=== PATIENT | male | born 1940 | race Caucasian/White ===

== ENCOUNTER 2017-11-03 08:19 | Day surgery (SDC) | payer OTHER, BC ==
[2017-10-29 08:59] VITALS: BMI 30.4
--- NOTE | 2017-11-03 10:03 | HP ---
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 He comes in today for surgical management History Source: Patient, Medical Record Limitations to Obtaining History: No Limitations - Past Medical History Allergies/Adverse Reactions: Allergies Allergy/AdvReac Type Severity Reaction Status Date / Time iodine Allergy Rash Verified 10/29/17 09:00 Sulfa (Sulfonamide Allergy "KIDNEY Verified 10/29/17 09:00 Antibiotics) ISSUES" IRIDOLOGIST: No: Alzheimer's, CVA, Dementia, Migraine, Multiple Sclerosis, Peripheral Neuropathy, Parkinson's, Seizure, Syncope, TIA, Vertigo, Other Cardiovascular: Yes: CAD Pulmonary: No: Asthma, Bronchitis, Cancer, COPD, O2 Dependent, Pneumonia, Previously Intubated, Pulmonary Embolus, Pulmonary Fibrosis, Sleep Apnea, Other Renal/: Yes: Cancer, UTI - Current Medications Current Medications: Home Medications Medication Instructions Recorded Cholecalciferol (Vitamin D3) 2,000 unit PO DAILY 08/02/12 [Vitamin D] Spironolactone 50 mg PO DAILY 01/15/14 Ubidecarenone [Co Q-10] 1 cap PO DAILY 07/03/14 Nebivolol HCl [Bystolic] 10 mg PO DAILY tablet 02/08/15 Escitalopram Oxalate [Lexapro -] 20 mg PO DAILY 10/24/16 Losartan Potassium 100 mg PO DAILY 10/24/16 Mirabegron [Myrbetriq] 25 mg PO DAILY 10/24/16 Omeprazole 20 mg PO DAILY 10/24/16 Cyanocobalamin (Vitamin B-12) 2,500 mcg SL DAILY 11/03/17 [Vitamin B-12] Ezetimibe [Zetia] 10 mg PO DAILY 11/03/17 Famotidine 20 mg PO DAILY 11/03/17 Simvastatin 20 mg PO HS 11/03/17 Torsemide 5 mg PO DAILY 11/03/17 Satellite Physical Exam - Physical Examination Vital Signs: Vital Signs Period Temp Pulse Resp BP Sys/Barber Pulse Ox Last 24 Hr 97.5 F 64 18 142/89 97 General Appearance: Well Nourished, Well Developed, Alert & Oriented x3 ENT: Clear Lung: Clear to auscultation Heart: Regular rate & rhythm Abdomen: Soft, No tenderness, Normal bowel sounds, No CVA Pelvic Exam: Within normal limits External Genitalia Satellite Impression/Plan - Impression/Plan Impression: bladder neck stricture Operative Procedure: resection of bladder neck Date to be Performed: 11/03/17
[2017-11-03] MEDS ORDERED: ACETAMINOPHEN 1000 MG/100 ML VIAL (NON FORMULARY) IVPB ONE (10:04)
[2017-11-03] MEDS ORDERED: IBUPROFEN 800 MG/8 ML IJ IVPB PRN (10:04)
--- NOTE | 2017-11-03 10:04 | HP ---
History & Physical Update - History History: No Change - Physical Physical: No Change - Assessment Assessment: No Change - Plan Plan: No Change
[2017-11-03] MEDS ORDERED: ONDANSETRON 4 MG/2 ML VIAL IVPUSH PRN (10:05)
[2017-11-03] MEDS ORDERED: PROMETHAZINE HCL 25 MG/1 ML VIAL IVPUSH PRN (10:05)
[2017-11-03] MEDS ORDERED: LACTATED RINGERS SOLUTION 1,000 ML IV SCH (10:15)
[2017-11-03] MEDS ORDERED: DEXTROSE 5%-0.45% SALINE 1,000 ML IV SCH (10:15)
[2017-11-03] MEDS ORDERED: PROPOFOL 20 ML ONE ×2 (10:23)
[2017-11-03] MEDS ORDERED: MIDAZOLAM HCL 2 MG/2 ML SINGLE DOSE VIAL ONE (10:23)
[2017-11-03] MEDS ORDERED: LIDOCAINE HCL/PF 2% SDV 5ML VIAL ONE (10:24)
[2017-11-03] MEDS ORDERED: GLYCOPYRROLATE 0.2 MG/1 ML VIAL ONE (10:25)
[2017-11-03] MEDS ORDERED: ceFAZolin SODIUM 1 GM VIAL IVPB ONE (10:42)
[2017-11-03] MEDS ORDERED: ceFAZolin SODIUM 1 GM VIAL ONE (10:44)
[2017-11-03] MEDS ORDERED: DEXAMETHASONE SOD PHOSPHATE 4 MG/1 ML VIAL ONE (10:44)
[2017-11-03] MEDS ORDERED: SODIUM CHLORIDE 0.9% P/F 10 ML VIAL IJ ONE (10:44)
[2017-11-03] MEDS ORDERED: METOPROLOL TARTRATE 5 MG/5 ML VIAL ONE (10:59)
[2017-11-03] MEDS ORDERED: ACETAMINOPHEN INJECTION 100 ML IVPB ONE (12:03)
[2017-11-03 13:31] VITALS: TEMP 98
--- NOTE | 2017-11-03 13:41 | OP ---
DATE OF OPERATION: 11/03/2017 PREOPERATIVE DIAGNOSIS: Bladder neck stricture. POSTOPERATIVE DIAGNOSIS: Bladder neck stricture and prostatic stones. SURGEON: James Cornelius MD PROCEDURE: Cystoscopy, resection of bladder neck, and laser lithotripsy of bladder stones. ESTIMATED BLOOD LOSS: Minimal. SPECIMENS: Include prostate chips and portion of stones. ANESTHESIA: General. ANESTHESIOLOGIST: Lionel Arana MD DRAIN: Geronimo catheter. PREOPERATIVE INDICATIONS: The patient is a 77-year-old male with history of prostate cancer treated with seeds followed by cryotherapy. He has recurrent bladder neck stricture and scarring with difficulty urinating. He has incontinence prior as well. He comes to the OR. OPERATION: The patient was brought to the OR, placed on the table in the supine position, given general anesthesia and IV antibiotics, and placed in the modified lithotomy position. The groin was prepped and draped sterilely, and time-out was performed. Cystoscopy was performed with the resectoscope. The distal urethra had some strictures, which were dilated using curved sounds. At the bladder neck, there was almost complete obliteration of the bladder neck. The guidewire was passed into the bladder. The bladder neck was then dilated to accommodate the scope, and then, the bipolar resectoscope was used to resect the tissue that was obstructive. This resulted in a more open bladder neck. Of note, were 2 large stones, 1 on each side of the prostatic urethra. These were dislodged and then placed into the bladder. Prostate chips were sent out to Pathology. Using the 1000 Fiber Holmium Laser, the stone was broken up. Portions were sent off for pathology. UOs were intact. No evidence of injury to them. The bladder was also intact. An 18-Portuguese Geronimo catheter was placed was placed over wire with clear efflux. Patient was woken up. JAMES CORNELIUS M.D. [id number]
[2017-11-03] MEDS ORDERED: IBUPROFEN 800 MG/8 ML IJ IVPB ONE (14:38)
[2017-11-03] MEDS ORDERED: IBUPROFEN 400 MG TABLET (FP) PO ONE ×2 (15:08→15:09)
[2017-11-03 18:26] VITALS: BP 160/70; PULSE 70
--- NOTE | 2017-11-04 10:56 | PATH ---
Surgical Pathology Report Patient Name: EDEN CALVO Med. Rec. #: [id number] /Age/Gender: 1940 (Age: 77) / M Account: [id number] Location: [facility] SURGICAL Taken: 11/03/2017 Received: 11/03/2017 Reported: 11/04/2017 Physicians: Dustin Cornelius M.D. Specimen(s) Received A: PROSTATE CHIPS B: STONE FRAGMENTS Clinical History Prostate cancer Final Diagnosis A. PROSTATE, TUR: BENIGN PROSTATIC HYPERPLASIA WITH AREA OF NECROSIS, ALONG WITH CORPORA AMYLACEA. NO CARCINOMA IDENTIFIED. B. CALCULI, EXTRACTION: PORTIONS OF CALCULI (GROSS ONLY). Electronically Signed Daryl Mistry M.D. Gross Description A. Received in formalin labeled "prostate chips," is a less than 1 g, 1.2 x 1.0 x 0.2 cm aggregate of bolton soft tissue fragments, consistent with prostate tissue. The specimen is entirely submitted in one cassette. B. Received in formalin labeled "stone fragments," is a 2.0 x 1.5 x 0.2 cm aggregate of bolton, fragmented calculi. No soft tissue is present. No sections are submitted, gross only. /11/03/2017 saudi11/03/2017
== END 2017-11-03 16:00 | disposition home or self-care (01) ==
LOC: JASU-SURG 08:19
PROVIDERS: ATTEND Urology
PROC: 0TBC8ZZ Excision of Bladder Neck, Via Natural or Artificial Opening Endoscopic (ICD-10-PCS; 2017-11-03)
PROC: 0TCB8ZZ Extirpation of Matter from Bladder, Via Natural or Artificial Opening Endoscopic (ICD-10-PCS; principal; 2017-11-03 10:00)
DX: N32.0 Bladder-neck obstruction (principal); Z85.46 Personal history of malignant neoplasm of prostate; N21.0 Calculus in bladder; N39.498 Other specified urinary incontinence
CPT/HCPCS: 88300-TC; 88305-TC; 94760

== ENCOUNTER 2018-04-08 15:52 | Inpatient (IN) | payer OTHER, BC ==
--- NOTE | 2018-04-08 15:59 | PDOC ---
History of Present Illness - General History Source: Patient Exam Limitations: No Limitations <Elizabeth Caal - Last Filed: 04/08/18 18:37> - History of Present Illness Initial Comments: 04/08/18 17:37 The patient is a 78 year old male, with a significant past medical history of Prostate cancer, tumors on kidneys (takes Spironolactone), GI bleed, colon polyps, CAD (but no major interventions), HTN, HLD, borderline diabetes, asthma , urinary incontinence and recent urethral stricture (05/2016) s/p fowler catheter for 2 weeks, who presents to the emergency department with right groin pain for the last several days. The patient was seen by a urologist who told him to come to the ER if the pain persisted. He also reports constipation for the past four days. Patient states he has been taking miralax daily with no improvement. Patient has been on levaquin for the past week. The patient denies chest pain, shortness of breath, headache and dizziness. Denies fever, chills, nausea, vomit and diarrhea. Denies frequency and urgency. Allergies: Iodine, sulfa Past surgical history: Appendectomy, cholecystectomy, right wrist surgery, right knee arthroscopy, urethral stricture (05/2016) Social Hx: Quit smoking 40 years ago. Denies alcohol use. PCP: Dr. Michelle OSBORNE - Dr. Cornelius <Elmira Hurtado - Last Filed: 04/08/18 19:18> - General Chief Complaint: Constipation Stated Complaint: CONSTIPATION,BACK ABD PAIN Time Seen by Provider: 04/08/18 15:53 Past History - Past Medical History Anemia: No Asthma: Yes (seasonal) Cancer: Yes (PROSTATE ca rx with [id number]) Cardiac Disorders: Yes CVA: No COPD: No CHF: No Dementia: No Diabetes: Yes (NIDDM) GI Disorders: Yes (HEMORRHOIDS;GI BLEED,GERD;H/H;COLON POLYPS) Disorders: Yes (URINARY INCONTINENCE) HTN: Yes Hypercholesterolemia: Yes Liver Disease: No Seizures: No Thyroid Disease: No - Surgical History Abdominal Surgery: No Appendectomy: Yes Cardiac Surgery: No Cholecystectomy: Yes Lung Surgery: No Neurologic Surgery: No Orthopedic Surgery: Yes (RIGHT KNEE ARTHROSCOPY; WRIST SURGERY) - Suicide/Smoking/Psychosocial Hx Smoking Status: Yes Smoking History: Former smoker Have you smoked in the past 12 months: No Number of Cigarettes Smoked Daily: 0 If you are a former smoker, when did you quit?: 37 YRS AGO Hx Alcohol Use: No Drug/Substance Use Hx: No Substance Use Type: None Hx Substance Use Treatment: No <Elizabeth Caal - Last Filed: 04/08/18 18:37> <Elmira Hurtado - Last Filed: 04/08/18 19:18> - Past Medical History Allergies/Adverse Reactions: Allergies Allergy/AdvReac Type Severity Reaction Status Date / Time iodine Allergy Rash Verified 04/08/18 16:07 Sulfa (Sulfonamide Allergy "KIDNEY Verified 04/08/18 16:07 Antibiotics) ISSUES" Home Medications: Ambulatory Orders Cholecalciferol (Vitamin D3) [Vitamin D] 4,000 unit PO DAILY 08/02/12 Ubidecarenone [Co Q-10] 1 cap PO DAILY 07/03/14 Nebivolol HCl [Bystolic] 10 mg PO DAILY tablet 02/08/15 Escitalopram Oxalate [Lexapro -] 20 mg PO DAILY 10/24/16 Losartan Potassium 50 mg PO DAILY 10/24/16 Mirabegron [Myrbetriq] 25 mg PO DAILY 10/24/16 Cyanocobalamin (Vitamin B-12) [Vitamin B-12] 2,500 mcg SL DAILY 11/03/17 Ezetimibe [Zetia] 10 mg PO DAILY 11/03/17 Famotidine 20 mg PO DAILY 11/03/17 Simvastatin 20 mg PO HS 11/03/17 Ammonium Lactate Cream [Lac-Hydrin 12% *Cream*] 1 applic TP ASDIR 04/08/18 Gabapentin [Neurontin -] 300 mg PO BID 04/08/18 Polyethylene Glycol 3350 [Miralax (For Bowel Prep) -] 17 gm PO PRN PRN 04/08/18 Review of Systems - Review of Systems Able to Perform ROS?: Yes Comments:: 04/08/18 17:36 GENERAL/CONSTITUTIONAL: No fever or chills. No weakness. HEAD, EYES, EARS, NOSE AND THROAT: No change in vision. No ear pain or discharge. No sore throat. CARDIOVASCULAR: No chest pain or shortness of breath. RESPIRATORY: No cough, wheezing, or hemoptysis. GASTROINTESTINAL: No nausea, vomiting, diarrhea or constipation. GENITOURINARY:(+) Right groin pain. No dysuria, frequency, or change in urination. MUSCULOSKELETAL: No joint or muscle swelling or pain. No neck or back pain. SKIN: No rash NEUROLOGIC: No headache, vertigo, loss of consciousness, or change in strength/ sensation. ENDOCRINE: No increased thirst. No abnormal weight change. HEMATOLOGIC/LYMPHATIC: No anemia, easy bleeding, or history of blood clots. ALLERGIC/IMMUNOLOGIC: No hives or skin allergy. <Elmira Hurtado - Last Filed: 04/08/18 19:18> *Physical Exam - Vital Signs Last Vital Signs Temp Pulse Resp BP Pulse Ox 98.5 F 71 20 152/82 98 04/08/18 15:53 04/08/18 15:53 04/08/18 15:53 04/08/18 15:53 04/08/18 15:53 - Physical Exam Comments: 04/08/18 17:36 GENERAL: The patient is in no acute distress. HEAD: Normal with no signs of trauma. EYES: PERRLA, EOMI, sclera anicteric, conjunctiva clear. ENT: Ears normal, nares patent, oropharynx clear without exudates. Moist mucous membranes. NECK: Normal range of motion, supple without lymphadenopathy, JVD, or masses. LUNGS: Breath sounds equal, clear to auscultation bilaterally. No wheezes, and no crackles. HEART:Regular rate and rhythm, normal S1 and S2 without murmur, rub or gallop. ABDOMEN: (+) Suprapunic and RLQ tenderness. Soft, normoactive bowel sounds. No guarding, no rebound. No masses palpable. Non distended. Not tympanic. : No external hemorrhoids. No impacted stool in the rectum. EXTREMITIES: Normal range of motion, no edema. No clubbing or cyanosis. No erythema, or tenderness. NEUROLOGICAL: Cranial nerves II through XII grossly intact. Normal speech. No focal neurological deficits. MUSCULOSKELETAL: Back non-tender to palpation, no CVA tenderness SKIN: Warm, Dry, normal turgor, no rashes or lesions noted. <Elmira Hurtado - Last Filed: 04/08/18 19:18> ED Treatment Course - LABORATORY CBC & Chemistry Diagram: 04/08/18 17:30 04/08/18 17:30 <Elizabeth Caal - Last Filed: 04/08/18 18:37> - LABORATORY CBC & Chemistry Diagram: 04/08/18 17:30 04/08/18 17:30 <Elmira Hurtado - Last Filed: 04/08/18 19:18> Medical Decision Making - Medical Decision Making 04/08/18 17:54 Mr Marie is an 78 yo M h/o Prostate cancer s/p prostatectomy, cryo and radiation with resulting uretheral stricture s/p dilation procedure with resulting urinary incontinence, tumors on kidneys (takes Spironolactone), GI bleed, colon polyps, CAD, HTN, HLD, borderline diabetes, asthma, urinary incontinence He has complainted of some lower abdominal pain PMD started Levaquin last week and ordered Pelvic CT as well as Ultrasound His CT demonstrates emphasematous cystitis, stranding around the bladder US no acute pathology Pt contacted [place] urologist in the city who recommended that he stop the Levaquin and start Amoxicillin He has taken one dose thus far He also noted constipation for the past 4 days Possible fevers No nausea, vomiting, diarrhea Pt is incontinent of urine One examination: RRR CTA Suprapubic and RLQ tenderness to palpation (+) voluntary guarding No rebound Will do: Labs Contact Dr Jefferson Will start abx Rectal examination does not reveal fecal impaction May proceed with enema 04/08/18 18:02 Laboratory Tests 03/24/18 04/05/18 04/08/18 11:00 13:05 17:30 WBC 15.1 H 12.4 H Hgb 11.3 L 10.4 L Hct 35.0 L 31.4 L Plt Count 499 H D 441 H Sodium Potassium Chloride Carbon Dioxide BUN 39 H Creatinine 1.6 H Random Glucose 139 H D 04/08/18 17:30 WBC Hgb Hct Plt Count Sodium 130 L Potassium 4.7 Chloride 101 Carbon Dioxide 23 BUN 45 H Creatinine 1.3 Random Glucose 160 H 04/08/18 18:37 IV abx May need suprapubic tube Fowler cathether will be challenging 04/08/18 18:47 Admit to hospitalist Clinical IMpression: emphasematous cystitis, initial presentation <Elizabeth Caal - Last Filed: 04/08/18 18:37> *DC/Admit/Observation/Transfer - Discharge Dispostion Decision to Admit order: Yes <Elizabeth Caal - Last Filed: 04/08/18 18:37> - Attestations Scribe Attestion: 04/08/18 17:39 Documentation prepared by Elmira Hurtado, acting as medical charge entry specialist for Elizabeth Caal MD. <Elmira Hurtado - Last Filed: 04/08/18 19:18> Diagnosis at time of Disposition: Emphysematous cystitis - Discharge Dispostion Condition at time of disposition: Stable
[2018-04-08 17:46] LABS: HEMATOCRIT 31.4 % (35.4-49); HEMOGLOBIN 10.4 GM/dl (11.7-16.9); MCH 26.8 pg (25.7-33.7); MCHC 33.1 g/dl (32.0-35.9); PLATELET COUNT 441 K/MM3 (134-434); RBC 3.88 M/mm3 (4.00-5.60); WHITE BLOOD COUNT 12.4 K/mm3 (4.0-10.8)
[2018-04-08 17:55] LABS: ALBUMIN 2.7 g/dl (3.5-5.0); ALK PHOS 76 U/L (32-92); ANION GAP 6 (8-16); BLOOD UREA NITROGEN 45 mg/dl (7-18); CALCIUM 8.7 mg/dl (8.4-10.2); CHLORIDE 101 mmol/L (98-107); CO2 23 mmol/L (22-28); CREATININE 1.3 mg/dl (0.6-1.3); GLUCOSE,RANDOM 160 mg/dl (74-106); POTASSIUM 4.7 mmol/L (3.5-5.1); SGOT/AST 18 U/L (10-42); SGPT/ALT 15 U/L (10-40); SODIUM 130 mmol/L (136-145); TOT PROT 5.9 g/dl (6.4-8.3)
[2018-04-08 17:56] LABS: MEAN PLT VOLUME 5.4 fl (7.5-11.1)
[2018-04-08 17:58] LABS: BILIRUBIN,TOTAL < 0.5 mg/dl (0.2-1.0)
[2018-04-08] MEDS ORDERED: CEFTRIAXONE 1 GM in DEXTROSE 5%-WATER - 50 ML IVPB ONE (18:01)
[2018-04-08] MEDS ORDERED: cefTRIAXone SODIUM 1 GM VIAL ONE (18:41)
[2018-04-08 18:54] LABS: PH,URINE 5.5 (4.5-8); URINE APPEARANCE Clear; URINE BILIRUBIN Negative (NEGATIVE); URINE GLUCOSE (UA) Negative (NEGATIVE); URINE KETONE Negative (NEGATIVE); URINE NITRITE Negative (NEGATIVE); URINE UROBILINOGEN 0.2 (0.2-1.0)
[2018-04-08 18:55] LABS: URINE COLOR YELLOW; URINE LEUK ESTERASE 1+ (NEGATIVE); URINE PROTEIN 3+ (NEGATIVE)
[2018-04-08 19:00] LABS: URINE BACTERIA MANY /hpf (NEGATIVE); URINE RBC 20-30 /hpf (0-3); URINE WBC >100 (0-2)
[2018-04-08 19:01] LABS: PLATELET ESTIMATE SLT INCREASE
--- NOTE | 2018-04-08 22:56 | HP ---
CHIEF COMPLAINT: R- Groin Pain, Constipation PCP: Dr. Martinez Urologist- from [place] Urologist: Dr. Cornelius HISTORY OF PRESENT ILLNESS: This is a 78 y/o man with a PMH of Prostate Ca (prostatectomy), cryo radiation- urethral stricture, s/p dilation, tumor on kidneys, colon polyps, CAD, HTN, Borderline DM, Asthma, Urinary Incontinence. Who presents to the ED with R- groin pain x several weeks, constipation x 4-5 days. Patient reports seeing his PCP for same and having a Pelvic CT which showed Emphysematous Cystitis. Patient reports completing Levaquin, post urological procedure, then was placed on Amoxicillin from his [place] Urologist for the continued groin pain. Patient reports starting a new diet fruit based and reports not having a BM for at least 4 days. Patient denies fever, chills, cough, SOB, CP, N/V/D. 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[employer] , [employer], [employer]) Family History: Father: Colon Ca Mother: Lymphoma, HTN Sister: Breast Ca Brother: Prostate Allergies iodine Allergy (Verified 04/08/18 16:07) Rash IVP DYE Sulfa (Sulfonamide Antibiotics) Allergy (Verified 04/08/18 16:07) "KIDNEY ISSUES" HOME MEDICATIONS: Home Medications Medication Instructions Recorded Cholecalciferol (Vitamin D3) 4,000 unit PO DAILY 08/02/12 [Vitamin D] Ubidecarenone [Co Q-10] 1 cap PO DAILY 07/03/14 Nebivolol HCl [Bystolic] 10 mg PO DAILY tablet 02/08/15 Escitalopram Oxalate [Lexapro -] 20 mg PO DAILY 10/24/16 Losartan Potassium 50 mg PO DAILY 10/24/16 Mirabegron [Myrbetriq] 25 mg PO DAILY 10/24/16 Cyanocobalamin (Vitamin B-12) 2,500 mcg SL DAILY 11/03/17 [Vitamin B-12] Ezetimibe [Zetia] 10 mg PO DAILY 11/03/17 Famotidine 20 mg PO DAILY 11/03/17 Simvastatin 20 mg PO HS 11/03/17 Ammonium Lactate Cream [Lac-Hydrin 1 applic TP ASDIR 04/08/18 12% *Cream*] Gabapentin [Neurontin -] 300 mg PO BID 04/08/18 Polyethylene Glycol 3350 [Miralax 17 gm PO PRN PRN 04/08/18 (For Bowel Prep) -] REVIEW OF SYSTEMS CONSTITUTIONAL: Absent: fever, chills, diaphoresis, generalized weakness, malaise, loss of appetite, weight change HEENT: Absent: rhinorrhea, nasal congestion, throat pain, throat swelling, difficulty swallowing, mouth swelling, ear pain, eye pain, visual changes CARDIOVASCULAR: Absent: chest pain, syncope, palpitations, irregular heart rate, lightheadedness , peripheral edema RESPIRATORY: Absent: cough, shortness of breath, dyspnea with exertion, orthopnea, wheezing, stridor, hemoptysis GASTROINTESTINAL: constipation Absent: abdominal pain, abdominal distension, nausea, vomiting, diarrhea, melena , hematochezia GENITOURINARY: groin pain Absent: dysuria, frequency, urgency, hesitancy, hematuria, flank pain, genital pain MUSCULOSKELETAL: back pain Absent: myalgia, arthralgia, joint swelling, neck pain SKIN: Absent: rash, itching, pallor HEMATOLOGIC/IMMUNOLOGIC: Absent: easy bleeding, easy bruising, lymphadenopathy, frequent infections ENDOCRINE: Absent: unexplained weight gain, unexplained weight loss, heat intolerance, cold intolerance NEUROLOGIC: Absent: headache, focal weakness or paresthesias, dizziness, unsteady gait, seizure, mental status changes, bladder or bowel incontinence PSYCHIATRIC: Absent: anxiety, depression, suicidal or homicidal ideation, hallucinations. PHYSICAL EXAMINATION Vital Signs - 24 hr 04/08/18 04/08/18 15:53 22:00 Temperature 98.5 F 98.4 F Pulse Rate 71 65 Respiratory 20 16 Rate Blood Pressure 152/82 131/71 O2 Sat by Pulse 98 97 Oximetry (%) GENERAL: Awake, alert, and fully oriented, in no acute distress. HEAD: Normal with no signs of trauma. EYES: Pupils equal, round and reactive to light, extraocular movements intact, sclera anicteric, conjunctiva clear. No lid lag. EARS, NOSE, THROAT: Ears normal, nares patent, oropharynx clear without exudates. Moist mucous membranes. NECK: Normal range of motion, supple without lymphadenopathy, JVD, or masses. LUNGS: Breath sounds equal, clear to auscultation bilaterally. No wheezes, and no crackles. No accessory muscle use. HEART: Regular rate and rhythm, normal S1 and S2 without murmur, rub or gallop. ABDOMEN: Soft, nontender, not distended, normoactive bowel sounds, no guarding, no rebound, no masses. No hepatomegaly or splenomegaly. GENITOURINARY: No groin tenderness, no palpable mass, no scrotal swelling MUSCULOSKELETAL: Normal range of motion at all joints. No bony deformities or tenderness. No CVA tenderness. UPPER EXTREMITIES: 2+ pulses, warm, well-perfused. No cyanosis. No clubbing. No peripheral edema. LOWER EXTREMITIES: 2+ pulses, warm, well-perfused. No calf tenderness. No peripheral edema. NEUROLOGICAL: Cranial nerves II-XII intact. Normal speech. Gait not observed. PSYCHIATRIC: Cooperative. Good eye contact. Appropriate mood and affect. SKIN: Warm, dry, normal turgor, no rashes or lesions noted, normal capillary refill. Laboratory Results - last 24 hr 04/08/18 04/08/18 04/08/18 17:30 17:30 18:47 WBC 12.4 H RBC 3.88 L Hgb 10.4 L Hct 31.4 L MCV 81.0 MCH 26.8 MCHC 33.1 RDW 14.0 Plt Count 441 H MPV 5.4 L Absolute Neuts (auto) 10.4 Neutrophils % No Result Required. Neutrophils % (Manual) 90.0 H Band Neutrophils % 1.0 Lymphocytes % No Result Required. Lymphocytes % (Manual) 5.0 L Monocytes % (Manual) 4 Platelet Estimate Slt increase Sodium 130 L Potassium 4.7 Chloride 101 Carbon Dioxide 23 Anion Gap 6 L BUN 45 H Creatinine 1.3 Creat Clearance w eGFR 53.12 Random Glucose 160 H Calcium 8.7 Total Bilirubin < 0.5 AST 18 ALT 15 D Alkaline Phosphatase 76 Total Protein 5.9 L Albumin 2.7 L Urine Color Yellow Urine Appearance Clear Urine pH 5.5 Ur Specific Mascot 1.020 Urine Protein 3+ H Urine Glucose (UA) Negative Urine Ketones Negative Urine Blood 2+ H Urine Nitrite Negative Urine Bilirubin Negative Urine Urobilinogen 0.2 Ur Leukocyte Esterase 1+ H Urine RBC 20-30 Urine WBC >100 Urine Bacteria Many ASSESSMENT/PLAN: This is a 78 y/o man with a PMH Prostate Ca (prostatectomy), Cryo Radiation- Urethral Stricture, s/p Dilation, Tumors on Kidneys, Colon Polyps, CAD, HTN, Borderline DM, Asthma, Urinary Incontinence. Admitted for Emphysematous Cystitis , Constipation. Plan: 1. Emphysematous Cystitis - Failed Outpatient Therapy ABX - UA: +3 protein, +2 blood, +1 leukocyte esterase, >100 WBCs, 20-30 RBCs, many Bacteria - Urine Culture pending - WBC 12.4 with L- shift - Rocephin given in ED, will continue - Appreciate Urology consult - Appreciate ID consult - Repeat CBC, BMP in am - Monitor vitals - Tylenol prn - NPO 2. Constipation - Will order Abdominal CT r/o obstruction - Consider Mag Citrate or Enema if CT shows retained stool 3. Hyponatremia - Likely secondary to renal losses vs ARF vs ADH - Will order urine osmo, urine Na, serum osm - Repeat BMP in am - Gentle IVF 4. Hypertension - stable - Monitor BP - Continue home meds - Monitor renal function 5. Boderline DM - stable - BGMs - Consider ISS, when diet resumed 6. Asthma - stable - Duonebs prn 7. FEN - D51/2NS@42ml/hr - K repleted, monitor - NPO 8. DVT ppx - OOB - SCDs - Hold AC secondary to Hematuria Code Status: Full Code Dispo: Requires Inpatient Care Problem List - Problem (1) Emphysematous cystitis Code(s): N30.80 - OTHER CYSTITIS WITHOUT HEMATURIA (2) Groin pain Code(s): R10.30 - LOWER ABDOMINAL PAIN, UNSPECIFIED (3) Constipation Code(s): K59.00 - CONSTIPATION, UNSPECIFIED (4) HTN (hypertension) Code(s): I10 - ESSENTIAL (PRIMARY) HYPERTENSION (5) CAD (coronary artery disease) Code(s): I25.10 - ATHSCL HEART DISEASE OF [place] CORONARY ARTERY W/O ANG PCTRS Visit type - Emergency Visit Emergency Visit: Yes ED Registration Date: 04/08/18 Care time: The patient presented to the Emergency Department on the above date and was hospitalized for further evaluation of their emergent condition. - New Patient This patient is new to me today: Yes Date on this admission: 04/08/18 - Critical Care Critical Care patient: No Hospitalist Screening - Colonoscopy Questionnaire Colonoscopy Questionnaire: Colonoscopy Questionnaire - Patient: 50 - 75 years old and never had a screening colonoscopy: No History of colon or rectal polyps, or CA: No History of IBD, Crohn's disease or UC: No History of abdominal radiation therapy as a child: No - Relative: 1 with colon or rectal CA, or polyps at age 60 or younger: Yes Colon or rectal CA diagnosed at age 45 or younger: No Multiple relatives with colon or rectal CA: Yes - Outcome: Screening Result: Positive Screen
[2018-04-08 23:38] VITALS: BMI 31.8
[2018-04-09] MEDS: DEXTROSE 5%-0.45% SALINE 1,000 ML IV SCH (01:18)
[2018-04-09] MEDS: GABAPENTIN 300 MG CAPSULE (FP) PO SCH ×3 (01:18→21:41)
[2018-04-09 08:44] LABS: ANION GAP 7 (8-16); BLOOD UREA NITROGEN 32 mg/dl (7-18); CALCIUM 9.3 mg/dl (8.4-10.2); CHLORIDE 103 mmol/L (98-107); CO2 24 mmol/L (22-28); GLUCOSE,RANDOM 118 mg/dl (74-106); POTASSIUM 4.6 mmol/L (3.5-5.1); SODIUM 134 mmol/L (136-145)
[2018-04-09 08:47] LABS: BASO % 0.4 % (0-2.0); EOS % 3.3 % (0-4.5); HEMATOCRIT 30.5 % (35.4-49); LYMPH % 16.2 % (8-40); MCH 26.8 pg (25.7-33.7); MCHC 32.9 g/dl (32.0-35.9); MEAN CELL VOLUME 81.4 fl (80-96); MONO % 8.8 % (3.8-10.2); NEUT % 71.3 % (42.8-82.8); PLATELET COUNT 437 K/MM3 (134-434); RBC 3.74 M/mm3 (4.00-5.60); RDW 13.5 % (11.9-15.9); WHITE BLOOD COUNT 9.9 K/mm3 (4.0-10.8)
[2018-04-09 09:01] LABS: MEAN PLT VOLUME 5.2 fl (7.5-11.1)
--- NOTE | 2018-04-09 09:01 | PN ---
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
--- NOTE | 2018-04-09 09:49 | CONS ---
DATE OF CONSULTATION: DATE OF DICTATION: 04/09/2018 HISTORY OF PRESENT ILLNESS: The patient is an 78-year-old male who is evaluated for a urinary tract infection. The patient has a history of prostate cancer. He is status post prostate surgery, cryotherapy and radiation. His course has been complicated by a urethral stricture which requires occasional dilatation. His last dilatation procedure was approximately 3 months ago. He now presents with worsening right groin pain and constipation. He presented to his urologist where he received a course of Levaquin for 1 week for a possible urinary tract infection followed by a short course of amoxicillin. The pain persisted. He presented to the emergency room where he was afebrile with a slightly elevated white blood cell count. CAT scan of the abdomen and pelvis shows emphysematous cystitis. He was empirically treated with ceftriaxone. The patient reports urinary incontinence. He denies any dysuria or hematuria. Denies prior history of resistant urinary tract pathogens. On review of his previous microbiology data he has had numerous urine cultures which were described as contaminated. He denies any associated fever or chills. PAST MEDICAL HISTORY: Positive for prostate cancer, status post surgery and radiation, coronary artery disease, hypertension, hyperlipidemia, diabetes mellitus, asthma, urethral stricture. PAST SURGICAL HISTORY: Status post prostatectomy, appendectomy, dilatation of urethral stricture, cholecystectomy. ALLERGIES: IODINE and SULFA. SOCIAL HISTORY: Lives at home. He is a former smoker. 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 SYSTEMS REVIEW: Neurologic: No loss of consciousness, seizure activity, focal weakness. Cardiac: Negative chest pain or palpitations. Respiratory: Negative cough or sputum production. Gastrointestinal: Negative vomiting or diarrhea. Genitourinary: As per HPI. LABORATORY DATA: White count 12.4, hematocrit 31.4, platelet count 441. Creatinine 1.3. Urinalysis: Greater than 100 white cells. Blood and urine cultures are pending. Chest x-ray shows pulmonary vascular congestion. PHYSICAL EXAMINATION: General: He is awake and alert. He is in no acute respiratory distress. He is nontoxic appearing. Vital Signs: Temperature 98.4, blood pressure 135/86, pulse 65, regular, respirations 19 per minute. HEENT: Sclerae are anicteric. Cardiac: Heart sounds S1, S2. Lungs: Clear. Abdomen: Soft. There is slight tenderness in the suprapubic area and right groin area. No mass, rebound or rigidity. Extremities: Negative for edema. IMPRESSION: 1. Urinary tract infection/possible sepsis secondary to urinary tract infection. 2. Emphysematous cystitis. 3. History of urethral stricture/obstructive uropathy. 4. History of prostate cancer. 5. Diabetes mellitus. RECOMMENDATIONS: Pending sepsis workup empiric antibiotic coverage with Zosyn 3.375 g IV piggyback every 8 hours. Urology evaluation. Thank you for the kind referral. ARIANA REDDY M.D. [id number]
[2018-04-09] MEDS ORDERED: CEFTRIAXONE 1 G/50 ML PREMIX 50 ML IVPB SCH (10:00)
[2018-04-09] MEDS: PIPERACILLIN/TAZOB 3.375 GM 3.375 GM in DEXTROSE 5%-WATER - 50 ML IVPB SCH ×2 (11:08→18:21)
[2018-04-09] MEDS: ESCITALOPRAM OXALATE 20 MG TABLET (FP) PO SCH (11:12)
[2018-04-09] MEDS: EZETIMIBE 10 MG TABLET (FP) PO SCH (11:13)
[2018-04-09] MEDS: NEBIVOLOL 10 MG TABLET (FP) PO SCH (11:14)
[2018-04-09] MEDS: LOSARTAN POTASSIUM 50 MG TABLET (FP) PO SCH (11:14)
--- NOTE | 2018-04-09 12:00 | PN ---
Progress Note (short form) - Note Progress Note: Subjective: The patient was seen and examined at the bedside, he has complaints of lower back pain and b/l groin pain. Current Medications Generic Name Dose Route Start Last Admin Trade Name Freq PRN Reason Stop Dose Admin Atorvastatin Calcium 10 mg 04/09/18 22:00 Lipitor - PO HS YAYA Ezetimibe 10 mg 04/09/18 10:00 04/09/18 11:13 Zetia - PO 10 mg DAILY YAYA Administration Escitalopram Oxalate 20 mg 04/09/18 10:00 04/09/18 11:12 Lexapro - PO 20 mg DAILY YAYA Administration Gabapentin 300 mg 04/09/18 00:45 04/09/18 11:09 Neurontin - PO 300 mg BID YAYA Administration Dextrose/Sodium Chloride 1,000 mls @ 42 mls/hr 04/09/18 01:00 04/09/18 01:18 D5-1/2ns - IV 42 mls/hr ASDIR YAYA Administration Piperacillin Sod/Tazobactam 50 mls @ 100 mls/hr 04/09/18 10:00 04/09/18 11:08 Sod 3.375 gm/ Dextrose IVPB 100 mls/hr Q8H-IV YAYA Administration Protocol Losartan Potassium 50 mg 04/09/18 10:00 04/09/18 11:14 Cozaar - PO 50 mg DAILY YAYA Administration Morphine Sulfate 2 mg 04/09/18 12:01 Morphine Injection - IVPB Q4H PRN PAIN Nebivolol 10 mg 04/09/18 10:00 04/09/18 11:14 Bystolic - PO 10 mg DAILY YAYA Administration Objective: Vital Signs Period Temp Pulse Resp BP Sys/Barber Pulse Ox Last 24 Hr 98.4 F-98.5 F 65-71 16-20 131-152/71-86 95-98 Physical Exam: General: NAD, A&Ox3 Lungs: CTA bilaterally Heart: RRR, S1S2 Abd: No CVA tenderness, no lower back tenderness. Mild lower abdominal tenderness Ext: B/l lower extremity chronic venous changes CBCD WBC 9.9 K/mm3 (4.0-10.8) 04/09/18 07:30 RBC 3.74 M/mm3 (4.00-5.60) L 04/09/18 07:30 Hgb 10.0 GM/dl (11.7-16.9) L 04/09/18 07:30 Hct 30.5 % (35.4-49) L 04/09/18 07:30 MCV 81.4 fl (80-96) 04/09/18 07:30 MCHC 32.9 g/dl (32.0-35.9) 04/09/18 07:30 RDW 13.5 % (11.9-15.9) 04/09/18 07:30 Plt Count 437 K/MM3 (134-434) H 04/09/18 07:30 MPV 5.2 fl (7.5-11.1) L 04/09/18 07:30 CMP Sodium 134 mmol/L (136-145) L 04/09/18 07:30 Potassium 4.6 mmol/L (3.5-5.1) 04/09/18 07:30 Chloride 103 mmol/L (98-107) 04/09/18 07:30 Carbon Dioxide 24 mmol/L (22-28) 04/09/18 07:30 Anion Gap 7 (8-16) L 04/09/18 07:30 BUN 32 mg/dl (7-18) H D 04/09/18 07:30 Creatinine 1.0 mg/dl (0.6-1.3) D 04/09/18 07:30 Creat Clearance w eGFR 53.12 (>60) 04/08/18 17:30 Random Glucose 118 mg/dl (74-106) H D 04/09/18 07:30 Calcium 9.3 mg/dl (8.4-10.2) 04/09/18 07:30 Total Bilirubin < 0.5 mg/dl (0.2-1.0) 04/08/18 17:30 AST 18 U/L (10-42) 04/08/18 17:30 ALT 15 U/L (10-40) D 04/08/18 17:30 Alkaline Phosphatase 76 U/L (32-92) 04/08/18 17:30 Total Protein 5.9 g/dl (6.4-8.3) L 04/08/18 17:30 Albumin 2.7 g/dl (3.5-5.0) L 04/08/18 17:30 Assessment: This is a pleasant 78 year old male with PMHx of prostate cancer (s/ p prostatectomy) cryo radiation-uretheral stricture, s/p urethral dilatation, colon polyps, CAD, HTN, Asthma, urinary incontinence, borderline DM, who presented to the ED with emphysematous cystitis and constipation. Plan: 1) Emphysematous cystitis with possible UTI - Sepsis workup ongoing - Continue Zosyn for now - Afebrile - WBC now wnl - Morphine for pain control - Awaiting urology evaluation - Appreciate ID consult 2) Constipation - Resolved, patient had BM today - Will discontinue CT - Continue bowel regimen 3) HTN - Continue Cozaar - Continue Bystolic 4) Hyperlipidemia - Continue Zetia - Continue Lipitor 5) Asthma - No evidence of active exacerbation 6) Borderline DM - F/u HgbA1c 7) F/E/N: - Monitor electrolytes - Hyponatremia: resolving - NPO until evaluation by Dr. Hartmann 8) Prophylaxis: - Hold all chemical DVT prophylaxis until evaluated by urology 9) Dispo: - Requires continued inpatient care CODE STATUS: FULL CODE Visit type - Emergency Visit Emergency Visit: Yes ED Registration Date: 04/08/18 Care time: The patient presented to the Emergency Department on the above date and was hospitalized for further evaluation of their emergent condition. - New Patient This patient is new to me today: Yes Date on this admission: 04/09/18 - Critical Care Critical Care patient: No
[2018-04-09] MEDS: morphine CARPU-JECT 2 MG/1 ML DISP.SYRIN IVPB PRN ×3 (12:38→19:15)
--- NOTE | 2018-04-09 14:46 | EKG ---
Test Reason : Blood Pressure : / mmHG Vent. 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
[2018-04-09] MEDS: ATORVASTATIN CA 10 MG TABLET (FP) PO SCH (21:42)
[2018-04-10] MEDS: morphine CARPU-JECT 2 MG/1 ML DISP.SYRIN IVPB PRN (02:02)
[2018-04-10] MEDS: PIPERACILLIN/TAZOB 3.375 GM 3.375 GM in DEXTROSE 5%-WATER - 50 ML IVPB SCH ×3 (02:02→17:46)
[2018-04-10] MEDS: DEXTROSE 5%-0.45% SALINE 1,000 ML IV SCH (02:02)
[2018-04-10] MEDS ORDERED: DOCUSATE SODIUM 100 MG CAPSULE (FP) PO PRN (07:36)
[2018-04-10] MEDS ORDERED: morphine SULFATE 4 MG/ML VIAL IVPB PRN (07:49)
[2018-04-10 09:24] LABS: HEMOGLOBIN 10.3 GM/dl (11.7-16.9); MCH 26.5 pg (25.7-33.7); MCHC 32.3 g/dl (32.0-35.9); MEAN CELL VOLUME 82.3 fl (80-96); PLATELET COUNT 495 K/MM3 (134-434); RBC 3.89 M/mm3 (4.00-5.60); RDW 13.9 % (11.9-15.9); WHITE BLOOD COUNT 11.5 K/mm3 (4.0-10.8)
[2018-04-10 09:27] LABS: MEAN PLT VOLUME 5.5 fl (7.5-11.1)
[2018-04-10 09:46] LABS: ALBUMIN 2.6 g/dl (3.5-5.0); ALK PHOS 73 U/L (32-92); ANION GAP 9 (8-16); BILIRUBIN,TOTAL 0.3 mg/dl (0.2-1.0); BLOOD UREA NITROGEN 33 mg/dl (7-18); CALCIUM 9.3 mg/dl (8.4-10.2); CHLORIDE 99 mmol/L (98-107); CO2 25 mmol/L (22-28); CREATININE 1.3 mg/dl (0.6-1.3); GLUCOSE,RANDOM 117 mg/dl (74-106); SGOT/AST 20 U/L (10-42); SGPT/ALT 19 U/L (10-40); SODIUM 133 mmol/L (136-145); TOT PROT 5.6 g/dl (6.4-8.3)
[2018-04-10] MEDS: ESCITALOPRAM OXALATE 20 MG TABLET (FP) PO SCH (09:57)
[2018-04-10] MEDS: GABAPENTIN 300 MG CAPSULE (FP) PO SCH ×2 (09:57→21:54)
[2018-04-10] MEDS: LOSARTAN POTASSIUM 50 MG TABLET (FP) PO SCH ×2 (09:58→10:15)
[2018-04-10] MEDS: EZETIMIBE 10 MG TABLET (FP) PO SCH (09:59)
[2018-04-10] MEDS: POLYETHYLENE GLYCOL 3350 119 GM BTL PO SCH ×2 (09:59→10:44)
[2018-04-10] MEDS: NEBIVOLOL 10 MG TABLET (FP) PO SCH (10:05)
[2018-04-10] MEDS ORDERED: IBUPROFEN 400 MG TABLET (FP) PO PRN (11:27)
--- NOTE | 2018-04-10 11:34 | CON.GU ---
Consult Consult Specialty:: Referred by:: medicine Reason for Consultation:: prostate cancer, emphasematous cystitis - History of Present Illness Chief Complaint: prostate cancer, emphasematous cystitis History of Present Illness: 78 year old male with history of prostate cancer treated with radiation and then cryoablation with a chronic bladder neck contracture. He saw Dr. Amato in the [facility] who performed a TUR and bladder stone removal. He comes to [facility] with groin and back pain. He had a CT with findings as listed. He is able to void. - History Source History Provided By: Patient, Medical Record Limitations to Obtaining History: No Limitations - Past Medical History Cardio/Vascular: Yes: CAD Renal/: Yes: Cancer, UTI, Other (BN stricture, bladder stones) - Alcohol/Substance Use Hx Alcohol Use: No - Smoking History Smoking history: Former smoker Have you smoked in the past 12 months: No Aproximately how many cigarettes per day: 0 If you are a former smoker, when did you quit?: 37 YRS AGO Home Medications - Allergies Allergies/Adverse Reactions: Allergies Allergy/AdvReac Type Severity Reaction Status Date / Time iodine Allergy Rash Verified 04/08/18 16:07 Sulfa (Sulfonamide Allergy "KIDNEY Verified 04/08/18 16:07 Antibiotics) ISSUES" - Home Medications Home Medications: Ambulatory Orders Cholecalciferol (Vitamin D3) [Vitamin D] 4,000 unit PO DAILY 08/02/12 Ubidecarenone [Co Q-10] 1 cap PO DAILY 07/03/14 Nebivolol HCl [Bystolic] 10 mg PO DAILY tablet 02/08/15 Escitalopram Oxalate [Lexapro -] 20 mg PO DAILY 10/24/16 Losartan Potassium 50 mg PO DAILY 10/24/16 Mirabegron [Myrbetriq] 25 mg PO DAILY 10/24/16 Cyanocobalamin (Vitamin B-12) [Vitamin B-12] 2,500 mcg SL DAILY 11/03/17 Ezetimibe [Zetia] 10 mg PO DAILY 11/03/17 Famotidine 20 mg PO DAILY 11/03/17 Simvastatin 20 mg PO HS 11/03/17 Ammonium Lactate Cream [Lac-Hydrin 12% *Cream*] 1 applic TP ASDIR 04/08/18 Gabapentin [Neurontin -] 300 mg PO BID 04/08/18 Polyethylene Glycol 3350 [Miralax (For Bowel Prep) -] 17 gm PO PRN PRN 04/08/18 Review of Systems - Review of Systems Constitutional: reports: Fever Genitourinary: reports: Incontinence, Pain Musculoskeletal: reports: Back Pain Physical Exam- Vital Signs: Vital Signs Temperature 97.9 F 04/10/18 06:50 Pulse Rate 64 04/10/18 08:24 Respiratory Rate 18 04/10/18 08:57 Blood Pressure 127/66 04/10/18 08:24 O2 Sat by Pulse Oximetry (%) 99 04/10/18 08:57 Constitutional: Yes: Well Nourished, No Distress, Calm Eyes: Yes: WNL, Conjunctiva Clear, EOM Intact HENT: Yes: WNL, Atraumatic, Normocephalic Cardiovascular: Yes: WNL, Regular Rate and Rhythm Respiratory: Yes: WNL, Regular, CTA Bilaterally Gastrointestinal: Yes: WNL, Normal Bowel Sounds Renal/: Yes: Incontinence. No: Bladder Distention, CVA Tenderness - Left, CVA Tenderness - Right, Geronimo Present, Hematuria Labs: CBC, BMP 04/10/18 06:00 04/10/18 06:00 Imaging - Results Cat Scan: Report Reviewed Problem List - Problems (1) Malignant neoplasm of prostate Assessment/Plan: PSA Code(s): C61 - MALIGNANT NEOPLASM OF PROSTATE (2) Urethral stricture Code(s): N35.9 - URETHRAL STRICTURE, UNSPECIFIED (3) Emphysematous cystitis Assessment/Plan: white count is slightly higher tpoday. awaiting all culture results. Repeat pelvic CT on 04/11 to see if any abscess is forming. continue IV abx. switch to PO based on culture results. Code(s): N30.80 - OTHER CYSTITIS WITHOUT HEMATURIA
--- NOTE | 2018-04-10 12:59 | PN ---
Progress Note (short form) - Note Progress Note: Subjective: The patient was seen and examined at the bedside, he still have complaints of groin and lower back pain. Instructed patient to ambulate and sit in chair instead of bed all day Increased morphine to 3mg Current Medications Generic Name Dose Route Start Last Admin Trade Name Freq PRN Reason Stop Dose Admin Atorvastatin Calcium 10 mg 04/09/18 22:00 04/09/18 21:42 Lipitor - PO 10 mg HS YAYA Administration Docusate Sodium 100 mg 04/10/18 07:36 Colace - PO Q8H PRN CONSTIPATION Ezetimibe 10 mg 04/09/18 10:00 04/10/18 09:59 Zetia - PO 10 mg DAILY YAYA Administration Escitalopram Oxalate 20 mg 04/09/18 10:00 04/10/18 09:57 Lexapro - PO 20 mg DAILY YAYA Administration Gabapentin 300 mg 04/09/18 00:45 04/10/18 09:57 Neurontin - PO 300 mg BID YAYA Administration Piperacillin Sod/Tazobactam 50 mls @ 100 mls/hr 04/09/18 10:00 04/10/18 10:02 Sod 3.375 gm/ Dextrose IVPB 100 mls/hr Q8H-IV YAYA Administration Protocol Ibuprofen 800 mg 04/10/18 11:27 Motrin - PO Q8H PRN PAIN LEVEL 1 - 3 Losartan Potassium 50 mg 04/09/18 10:00 04/10/18 10:15 Cozaar - PO Not Given DAILY YAYA Morphine Sulfate 3 mg 04/10/18 07:49 04/10/18 08:25 Morphine Sulfate IVPB 3 mg Q4H PRN Administration PAIN LEVEL 6-10 Nebivolol 10 mg 04/09/18 10:00 04/10/18 10:05 Bystolic - PO 10 mg DAILY YAYA Administration Non-Formulary Medication 5 mg 04/10/18 10:00 Linagliptin [Tradjenta] PO DAILY YAYA Polyethylene Glycol 17 gm 04/10/18 10:00 04/10/18 10:44 Miralax (For Daily Use) - PO 17 gm DAILY YAYA Administration Objective: Vital Signs Period Temp Pulse Resp BP Sys/Barber Pulse Ox Last 24 Hr 97.9 F-99.3 F 57-64 18-18 117-153/64-77 97-99 Physical Exam: General: NAD, A&Ox3 Lungs: CTA bilaterally Heart: RRR, S1S2 Abd: No CVA tenderness, no lower back tenderness. Mild lower abdominal tenderness Ext: B/l lower extremity chronic venous changes CBCD WBC 11.5 K/mm3 (4.0-10.8) H 04/10/18 06:00 RBC 3.89 M/mm3 (4.00-5.60) L 04/10/18 06:00 Hgb 10.3 GM/dl (11.7-16.9) L 04/10/18 06:00 Hct 32.0 % (35.4-49) L 04/10/18 06:00 MCV 82.3 fl (80-96) 04/10/18 06:00 MCHC 32.3 g/dl (32.0-35.9) 04/10/18 06:00 RDW 13.9 % (11.9-15.9) 04/10/18 06:00 Plt Count 495 K/MM3 (134-434) H 04/10/18 06:00 MPV 5.5 fl (7.5-11.1) L 04/10/18 06:00 CMP Sodium 133 mmol/L (136-145) L 04/10/18 06:00 Potassium 5.0 mmol/L (3.5-5.1) 04/10/18 06:00 Chloride 99 mmol/L (98-107) 04/10/18 06:00 Carbon Dioxide 25 mmol/L (22-28) 04/10/18 06:00 Anion Gap 9 (8-16) 04/10/18 06:00 BUN 33 mg/dl (7-18) H 04/10/18 06:00 Creatinine 1.3 mg/dl (0.6-1.3) D 04/10/18 06:00 Creat Clearance w eGFR 53.12 (>60) 04/10/18 06:00 Random Glucose 117 mg/dl (74-106) H 04/10/18 06:00 Calcium 9.3 mg/dl (8.4-10.2) 04/10/18 06:00 Total Bilirubin 0.3 mg/dl (0.2-1.0) D 04/10/18 06:00 AST 20 U/L (10-42) 04/10/18 06:00 ALT 19 U/L (10-40) D 04/10/18 06:00 Alkaline Phosphatase 73 U/L (32-92) 04/10/18 06:00 Total Protein 5.6 g/dl (6.4-8.3) L 04/10/18 06:00 Albumin 2.6 g/dl (3.5-5.0) L 04/10/18 06:00 Assessment: This is a pleasant 78 year old male with PMHx of prostate cancer (s/ p prostatectomy) cryo radiation-uretheral stricture, s/p urethral dilatation, colon polyps, CAD, HTN, Asthma, urinary incontinence, borderline DM, who presented to the ED with emphysematous cystitis and constipation. Plan: 1) Emphysematous cystitis with UTI - Sepsis workup ongoing - WBC trending up, will consider repeat CT pelvis tomorrow - Continue Zosyn for now - Afebrile - WBC now wnl - Morphine for pain control - Awaiting urology evaluation - Appreciate ID consult 2) Constipation - Resolved, patient had BM today - Will discontinue CT - Continue bowel regimen 3) HTN - Continue Cozaar - Continue Bystolic 4) Hyperlipidemia - Continue Zetia - Continue Lipitor 5) DM - Patient reports his HgbA1c was 7 last week and was started on Trajenta - Instructed patient to have bring in medication as it is non-formulary at [facility] 6) Asthma - No evidence of active exacerbation 7) F/E/N: - Monitor electrolytes - Hyponatremia: continue to monitor - Sodium controlled, diabetic diet 8) Prophylaxis: - Hold all chemical DVT prophylaxis until evaluated by urology 9) Dispo: - Requires continued inpatient care CODE STATUS: FULL CODE Visit type - Emergency Visit Emergency Visit: Yes ED Registration Date: 04/08/18 Care time: The patient presented to the Emergency Department on the above date and was hospitalized for further evaluation of their emergent condition. - New Patient This patient is new to me today: No - Critical Care Critical Care patient: No
[2018-04-10] MEDS ORDERED: NAPROXEN 375 MG TABLET (FP) PO ONE (20:45)
[2018-04-10] MEDS ORDERED: INSULIN (NOVOLOG) ASPART 100 UNITS/ML 10ML VIAL ONE (21:42)
[2018-04-10] MEDS: ATORVASTATIN CA 10 MG TABLET (FP) PO SCH (21:54)
[2018-04-11] MEDS: PIPERACILLIN/TAZOB 3.375 GM 3.375 GM in DEXTROSE 5%-WATER - 50 ML IVPB SCH (01:21)
[2018-04-11] MEDS: LINAGLIPTIN PO SCH (06:14)
[2018-04-11] MEDS ORDERED: PT OWN MED DRAWER 7, Y5N ONE ×3 (06:21→18:16)
--- NOTE | 2018-04-11 07:55 | PN ---
Physical Exam: SUBJECTIVE: Patient seen and examined, patient is ambulatory throughout the nursing station, denies any chest pain or shortness of breath, patient denies any abdominal pain nausea vomiting denies any tactile fevers, patient reports groin pain and lower back pain. OBJECTIVE: Vital Signs Period Temp Pulse Resp BP Sys/Barber Pulse Ox Last 24 Hr 97.8 F-98.6 F 55-64 16-19 119-172/55-72 97-99 GENERAL: The patient is awake, alert, and fully oriented, in no acute distress. HEAD: Normal with no signs of trauma. EYES: PERRL, extraocular movements intact, sclera anicteric, conjunctiva clear. No ptosis. ENT: Ears normal, nares patent, oropharynx clear without exudates, moist mucous membranes. NECK: Trachea midline, full range of motion, supple. LUNGS: Breath sounds equal, clear to auscultation bilaterally, no wheezes, no crackles, no accessory muscle use. HEART: Regular rate and rhythm, S1, S2 without murmur, rub or gallop. ABDOMEN: Soft, negative cva tenderness, nontender, nondistended, normoactive bowel sounds, no guarding, no rebound, no hepatosplenomegaly, no masses. : incontinent of urine EXTREMITIES: 2+ pulses, warm, well-perfused, no edema. NEUROLOGICAL: Cranial nerves II through XII grossly intact. Normal speech, gait not observed. PSYCH: Normal mood, normal affect. SKIN: Warm, dry, normal turgor, no rashes or lesions noted Laboratory Results - last 24 hr CBC WBC 11.1 K/mm3 (4.0-10.8) H 04/11/18 07:40 RBC 3.74 M/mm3 (4.00-5.60) L 04/11/18 07:40 Hgb 10.2 GM/dl (11.7-16.9) L 04/11/18 07:40 Hct 30.6 % (35.4-49) L 04/11/18 07:40 MCV 81.9 fl (80-96) 04/11/18 07:40 MCH 27.2 pg (25.7-33.7) 04/11/18 07:40 MCHC 33.2 g/dl (32.0-35.9) 04/11/18 07:40 RDW 13.7 % (11.9-15.9) 04/11/18 07:40 Plt Count 445 K/MM3 (134-434) H 04/11/18 07:40 MPV 5.4 fl (7.5-11.1) L 04/11/18 07:40 Absolute Neuts (auto) 7.1 # 04/09/18 07:30 Neutrophils % 71.3 % (42.8-82.8) 04/09/18 07:30 Neutrophils % (Manual) 90.0 % (42.8-82.8) H 04/08/18 17:30 Band Neutrophils % 1.0 % (0-10) 04/08/18 17:30 Lymphocytes % 16.2 % (8-40) D 04/09/18 07:30 Lymphocytes % (Manual) 5.0 % (8-40) L 04/08/18 17:30 Monocytes % 8.8 % (3.8-10.2) 04/09/18 07:30 Monocytes % (Manual) 4 % (3.8-10.2) 04/08/18 17:30 Eosinophils % 3.3 % (0-4.5) 04/09/18 07:30 Basophils % 0.4 % (0-2.0) 04/09/18 07:30 Platelet Estimate Slt increase 04/08/18 17:30 CMP Sodium 134 mmol/L (136-145) L 04/11/18 07:40 Potassium 4.8 mmol/L (3.5-5.1) 04/11/18 07:40 Chloride 103 mmol/L (98-107) 04/11/18 07:40 Carbon Dioxide 24 mmol/L (22-28) 04/11/18 07:40 Anion Gap 7 (8-16) L 04/11/18 07:40 BUN 31 mg/dl (7-18) H 04/11/18 07:40 Creatinine 1.3 mg/dl (0.6-1.3) 04/11/18 07:40 Creat Clearance w eGFR 53.12 (>60) 04/11/18 07:40 POC Glucometer 91 UNITS (80-120) 04/11/18 11:59 Random Glucose 134 mg/dl (74-106) H 04/11/18 07:40 Hemoglobin A1c % 6.9 % (4.8-6.0) H D 04/10/18 06:00 Serum Osmolality 291 mosm/kg (278-305) 04/09/18 07:30 Lactic Acid 0.5 mmol/L (0.0-2.0) 04/09/18 07:30 Calcium 9.1 mg/dl (8.4-10.2) 04/11/18 07:40 Total Bilirubin 0.5 mg/dl (0.2-1.0) D 04/11/18 07:40 AST 23 U/L (10-42) 04/11/18 07:40 ALT 22 U/L (10-40) 04/11/18 07:40 Alkaline Phosphatase 80 U/L (32-92) 04/11/18 07:40 Total Protein 5.5 g/dl (6.4-8.3) L 04/11/18 07:40 Albumin 2.5 g/dl (3.5-5.0) L 04/11/18 07:40 Active Medications Generic Name Dose Route Start Last Admin Trade Name Freq PRN Reason Stop Dose Admin Atorvastatin Calcium 10 mg 04/09/18 22:00 04/10/18 21:54 Lipitor - PO 10 mg HS YAYA Administration Docusate Sodium 100 mg 04/10/18 07:36 Colace - PO Q8H PRN CONSTIPATION Ezetimibe 10 mg 04/09/18 10:00 04/10/18 09:59 Zetia - PO 10 mg DAILY YAYA Administration Escitalopram Oxalate 20 mg 04/09/18 10:00 04/10/18 09:57 Lexapro - PO 20 mg DAILY YAYA Administration Gabapentin 300 mg 04/09/18 00:45 04/10/18 21:54 Neurontin - PO 300 mg BID YAYA Administration Piperacillin Sod/Tazobactam 50 mls @ 100 mls/hr 04/09/18 10:00 04/11/18 01:21 Sod 3.375 gm/ Dextrose IVPB 100 mls/hr Q8H-IV YAYA Administration Protocol Ibuprofen 800 mg 04/10/18 11:27 Motrin - PO Q8H PRN PAIN LEVEL 1 - 3 Losartan Potassium 50 mg 04/09/18 10:00 04/10/18 10:15 Cozaar - PO Not Given DAILY YAYA Morphine Sulfate 3 mg 04/10/18 07:49 06/10/18 08:25 Morphine Sulfate IVPB 3 mg Q4H PRN Administration PAIN LEVEL 6-10 Nebivolol 10 mg 04/09/18 10:00 04/10/18 10:05 Bystolic - PO 10 mg DAILY YAYA Administration Patient's Own 5 mg 04/11/18 07:00 04/11/18 06:14 Medication (N/F) ( PO 5 mg Linagliptin [ ACBK YAYA Administration Tradjenta] 5 Mg) Polyethylene Glycol 17 gm 04/10/18 10:00 04/10/18 10:44 Miralax (For Daily Use) - PO 17 gm DAILY YAYA Administration Microbiology 04/08/18 17:50 Blood - Peripheral Venous Blood Culture - Preliminary NO GROWTH OBTAINED AFTER 48 HOURS, INCUBATION TO CONTINUE FOR 3 DAYS. 04/08/18 17:30 Blood - Peripheral Venous Blood Culture - Preliminary NO GROWTH OBTAINED AFTER 48 HOURS, INCUBATION TO CONTINUE FOR 3 DAYS. 04/08/18 18:47 Urine - Urine Clean Catch Urine Culture - Final NO GROWTH OBTAINED IMAGING CT pelvis without contrast 04/07/2018: under distended urinary bladder with gas locules in no wall and/or lumen extending into the prostatic urethra and extensive surrounding perivesicular fat stranding and findings compatible with emphysematous cystitis. As per radiologist Dr Samuels Assessment: patient is a pleasant 78 year old male with PMHx of prostate cancer (s/p prostatectomy) cryo radiation-uretheral stricture, s/p urethral dilatation , colon polyps, CAD, HTN, Asthma, urinary incontinence, borderline DM, who presented to the ED with emphysematous cystitis and constipation. ASSESSMENT/PLAN: 1) Emphysematous cystitis with UTI - repeat CT scan of abdomen and pelvis with IV contrast rule out abscess formation - leukocytosis noted patient is afebrile continue Zosyn - urology consulted and following - ID consulted and following 2) HTN - Continue Cozaar - Continue Bystolic 3) Hyperlipidemia - Continue Zetia - Continue Lipitor 4) DM - continue tradjenta, patient brought in home medication 5) Asthma - No evidence of active exacerbation 6) F/E/N: - Monitor electrolytes - Hyponatremia, corrected serum sodium 135, continue to monitor - Sodium controlled, diabetic diet 7) Prophylaxis: - Hold all chemical DVT prophylaxis until evaluated by urology 8) Dispo: - Requires continued inpatient care CODE STATUS: FULL CODE Visit type - Emergency Visit Emergency Visit: Yes ED Registration Date: 04/08/18 Care time: The patient presented to the Emergency Department on the above date and was hospitalized for further evaluation of their emergent condition. - New Patient This patient is new to me today: Yes Date on this admission: 04/11/18 - Critical Care Critical Care patient: No - Discharge Referral Referred to [facility] Med P.C.: No
[2018-04-11 08:45] LABS: HEMATOCRIT 30.6 % (35.4-49); HEMOGLOBIN 10.2 GM/dl (11.7-16.9); MCH 27.2 pg (25.7-33.7); MCHC 33.2 g/dl (32.0-35.9); MEAN CELL VOLUME 81.9 fl (80-96); PLATELET COUNT 445 K/MM3 (134-434); RBC 3.74 M/mm3 (4.00-5.60); RDW 13.7 % (11.9-15.9); WHITE BLOOD COUNT 11.1 K/mm3 (4.0-10.8)
[2018-04-11 08:48] LABS: MEAN PLT VOLUME 5.4 fl (7.5-11.1)
--- NOTE | 2018-04-11 08:54 | PN ---
Progress Note (short form) - Note Progress Note: white count still elevated. culture are neg. PO abx as per ID recommendations Pelvis CT ordered. Problem List - Problems (1) Malignant neoplasm of prostate Code(s): C61 - MALIGNANT NEOPLASM OF PROSTATE (2) Urethral stricture Code(s): N35.9 - URETHRAL STRICTURE, UNSPECIFIED (3) Emphysematous cystitis Code(s): N30.80 - OTHER CYSTITIS WITHOUT HEMATURIA
--- NOTE | 2018-04-11 09:00 | PN ---
Progress Note, Physician History of Present Illness: Awake, alert No c/o R groin pain +urinary incontinence No c/o dysuria/ hematuria No fever/ chills Afebrile WBC 11 Blood, urine c/s no growth - Current Medication List Current Medications: Active Medications Atorvastatin Calcium (Lipitor -) 10 mg PO HS [facility] Last Admin: 04/10/18 21:54 Dose: 10 mg Docusate Sodium (Colace -) 100 mg PO Q8H PRN PRN Reason: CONSTIPATION Ezetimibe (Zetia -) 10 mg PO DAILY [facility] Last Admin: 04/10/18 09:59 Dose: 10 mg Escitalopram Oxalate (Lexapro -) 20 mg PO DAILY [facility] Last Admin: 04/10/18 09:57 Dose: 20 mg Gabapentin (Neurontin -) 300 mg PO BID [facility] Last Admin: 04/10/18 21:54 Dose: 300 mg Piperacillin Sod/Tazobactam Sod (Zosyn 3.375gm Ivpb (Pre-Docked)) 3.375 gm in 50 mls @ 100 mls/hr IVPB Q8H-IV YAYA; Protocol Ibuprofen (Motrin -) 800 mg PO Q8H PRN PRN Reason: PAIN LEVEL 1 - 3 Losartan Potassium (Cozaar -) 50 mg PO DAILY [facility] Last Admin: 04/10/18 10:15 Dose: Not Given Morphine Sulfate (Morphine Sulfate) 3 mg IVPB Q4H PRN PRN Reason: PAIN LEVEL 6-10 Last Admin: 04/10/18 08:25 Dose: 3 mg Nebivolol (Bystolic -) 10 mg PO DAILY [facility] Last Admin: 04/10/18 10:05 Dose: 10 mg Patient's Own Medication (N/F) ( Linagliptin [ Tradjenta] 5 Mg) 5 mg PO ACBK [facility] Last Admin: 04/11/18 06:14 Dose: 5 mg Polyethylene Glycol (Miralax (For Daily Use) -) 17 gm PO DAILY [facility] Last Admin: 04/10/18 10:44 Dose: 17 gm - Objective Vital Signs: Vital Signs Temperature 97.9 F 04/11/18 06:00 Pulse Rate 59 L 04/11/18 06:00 Respiratory Rate 16 04/11/18 07:48 Blood Pressure 143/72 04/11/18 06:00 O2 Sat by Pulse Oximetry (%) 98 04/11/18 07:48 Constitutional: Yes: No Distress Eyes: Yes: Conjunctiva Clear Cardiovascular: Yes: Regular Rate and Rhythm, S1, S2 Respiratory: Yes: CTA Bilaterally Gastrointestinal: Yes: Normal Bowel Sounds, Soft. 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
[2018-04-11 09:40] LABS: ALBUMIN 2.5 g/dl (3.5-5.0); ALK PHOS 80 U/L (32-92); ANION GAP 7 (8-16); BILIRUBIN,TOTAL 0.5 mg/dl (0.2-1.0); BLOOD UREA NITROGEN 31 mg/dl (7-18); CALCIUM 9.1 mg/dl (8.4-10.2); CHLORIDE 103 mmol/L (98-107); CO2 24 mmol/L (22-28); CREATININE 1.3 mg/dl (0.6-1.3); GLUCOSE,RANDOM 134 mg/dl (74-106); POTASSIUM 4.8 mmol/L (3.5-5.1); SGOT/AST 23 U/L (10-42); SGPT/ALT 22 U/L (10-40); SODIUM 134 mmol/L (136-145); TOT PROT 5.5 g/dl (6.4-8.3)
[2018-04-11] MEDS: ESCITALOPRAM OXALATE 20 MG TABLET (FP) PO SCH (10:04)
[2018-04-11] MEDS: LOSARTAN POTASSIUM 50 MG TABLET (FP) PO SCH ×2 (10:04→10:14)
[2018-04-11] MEDS: NEBIVOLOL 10 MG TABLET (FP) PO SCH (10:04)
[2018-04-11] MEDS: EZETIMIBE 10 MG TABLET (FP) PO SCH (10:04)
[2018-04-11] MEDS: GABAPENTIN 300 MG CAPSULE (FP) PO SCH ×2 (10:04→21:50)
[2018-04-11] MEDS: POLYETHYLENE GLYCOL 3350 119 GM BTL PO SCH (10:05)
[2018-04-11] MEDS: PIPERACILLIN/TAZOB 3.375 GM 3.375 GM/50 ML BAG IVPB SCH ×2 (10:05→17:55)
[2018-04-11] MEDS ORDERED: SODIUM CHLORIDE 0.45% 1,000 ML IV SCH (12:15)
[2018-04-11] MEDS: LACTOBACILLUS ACIDOPHILUS 1 TABLET PO SCH (14:00)
[2018-04-11] MEDS: ATORVASTATIN CA 10 MG TABLET (FP) PO SCH (21:50)
[2018-04-12] MEDS: PIPERACILLIN/TAZOB 3.375 GM 3.375 GM/50 ML BAG IVPB SCH ×2 (02:10→09:21)
[2018-04-12] MEDS ORDERED: methylPREDNISolone NA SUCC 125 MG/2 ML VIAL IVPB ONE (04:00)
[2018-04-12] MEDS ORDERED: PT OWN MED DRAWER 7, Y5N ONE (06:15)
[2018-04-12] MEDS: LINAGLIPTIN PO SCH (06:45)
--- NOTE | 2018-04-12 07:59 | PN ---
Physical Exam: SUBJECTIVE: Patient seen and examined, patient is ambulatory throughout nursing station, patient denies any tactile fever, reports lower pelvic pain. OBJECTIVE: Vital Signs Period Temp Pulse Resp BP Sys/Barber Pulse Ox Last 24 Hr 97.8 F-98.7 F 57-63 17-19 116-141/47-73 98-99 GENERAL: The patient is awake, alert, and fully oriented, in no acute distress. HEAD: Normal with no signs of trauma. EYES: PERRL, extraocular movements intact, sclera anicteric, conjunctiva clear. No ptosis. ENT: Ears normal, nares patent, oropharynx clear without exudates, moist mucous membranes. NECK: Trachea midline, full range of motion, supple. LUNGS: Breath sounds equal, clear to auscultation bilaterally, no wheezes, no crackles, no accessory muscle use. HEART: Regular rate and rhythm, S1, S2 without murmur, rub or gallop. ABDOMEN: Soft, nontender, nondistended, normoactive bowel sounds, no guarding, no rebound, no hepatosplenomegaly, no masses. EXTREMITIES: 2+ pulses, warm, well-perfused, no edema. NEUROLOGICAL: Cranial nerves II through XII grossly intact. Normal speech, gait not observed. PSYCH: Normal mood, normal affect. SKIN: Warm, dry, normal turgor, no rashes or lesions noted Laboratory Results - last 24 hr 04/11/18 04/11/18 04/11/18 07:40 07:40 11:59 WBC 11.1 H RBC 3.74 L Hgb 10.2 L Hct 30.6 L MCV 81.9 MCH 27.2 MCHC 33.2 RDW 13.7 Plt Count 445 H MPV 5.4 L Sodium 134 L Potassium 4.8 Chloride 103 Carbon Dioxide 24 Anion Gap 7 L BUN 31 H Creatinine 1.3 Creat Clearance w eGFR 53.12 POC Glucometer 91 Random Glucose 134 H Calcium 9.1 Total Bilirubin 0.5 D AST 23 ALT 22 Alkaline Phosphatase 80 Total Protein 5.5 L Albumin 2.5 L 04/11/18 04/12/18 16:58 06:19 WBC RBC Hgb Hct MCV MCH MCHC RDW Plt Count MPV Sodium Potassium Chloride Carbon Dioxide Anion Gap BUN Creatinine Creat Clearance w eGFR POC Glucometer 130 111 Random Glucose Calcium Total Bilirubin AST ALT Alkaline Phosphatase Total Protein Albumin Active Medications Generic Name Dose Route Start Last Admin Trade Name Freq PRN Reason Stop Dose Admin Atorvastatin Calcium 10 mg 04/09/18 22:00 04/11/18 21:50 Lipitor - PO 10 mg HS YAYA Administration Docusate Sodium 100 mg 04/10/18 07:36 Colace - PO Q8H PRN CONSTIPATION Ezetimibe 10 mg 04/09/18 10:00 04/11/18 10:04 Zetia - PO 10 mg DAILY YAYA Administration Escitalopram Oxalate 20 mg 04/09/18 10:00 04/11/18 10:04 Lexapro - PO 20 mg DAILY YAYA Administration Gabapentin 300 mg 04/09/18 00:45 04/11/18 21:50 Neurontin - PO 300 mg BID YAYA Administration Piperacillin Sod/Tazobactam Sod 3.375 gm in 50 mls @ 100 mls/hr 04/11/18 08: 23 04/12/18 02:10 Zosyn 3.375gm Ivpb (Pre-Docked) IVPB 100 mls/hr Q8H-IV YAYA Administration Protocol Ibuprofen 800 mg 04/10/18 11:27 04/11/18 12:41 Motrin - PO 800 mg Q8H PRN Administration PAIN LEVEL 1 - 3 Lactobacillus Acidophilus 1 tab 04/11/18 13:45 04/11/18 14:00 Bacid - PO 1 tab DAILY YAYA Administration Losartan Potassium 50 mg 04/09/18 10:00 04/11/18 10:14 Cozaar - PO Not Given DAILY YAYA Morphine Sulfate 3 mg 04/10/18 07:49 04/10/18 08:25 Morphine Sulfate IVPB 3 mg Q4H PRN Administration PAIN LEVEL 6-10 Nebivolol 10 mg 04/09/18 10:00 04/11/18 10:04 Bystolic - PO 10 mg DAILY YAYA Administration Patient's Own 5 mg 04/11/18 07:00 04/12/18 06:45 Medication (N/F) ( PO 5 mg Linagliptin [ ACBK YAYA Administration Tradjenta] 5 Mg) Polyethylene Glycol 17 gm 04/10/18 10:00 04/11/18 10:05 Miralax (For Daily Use) - PO 17 gm DAILY YAYA Administration Microbiology 04/08/18 17:50 Blood - Peripheral Venous Blood Culture - Preliminary NO GROWTH OBTAINED AFTER 72 HOURS, INCUBATION TO CONTINUE FOR 2 DAYS. 04/08/18 17:30 Blood - Peripheral Venous Blood Culture - Preliminary NO GROWTH OBTAINED AFTER 72 HOURS, INCUBATION TO CONTINUE FOR 2 DAYS. 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 CT pelvis without contrast 04/07/2018: under distended urinary bladder with gas locules in no wall and/or lumen extending into the prostatic urethra and extensive surrounding perivesicular fat stranding and findings compatible with emphysematous cystitis. As per radiologist Dr Samuels Assessment: patient is a pleasant 78 year old male with PMHx of prostate cancer (s/p prostatectomy) cryo radiation-uretheral stricture, s/p urethral dilatation , colon polyps, CAD, HTN, Asthma, urinary incontinence, borderline DM, who presented to the ED with emphysematous cystitis and constipation. ASSESSMENT/PLAN: 1) Emphysematous cystitis with UTI - CT scan of abdomen reviewed with radiologist Dr. Martinez, we will order a pelvic MRI to rule out osteomyelitis, metastatic lesion, and abscess formation - leukocytosis noted patient is afebrile continue Zosyn - urology consulted and following - ID consulted and following 2) HTN - Continue Cozaar - Continue Bystolic 3) Hyperlipidemia - Continue Zetia - Continue Lipitor 4) DM - continue tradjenta, patient brought in home medication 5) Asthma - No evidence of active exacerbation 6) F/E/N: - Monitor electrolytes - Hyponatremia, corrected serum sodium 135, continue to monitor - Sodium controlled, diabetic diet 7) Prophylaxis: - Hold all chemical DVT prophylaxis until evaluated by urology 8) Dispo: - Requires continued inpatient care CODE STATUS: FULL CODE Visit type - Emergency Visit Emergency Visit: Yes ED Registration Date: 04/08/18 Care time: The patient presented to the Emergency Department on the above date and was hospitalized for further evaluation of their emergent condition. - New Patient This patient is new to me today: No - Critical Care Critical Care patient: No - Discharge Referral Referred to [facility] Med P.C.: Yes Physician Referral: Andres Martinez MD (Int Med)
[2018-04-12 08:14] LABS: BASO % 0.4 % (0-2.0); HEMATOCRIT 30.7 % (35.4-49); HEMOGLOBIN 9.9 GM/dl (11.7-16.9); LYMPH % 14.6 % (8-40); MCH 26.2 pg (25.7-33.7); MCHC 32.1 g/dl (32.0-35.9); MEAN CELL VOLUME 81.5 fl (80-96); MONO % 8.9 % (3.8-10.2); NEUT % 71.1 % (42.8-82.8); PLATELET COUNT 425 K/MM3 (134-434); RBC 3.77 M/mm3 (4.00-5.60); RDW 13.9 % (11.9-15.9); WHITE BLOOD COUNT 11.2 K/mm3 (4.0-10.8)
[2018-04-12 08:17] LABS: MEAN PLT VOLUME 5.6 fl (7.5-11.1)
[2018-04-12 08:44] LABS: ANION GAP 8 (8-16); BLOOD UREA NITROGEN 26 mg/dl (7-18); CALCIUM 9.2 mg/dl (8.4-10.2); CHLORIDE 104 mmol/L (98-107); CO2 25 mmol/L (22-28); CREATININE 1.2 mg/dl (0.6-1.3); GLUCOSE,RANDOM 118 mg/dl (74-106); MAGNESIUM 1.6 mg/dL (1.8-2.4); PHOSPHOROUS 3.1 mg/dl (2.5-4.6); POTASSIUM 4.5 mmol/L (3.5-5.1); SODIUM 137 mmol/L (136-145)
[2018-04-12] MEDS ORDERED: MAGNESIUM SULFATE IN WATER 2 GM/50 ML IVPB IVPB ONE (08:57)
[2018-04-12] MEDS: NEBIVOLOL 10 MG TABLET (FP) PO SCH (09:20)
[2018-04-12] MEDS: LACTOBACILLUS ACIDOPHILUS 1 TABLET PO SCH (09:20)
[2018-04-12] MEDS: ESCITALOPRAM OXALATE 20 MG TABLET (FP) PO SCH (09:21)
[2018-04-12] MEDS: EZETIMIBE 10 MG TABLET (FP) PO SCH (09:21)
[2018-04-12] MEDS: GABAPENTIN 300 MG CAPSULE (FP) PO SCH (09:21)
[2018-04-12] MEDS: POLYETHYLENE GLYCOL 3350 119 GM BTL PO SCH (09:21)
[2018-04-12] MEDS: LOSARTAN POTASSIUM 50 MG TABLET (FP) PO SCH (09:22)
[2018-04-12 14:05] VITALS: BP 150/73; PULSE 61; TEMP 98.9
[2018-04-12] MEDS ORDERED: VANCOMYCIN 250 MG/5 ML ORAL SOLUTION PO SCH (18:00)
--- NOTE | 2018-04-12 18:00 | PN ---
Progress Note, Physician History of Present Illness: Patient complains of suprapubic pain + urinary incontinence. No dysuria/ hematuria + loose stool C. difficile ag+ No fever/ chills Afebrile WBC 11k Blood, urine c/s no growth ESR > 140 CRP 5.6 - Current Medication List Current Medications: Active Medications Atorvastatin Calcium (Lipitor -) 10 mg PO HS [facility] Last Admin: 04/11/18 21:50 Dose: 10 mg Docusate Sodium (Colace -) 100 mg PO Q8H PRN PRN Reason: CONSTIPATION Ezetimibe (Zetia -) 10 mg PO DAILY [facility] Last Admin: 04/12/18 09:21 Dose: 10 mg Escitalopram Oxalate (Lexapro -) 20 mg PO DAILY [facility] Last Admin: 04/12/18 09:21 Dose: 20 mg Gabapentin (Neurontin -) 300 mg PO BID [facility] Last Admin: 04/12/18 09:21 Dose: 300 mg Ibuprofen (Motrin -) 800 mg PO Q8H PRN PRN Reason: PAIN LEVEL 1 - 3 Last Admin: 04/11/18 12:41 Dose: 800 mg Lactobacillus Acidophilus (Bacid -) 1 tab PO DAILY [facility] Last Admin: 04/12/18 09:20 Dose: 1 tab Losartan Potassium (Cozaar -) 50 mg PO DAILY [facility] Last Admin: 04/12/18 09:22 Dose: 50 mg Morphine Sulfate (Morphine Sulfate) 3 mg IVPB Q4H PRN PRN Reason: PAIN LEVEL 6-10 Last Admin: 04/10/18 08:25 Dose: 3 mg Nebivolol (Bystolic -) 10 mg PO DAILY [facility] Last Admin: 04/12/18 09:20 Dose: 10 mg Patient's Own Medication (N/F) ( Linagliptin [ Tradjenta] 5 Mg) 5 mg PO ACBK [facility] Last Admin: 04/12/18 06:45 Dose: 5 mg Polyethylene Glycol (Miralax (For Daily Use) -) 17 gm PO DAILY [facility] Last Admin: 04/12/18 09:21 Dose: Not Given Vancomycin HCl (Vancomycin Oral Solution) 125 mg PO Q6HPO [facility] - Objective Vital Signs: Vital Signs Temperature 98.9 F 04/12/18 14:04 Pulse Rate 61 04/12/18 14:04 Respiratory Rate 18 04/12/18 14:04 Blood Pressure 150/73 04/12/18 14:04 O2 Sat by Pulse Oximetry (%) 100 04/12/18 14:04 Constitutional: Yes: No Distress Cardiovascular: Yes: Regular Rate and Rhythm, S1, S2 Respiratory: Yes: CTA Bilaterally Gastrointestinal: Yes: Normal Bowel Sounds, Soft, Abdomen, Obese, Tenderness, Other (+ suprapubic tenderness) Edema: No Labs: CBC, BMP 04/12/18 07:30 04/12/18 07:30 Assessment/Plan CT /MRI reviewed with radiologists and compared to prior year studies + interval development of pubic osteomyelitis Patient will need a bone biopsy for definitive c/s Options presented to patient. He prefers to have biopsy done at [facility] D/C antibiotics Complete 10d course of po vancomycin or flagyl for C difficile Discussed in detail with patient and will discuss with his .
--- NOTE | 2018-04-15 08:19 | DS ---
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 Who presents to the ED with R- groin pain x several weeks, constipation x 4-5 days. Patient reports seeing his PCP for same and having a Pelvic CT which showed Emphysematous Cystitis. Patient reports completing Levaquin, post urological procedure, then was placed on Amoxicillin from his [place] Urologist for the continued groin pain. Patient reports starting a new diet fruit based and reports not having a BM for at least 4 days. Patient denies fever, chills, cough, SOB, CP, N/V/D. ER course was notable for: (1) WBC 12.4 (2) BUN 43, Cr 1.3 (3) Na 130 PHYSICAL EXAM GENERAL: The patient is awake, alert, and fully oriented, in no acute distress. HEAD: Normal with no signs of trauma. EYES: PERRL, extraocular movements intact, sclera anicteric, conjunctiva clear. ENT: Ears normal, nares patent, oropharynx clear without exudates, moist mucous membranes. NECK: Trachea midline, full range of motion, supple. LUNGS: Breath sounds equal, clear to auscultation bilaterally, no wheezes, no crackles, no accessory muscle use. HEART: Regular rate and rhythm, S1, S2 without murmur, rub or gallop. ABDOMEN: Soft, nontender, nondistended, normoactive bowel sounds, no guarding, no rebound, no hepatosplenomegaly, no masses. EXTREMITIES: 2+ pulses, warm, well-perfused, no edema. NEUROLOGICAL: Cranial nerves II through XII grossly intact. Normal speech, gait not observed. PSYCH: Normal mood, normal affect. SKIN: Warm, dry, normal turgor, no rashes or lesions noted. LABS CBC WBC 11.2 K/mm3 (4.0-10.8) H 04/12/18 07:30 RBC 3.77 M/mm3 (4.00-5.60) L 04/12/18 07:30 Hgb 9.9 GM/dl (11.7-16.9) L 04/12/18 07:30 Hct 30.7 % (35.4-49) L 04/12/18 07:30 MCV 81.5 fl (80-96) 04/12/18 07:30 MCH 26.2 pg (25.7-33.7) 04/12/18 07:30 MCHC 32.1 g/dl (32.0-35.9) 04/12/18 07:30 RDW 13.9 % (11.9-15.9) 04/12/18 07:30 Plt Count 425 K/MM3 (134-434) 04/12/18 07:30 MPV 5.6 fl (7.5-11.1) L 04/12/18 07:30 Absolute Neuts (auto) 8.0 # 04/12/18 07:30 Neutrophils % 71.1 % (42.8-82.8) 04/12/18 07:30 Neutrophils % (Manual) 90.0 % (42.8-82.8) H 04/08/18 17:30 Band Neutrophils % 1.0 % (0-10) 04/08/18 17:30 Lymphocytes % 14.6 % (8-40) 04/12/18 07:30 Lymphocytes % (Manual) 5.0 % (8-40) L 04/08/18 17:30 Monocytes % 8.9 % (3.8-10.2) 04/12/18 07:30 Monocytes % (Manual) 4 % (3.8-10.2) 04/08/18 17:30 Eosinophils % 5.0 % (0-4.5) H 04/12/18 07:30 Basophils % 0.4 % (0-2.0) 04/12/18 07:30 Platelet Estimate Slt increase 04/08/18 17:30 ESR > 140 mm/hr (0-20) H 04/12/18 11:40 CMP Sodium 137 mmol/L (136-145) 04/12/18 07:30 Potassium 4.5 mmol/L (3.5-5.1) 04/12/18 07:30 Chloride 104 mmol/L (98-107) 04/12/18 07:30 Carbon Dioxide 25 mmol/L (22-28) 04/12/18 07:30 Anion Gap 8 (8-16) 04/12/18 07:30 BUN 26 mg/dl (7-18) H 04/12/18 07:30 Creatinine 1.2 mg/dl (0.6-1.3) 04/12/18 07:30 Creat Clearance w eGFR 53.12 (>60) 04/11/18 07:40 POC Glucometer 110 UNITS (80-120) 04/12/18 17:07 Random Glucose 118 mg/dl (74-106) H 04/12/18 07:30 Hemoglobin A1c % 6.9 % (4.8-6.0) H D 04/10/18 06:00 Serum Osmolality 291 mosm/kg (278-305) 04/09/18 07:30 Lactic Acid 0.5 mmol/L (0.0-2.0) 04/09/18 07:30 Calcium 9.2 mg/dl (8.4-10.2) 04/12/18 07:30 Phosphorus 3.1 mg/dl (2.5-4.6) D 04/12/18 07:30 Magnesium 1.6 mg/dL (1.8-2.4) L 04/12/18 07:30 Total Bilirubin 0.5 mg/dl (0.2-1.0) D 04/11/18 07:40 AST 23 U/L (10-42) 04/11/18 07:40 ALT 22 U/L (10-40) 04/11/18 07:40 Alkaline Phosphatase 80 U/L (32-92) 04/11/18 07:40 C-Reactive Protein 5.6 MG/DL (0.00-0.3) H 04/12/18 11:38 Total Protein 5.5 g/dl (6.4-8.3) L 04/11/18 07:40 Albumin 2.5 g/dl (3.5-5.0) L 04/11/18 07:40 Prostate Specific Ag 0.20 ng/ml (0.0-4.0) D 04/11/18 07:40 Microbiology 04/08/18 17:50 Blood - Peripheral Venous Blood Culture - Final NO GROWTH AFTER 5 DAYS INCUBATION 04/08/18 17:30 Blood - Peripheral Venous Blood Culture - Final NO GROWTH AFTER 5 DAYS INCUBATION 04/12/18 09:00 Stool Clostridium difficile Antigen (KASEY) - Final, positive 04/12/18 09:00 Stool Clostridium difficile Toxin Assay - Final negative 04/08/18 18:47 Urine - Urine Clean Catch Urine Culture - Final NO GROWTH OBTAINED imaging CT pelvis without contrast (04/12): in comparison to recent CT study of 2017, interval resolution of small Air gas locules, erosive changes along theopposing cortical surfaces of the symphysis pubis, 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 CT pelvis without contrast 04/07/2018: under distended urinary bladder with gas locules in no wall and/or lumen extending into the prostatic urethra and extensive surrounding perivesicular fat stranding and findings compatible with emphysematous cystitis. As per radiologist Dr Samuels MRI of pelvis acute pubic osteomyelitis HOSPITAL COURSE: Patient was admitted for emergency department to a medical surgical unit for Emphysematous cystitis with UTI, CT scan of abdomen reviewed with radiologist Dr. Martinez, and pelvic MRI noted for acute osteomyelitis. Case discussed with infectious disease physician suspicion for metastatic lesion. Patient made aware of MRI findings and/or for biopsy of pubic bone. He requested biopsy and additional diagnostics to be completed with his urologist at [facility]. a copy of MRI report and all image was placed on CD for patient and given in hand. she was noted to have diarrhea during admission C. difficile toxin in antigen resulted as positive for C. difficile antigen patient treated with vancomycin. patient has a past medical history of hypertension, Cozaar and bystolic, blood pressure remained at goal. he has a past medical history of hyperlipidemia zetia and Lipitor was continued throughout admission. Patient has a past medical history of tradjenta, patient brought in home medication. Asthma no acute exacerbation at this time. PLAN: - strict follow-up with primary urologist at [place] as per patient request COPIES of diagnostics was given to patient in hand - continue vancomycin as prescribed - return precautions reviewed Date of Admission:04/08/18 Date of Discharge: 04/15/18 Minutes to complete discharge: 45 Discharge Summary Reason For Visit: EMPHASEMATOUS CYSTITIS Condition: Stable - Instructions Diet, Activity, Other Instructions: your MRI of the pelvis showed osteomyelitis, please follow up at [place] within 5 days for a biopsy of the pelvis the MRI was placed on a CD, please bring the CD with you to your appointment at [place] your stool culture was positive for cdiff, please continue vancomycin 125mg every 6 hours for 10 days continue all medications as prescribed please followup with Dr Martinez within 1 week if any new or persistent symptoms develop please return to the emergency dept Referrals: Antoni Izaguirre MD [Staff Physician] - Andres Martinez MD [Staff Physician] - Dustin Cornelius MD [Staff Physician] - Disposition: HOME - Home Medications Comprehensive Discharge Medication List: Ambulatory Orders Cholecalciferol (Vitamin D3) [Vitamin D] 4,000 unit PO DAILY 08/02/12 Ubidecarenone [Co Q-10] 1 cap PO DAILY 07/03/14 Nebivolol HCl [Bystolic] 10 mg PO DAILY tablet 02/08/15 Escitalopram Oxalate [Lexapro -] 20 mg PO DAILY 10/24/16 Losartan Potassium 50 mg PO DAILY 10/24/16 Mirabegron [Myrbetriq] 25 mg PO DAILY 10/24/16 Cyanocobalamin (Vitamin B-12) [Vitamin B-12] 2,500 mcg SL DAILY 11/03/17 Ezetimibe [Zetia] 10 mg PO DAILY 11/03/17 Famotidine 20 mg PO DAILY 11/03/17 Simvastatin 20 mg PO HS 11/03/17 Ammonium Lactate Cream [Lac-Hydrin 12% Cream -] 1 applic TP ASDIR 04/08/18 Gabapentin [Neurontin -] 300 mg PO BID 04/08/18 Lactobacillus Acidophilus [Bacid -] 1 tab PO DAILY #30 tab 04/12/18 Vancomycin Oral Solution 125 mg PO Q6HPO #100 ml 04/12/18 This patient is new to me today: No Emergency Visit: Yes ED Registration Date: 04/08/18 Care time: The patient presented to the Emergency Department on the above date and was hospitalized for further evaluation of their emergent condition. Critical Care patient: No - Discharge Referral Referred to [facility] Med P.C.: Yes Physician Referral: Andres Martinez MD (Int Med)
== END 2018-04-12 19:20 | disposition home or self-care (01) | DRG 638 ==
LOC: FER 15:52 → FM/S 21:12
PROVIDERS: ADMIT Internal Medicine; ATTEND Nurse Practitioner Family
DX: E11.69 Type 2 diabetes mellitus with other specified complication (principal); E87.1 Hypo-osmolality and hyponatremia; M86.8X8 Other osteomyelitis, other site; A04.72 Enterocolitis due to Clostridium difficile, not specified as recurrent; N39.0 Urinary tract infection, site not specified; N30.80 Other cystitis without hematuria; K59.00 Constipation, unspecified; I10 Essential (primary) hypertension; J45.909 Unspecified asthma, uncomplicated; I25.10 Atherosclerotic heart disease of native coronary artery without angina pectoris; R10.30 Lower abdominal pain, unspecified; K63.5 Polyp of colon; R32 Unspecified urinary incontinence; K64.9 Unspecified hemorrhoids; K21.9 Gastro-esophageal reflux disease without esophagitis; E78.5 Hyperlipidemia, unspecified; N13.9 Obstructive and reflux uropathy, unspecified; N35.9 Urethral stricture, unspecified; E66.9 Obesity, unspecified; Z68.31 Body mass index [BMI] 31.0-31.9, adult; Z85.46 Personal history of malignant neoplasm of prostate; Z87.891 Personal history of nicotine dependence
CPT/HCPCS: 36415; 71045-TC-FY; 72170-TC-FY; 72192-TC; 72195-TC; 80048; 80053; 81003; 81015; 82962; 83036; 83605; 83735; 83930; 83935; 84100; 84153; 84300; 85025; 85027; 85651; 86140; 87040; 87086; 87324; 87449; 93005; 99283-25

== ENCOUNTER → 2018-04-28 | Day surgery (SDC) | payer OTHER, BC | END | disposition home or self-care (01) | LOC: JRADIR 13:57 | PROVIDERS: ATTEND Internal Medicine | PROC: 02HV33Z Insertion of Infusion Device into Superior Vena Cava, Percutaneous Approach (ICD-10-PCS; principal; 2018-04-28) | PROC: B518ZZA Fluoroscopy of Superior Vena Cava, Guidance (ICD-10-PCS; 2018-04-28) | DX: M86.9 Osteomyelitis, unspecified (principal) | CPT/HCPCS: 36569; C1751 ==

== ENCOUNTER 2018-05-12 22:30 | Inpatient (IN) | payer OTHER, BC ==
--- NOTE | 2018-05-12 22:46 | PDOC ---
History of Present Illness - General Chief Complaint: Hematuria Stated Complaint: GROIN PAIN & HEMATURIA Time Seen by Provider: 05/12/18 22:42 History Source: Patient Exam Limitations: No Limitations - History of Present Illness Initial Comments: 05/12/18 23:43 Pt w a history of prostate CA, urethral strictures, urinary incontinence, CAD, HTN, chronic cystitis, presents to the ED complaining of a 7 day history of hematuria and worsening pelvic pain. 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 He has been getting treatment with IV vancomycin and cefepime. He states that he has had hematuria for the last 7 days, along with severe worsening of his pelvic pain. He states that his pain was minimal when he was admitted to [facility], but that the pain has become increasingly severe since admission there. THe pain is exacerbated by physical therapy sessions there. UA was done at [facility], which showed positive leukesterase and blood, but no micro or culture was performed. He was seen at rehab by Dr. Zhang, who felt that the patient should come to the ED to be evaluated. THe patinet denies fevers, nausea or vomiting, flank pain or hematuria. 05/12/18 23:45 Past History - Past Medical History Allergies/Adverse Reactions: Allergies Allergy/AdvReac Type Severity Reaction Status Date / Time iodine Allergy Rash Verified 05/03/18 09:02 Sulfa (Sulfonamide Allergy "KIDNEY Verified 05/03/18 09:02 Antibiotics) ISSUES" Home Medications: Ambulatory Orders Nebivolol HCl [Bystolic] 10 mg PO DAILY tablet 02/08/15 Escitalopram Oxalate [Lexapro -] 20 mg PO DAILY 10/24/16 Losartan Potassium 50 mg PO DAILY 10/24/16 Ezetimibe [Zetia] 10 mg PO DAILY 11/03/17 Famotidine 20 mg PO DAILY 11/03/17 Simvastatin 20 mg PO HS 11/03/17 Gabapentin [Neurontin -] 300 mg PO BID 04/08/18 Lactobacillus Acidophilus [Bacid -] 1 tab PO DAILY #30 tab 04/12/18 Cefepime HCl [Maxipime] 2 gm IJ BID 05/12/18 Cholecalciferol (Vitamin D3) [Vitamin D] 2,000 unit PO DAILY 05/12/18 Sennosides [Senna] 8.8 mg PO DAILY 05/12/18 Tramadol HCl [Ultram] 50 mg PO BID PRN 05/12/18 Vancomycin [Vancocin] 500 mg IV BID 05/12/18 Venlafaxine HCl ER [Effexor Xr -] 75 mg PO DAILY 05/12/18 Anemia: No Asthma: Yes (seasonal) Cancer: Yes (PROSTATE ca rx with [id number]) Cardiac Disorders: Yes CVA: No COPD: No CHF: No Dementia: No Diabetes: Yes (NIDDM) GI Disorders: Yes (HEMORRHOIDS;GI BLEED,GERD;H/H;COLON POLYPS) Disorders: Yes (URINARY INCONTINENCE) HTN: Yes Hypercholesterolemia: Yes Liver Disease: No Seizures: No Thyroid Disease: No - Surgical History Abdominal Surgery: No Appendectomy: Yes Cardiac Surgery: No Cholecystectomy: Yes Lung Surgery: No Neurologic Surgery: No Orthopedic Surgery: Yes (RIGHT KNEE ARTHROSCOPY; WRIST SURGERY) - Suicide/Smoking/Psychosocial Hx Smoking Status: Yes Smoking History: Former smoker Have you smoked in the past 12 months: No Number of Cigarettes Smoked Daily: 0 If you are a former smoker, when did you quit?: 37 YRS AGO Hx Alcohol Use: No Drug/Substance Use Hx: No Substance Use Type: None Hx Substance Use Treatment: No Review of Systems - Review of Systems Able to Perform ROS?: Yes Is the patient limited Amharic proficient: No Constitutional: No: Symptoms Reported, See HPI, Chills, Diaphoresis, Fever, Loss of Appetite, Malaise, Night Sweats, Weakness, Weight Stable, Unintentional Wgt. Loss, Unexplained wgt Loss, Other HEENTM: No: Symptoms Reported, See HPI, Eye Pain, Blurred Vision, Tearing, Recent change in vision, Double Vision, Cataracts, Ear Pain, Ocular Prothesis, Ear Discharge, Nose Pain, Nose Congestion, Tinnitus, Nose Bleeding, Hearing Loss , Throat Pain, Throat Swelling, Mouth Pain, Dental Problems, Difficulty Swallowing, Mouth Swelling, Other Respiratory: No: Symptoms reported, See HPI, Cough, Orthopnea, Shortness of Breath, SOB with Exertion, SOB at Rest, Stridor, Wheezing, Productive cough, Hemoptysis, Other Cardiac (ROS): No: Symptoms Reported, See HPI, Chest Pain, Edema, Irregular Heart Rate, Lightheadedness, Palpitations, Syncope, Chest Tightness, Other ABD/GI: No: Symptoms Reported, See HPI, Abdominal Distended, Abd. Pain w/ defecation, Blood Streaked Bowels, Constipated, Diarrhea, Difficulty Swallowing , Nausea, Poor Appetite, Poor Fluid Intake, Rectal Bleeding, Vomiting, Indigestion, Abdominal cramping, Tarry Stools, Other : Yes: Hematuria, Incontinence. No: Symptoms Reported, See HPI, Burning, Dysuria, Discharge, Frequency, Flank Pain, Pain, Urgency, Testicular Mass, Testicular Swelling, Lesions, Testicular Pain, Other Musculoskeletal: No: Symptoms Reported, See HPI, Back Pain, Gout, Joint Pain, Joint Swelling, Muscle Pain, Muscle Weakness, Neck Pain, Joint Stiffness, Other Integumentary: No: Symptoms Reported, See HPI, Bruising, Change in Color, Change in Hair/Nails, Dryness, Erythema, Flushing, Lesions, Lumps, Pallor, Pruritus, Rash, Sweating, Other Neurological: No: Symptoms reported, See HPI, Headache, Numbness, Paresthesia, Pre-Existing Deficit, Seizure, Tingling, Tremors, Weakness, Unsteady Gait, Ataxia, Dizziness, Other Psychiatric: No: Anxiety, Depression, Frequent Crying, Stressors, Sleep Pattern Change, Emotional Problems, Mood Swings, Change in Appetite, Other Endocrine: No: Symptoms Reported, See HPI, Excessive Sweating, Flushing, Intolerance to Cold, Intolerance to Heat, Increased Hunger, Increased Thirst, Increased Urine, Unexplained Weight Gain, Unexplained Weight Loss, Change in Weight, Other *Physical Exam - Physical Exam General Appearance: Yes: Nourished, Appropriately Dressed HEENT: positive: Normal ENT Inspection Neck: positive: Supple Respiratory/Chest: positive: Lungs Clear, Normal Breath Sounds Cardiovascular: positive: Regular Rhythm, Regular Rate, S1, S2 Gastrointestinal/Abdominal: positive: Normal Bowel Sounds, Flat, Soft Male Genitalia: positive: normal genitalia Musculoskeletal: positive: Normal Inspection, Decreased Range of Motion (pain with hip flexion, L > R). negative: CVA Tenderness, CVA Tenderness (R), CVA Tenderness (L), Muscle Spasm, Vertebral Tenderness, Other Extremity: positive: Normal Capillary Refill, Normal Inspection Integumentary: positive: Normal Color, Dry, Warm Neurologic: positive: Fully Oriented, Alert, Normal Mood/Affect, Normal Response ED Treatment Course - LABORATORY CBC & Chemistry Diagram: 05/13/18 00:13 05/13/18 00:13 Medical Decision Making - Medical Decision Making 05/12/18 23:53 Pt presents to the ED complaining of hematuria and flank pain. History of chronic cystitis and pelvic osteomyelitis. Ua performed at [facility] is indicative of a UTI. Given that patient is already receiving broad spectrum antibiotics IV, will admit for continued IV antibiotics and possible re-imaging of his pelvis. *DC/Admit/Observation/Transfer Diagnosis at time of Disposition: Urinary tract infection Qualifiers: Urinary tract infection type: acute cystitis Hematuria presence: with hematuria Qualified Code(s): N30.01 - Acute cystitis with hematuria - Discharge Dispostion Condition at time of disposition: Good Decision to Admit order: Yes - Referrals Referrals: Andres Martinez MD [Primary Care Provider] - - Patient Instructions - Post Discharge Activity
[2018-05-12] MEDS ORDERED: ACETAMINOPHEN 1000 MG/100 ML VIAL (NON FORMULARY) IVPB ONE (23:28)
[2018-05-13] MEDS ORDERED: ACETAMINOPHEN INJECTION 100 ML IVPB ONE (00:19)
[2018-05-13 01:07] LABS: BASO % 0.7 % (0-2.0); EOS % 4.8 % (0-4.5); HEMATOCRIT 29.9 % (35.4-49); HEMOGLOBIN 9.4 GM/dL (11.7-16.9); LYMPH % 17.5 % (8-40); MCH 24.4 pg (25.7-33.7); MCHC 31.5 g/dl (32.0-35.9); MEAN CELL VOLUME 77.5 fl (80-96); MEAN PLT VOLUME 6.2 fl (7.5-11.1); MONO % 9.3 % (3.8-10.2); NEUT % 67.7 % (42.8-82.8); PLATELET COUNT 355 K/MM3 (134-434); RBC 3.85 M/mm3 (4.00-5.60); RDW 16.4 % (11.9-15.9)
[2018-05-13 01:08] LABS: URINE APPEARANCE CLOUDY; URINE BILIRUBIN NEGATIVE (<2.0 mg/dL); URINE COLOR YELLOW; URINE GLUCOSE (UA) NEGATIVE (NEGATIVE); URINE KETONE NEGATIVE (NEGATIVE); URINE NITRITE NEGATIVE (NEGATIVE); URINE UROBILINOGEN NEGATIVE mg/dL (0.2-1.0)
[2018-05-13 01:13] LABS: URINE LEUK ESTERASE 3+ (NEGATIVE); URINE PROTEIN 2+ (NEGATIVE)
[2018-05-13 01:15] LABS: EPI CELLS RARE /HPF (FEW); URINE BACTERIA RARE /hpf (NONE SEEN); URINE MUCUS RARE
[2018-05-13] MEDS ORDERED: PIPERACILLIN/TAZOB 3.375 GM 3.375 GM in DEXTROSE 5%-WATER - 50 ML IVPB ONE (01:28)
[2018-05-13 01:37] LABS: ALBUMIN 2.8 g/dl (3.4-5.0); ALK PHOS 111 U/L (45-117); ANION GAP 7 (8-16); BILIRUBIN,TOTAL 0.3 mg/dL (0.2-1.0); BLOOD UREA NITROGEN 29 mg/dL (7-18); CALCIUM 9.7 mg/dL (8.5-10.1); CHLORIDE 99 mmol/L (98-107); CO2 29 mmol/L (21-32); CREATININE 1.3 mg/dL (0.7-1.3); GLUCOSE,RANDOM 111 mg/dL (74-106); POTASSIUM 5.3 mmol/L (3.5-5.1); SGOT/AST 18 U/L (15-37); SGPT/ALT 28 U/L (12-78); SODIUM 135 mmol/L (136-145); TOT PROT 6.5 g/dl (6.4-8.2)
[2018-05-13] MEDS ORDERED: morphine CARPU-JECT 2 MG/1 ML DISP.SYRIN IVPUSH ONE ×2 (02:39→14:40)
[2018-05-13] MEDS ORDERED: morphine SULFATE 4 MG/ML VIAL ONE (02:41)
[2018-05-13] MEDS ORDERED: PIPERACILLIN/TAZOBACTAM 3.375 GM VIAL IVPB ONE (03:09)
[2018-05-13 04:12] VITALS: BMI 29.9
--- NOTE | 2018-05-13 07:52 | HP ---
CHIEF COMPLAINT: pelvic pain PCP: Dr Martinez ID: Dr Izaguirre urology: Dr Parra orthopedist: Dr Burgos Pain management: Dr Norris HISTORY OF PRESENT ILLNESS: Patient is 78 y/o male with a past medical history of prostate CA (prostatectomy), cryo radiation, urethral stricture (s/p dilation ), urinary incontinence, CAD, HTN, DM (diet controlled), asthma. Patient was discharged from this hospital on 04/15/18 and was found to have pelvic osteomyelitis. Patient was discharged with follow up for bone biospy. Patient obtained a bone biopsy at [facility], soon after as per (Essie) reports the pathology was negative. Patient was being managed by ID, Dr Izaguirre outpatient , PICC line was placed on 04/28 and we has started on vancomycin and cefepime. Of note, patient was placed at [facility] short term rehab for IV infusions. He reports worsening of lower back and pelvic pain, patient denies any fever or dysuria. He reports hematuria with worsening back pain yesterday evening and was transferred from [facility] to ED for further management. ER course was notable for: (1) ct scan of abdomen w/o contrast: lytic changes of pubis consistent with acute osteomyelitis, inflammatory changes/phelgmon anterior of the symphysis pubis w/o a discrete drainable abscess (2)wbc 9.0 (3)urinalysis +3 leukocytes Recent Travel: none PAST MEDICAL HISTORY: see hpi PAST SURGICAL HISTORY: see hpi Social History: resides at home with , retired Smoking: none Alcohol:none Drugs: none Family History: non-contributory to this admission Allergies iodine Allergy (Verified 05/03/18 09:02) Rash IVP DYE Sulfa (Sulfonamide Antibiotics) Allergy (Verified 05/03/18 09:02) "KIDNEY ISSUES" HOME MEDICATIONS: Home Medications Medication Instructions Recorded RX: Nebivolol HCl [Bystolic] 10 mg PO DAILY tablet 02/08/15 RX: Escitalopram Oxalate [Lexapro 20 mg PO DAILY 10/24/16 -] RX: Losartan Potassium 50 mg PO DAILY 10/24/16 RX: Ezetimibe [Zetia] 10 mg PO DAILY 11/03/17 RX: Famotidine 20 mg PO DAILY 11/03/17 RX: Simvastatin 20 mg PO HS 11/03/17 RX: Gabapentin [Neurontin -] 300 mg PO BID 04/08/18 RX: Lactobacillus Acidophilus 1 tab PO DAILY #30 tab 04/12/18 [Bacid -] Cefepime HCl [Maxipime] 2 gm IJ BID 05/12/18 Cholecalciferol (Vitamin D3) 2,000 unit PO DAILY 05/12/18 [Vitamin D] Sennosides [Senna] 8.8 mg PO DAILY 05/12/18 Tramadol HCl [Ultram] 50 mg PO BID PRN 05/12/18 Vancomycin [Vancocin] 500 mg IV BID 05/12/18 Venlafaxine HCl ER [Effexor Xr -] 75 mg PO DAILY 05/12/18 REVIEW OF SYSTEMS CONSTITUTIONAL: Absent: fever, chills, diaphoresis, generalized weakness, malaise, loss of appetite, weight change HEENT: Absent: rhinorrhea, nasal congestion, throat pain, throat swelling, difficulty swallowing, mouth swelling, ear pain, eye pain, visual changes CARDIOVASCULAR: Absent: chest pain, syncope, palpitations, irregular heart rate, lightheadedness , peripheral edema RESPIRATORY: Absent: cough, shortness of breath, dyspnea with exertion, orthopnea, wheezing, stridor, hemoptysis GASTROINTESTINAL: Absent: abdominal pain, abdominal distension, nausea, vomiting, diarrhea, constipation, melena, hematochezia GENITOURINARY: present: hematuria, urgency Absent: dysuria, frequency, hesitancy,flank pain, genital pain MUSCULOSKELETAL: Present: back pain, pelvic pain Absent: myalgia, arthralgia, joint swelling, neck pain SKIN: Absent: rash, itching, pallor HEMATOLOGIC/IMMUNOLOGIC: Absent: easy bleeding, easy bruising, lymphadenopathy, frequent infections ENDOCRINE: Absent: unexplained weight gain, unexplained weight loss, heat intolerance, cold intolerance NEUROLOGIC: Absent: headache, focal weakness or paresthesias, dizziness, unsteady gait, seizure, mental status changes, bladder or bowel incontinence PSYCHIATRIC: Absent: anxiety, depression, suicidal or homicidal ideation, hallucinations. PHYSICAL EXAMINATION Vital Signs - 24 hr 05/12/18 05/13/18 22:41 04:18 Temperature 98.7 F 98.0 F Pulse Rate 57 L 60 Respiratory 16 18 Rate Blood Pressure 139/67 144/70 O2 Sat by Pulse 95 97 Oximetry (%) GENERAL: Awake, alert, and fully oriented, in no acute distress. HEAD: Normal with no signs of trauma. EYES: Pupils equal, round and reactive to light, extraocular movements intact, sclera anicteric, conjunctiva clear. No lid lag. EARS, NOSE, THROAT: Ears normal, nares patent, oropharynx clear without exudates. Moist mucous membranes. NECK: Normal range of motion, supple without lymphadenopathy, JVD, or masses. LUNGS: Breath sounds equal, clear to auscultation bilaterally. No wheezes, and no crackles. No accessory muscle use. HEART: Regular rate and rhythm, normal S1 and S2 without murmur, rub or gallop. ABDOMEN: + suprapubic tenderness, urinary incontinence Soft, nontender, not distended, normoactive bowel sounds, no guarding, no rebound, no masses. No hepatomegaly or splenomegaly. MUSCULOSKELETAL: Normal range of motion at all joints. No bony deformities or tenderness. No CVA tenderness. UPPER EXTREMITIES: 2+ pulses, warm, well-perfused. No cyanosis. No clubbing. No peripheral edema. LOWER EXTREMITIES: 2+ pulses, warm, well-perfused. No calf tenderness. No peripheral edema. NEUROLOGICAL: Cranial nerves II-XII intact. Normal speech. Normal gait. PSYCHIATRIC: Cooperative. Good eye contact. Appropriate mood and affect. SKIN: Warm, dry, normal turgor, no rashes or lesions noted, normal capillary refill. Laboratory Results - last 24 hr 05/13/18 05/13/18 05/13/18 00:13 00:13 00:13 WBC 9.0 RBC 3.85 L Hgb 9.4 L Hct 29.9 L MCV 77.5 L MCH 24.4 L MCHC 31.5 L RDW 16.4 H Plt Count 355 MPV 6.2 L Absolute Neuts (auto) 6.1 Neutrophils % 67.7 Lymphocytes % 17.5 Monocytes % 9.3 Eosinophils % 4.8 H Basophils % 0.7 Nucleated RBC % 0 Sodium 135 L Potassium 5.3 H Chloride 99 Carbon Dioxide 29 D Anion Gap 7 L BUN 29 H Creatinine 1.3 Creat Clearance w eGFR 53.12 Random Glucose 111 H Calcium 9.7 Total Bilirubin 0.3 AST 18 ALT 28 Alkaline Phosphatase 111 Total Protein 6.5 Albumin 2.8 L Urine Color Yellow Urine Appearance Cloudy Urine pH 6.0 Ur Specific [place] 1.011 Urine Protein 2+ H Urine Glucose (UA) Negative Urine Ketones Negative Urine Blood 3+ H Urine Nitrite Negative Urine Bilirubin Negative Urine Urobilinogen Negative Ur Leukocyte Esterase 3+ H Urine WBC (Auto) 493 Urine RBC (Auto) 241 Ur Epithelial Cells Rare Urine Bacteria Rare Urine Mucus Rare ASSESSMENT/PLAN: 1) UTI - pending urine culture, continue cefepime - trend wbc and fever curve - appreciate urology input, Dr Parra (pt's private urologist) - strict monitoring of I/O 2) ID pubic osteomyelitis - cbc noted, pending esr and crp - appreciate ID input, Dr Adam, continue vancomycin and cefepime 3) MS chronic lower back pain - will order MRI of lumbar/sacral spine, pt has a history of prostate ca, r/o mets - continue ultram,neurontin and effexor - physical therapy eval 4) cardiovascular hypertension - continue losartan and bystolic - b/p at goal 5) heme/onc microcytic anemia - hgb 9.4, maybe secondary to chronic disease, pending iron studies - repeat hgb in AM F/E/N - regular diet - replete electrolytes prn ppx - hold ac secondary to anemia, mechanical ac only - pepcid - physical therapy - scd dispo: pt requires obsv admission Visit type - Emergency Visit Emergency Visit: Yes ED Registration Date: 05/13/18 Care time: The patient presented to the Emergency Department on the above date and was hospitalized for further evaluation of their emergent condition. - New Patient This patient is new to me today: Yes Date on this admission: 05/16/18 - Critical Care Critical Care patient: No Hospitalist Screening - Colonoscopy Questionnaire Colonoscopy Questionnaire: Colonoscopy Questionnaire - Patient: 50 - 75 years old and never had a screening colonoscopy: No History of colon or rectal polyps, or CA: No History of IBD, Crohn's disease or UC: No History of abdominal radiation therapy as a child: No - Relative: 1 with colon or rectal CA, or polyps at age 60 or younger: No Colon or rectal CA diagnosed at age 45 or younger: No Multiple relatives with colon or rectal CA: No - Outcome: Screening Result: Negative Screen
--- NOTE | 2018-05-13 09:26 | PN ---
Progress Note (short form) - Note Progress Note: ID consult dictated imp/reccd 78 year old man with pubic osteomyelitis he is on iv vancomycin/cefepime for approximately 2 weeks he is currently residing at SNF for iv antibiotic administration he reports hematuria at the snf with worsening low back pain and sacroiliac pain describes pain as 11 out of 10 making it too painful to walk with walker no fevers constipation-having BMS with miralax pelvic ct reports symphysis pubis osteo with phlegmon (no drainable abscess) pubic osteomyelitis hematuria worsening low back pain ua/urine culture pending will review ct scan suggest MRI of lumbar spine given worsening of back pain trend esr/crp continue vanco/cefepime get records of biopsy from [facility] - pathology and micro urology consult- d/w hospitalist
[2018-05-13 09:30] LABS: HEMATOCRIT 28.6 % (35.4-49); HEMOGLOBIN 9.4 GM/dl (11.7-16.9); MCH 25.3 pg (25.7-33.7); MCHC 32.7 g/dl (32.0-35.9); MEAN CELL VOLUME 77.3 fl (80-96); PLATELET COUNT 346 K/MM3 (134-434); WHITE BLOOD COUNT 8.7 K/mm3 (4.0-10.8)
[2018-05-13 09:44] LABS: INR 1.42 (0.82-1.09); PROTHROMBIN TIME (PATIENT) 15.8 SEC (10.2-13.0)
[2018-05-13] MEDS ORDERED: CEFEPIME 2 GM in DEXTROSE 5%-WATER 100 ML IVPB SCH (10:00)
[2018-05-13] MEDS ORDERED: CEFEPIME HCL/D5W 2 GM/50 ML BAG IVPB SCH (10:00)
[2018-05-13] MEDS ORDERED: PATIENT'S OWN MEDICATION (NON-FORMULARY) (Losartan Potassium [Losartan Potassium] 50 MG) PO SCH (10:00)
[2018-05-13] MEDS ORDERED: VANCOMYCIN 500 MG IV SCH (10:00)
[2018-05-13] MEDS ORDERED: FAMOTIDINE 20 MG TABLET PO SCH (10:00)
[2018-05-13 10:01] LABS: ALBUMIN 2.6 g/dl (3.5-5.0); ALK PHOS 92 U/L (32-92); ANION GAP 8 (8-16); BILIRUBIN,TOTAL 0.7 mg/dl (0.2-1.0); BLOOD UREA NITROGEN 26 mg/dl (7-18); CALCIUM 9.3 mg/dl (8.4-10.2); CHLORIDE 97 mmol/L (98-107); CO2 26 mmol/L (22-28); CREATININE 1.2 mg/dl (0.6-1.3); GLUCOSE,RANDOM 85 mg/dl (74-106); MAGNESIUM 1.5 mg/dL (1.8-2.4); POTASSIUM 4.6 mmol/L (3.5-5.1); SGOT/AST 16 U/L (10-42); SGPT/ALT 18 U/L (10-40); SODIUM 131 mmol/L (136-145); TOT PROT 5.7 g/dl (6.4-8.3)
[2018-05-13] MEDS ORDERED: MAGNESIUM SULFATE 2 GM in SODIUM CHLORIDE 100 ML IVPB ONE (10:49)
[2018-05-13] MEDS: EZETIMIBE 10 MG TABLET (FP) PO SCH (10:59)
[2018-05-13] MEDS: SENNOSIDES 8.6MG TABLET (FP) PO SCH (10:59)
[2018-05-13] MEDS: traMADol HCL 50 MG TABLET PO PRN (11:00)
[2018-05-13] MEDS ORDERED: MAGNESIUM SULFATE IN WATER 2 GM/50 ML IVPB IVPB ONE (11:00)
[2018-05-13] MEDS: GABAPENTIN 300 MG CAPSULE (FP) PO SCH ×2 (11:00→21:29)
[2018-05-13] MEDS: VENLAFAXINE HCL 75 MG E.R. CAPSULES (FP) PO SCH (11:01)
[2018-05-13] MEDS: ESCITALOPRAM OXALATE 20 MG TABLET (FP) PO SCH (11:02)
[2018-05-13] MEDS: LOSARTAN POTASSIUM 50 MG TABLET (FP) PO SCH (11:02)
[2018-05-13] MEDS: LACTOBACILLUS ACIDOPHILUS 1 TABLET PO SCH (11:02)
[2018-05-13] MEDS: NEBIVOLOL 10 MG TABLET (FP) PO SCH (11:02)
[2018-05-13] MEDS: VANCOMYCIN 1 GRAM (PRE-DOCKED) 1,000 MG/250 ML BAG IVPB SCH (11:02)
[2018-05-13] MEDS: CEFEPIME 2 GM/100 ML BAG IVPB SCH ×2 (13:45→21:29)
--- NOTE | 2018-05-13 15:57 | CONS ---
DATE OF CONSULTATION: 05/13/2018 REQUESTING PHYSICIAN: The hospitalist service. HISTORY OF PRESENT ILLNESS: This is an 78-year-old man who was recently in the hospital in April. 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 He was treated with antibiotics. He had a past medical history significant for prostate cancer treated with radiation and then cryoablation with chronic bladder neck contracture. He had a TUR and bladder stone removal with Dr. Grant in [facility]. He is also followed by Dr. Cornelius the patient tells me. During that admission, he was originally treated for UTI. He has had continued pelvic pain. He had an MRI and CT scan of his pelvis that showed evidence of pubic osteomyelitis. The patient elected to have a biopsy performed at another institution. So, he was discharged home. He ultimately underwent a biopsy of that area, he reports, [facility] with a Dr. Kamara. Following this, he had a PICC line placed and he was started on vancomycin and cefepime as an outpatient. They had trouble with the administration of the antibiotics, and he was then admitted to a SNF a week ago, May 03. So, at the SNF, the patient reports he has been using a walker. He has been using a walker for quite a while now for his back. He also reports that he has low back pain for which he has been seeing a pain doctor and had had an MRI. This was all within the last 2-3 months. He was told he needed steroid injections of his back which he never received. He subsequently at the SNF started having hematuria. He has had this in the past, but not in the recent past. He had no fevers or chills. He has chronic constipation for which he takes MiraLAX. He developed severe low back pain. He was really having difficulty ambulating. Yesterday night ultimately referred to the emergency room with these complaints. He denies any fevers, nausea, vomiting, flank pain, but he does note the hematuria. PAST MEDICAL HISTORY: Notable for prostate cancer as mentioned above, [id number] diabetes, hemorrhoids, GI bleed, GERD, urinary incontinence, hypertension, hypercholesterolemia. SURGICAL HISTORY: Appendectomy, cholecystectomy. He has had right knee arthroplasty and wrist surgery, and as stated before, the recent TUR and removal of bladder stone. SOCIAL HISTORY: He lives with his . He is a former smoker. He quit many, many years ago. No history of any substance use. ALLERGIES: He is allergic to SULFA and IODINE. MEDICATIONS: Per the ER notes, medication list includes Bystolic, Lexapro, losartan, Zetia, famotidine, simvastatin, Neurontin, lactobacillus, cefepime, vitamin D, Senna, tramadol, vancomycin, and Effexor. PHYSICAL EXAMINATION General: He is awake and alert. He has had no fever. He reports his pain is very positional, and that when it is bad, it is 11/10. Vital signs: Current vitals include temperature 98, pulse of 60, blood pressure 144/70, respiratory rate 18, he is saturating 97% on room air, he weighs 89 kg. HEENT: He is normocephalic. His eyes are anicteric. Neck: Supple. Lungs: Clear to auscultation. Heart: Regular rate and rhythm. Abdomen: Soft, nontender. He has no suprapubic pain at present. Extremities: Without edema. Musculoskeletal: He has no bony tenderness, but he has paraspinal lumbar pain on exam. DIAGNOSTIC DATA: Labs are notable for a white count of 9, hemoglobin 9.4, platelets are 365. BUN 29, creatinine 1.3, which is stable from his last admission. LFTs are normal. Albumin is 2.8. Urinalysis has 3+ leukocyte esterase with 493 white cells and 241 white cells and 3+ blood. Urine culture is pending. At this time, he had a pelvic CT done, which reveals osteomyelitis of the symphysis pubis with area of phlegmon, no discrete drainable abscess. SUMMARY: This is an 78-year-old man with pubic osteomyelitis, hematuria, which he reports as new with worsening low back pain. UA and urine culture are pending. Review the CT scan with Radiology. I would suggest MRI of his lumbosacral spine given the worsening back pain. Would trend his sedimentation rate and CRP. Would continue vancomycin and cefepime. Would suggest getting records of the biopsy from [facility], pathology and micro, and would obtain a urology consult. All of the above was discussed with the hospitalist. MARTY CARPIO M.D. [id number]
--- NOTE | 2018-05-13 17:09 | CON.GU ---
Consult Consult Specialty:: Referred by:: medicine Reason for Consultation:: pelvic pain, prostate cancer - History of Present Illness Chief Complaint: pelvic pain, prostate cancer History of Present Illness: 78 year old male with history of prostate cancer treated with radiation and salvage cryotherapy. His last PSA in April 2018 is 0.20. He also has a history of a bladder neck stricture which has been treated. His pain is generalized low back pain radiating down to his legs. He is voiding - History Source History Provided By: Patient Limitations to Obtaining History: No Limitations - Past Medical History Cardio/Vascular: Yes: CAD Renal/: Yes: Cancer, UTI, Other (BN stricture, bladder stones) - Alcohol/Substance Use Hx Alcohol Use: No - Smoking History Smoking history: Former smoker Have you smoked in the past 12 months: No Aproximately how many cigarettes per day: 0 If you are a former smoker, when did you quit?: 37 YRS AGO Home Medications - Allergies Allergies/Adverse Reactions: Allergies Allergy/AdvReac Type Severity Reaction Status Date / Time iodine Allergy Rash Verified 05/03/18 09:02 Sulfa (Sulfonamide Allergy "KIDNEY Verified 05/03/18 09:02 Antibiotics) ISSUES" - Home Medications Home Medications: Ambulatory Orders Nebivolol HCl [Bystolic] 10 mg PO DAILY tablet 02/08/15 Escitalopram Oxalate [Lexapro -] 20 mg PO DAILY 10/24/16 Losartan Potassium 50 mg PO DAILY 10/24/16 Ezetimibe [Zetia] 10 mg PO DAILY 11/03/17 Famotidine 20 mg PO DAILY 11/03/17 Simvastatin 20 mg PO HS 11/03/17 Gabapentin [Neurontin -] 300 mg PO BID 04/08/18 Lactobacillus Acidophilus [Bacid -] 1 tab PO DAILY #30 tab 04/12/18 Cefepime HCl [Maxipime] 2 gm IJ BID 05/12/18 Cholecalciferol (Vitamin D3) [Vitamin D] 2,000 unit PO DAILY 05/12/18 Sennosides [Senna] 8.8 mg PO DAILY 05/12/18 Tramadol HCl [Ultram] 50 mg PO BID PRN 05/12/18 Vancomycin [Vancocin] 500 mg IV BID 05/12/18 Venlafaxine HCl ER [Effexor Xr -] 75 mg PO DAILY 05/12/18 Physical Exam- Vital Signs: Vital Signs Temperature 98.0 F 05/13/18 04:18 Pulse Rate 60 05/13/18 04:18 Respiratory Rate 18 05/13/18 04:18 Blood Pressure 144/70 05/13/18 04:18 O2 Sat by Pulse Oximetry (%) 97 05/13/18 04:18 Gastrointestinal: Yes: Normal Bowel Sounds, Soft Renal/: No: Bladder Distention, CVA Tenderness - Left, CVA Tenderness - Right Labs: CBC, BMP 05/13/18 07:30 05/13/18 07:30 Problem List - Problems (1) Back pain Assessment/Plan: agree with plans for MRI, this is not related to any prostate cancer. Code(s): M54.9 - DORSALGIA, UNSPECIFIED (2) Malignant neoplasm of prostate Assessment/Plan: PSA 0.2, no evidence of active disease. Code(s): C61 - MALIGNANT NEOPLASM OF PROSTATE (3) Urethral stricture Assessment/Plan: voiding well Code(s): N35.9 - URETHRAL STRICTURE, UNSPECIFIED
[2018-05-13] MEDS: ATORVASTATIN CA 10 MG TABLET (FP) PO SCH (21:29)
[2018-05-13] MEDS: FAMOTIDINE 20 MG TABLET PO SCH (21:29)
[2018-05-13] MEDS ORDERED: PATIENT'S OWN MEDICATION (NON-FORMULARY) (Simvastatin [Simvastatin] 20 MG) PO SCH (22:00)
[2018-05-14] MEDS: traMADol HCL 50 MG TABLET PO PRN ×2 (03:43→14:28)
[2018-05-14] MEDS: ACETAMINOPHEN 325 MG TABLET (FP) PO PRN ×3 (03:43→23:20)
[2018-05-14] MEDS: LOSARTAN POTASSIUM 50 MG TABLET (FP) PO SCH (09:03)
[2018-05-14] MEDS: SENNOSIDES 8.6MG TABLET (FP) PO SCH (09:03)
[2018-05-14] MEDS: VENLAFAXINE HCL 75 MG E.R. CAPSULES (FP) PO SCH (09:03)
[2018-05-14] MEDS: FAMOTIDINE 20 MG TABLET PO SCH ×2 (09:03→21:41)
[2018-05-14] MEDS: GABAPENTIN 300 MG CAPSULE (FP) PO SCH ×2 (09:03→21:41)
[2018-05-14] MEDS: EZETIMIBE 10 MG TABLET (FP) PO SCH (09:03)
[2018-05-14] MEDS: ESCITALOPRAM OXALATE 20 MG TABLET (FP) PO SCH (09:03)
[2018-05-14] MEDS: NEBIVOLOL 10 MG TABLET (FP) PO SCH (09:03)
[2018-05-14] MEDS: CEFEPIME 2 GM/100 ML BAG IVPB SCH ×2 (09:04→21:40)
[2018-05-14] MEDS: VANCOMYCIN 1 GRAM (PRE-DOCKED) 1,000 MG/250 ML BAG IVPB SCH (09:04)
[2018-05-14] MEDS: LACTOBACILLUS ACIDOPHILUS 1 TABLET PO SCH (09:04)
--- NOTE | 2018-05-14 09:05 | PN ---
Physical Exam: SUBJECTIVE: Patient seen and examined at the bedside. Sitting in chair, in no acute distress. OBJECTIVE: Vital Signs Period Temp Pulse Resp BP Sys/Barber Pulse Ox Last 24 Hr 97.9 F-98.0 F 61-67 18-18 142-144/67-68 96-99 GENERAL: The patient is awake, alert, and fully oriented, in no acute distress. HEAD: Normal with no signs of trauma. EYES: PERRL, extraocular movements intact, sclera anicteric, conjunctiva clear. No ptosis. ENT: Ears normal, nares patent, oropharynx clear without exudates, moist mucous membranes. NECK: Trachea midline, full range of motion, supple. LUNGS: Breath sounds equal, clear/diminished to auscultation bilaterally HEART: Regular rate and rhythm ABDOMEN: Soft, nontender, nondistended, normoactive bowel sounds, no guarding, no rebound, no hepatosplenomegaly, no masses. EXTREMITIES: no edema. NEUROLOGICAL: mild upper body tremor at rest, pt states this has been chronic for 1 year and he is to follow up with neurologist PSYCH: Normal mood, normal affect. SKIN: Warm, dry, normal turgor, no rashes or lesions noted Laboratory Results - last 24 hr 05/13/18 05/13/18 05/13/18 07:30 07:30 07:30 WBC 8.7 RBC 3.70 L Hgb 9.4 L Hct 28.6 L MCV 77.3 L MCH 25.3 L MCHC 32.7 RDW 15.0 Plt Count 346 D MPV 6.0 L PT with INR 15.8 H INR 1.42 H Sodium 131 L Potassium 4.6 Chloride 97 L Carbon Dioxide 26 Anion Gap 8 BUN 26 H Creatinine 1.2 Creat Clearance w eGFR 58.26 Random Glucose 85 D Calcium 9.3 Magnesium 1.5 L Ferritin Cancelled Total Bilirubin 0.7 AST 16 D ALT 18 D Alkaline Phosphatase 92 D C-Reactive Protein Cancelled Total Protein 5.7 L Albumin 2.6 L Active Medications Generic Name Dose Route Start Last Admin Trade Name Freq PRN Reason Stop Dose Admin Acetaminophen 650 mg 05/13/18 08:23 05/14/18 03:43 Tylenol - PO 650 mg Q4H PRN Administration PAIN LEVEL 1-5 Atorvastatin Calcium 10 mg 05/13/18 22:00 05/13/18 21:29 Lipitor - PO 10 mg HS YAYA Administration Ezetimibe 10 mg 05/13/18 10:00 05/14/18 09:03 Zetia - PO 10 mg DAILY YAYA Administration Escitalopram Oxalate 20 mg 05/13/18 10:00 05/14/18 09:03 Lexapro - PO 20 mg DAILY YAYA Administration Famotidine 20 mg 05/13/18 22:00 05/14/18 09:03 Pepcid - PO 20 mg BID YAYA Administration Gabapentin 300 mg 05/13/18 10:00 05/14/18 09:03 Neurontin - PO 300 mg BID YAYA Administration Vancomycin HCl 1,000 mg in 250 mls @ 166.667 mls/hr 05/13/18 09:30 05/14/18 09:04 Vancomycin (Pre-Docked) IVPB 166.667 mls/hr Q24H YAYA Administration Protocol Cefepime HCl 2 gm in 100 mls @ 200 mls/hr 05/13/18 11:15 05/14/18 09:04 Maxipime 2gm Ivpb (Pre-Docked) IVPB 200 mls/hr BID YAYA Administration Lactobacillus Acidophilus 1 tab 05/13/18 10:00 05/14/18 09:04 Bacid - PO 1 tab DAILY YAYA Administration Losartan Potassium 50 mg 05/13/18 10:00 05/14/18 09:03 Cozaar - PO 50 mg DAILY YAYA Administration Nebivolol 10 mg 05/13/18 10:00 05/14/18 09:03 Bystolic - PO 10 mg DAILY YAYA Administration Senna 1 tab 05/13/18 10:00 05/14/18 09:03 Senna - PO 1 tab DAILY YAYA Administration Tramadol HCl 50 mg 05/13/18 08:08 05/14/18 03:43 Ultram - PO 50 mg BID PRN Administration PAIN LEVEL 7 - 10 Venlafaxine HCl 75 mg 05/13/18 10:00 05/14/18 09:03 Effexor Xr - PO 75 mg DAILY YAYA Administration ASSESSMENT/PLAN: Patient is 78 y/o male with a past medical history of prostate CA (prostatectomy ), cryo radiation, urethral stricture (s/p dilation), urinary incontinence, CAD , HTN, DM (diet controlled), asthma. 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 Pt admitted after he reports worsening of lower back and pelvic pain and hematuria with worsening back pain. : UTI per UA, UC with no growth: Urology following. Monitor intake, vitals. ID following. hmg/hct stable ID: pubic osteomyelitis. On Cefepime and Vanco. ID following. Muscular/Skeletal: lower back pain. MRI lumbar/sacrum pending. On ultram and oxycodone for severe pain. Physical therapy. Card: HTN: controlled Heme: Anemia: hmg/hct stable. Iron studies pending. fen regular diet monitor cmp low salt diet prophy pepcid SCDs PT full code Visit type - Emergency Visit Emergency Visit: Yes ED Registration Date: 05/13/18 Care time: The patient presented to the Emergency Department on the above date and was hospitalized for further evaluation of their emergent condition. - New Patient This patient is new to me today: Yes Date on this admission: 05/14/18 - Critical Care Critical Care patient: No - Discharge Referral Referred to [facility] Med P.C.: No
[2018-05-14 09:42] LABS: ALBUMIN 2.6 g/dl (3.5-5.0); ALK PHOS 91 U/L (32-92); ANION GAP 7 (8-16); BILIRUBIN,TOTAL 0.6 mg/dl (0.2-1.0); BLOOD UREA NITROGEN 24 mg/dl (7-18); CALCIUM 9.4 mg/dl (8.4-10.2); CHLORIDE 97 mmol/L (98-107); CO2 27 mmol/L (22-28); CREATININE 1.1 mg/dl (0.6-1.3); GLUCOSE,RANDOM 105 mg/dl (74-106); MAGNESIUM 1.8 mg/dL (1.8-2.4); POTASSIUM 4.5 mmol/L (3.5-5.1); SGOT/AST 14 U/L (10-42); SGPT/ALT 18 U/L (10-40); SODIUM 131 mmol/L (136-145); TOT PROT 5.8 g/dl (6.4-8.3)
[2018-05-14 09:56] LABS: BASO % 0.4 % (0-2.0); EOS % 3.7 % (0-4.5); HEMATOCRIT 28.8 % (35.4-49); HEMOGLOBIN 9.2 GM/dl (11.7-16.9); LYMPH % 13.9 % (8-40); MCH 24.5 pg (25.7-33.7); MCHC 32.1 g/dl (32.0-35.9); MEAN CELL VOLUME 76.5 fl (80-96); MEAN PLT VOLUME 5.9 fl (7.5-11.1); MONO % 8.1 % (3.8-10.2); NEUT % 73.9 % (42.8-82.8); PLATELET COUNT 378 K/MM3 (134-434); RBC 3.76 M/mm3 (4.00-5.60); RDW 15.1 % (11.9-15.9); WHITE BLOOD COUNT 9.9 K/mm3 (4.0-10.8)
--- NOTE | 2018-05-14 12:20 | PN ---
Progress Note (short form) - Note Progress Note: no hematuria today OOB to chair Vital Signs Period Temp Pulse Resp BP Sys/Barber Pulse Ox Last 24 Hr 97.9 F-98.0 F 61-67 18-18 142-144/67-68 96-99 cor-rrr lungs clear abd soft,nt ext no edema CBC, BMP 05/14/18 07:30 05/14/18 07:30 Microbiology 05/13/18 04:00 Urine - Urine Clean Catch Urine Culture - Final NO GROWTH OBTAINED Laboratory Tests 05/14/18 05/14/18 07:30 07:30 ESR 106 H C-Reactive Protein 6.8 H a/p pubic osteomyelitis hematuria resolved worsening low back pain continue vanco/cefepime repeat MRI? pending continue vanco/cefepime pain management f/u MRI vancomycin trough in am
[2018-05-14] MEDS: oxyCODONE HCL 5 MG TABLET PO PRN ×2 (17:20→23:20)
[2018-05-14] MEDS ORDERED: traMADol HCL 50 MG TABLET PO PRN (17:22)
[2018-05-14] MEDS: ATORVASTATIN CA 10 MG TABLET (FP) PO SCH (21:40)
[2018-05-15] MEDS: oxyCODONE HCL 5 MG TABLET PO PRN ×3 (04:31→15:56)
[2018-05-15] MEDS: ACETAMINOPHEN 325 MG TABLET (FP) PO PRN (04:32)
[2018-05-15 09:49] LABS: BASO % 0.6 % (0-2.0); EOS % 5.1 % (0-4.5); HEMATOCRIT 29.3 % (35.4-49); HEMOGLOBIN 9.3 GM/dl (11.7-16.9); LYMPH % 13.7 % (8-40); MCH 24.3 pg (25.7-33.7); MCHC 31.6 g/dl (32.0-35.9); MEAN CELL VOLUME 76.8 fl (80-96); MONO % 10.5 % (3.8-10.2); NEUT % 70.1 % (42.8-82.8); PLATELET COUNT 354 K/MM3 (134-434); RBC 3.81 M/mm3 (4.00-5.60); WHITE BLOOD COUNT 9.4 K/mm3 (4.0-10.8)
[2018-05-15] MEDS: SENNOSIDES 8.6MG TABLET (FP) PO SCH (10:00)
[2018-05-15] MEDS: FAMOTIDINE 20 MG TABLET PO SCH ×2 (10:00→22:26)
[2018-05-15 10:18] LABS: ALBUMIN 2.6 g/dl (3.5-5.0); ALK PHOS 90 U/L (32-92); ANION GAP 8 (8-16); BILIRUBIN,TOTAL 0.3 mg/dl (0.2-1.0); BLOOD UREA NITROGEN 31 mg/dl (7-18); CALCIUM 9.3 mg/dl (8.4-10.2); CHLORIDE 98 mmol/L (98-107); CO2 25 mmol/L (22-28); CREATININE 1.2 mg/dl (0.6-1.3); GLUCOSE,RANDOM 120 mg/dl (74-106); MAGNESIUM 1.6 mg/dL (1.8-2.4); POTASSIUM 4.7 mmol/L (3.5-5.1); SGOT/AST 16 U/L (10-42); SGPT/ALT 18 U/L (10-40); SODIUM 131 mmol/L (136-145); TOT PROT 5.7 g/dl (6.4-8.3)
[2018-05-15] MEDS ORDERED: SODIUM CHLORIDE 1,000 ML IV SCH (10:30)
[2018-05-15] MEDS ORDERED: MAGNESIUM OXIDE 400 MG TABLET (FP) PO ONE (11:00)
[2018-05-15] MEDS: CEFEPIME 2 GM/100 ML BAG IVPB SCH ×2 (11:23→22:26)
[2018-05-15] MEDS: GABAPENTIN 300 MG CAPSULE (FP) PO SCH ×2 (11:24→22:26)
[2018-05-15] MEDS: LOSARTAN POTASSIUM 50 MG TABLET (FP) PO SCH (11:25)
[2018-05-15] MEDS: ESCITALOPRAM OXALATE 20 MG TABLET (FP) PO SCH (11:25)
[2018-05-15] MEDS: EZETIMIBE 10 MG TABLET (FP) PO SCH (11:25)
[2018-05-15] MEDS: NEBIVOLOL 10 MG TABLET (FP) PO SCH (11:26)
[2018-05-15] MEDS: VENLAFAXINE HCL 75 MG E.R. CAPSULES (FP) PO SCH (11:26)
[2018-05-15] MEDS: LACTOBACILLUS ACIDOPHILUS 1 TABLET PO SCH (11:40)
[2018-05-15] MEDS: VANCOMYCIN 1 GRAM (PRE-DOCKED) 1,000 MG/250 ML BAG IVPB SCH (11:40)
--- NOTE | 2018-05-15 13:09 | PN ---
Physical Exam: SUBJECTIVE: Patient seen and examined at the bedside. OBJECTIVE: MRI reviewed, neurology consulted Discussed with neuro, will adjust/simply pain meds: started on fentanyl and ultram for breakthrough pain Vital Signs Period Temp Pulse Resp BP Sys/Barber Pulse Ox Last 24 Hr 97.8 F-98.1 F 59-60 18-19 108-138/55-70 96-100 GENERAL: The patient is awake, alert, and fully oriented, in no acute distress. HEAD: Normal with no signs of trauma. EYES: PERRL, extraocular movements intact, sclera anicteric, conjunctiva clear. No ptosis. ENT: Ears normal, nares patent, oropharynx clear without exudates, moist mucous membranes. NECK: Trachea midline, full range of motion, supple. LUNGS: Breath sounds equal, clear/diminished to auscultation bilaterally HEART: Regular rate and rhythm ABDOMEN: Soft, nontender, nondistended, normoactive bowel sounds, no guarding, no rebound, no hepatosplenomegaly, no masses. EXTREMITIES: no edema. NEUROLOGICAL: mild upper body tremor at rest, pt states this has been chronic for 1 year and he is to follow up with neurologist PSYCH: Normal mood, normal affect. SKIN: Warm, dry, normal turgor, no rashes or lesions noted Laboratory Results - last 24 hr 05/15/18 05/15/18 06:00 06:00 WBC 9.4 RBC 3.81 L Hgb 9.3 L Hct 29.3 L MCV 76.8 L MCH 24.3 L MCHC 31.6 L RDW 15.0 Plt Count 354 MPV 6.0 L Absolute Neuts (auto) 6.5 Neutrophils % 70.1 Lymphocytes % 13.7 Monocytes % 10.5 H Eosinophils % 5.1 H Basophils % 0.6 Sodium 131 L Potassium 4.7 Chloride 98 Carbon Dioxide 25 Anion Gap 8 BUN 31 H Creatinine 1.2 Creat Clearance w eGFR 58.26 Random Glucose 120 H Calcium 9.3 Magnesium 1.6 L Total Bilirubin 0.3 AST 16 ALT 18 Alkaline Phosphatase 90 Total Protein 5.7 L Albumin 2.6 L Active Medications Generic Name Dose Route Start Last Admin Trade Name Freq PRN Reason Stop Dose Admin Acetaminophen 650 mg 05/13/18 08:23 05/15/18 04:32 Tylenol - PO 650 mg Q4H PRN Administration PAIN LEVEL 1-3 Atorvastatin Calcium 10 mg 05/13/18 22:00 05/14/18 21:40 Lipitor - PO 10 mg HS YAYA Administration Ezetimibe 10 mg 05/13/18 10:00 05/15/18 11:25 Zetia - PO 10 mg DAILY YAYA Administration Escitalopram Oxalate 20 mg 05/13/18 10:00 05/15/18 11:25 Lexapro - PO 20 mg DAILY YAYA Administration Famotidine 20 mg 05/13/18 22:00 05/14/18 21:41 Pepcid - PO 20 mg BID YAYA Administration Gabapentin 300 mg 05/13/18 10:00 05/15/18 11:24 Neurontin - PO 300 mg BID YAYA Administration Vancomycin HCl 1,000 mg in 250 mls @ 166.667 mls/hr 05/13/18 09:30 05/15/18 11:40 Vancomycin (Pre-Docked) IVPB 166.667 mls/hr Q24H YAYA Administration Protocol Cefepime HCl 2 gm in 100 mls @ 200 mls/hr 05/13/18 11:15 05/15/18 11:23 Maxipime 2gm Ivpb (Pre-Docked) IVPB 200 mls/hr BID YAYA Administration Sodium Chloride 1,000 mls @ 50 mls/hr 05/15/18 10:30 05/15/18 11:40 Normal Saline - IV 05/16/18 10:30 50 mls/hr ASDIR YAYA Administration Lactobacillus Acidophilus 1 tab 05/13/18 10:00 05/15/18 11:40 Bacid - PO 1 tab DAILY YAYA Administration Losartan Potassium 50 mg 05/13/18 10:00 05/15/18 11:25 Cozaar - PO 50 mg DAILY YAYA Administration Nebivolol 10 mg 05/13/18 10:00 05/15/18 11:26 Bystolic - PO 10 mg DAILY YAYA Administration Oxycodone HCl 5 mg 05/14/18 17:21 05/15/18 11:24 Roxicodone - PO 5 mg Q6H PRN Administration PAIN LEVEL 7 - 10 Senna 1 tab 05/13/18 10:00 05/14/18 09:03 Senna - PO 1 tab DAILY YAYA Administration Tramadol HCl 50 mg 05/14/18 17:22 05/15/18 01:22 Ultram - PO 50 mg Q12H PRN Administration PAIN LEVEL 4 - 6 Venlafaxine HCl 75 mg 05/13/18 10:00 05/15/18 11:26 Effexor Xr - PO 75 mg DAILY YAYA Administration ASSESSMENT/PLAN: Patient is 78 y/o male with a past medical history of prostate CA (prostatectomy ), cryo radiation, urethral stricture (s/p dilation), urinary incontinence, CAD , HTN, DM (diet controlled), asthma. 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 Pt admitted after he reports worsening of lower back and pelvic pain and hematuria with worsening back pain. : UTI per UA, UC with no growth: Urology following. Monitor intake, vitals. ID following. hmg/hct stable. Hematuria: hmg/hct stable. ID: pubic osteomyelitis. On Cefepime and Vanco. ID following. Muscular/Skeletal: lower back pain, difficulty with ambulation. MRI lumbar/ sacrum reviewed, acute fracture/osteo at level of L5 cannot be excluded. Neuro consulted, pt had dedicated CT for follow up. Will switch pain medications to long acting (fentanyl) and ultram for breakthrough pain. Physical therapy. fall risk. Card: HTN: controlled Heme: Anemia: hmg/hct stable. Iron studies pending. fen regular diet monitor cmp low salt diet prophy pepcid SCDs PT Visit type - Emergency Visit Emergency Visit: Yes ED Registration Date: 05/13/18 Care time: The patient presented to the Emergency Department on the above date and was hospitalized for further evaluation of their emergent condition. - New Patient This patient is new to me today: No - Critical Care Critical Care patient: No - Discharge Referral Referred to [facility] Med P.C.: No
--- NOTE | 2018-05-15 15:47 | CON.NEURO ---
Consult Consult Specialty:: NEUROLOGY-SHRADDHA WELLS - History of Present Illness History of Present Illness: Patient is 78 y/o male with a past medical history of prostate CA (prostatectomy ), cryo radiation, urethral stricture (s/p dilation), urinary incontinence, CAD , HTN, DM (diet controlled), asthma. Patient was discharged from this hospital on 04/15/18 and was found to have pelvic osteomyelitis. Patient was discharged with follow up for bone biospy. Patient obtained a bone biopsy at [facility] , soon after as per (Essie) reports the pathology was negative. Patient was being managed by ID, Dr Izaguirre outpatient, PICC line was placed on 04/28 and we has started on vancomycin and cefepime. Of note, patient was placed at [facility] short term rehab for IV infusions. He reports worsening of lower back and pelvic pain, patient denies any fever or dysuria. He reports hematuria with worsening back pain yesterday evening and was transferred from [facility] to ED for further management. Pt. tells me he has chronic lumbar pain x 5 years at least, that in last month and a half pain is worse to the point he cannot walk. + urinary incontinence x 19 years since sx. for prostate ca. He also feels he has concentration/memory difficulty/constipation because of opiate meds he is on and that his pain management doctor was planning lumbar epidural injections. Pain is in both buttocks, radiates down both legs, post.aspects to knees acc.by tingling i same dist.,lancinating/shooting, worse upon ALL movement. ER course was notable for: (1) ct scan of abdomen w/o contrast: lytic changes of pubis consistent with acute osteomyelitis, inflammatory changes/phelgmon anterior of the symphysis pubis w/o a discrete drainable abscess - Past Medical History Cardio/Vascular: Yes: CAD Renal/: Yes: Cancer, UTI, Other (BN stricture, bladder stones) - Alcohol/Substance Use Hx Alcohol Use: No - Smoking History Smoking history: Former smoker Have you smoked in the past 12 months: No Aproximately how many cigarettes per day: 0 If you are a former smoker, when did you quit?: 37 YRS AGO Home Medications - Allergies Allergies/Adverse Reactions: Allergies Allergy/AdvReac Type Severity Reaction Status Date / Time iodine Allergy Rash Verified 05/03/18 09:02 Sulfa (Sulfonamide Allergy "KIDNEY Verified 05/03/18 09:02 Antibiotics) ISSUES" - Home Medications Home Medications: Ambulatory Orders Nebivolol HCl [Bystolic] 10 mg PO DAILY tablet 02/08/15 Escitalopram Oxalate [Lexapro -] 20 mg PO DAILY 10/24/16 Losartan Potassium 50 mg PO DAILY 10/24/16 Ezetimibe [Zetia] 10 mg PO DAILY 11/03/17 Famotidine 20 mg PO DAILY 11/03/17 Simvastatin 20 mg PO HS 11/03/17 Gabapentin [Neurontin -] 300 mg PO BID 04/08/18 Lactobacillus Acidophilus [Bacid -] 1 tab PO DAILY #30 tab 04/12/18 Cefepime HCl [Maxipime] 2 gm IJ BID 05/12/18 Cholecalciferol (Vitamin D3) [Vitamin D] 2,000 unit PO DAILY 05/12/18 Sennosides [Senna] 8.8 mg PO DAILY 05/12/18 Tramadol HCl [Ultram] 50 mg PO BID PRN 05/12/18 Vancomycin [Vancocin] 500 mg IV BID 05/12/18 Venlafaxine HCl ER [Effexor Xr -] 75 mg PO DAILY 05/12/18 Physical Exam-Neuro Vital Signs: Vital Signs Temperature 98.1 F 05/15/18 06:03 Pulse Rate 60 05/15/18 06:03 Respiratory Rate 18 05/15/18 06:03 Blood Pressure 134/70 05/15/18 06:03 O2 Sat by Pulse Oximetry (%) 96 05/15/18 06:03 Labs: CBC, BMP 05/15/18 06:00 05/15/18 06:00 INR, PTT INR 1.42 (0.82-1.09) H 05/13/18 07:30 - Neuro Exam Level Of Consciousness: Yes: Alert, Oriented to Person, Oriented to Place Eyes: Yes: TONIO Speech: WNL Mini Mental Exam: Impaired att/conc. DTR's: 2+ Left Bicep, 2+ Right Bicep, 2+ Left Brachioradialis, 2+ Right Brachioradialis, 2+ Left Achilles, 2+ Right Achilles (+ bolat. Hoffmans), 3+ Left Tricep, 3+ Right Tricep Babinski: Present (Bilat. upgoing toes) Motor Strength: 5/5: Left Arm, Right Arm, Left Leg, Right Leg (Bilat IPs- unable to test properly because of pain but at least 3/5. 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 Acute fx/om cannot be excluded. Left lat. epidural collection at L5 compressing left lat.thecal space with mass effect left L5 root. This was also seen on MRI 05/13/18?/synovial cyst vs hematoma.bilat sacrum acute fx. vs subacute insufficiency fxs. Lumbar spondylosis with sevee narrowing left L4/L5 - compression of left L5 nerve root.) Assessment/Plan Pt. with lumbar pain, worse in last 1.5 months-in distribution of L4 nerve roots. He is on opiates with minimal pain control and has s/e to opiates( constipation and cognitive. The pain appears to be due to 1) possible subacte fx of L4/5 facet vs OM and neural foraminal stenosis compressing L4 roots. Suggest: -CT spine with/without gadolinium-this will help differentiate djd from infection. --I will discuss MRI with neuroradiology at [facility] tomorrow morning-he may need biopsy of lumbar spine affected areas to see whether he has inf. or not and possibly a vertebroplasty. -Pain meds- I suggest simplifying his med [id number]- Fentanyl patch 25mcg q72 hours to start with and usind Tylenol with codeine or Tramadol q6hrs prn. Further managemnet after i discuss MRI with neuroradiology. Tremors/brisk reflexes in UEs- likley cervical myelopathy-will address later. Thank you, Jason Sy MD
--- NOTE | 2018-05-15 15:52 | PN ---
Progress Note (short form) - Note Progress Note: no hematuria today OOB to chair d/w earlier today Vital Signs Period Temp Pulse Resp BP Sys/Barber Pulse Ox Last 24 Hr 97.8 F-98.1 F 59-60 18-19 108-138/55-70 96-100 cor-rrr lungs clear abd soft,nt ext no edema CBC, BMP 05/15/18 06:00 05/15/18 06:00 Microbiology 05/13/18 04:00 Urine - Urine Clean Catch Urine Culture - Final NO GROWTH OBTAINED a/p pubic osteomyelitis hematuria resolved worsening low back pain continue vanco/cefepime repeat MRI- for neurology evaluation continue vanco/cefepime pain management vancomycin trough therapeutic Laboratory Tests 05/14/18 05/14/18 05/15/18 07:30 07:30 10:45 ESR 106 H C-Reactive Protein 6.8 H Vancomycin Pre-Dose 12.17 H Problem List - Problems (1) Osteomyelitis Code(s): M86.9 - OSTEOMYELITIS, UNSPECIFIED (2) Back pain Code(s): M54.9 - DORSALGIA, UNSPECIFIED
[2018-05-15] MEDS ORDERED: FENTANYL PATCH WASTE TD PRN (16:50)
[2018-05-15] MEDS: fentaNYL 25mcg/hr PATCH.TD72 TD SCH (17:52)
[2018-05-15] MEDS: ATORVASTATIN CA 10 MG TABLET (FP) PO SCH (22:26)
[2018-05-15] MEDS: traMADol HCL 50 MG TABLET PO PRN (22:29)
--- NOTE | 2018-05-16 08:41 | PN ---
Progress Note (short form) - Note Progress Note: 78 y/o male with a past medical history of prostate CA (prostatectomy), cryo radiation, urethral stricture (s/p dilation), urinary incontinence, CAD, HTN, DM (diet controlled), asthma. 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 Patient was discharged with follow up for bone biospy. Patient obtained a bone biopsy at [facility], soon after as per (Essie) reports the pathology was negative. Patient was being managed by ID, Dr Izaguirre outpatient, PICC line was placed on 04/28 and we has started on vancomycin and cefepime. Of note, patient was placed at [facility] short term rehab for IV infusions. He reports worsening of lower back and pelvic pain, patient denies any fever or dysuria. He reports hematuria with worsening back pain yesterday evening and was transferred from [facility] to ED for further management. Pt. tells me he has chronic lumbar pain x 5 years at least, that in last month and a half pain is worse to the point he cannot walk. + urinary incontinence x 19 years since sx. for prostate ca. He also feels he has concentration/memory difficulty/constipation because of opiate meds he is on and that his pain management doctor was planning lumbar epidural injections. Pain is in both buttocks, radiates down both legs, post.aspects to knees acc.by tingling i same dist.,lancinating/shooting, worse upon ALL movement. MRI LS Spine 05/14 ADDENDUM #1 #3 in the impression was erroneously deleted. Please refer to #3 of the addended impression regarding bilateral sacral signal abnormalities. Impression: 1. Abnormal bone marrow signal within the left L4-L5 posterior facet complex extending into the pedicles may be secondary to an aggressive degenerative facet arthropathy. Acute fracture or osteomyelitis cannot be excluded in the appropriate clinical setting. Please correlate clinically. Dedicated lumbar spine CT is recommended to better evaluate bony integrity and assess for fractures. 2. A left lateral epidural collection at the level of L5 (near the left L4-L5 facet) measures 7 mm in thickness and mildly compresses the left lateral thecal sac with mass effect on the left L5 nerve root. This is unchanged from 05/13/2018 MRI and may be a degenerative synovial cyst or epidural hematoma (in the setting of fracture). 3. Relatively symmetric signal abnormalities in bilateral sacrum are favored to be acute versus subacute insufficiency fractures. Axial images were not obtained through this level. If warranted, nuclear bone scintigraphy or dedicated MRI of the sacrum may be obtained for complete evaluation. 4. Lumbar spondylosis with multilevel canal and neural foraminal stenosis as detailed above including severe narrowing of the left L4-L5 neural foramen with compression of the left L5 nerve root. Please refer to the report above for detailed evaluation at each level. ORIGINAL REPORT Indication: Unable to ambulate. Technique: A multi sequential, multiplanar MRI of the lumbar spine without contrast. FU: fentanyl---started last night , pain now 01/08 , but worsens when he moves CT 05/16/18 prelim L4-L5 severe facet DJD L, facet synovitis, L abnl signal-- appears more severe degenerative - Past Medical History Cardio/Vascular: Yes: CAD Renal/: Yes: Cancer, UTI, Other (BN stricture, bladder stones) - Alcohol/Substance Use Hx Alcohol Use: No - Smoking History Smoking history: Former smoker Have you smoked in the past 12 months: No Aproximately how many cigarettes per day: 0 If you are a former smoker, when did you quit?: 37 YRS AGO Home Medications - Allergies Allergies/Adverse Reactions: Allergies Allergy/AdvReac Type Severity Reaction Status Date / Time iodine Allergy Rash Verified 05/03/18 09:02 Sulfa (Sulfonamide Allergy "KIDNEY Verified 05/03/18 09:02 Antibiotics) ISSUES" - Home Medications Home Medications: Ambulatory Orders Nebivolol HCl [Bystolic] 10 mg PO DAILY tablet 02/08/15 Escitalopram Oxalate [Lexapro -] 20 mg PO DAILY 10/24/16 Losartan Potassium 50 mg PO DAILY 10/24/16 Ezetimibe [Zetia] 10 mg PO DAILY 11/03/17 Famotidine 20 mg PO DAILY 11/03/17 Simvastatin 20 mg PO HS 11/03/17 Gabapentin [Neurontin -] 300 mg PO BID 04/08/18 Lactobacillus Acidophilus [Bacid -] 1 tab PO DAILY #30 tab 04/12/18 Cefepime HCl [Maxipime] 2 gm IJ BID 05/12/18 Cholecalciferol (Vitamin D3) [Vitamin D] 2,000 unit PO DAILY 05/12/18 Sennosides [Senna] 8.8 mg PO DAILY 05/12/18 Tramadol HCl [Ultram] 50 mg PO BID PRN 05/12/18 Vancomycin [Vancocin] 500 mg IV BID 05/12/18 Venlafaxine HCl ER [Effexor Xr -] 75 mg PO DAILY 05/12/18 Physical Exam-Neuro Vital Signs: Vital Signs Temperature 97.9 F 05/16/18 06:00 Pulse Rate 66 05/16/18 06:00 Respiratory Rate 19 05/16/18 06:00 Blood Pressure 149/71 05/16/18 06:00 O2 Sat by Pulse Oximetry (%) 96 05/16/18 06:00 Labs: CBCD WBC 9.4 K/mm3 (4.0-10.8) 05/15/18 06:00 RBC 3.81 M/mm3 (4.00-5.60) L 05/15/18 06:00 Hgb 9.3 GM/dl (11.7-16.9) L 05/15/18 06:00 Hct 29.3 % (35.4-49) L 05/15/18 06:00 MCV 76.8 fl (80-96) L 05/15/18 06:00 MCHC 31.6 g/dl (32.0-35.9) L 05/15/18 06:00 RDW 15.0 % (11.9-15.9) 05/15/18 06:00 Plt Count 354 K/MM3 (134-434) 05/15/18 06:00 MPV 6.0 fl (7.5-11.1) L 05/15/18 06:00 CMP Sodium 131 mmol/L (136-145) L 05/15/18 06:00 Potassium 4.7 mmol/L (3.5-5.1) 05/15/18 06:00 Chloride 98 mmol/L (98-107) 05/15/18 06:00 Carbon Dioxide 25 mmol/L (22-28) 05/15/18 06:00 Anion Gap 8 (8-16) 05/15/18 06:00 BUN 31 mg/dl (7-18) H 05/15/18 06:00 Creatinine 1.2 mg/dl (0.6-1.3) 05/15/18 06:00 Creat Clearance w eGFR 58.26 (>60) 05/15/18 06:00 Calcium 9.3 mg/dl (8.4-10.2) 05/15/18 06:00 Total Bilirubin 0.3 mg/dl (0.2-1.0) 05/15/18 06:00 AST 16 U/L (10-42) 05/15/18 06:00 ALT 18 U/L (10-40) 05/15/18 06:00 Alkaline Phosphatase 90 U/L (32-92) 05/15/18 06:00 Total Protein 5.7 g/dl (6.4-8.3) L 05/15/18 06:00 Albumin 2.6 g/dl (3.5-5.0) L 05/15/18 06:00 - Neuro Exam Level Of Consciousness: Yes: Alert, Oriented to Person, Oriented to Place Eyes: Yes: TONIO Speech: WNL Mini Mental Exam: Impaired att/conc. DTR's: 2+ Left Bicep, 2+ Right Bicep, 2+ Left Brachioradialis, 2+ Right Brachioradialis, 2+ Left Achilles, 2+ Right Achilles (+ bolat. Hoffmans), 3+ Left Tricep, 3+ Right Tricep Babinski: Present (Bilat. upgoing toes) Motor Strength: 5/5: Left Arm, Right Arm, Left Leg, Right Leg (Bilat IPs- unable to test properly because of pain but at least 3/5. 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 Acute fx/om cannot be excluded. Left lat. epidural collection at L5 compressing left lat.thecal space with mass effect left L5 root. This was also seen on MRI 05/13/18?/synovial cyst vs hematoma.bilat sacrum acute fx. vs subacute insufficiency fxs. Lumbar spondylosis with sevee narrowing left L4/L5 - compression of left L5 nerve root.) Assessment/Plan Pt. with lumbar pain, worse in last 1.5 months-in distribution of L4 nerve roots. He is on opiates with minimal pain control and has s/e to opiates( constipation and cognitive. The pain appears to be to acute on chronic synovitis, spondylosis/DJD .CT spine suggests acute synovitis discogenic/ degenerative in nature, rather than infection -INC Fentanyl patch 50cg q72 hours to start with and using Tylenol with codeine or Tramadol q6hrs prn. -Neurosurgical consult , DR CALL ; if unable to come here then will have to transfer to [facility] -PM consult would be helpful as well, if surgery not indicated - hep SQ DR PALMER
[2018-05-16 08:53] LABS: BASO % 0.6 % (0-2.0); EOS % 4.2 % (0-4.5); HEMATOCRIT 30.2 % (35.4-49); HEMOGLOBIN 9.9 GM/dl (11.7-16.9); LYMPH % 17.7 % (8-40); MCH 25.2 pg (25.7-33.7); MCHC 32.8 g/dl (32.0-35.9); MEAN CELL VOLUME 76.6 fl (80-96); MEAN PLT VOLUME 5.9 fl (7.5-11.1); MONO % 10.3 % (3.8-10.2); NEUT % 67.2 % (42.8-82.8); PLATELET COUNT 393 K/MM3 (134-434); RBC 3.94 M/mm3 (4.00-5.60); RDW 14.9 % (11.9-15.9)
[2018-05-16 09:14] LABS: ALBUMIN 2.8 g/dl (3.5-5.0); ALK PHOS 101 U/L (32-92); ANION GAP 7 (8-16); BILIRUBIN,TOTAL 0.5 mg/dl (0.2-1.0); BLOOD UREA NITROGEN 23 mg/dl (7-18); CHLORIDE 99 mmol/L (98-107); CO2 28 mmol/L (22-28); CREATININE 1.1 mg/dl (0.6-1.3); GLUCOSE,RANDOM 117 mg/dl (74-106); MAGNESIUM 1.6 mg/dL (1.8-2.4); SGOT/AST 16 U/L (10-42); SGPT/ALT 19 U/L (10-40); SODIUM 134 mmol/L (136-145); TOT PROT 6.3 g/dl (6.4-8.3)
[2018-05-16] MEDS ORDERED: MAGNESIUM SULFATE 2 GM in SODIUM CHLORIDE 100 ML IVPB ONE (09:21)
--- NOTE | 2018-05-16 09:23 | PN ---
Physical Exam: SUBJECTIVE: Patient seen and examined, reports lower back pain upon movement OBJECTIVE: Patient is 78 y/o male with a past medical history of prostate CA ( prostatectomy), cryo radiation, urethral stricture (s/p dilation), urinary incontinence, CAD, HTN, DM (diet controlled), and asthma. Patient was admitted from the emergency department for emergency department. Vital Signs Period Temp Pulse Resp BP Sys/Barber Pulse Ox Last 24 Hr 97.9 F-98.0 F 57-66 18-20 131-149/56-71 96-99 GENERAL: The patient is awake, alert, and fully oriented, in no acute distress. HEAD: Normal with no signs of trauma. EYES: PERRL, extraocular movements intact, sclera anicteric, conjunctiva clear. No ptosis. ENT: Ears normal, nares patent, oropharynx clear without exudates, moist mucous membranes. NECK: Trachea midline, full range of motion, supple. LUNGS: Breath sounds equal, clear to auscultation bilaterally, no wheezes, no crackles, no accessory muscle use. HEART: Regular rate and rhythm, S1, S2 without murmur, rub or gallop. ABDOMEN: Soft, nontender, nondistended, normoactive bowel sounds, no guarding, no rebound, no hepatosplenomegaly, no masses. EXTREMITIES: right lower extremity, negative SLR at 45 and 90 degrees left lower extremity + SLR at 45 degrees. 2+ pulses, warm, well-perfused, no edema. right brachial picc line. NEUROLOGICAL: Cranial nerves II through XII grossly intact. Normal speech, gait not observed. PSYCH: Normal mood, normal affect. SKIN: Warm, dry, normal turgor, no rashes or lesions noted Laboratory Results - last 24 hr 05/15/18 05/15/18 05/15/18 06:00 06:00 10:45 WBC 9.4 RBC 3.81 L Hgb 9.3 L Hct 29.3 L MCV 76.8 L MCH 24.3 L MCHC 31.6 L RDW 15.0 Plt Count 354 MPV 6.0 L Absolute Neuts (auto) 6.5 Neutrophils % 70.1 Lymphocytes % 13.7 Monocytes % 10.5 H Eosinophils % 5.1 H Basophils % 0.6 Sodium 131 L Potassium 4.7 Chloride 98 Carbon Dioxide 25 Anion Gap 8 BUN 31 H Creatinine 1.2 Creat Clearance w eGFR 58.26 Random Glucose 120 H Calcium 9.3 Magnesium 1.6 L Total Bilirubin 0.3 AST 16 ALT 18 Alkaline Phosphatase 90 Total Protein 5.7 L Albumin 2.6 L Vancomycin Pre-Dose 12.17 H 05/16/18 05/16/18 08:35 08:35 WBC 9.0 RBC 3.94 L Hgb 9.9 L Hct 30.2 L MCV 76.6 L MCH 25.2 L MCHC 32.8 RDW 14.9 Plt Count 393 MPV 5.9 L Absolute Neuts (auto) 6.0 Neutrophils % 67.2 Lymphocytes % 17.7 D Monocytes % 10.3 H Eosinophils % 4.2 Basophils % 0.6 Sodium 134 L Potassium 5.0 Chloride 99 Carbon Dioxide 28 Anion Gap 7 L BUN 23 H Creatinine 1.1 Creat Clearance w eGFR > 60 Random Glucose 117 H Calcium 10.0 Magnesium 1.6 L Total Bilirubin 0.5 AST 16 ALT 19 Alkaline Phosphatase 101 H D Total Protein 6.3 L Albumin 2.8 L Vancomycin Pre-Dose Active Medications Generic Name Dose Route Start Last Admin Trade Name Freq PRN Reason Stop Dose Admin Acetaminophen 650 mg 05/13/18 08:23 05/15/18 04:32 Tylenol - PO 650 mg Q4H PRN Administration PAIN LEVEL 1-3 Atorvastatin Calcium 10 mg 05/13/18 22:00 05/15/18 22:26 Lipitor - PO 10 mg HS YAYA Administration Ezetimibe 10 mg 05/13/18 10:00 05/15/18 11:25 Zetia - PO 10 mg DAILY YAYA Administration Escitalopram Oxalate 20 mg 05/13/18 10:00 05/15/18 11:25 Lexapro - PO 20 mg DAILY YAYA Administration Famotidine 20 mg 05/13/18 22:00 05/15/18 22:26 Pepcid - PO 20 mg BID YAYA Administration Fentanyl 1 patch 05/15/18 17:00 05/15/18 17:52 Duragesic 25mcg Patch - TD 05/22/18 16:51 1 patch Q72H YAYA Administration Gabapentin 300 mg 05/13/18 10:00 05/15/18 22:26 Neurontin - PO 300 mg BID YAYA Administration Vancomycin HCl 1,000 mg in 250 mls @ 166.667 mls/hr 05/13/18 09:30 05/15/18 11:40 Vancomycin (Pre-Docked) IVPB 166.667 mls/hr Q24H YAYA Administration Protocol Cefepime HCl 2 gm in 100 mls @ 200 mls/hr 05/13/18 11:15 05/15/18 22:26 Maxipime 2gm Ivpb (Pre-Docked) IVPB 200 mls/hr BID YAYA Administration Sodium Chloride 1,000 mls @ 50 mls/hr 05/15/18 10:30 05/15/18 11:40 Normal Saline - IV 05/16/18 10:30 50 mls/hr ASDIR YAYA Administration Magnesium Sulfate 2 gm/ Sodium 104 mls @ 100 mls/hr 05/16/18 09:21 Chloride IVPB 05/16/18 10:23 ONCE ONE Lactobacillus Acidophilus 1 tab 05/13/18 10:00 05/15/18 11:40 Bacid - PO 1 tab DAILY YAYA Administration Losartan Potassium 50 mg 05/13/18 10:00 05/15/18 11:25 Cozaar - PO 50 mg DAILY YAYA Administration Miscellaneous 1 each 05/15/18 16:50 Duragesic Patch Waste TD PRN PRN PAIN Nebivolol 10 mg 05/13/18 10:00 05/15/18 11:26 Bystolic - PO 10 mg DAILY YAYA Administration Senna 1 tab 05/13/18 10:00 05/15/18 10:00 Senna - PO 1 tab DAILY YAYA Administration Tramadol HCl 50 mg 05/15/18 16:52 05/15/18 22:29 Ultram - PO 50 mg Q8H PRN Administration PAIN LEVEL 7 - 10 Venlafaxine HCl 75 mg 05/13/18 10:00 05/15/18 11:26 Effexor Xr - PO 75 mg DAILY YAYA Administration Microbiology 05/13/18 04:00 Urine - Urine Clean Catch Urine Culture - Final NO GROWTH OBTAINED Imaging MRI of lumbar sacral spine: . Abnormal bone marrow signal within the left L4-L5 posterior facet complex extending into the pedicles may be secondary to an aggressive degenerative facet arthropathy. Acute fracture or osteomyelitis cannot be excluded in the appropriate clinical setting. Please correlate clinically. Dedicated lumbar spine CT is recommended to better evaluate bony integrity and assess for fractures. 2. A left lateral epidural collection at the level of L5 (near the left L4-L5 facet) measures 7 mm in thickness and mildly compresses the left lateral thecal sac with mass effect on the left L5 nerve root. This is unchanged from 05/13/2018 MRI and may be a degenerative synovial cyst or epidural hematoma (in the setting of fracture). 3. Relatively symmetric signal abnormalities in bilateral sacrum are favored to be acute versus subacute insufficiency fractures. Axial images were not obtained through this level. If warranted, nuclear bone scintigraphy or dedicated MRI of the sacrum may be obtained for complete evaluation. 4. Lumbar spondylosis with multilevel canal and neural foraminal stenosis as detailed above including severe narrowing of the left L4-L5 neural foramen with compression of the left L5 nerve root. Please refer to the report above for detailed evaluation at each level. CT/Lumbar spine w/o contrast:L4-L5 extensive loss of disc space height with degenerative endplate sclerosis, Grade 1 anterior spondylolisthesis of L4 and L5 , stenosis of lateral recess of L5. left neural formainal narrowing. L2-L3: extensive loss of disc space height with degenerative sclerosis of the adjacent endplates. retrolisthesis of l2 and L3 facet joint arthoprathy. as per radiologist Dr Abdlala ASSESSMENT/PLAN: 1) : - culture negative for UTI. - hematuria resolved - , urologist consulted and followed 2) ID pubic osteomyelitis - continue cefepime and vancomycin,.vancomycin trough ordered for tomorrow a.m. - Dr. Aguilera patient's primary infectious disease physician consulted and following 3) Muscular/Skeletal - MRI of lumbar/sacral spine and CT scan of lumbar spine reviewed with neurologistDr. Wang, suggestive of acute synovitis and degenerative disc disease less likely infectious - patient continues to have difficulty ambulating. patient is currently followed by Dr. Cash, spine/ortho at [facility], case discussed at length with , requested transfer to [facility] under the services of Dr. Cash, awaiting bed assignment - Will continue with fentanyl patch and will change ultram to oxycodone for break through pain 4) cardiovascular hypertension - continue bystolic and loosartan - b/p at goal 5) heme/onc microrcytic anemia -hemoglobin 9.9 stable, pending iron studies fen regular diet monitor cmp low salt diet prophy little SCDs PT dispo: transferred to [facility] under the service of Dr. Cash when bed is available plan discussed with Essie Marie at length, all question answered verbalizes understanding Visit type - Emergency Visit Emergency Visit: Yes ED Registration Date: 05/13/18 Care time: The patient presented to the Emergency Department on the above date and was hospitalized for further evaluation of their emergent condition. - New Patient This patient is new to me today: No - Critical Care Critical Care patient: No - Discharge Referral Referred to [facility] Med P.C.: No
--- NOTE | 2018-05-16 09:40 | PN ---
Progress Note, Physician History of Present Illness: Awake,alert C/O L buttock/ groiin pain Reports mental confusion he attributes to pain meds + urinary incontinence No c/o fever/ chills - Current Medication List Current Medications: Active Medications Acetaminophen (Tylenol -) 650 mg PO Q4H PRN PRN Reason: PAIN LEVEL 1-3 Last Admin: 05/15/18 04:32 Dose: 650 mg Atorvastatin Calcium (Lipitor -) 10 mg PO HS [facility] Last Admin: 05/15/18 22:26 Dose: 10 mg Ezetimibe (Zetia -) 10 mg PO DAILY [facility] Last Admin: 05/15/18 11:25 Dose: 10 mg Escitalopram Oxalate (Lexapro -) 20 mg PO DAILY [facility] Last Admin: 05/15/18 11:25 Dose: 20 mg Famotidine (Pepcid -) 20 mg PO BID [facility] Last Admin: 05/15/18 22:26 Dose: 20 mg Fentanyl (Duragesic 25mcg Patch -) 1 patch TD Q72H [facility] Stop: 05/22/18 16:51 Last Admin: 05/15/18 17:52 Dose: 1 patch Gabapentin (Neurontin -) 300 mg PO BID [facility] Last Admin: 05/15/18 22:26 Dose: 300 mg Vancomycin HCl (Vancomycin (Pre-Docked)) 1,000 mg in 250 mls @ 166.667 mls/hr IVPB Q24H [facility]; Protocol Last Admin: 05/15/18 11:40 Dose: 166.667 mls/hr Cefepime HCl (Maxipime 2gm Ivpb (Pre-Docked)) 2 gm in 100 mls @ 200 mls/hr IVPB BID YAYA Last Admin: 05/15/18 22:26 Dose: 200 mls/hr Sodium Chloride (Normal Saline -) 1,000 mls @ 50 mls/hr IV ASDIR YAYA Stop: 05/16/18 10:30 Last Admin: 05/15/18 11:40 Dose: 50 mls/hr Magnesium Sulfate (Magnesium Sulf 2 G/50 Ml Bag) 2 gm in 50 mls @ 50 mls/hr IVPB ONCE ONE Stop: 05/16/18 10:59 Lactobacillus Acidophilus (Bacid -) 1 tab PO DAILY [facility] Last Admin: 05/15/18 11:40 Dose: 1 tab Losartan Potassium (Cozaar -) 50 mg PO DAILY [facility] Last Admin: 05/15/18 11:25 Dose: 50 mg Miscellaneous (Duragesic Patch Waste) 1 each TD PRN PRN PRN Reason: PAIN Nebivolol (Bystolic -) 10 mg PO DAILY [facility] Last Admin: 05/15/18 11:26 Dose: 10 mg Senna (Senna -) 1 tab PO DAILY [facility] Last Admin: 05/15/18 10:00 Dose: 1 tab Tramadol HCl (Ultram -) 50 mg PO Q8H PRN PRN Reason: PAIN LEVEL 7 - 10 Last Admin: 05/15/18 22:29 Dose: 50 mg Venlafaxine HCl (Effexor Xr -) 75 mg PO DAILY [facility] Last Admin: 05/15/18 11:26 Dose: 75 mg - Objective Vital Signs: Vital Signs Temperature 97.9 F 05/16/18 06:00 Pulse Rate 66 05/16/18 06:00 Respiratory Rate 19 05/16/18 06:00 Blood Pressure 149/71 05/16/18 06:00 O2 Sat by Pulse Oximetry (%) 96 05/16/18 06:00 Constitutional: Yes: No Distress Eyes: Yes: Conjunctiva Clear Cardiovascular: Yes: Regular Rate and Rhythm, S1, S2 Respiratory: Yes: CTA Bilaterally Gastrointestinal: Yes: Normal Bowel Sounds, Soft, Tenderness, Other (no suprapubic tenderness) Edema: No Labs: CBC, BMP 05/16/18 08:35 05/16/18 08:35 INR, PTT INR 1.42 (0.82-1.09) H 05/13/18 07:30 Assessment/Plan Pubic osteomyelitis Day #18 empiric vancomycin/ cefepime Exacerbation, back pain MRI findings noted Case discussed with Dr Wang Agree with neurosurgical evaluation Continue empiric vancomycin/ cefepime
--- NOTE | 2018-05-16 09:46 | PN ---
Progress Note, Physician History of Present Illness: Awake, alert C/O L buttock/ groin - Current Medication List Current Medications: Active Medications Acetaminophen (Tylenol -) 650 mg PO Q4H PRN PRN Reason: PAIN LEVEL 1-3 Last Admin: 05/15/18 04:32 Dose: 650 mg Atorvastatin Calcium (Lipitor -) 10 mg PO HS [facility] Last Admin: 05/15/18 22:26 Dose: 10 mg Ezetimibe (Zetia -) 10 mg PO DAILY [facility] Last Admin: 05/15/18 11:25 Dose: 10 mg Escitalopram Oxalate (Lexapro -) 20 mg PO DAILY [facility] Last Admin: 05/15/18 11:25 Dose: 20 mg Famotidine (Pepcid -) 20 mg PO BID [facility] Last Admin: 05/15/18 22:26 Dose: 20 mg Fentanyl (Duragesic 25mcg Patch -) 1 patch TD Q72H [facility] Stop: 05/22/18 16:51 Last Admin: 05/15/18 17:52 Dose: 1 patch Gabapentin (Neurontin -) 300 mg PO BID [facility] Last Admin: 05/15/18 22:26 Dose: 300 mg Vancomycin HCl (Vancomycin (Pre-Docked)) 1,000 mg in 250 mls @ 166.667 mls/hr IVPB Q24H [facility]; Protocol Last Admin: 05/15/18 11:40 Dose: 166.667 mls/hr Cefepime HCl (Maxipime 2gm Ivpb (Pre-Docked)) 2 gm in 100 mls @ 200 mls/hr IVPB BID [facility] Last Admin: 05/15/18 22:26 Dose: 200 mls/hr Sodium Chloride (Normal Saline -) 1,000 mls @ 50 mls/hr IV ASDIR YAYA Stop: 05/16/18 10:30 Last Admin: 05/15/18 11:40 Dose: 50 mls/hr Magnesium Sulfate (Magnesium Sulf 2 G/50 Ml Bag) 2 gm in 50 mls @ 50 mls/hr IVPB ONCE ONE Stop: 05/16/18 10:59 Lactobacillus Acidophilus (Bacid -) 1 tab PO DAILY [facility] Last Admin: 05/15/18 11:40 Dose: 1 tab Losartan Potassium (Cozaar -) 50 mg PO DAILY [facility] Last Admin: 05/15/18 11:25 Dose: 50 mg Miscellaneous (Duragesic Patch Waste) 1 each TD PRN PRN PRN Reason: PAIN Nebivolol (Bystolic -) 10 mg PO DAILY [facility] Last Admin: 05/15/18 11:26 Dose: 10 mg Senna (Senna -) 1 tab PO DAILY [facility] Last Admin: 05/15/18 10:00 Dose: 1 tab Tramadol HCl (Ultram -) 50 mg PO Q8H PRN PRN Reason: PAIN LEVEL 7 - 10 Last Admin: 05/15/18 22:29 Dose: 50 mg Venlafaxine HCl (Effexor Xr -) 75 mg PO DAILY [facility] Last Admin: 05/15/18 11:26 Dose: 75 mg - Objective Vital Signs: Vital Signs Temperature 97.9 F 05/16/18 06:00 Pulse Rate 66 05/16/18 06:00 Respiratory Rate 19 05/16/18 06:00 Blood Pressure 149/71 05/16/18 06:00 O2 Sat by Pulse Oximetry (%) 96 05/16/18 06:00 Labs: CBC, BMP 05/16/18 08:35 05/16/18 08:35 INR, PTT INR 1.42 (0.82-1.09) H 05/13/18 07:30
[2018-05-16] MEDS ORDERED: MAGNESIUM SULFATE IN WATER 2 GM/50 ML IVPB IVPB ONE (10:00)
[2018-05-16] MEDS: CEFEPIME 2 GM/100 ML BAG IVPB SCH ×2 (11:07→21:41)
[2018-05-16] MEDS: LOSARTAN POTASSIUM 50 MG TABLET (FP) PO SCH (11:08)
[2018-05-16] MEDS: EZETIMIBE 10 MG TABLET (FP) PO SCH (11:09)
[2018-05-16] MEDS: ESCITALOPRAM OXALATE 20 MG TABLET (FP) PO SCH (11:09)
[2018-05-16] MEDS: VENLAFAXINE HCL 75 MG E.R. CAPSULES (FP) PO SCH (11:09)
[2018-05-16] MEDS: GABAPENTIN 300 MG CAPSULE (FP) PO SCH ×2 (11:10→21:13)
[2018-05-16] MEDS: traMADol HCL 50 MG TABLET PO PRN (11:10)
[2018-05-16] MEDS: NEBIVOLOL 10 MG TABLET (FP) PO SCH (11:11)
[2018-05-16] MEDS: SENNOSIDES 8.6MG TABLET (FP) PO SCH (11:12)
[2018-05-16] MEDS: FAMOTIDINE 20 MG TABLET PO SCH ×2 (11:12→21:13)
[2018-05-16] MEDS: VANCOMYCIN 1 GRAM (PRE-DOCKED) 1,000 MG/250 ML BAG IVPB SCH (11:12)
[2018-05-16] MEDS: LACTOBACILLUS ACIDOPHILUS 1 TABLET PO SCH (11:12)
[2018-05-16] MEDS: oxyCODONE HCL 5 MG TABLET PO PRN (18:00)
--- NOTE | 2018-05-16 20:12 | EKG ---
Test Reason : Blood Pressure : / mmHG Vent. 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
[2018-05-16] MEDS ORDERED: PT OWN MED DRAWER 7, Y5N ONE (20:18)
[2018-05-16] MEDS: ATORVASTATIN CA 10 MG TABLET (FP) PO SCH (21:13)
--- NOTE | 2018-05-16 23:48 | HOSP ---
Subjective - Review of Symptoms Events since last encounter: Pt transferred from [facility] to [facility] for neurosurgery eval with Dr. Brennan Subjective: Pt with no acute complaints. Denies pain. Appears comfortable in bed. Physical Examination Vital Signs: Vital Signs Temperature 98.4 F 05/16/18 21:42 Pulse Rate 60 05/16/18 21:42 Respiratory Rate 18 05/16/18 21:42 Blood Pressure 130/60 05/16/18 21:42 O2 Sat by Pulse Oximetry (%) 96 05/16/18 06:00 Constitutional: Yes: Calm HENT: Yes: WNL Cardiovascular: Yes: Regular Rate and Rhythm, S1, S2. No: Murmur Respiratory: Yes: CTA Bilaterally Gastrointestinal: Yes: Normal Bowel Sounds, Tenderness (suprapubic region) Edema: No Peripheral Pulses WNL: Yes Labs: CBC, BMP 05/16/18 08:35 05/16/18 08:35 Hospitalist Encounter Assessment: back pain - neurosurgical evaluation - cont current pain management osteomyelitis - cont antibiotics as per infectious disease team. HTN - bp controlled, cont current meds
[2018-05-17] MEDS: oxyCODONE HCL 5 MG TABLET PO PRN ×3 (00:13→20:25)
--- NOTE | 2018-05-17 07:23 | PN ---
Progress Note (short form) - Note Progress Note: NEUROSURGERY CONSULT DICTATED H/o prostate CA (prostatectomy), urinary incontinence, CAD, HTN, recently diagnosed DM, asthma. Patient admitted with pelvic osteomyelitis in 04/18. Had bone biopsy at [facility] and (Essie) reported the pathology to be negative. Patient was being managed by Dr Izaguirre and started on vancomycin and cefepime. c/o worsening of lower back and bilateral groin pain as well as pain radiating to L buttock and posterior thigh. + hematuria. Pain worse with getting up and moving. No F/C PE: AF, VSS HEENT- NC/AT; Neck- supple; Cor- RR; Lungs- CTA; ABd- mild obesity; Ext- chronic venous changes, minimal edema CN- intact II-XII; Motor- 4+-5 B UE/LE except prox B LE 4/5 pain limited; Sensation- decreased distal LE vibration; DTR- hyporeflexia B CT LS spine-marked DDD worst L4-5; multilevel spondylosis, L4-5 spondylolisthesis with facet hypertrophy L > R, mild L2-3 retrolisthesis; no obvious vertebral osteomyelitis MRI LS spine- L L4-5 facet edema, epidural L L4-5 inf facet cyst vs fluid collectionm L4-5 spondylolisthesis/DDD with lateral recess and foramenal stenosis L > R; multilevel spondylosis and DDD ESR 106, WBC 9, CRP 4.8, Na 131 to 134 Urine culture (repeat)-negative Likely symptomatic from L4-5 spondylolisthesis and probable L L4-5 synovial cyst Pros and cons of treatment approaches d/w pt In face of recent infection on iv abx pain management injections are not the best choices Pain meds and PT If intractable pain can consider surgical decompression L4-5 with stabilization given spondylolisthesis and associate synovial cyst, though risks are higher than usual given age and associated medical conditions Repeat PSA if not recently done The above d/w pt at bedside, who defers most medical decisions to his
--- NOTE | 2018-05-17 08:39 | CONS ---
DATE OF CONSULTATION: 05/17/2018 CHIEF COMPLAINT: Lower back pain and bilateral lumbar radiculopathy. HISTORY OF PRESENT ILLNESS: The patient is an 78-year-old, right-handed male with a history of hypertension, coronary artery disease, recently diagnosed diabetes, prostate cancer status post prostatectomy and radiation with chronic urinary incontinence, asthma, who was admitted with potential pelvic osteomyelitis about 1-1/2 months ago. He was started on vancomycin and cefepime. He had also in the interim undergone a pelvic bone biopsy at [facility] by report, which was negative for infection by report. The patient complains of about 6-month history of lower back pain which has been severe for the past 6 weeks. He rates the pain an 8 on a 1-10 scale. Pain is worse with getting up and trying to walk. The pain also goes on to bilateral groin. The pain is slightly more severe on the left side. He denies any fevers or chills. PAST MEDICAL HISTORY: Significant for recently diagnosed diabetes, hypertension, coronary artery disease, prostate CA status post radiation with resulting urethral stricture. CURRENT MEDICATIONS: Include Duragesic patch, Cozaar, cefepime, vancomycin, gabapentin, Lexapro, Effexor, Bacid, Bystolic, senna, Zetia, Pepcid, Lipitor, oxycodone. ALLERGIES: IV IODINE. SOCIAL HISTORY: He does not smoke and only drinks alcohol socially. He is retired. REVIEW OF SYSTEMS: Otherwise negative for other major constitutional, head and neck, cardiovascular, pulmonary, gastrointestinal, genitourinary, endocrinological, neurological, and psychological problems except for the above. PHYSICAL EXAMINATION: Vital Signs: Temperature is 98.2, blood pressure is 142/92 with pulse rate of 67, O2 saturation 96% on room air. HEENT: Examination shows him to be normocephalic, atraumatic, anicteric. Neck: Supple. Coronary: Examination demonstrated regular rhythm. Lungs: Clear bilaterally. Abdomen: Benign but obese. He has active bowel sounds. Extremities: Examination shows some chronic venous changes of the distal lower extremities. He has trace edema on the ankles bilaterally. Neurologic: He is awake, alert, and oriented x3. He has slightly impaired memory, likely secondary to his narcotic medications for pain. Cranial nerve examination is intact 2-12. Motor examination shows 4+ to 5/5 strength except proximal bilateral lower extremities which is 4/5, limited by pain. Sensory examination shows decreased lower extremity distal vibratory sensation. Deep tendon reflexes are 1+ throughout. He has absent bilateral ankle reflexes. There is no pathological long track sign. Back: Examination of his lower back shows paraspinal muscle spasm bilaterally near the lumbosacral junction. He has a positive straight leg raise at 30 degrees bilaterally. Gait is not tested for safety reasons. Cerebellar: Examination shows intact [id number] examination. LABORATORY: Examination shows sodium to be 131 previously and is now 134. BUN is 23 and creatinine 1.1 respectively. C-reactive protein was 6.8 three days ago. ESR is 106. White blood cell count is 9, hemoglobin is 9.9, and hematocrit is 30.2. Urine culture from May [address] scan of the lumbar spine demonstrated multi-level lumbar degenerative disk disease and endplate sclerosis, most severe at L4-5 where there is spondylolisthesis and facet hypertrophy. Facet hypertrophy is more notable on the left side. There are no obvious signs of osteomyelitis. There is also endplate spondylosis at L2-3, where there is mild retrolisthesis. Lateral recess stenosis is noted, most notable at L4-5 secondary to spondylolisthesis and facet hypertrophy as well as ligamentum hypertrophy. MRI of the lumbar spine demonstrated L4-5 spondylolisthesis with facet hypertrophy and lateral recess and foraminal stenosis. There is left-sided inferior facet cyst or fluid collection with epidural impingement of the thecal sac on the left at the L5 and L4 nerve roots. There is multi-level degenerative disk disease and degenerative disk space narrowing. Multi-level disk bulges are also noted. Mild degenerative retrolisthesis is noted at L2-3 similarly. IMPRESSION: 1. Multi-level lumbar degenerative disk disease and spondylosis. 2. L4-5 spondylolisthesis with associated left-sided L4-5 facet synovial cyst and lateral recess/foraminal stenosis with bilateral lumbar radiculopathy. 3. Diabetes. 4. Hypertension/coronary artery disease. 5. 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 RECOMMENDATIONS: The patient presents with several-month history of lower back pain, bilateral groin pain. He also has had back pain and posterior thigh pain consistent with lumbar radiculopathy. He does not have marked neurological deficit at this time. His issue appears to be mostly pain at this time. He is on narcotic pain medication and gabapentin with some relief of his symptomatology even though he still has pain whenever he tries to get up and about. Given his recent reported pelvic infection, pain management injection is probably not the best idea at this time. Hopefully, a course of physical therapy and medication can improve his symptomatology. If he remains with intractable pain or if there is doubt on the nature of the epidural cyst/fluid collection on the left side at L4-5, surgical intervention could be considered. He is the increased general anesthetic risk because of his age, diabetes, coronary disease, recent infection, and other medical conditions. However, if surgical intervention is contemplated, both decompression, cyst excision, intraoperative cultures as well as concurrent stabilization of the L4-5 level will be the surgical treatment of choice. The pros and cons of treatment approaches were discussed with the patient at bedside. All questions were answered. JAMES INFANTE M.D. [id number]
[2018-05-17] MEDS ORDERED: MAGNESIUM 1GM/D5W 100ML - 100 ML IVPB IVPB ONE (09:00)
--- NOTE | 2018-05-17 09:33 | PN ---
Progress Note (short form) - Note Progress Note: 78 y/o male with a past medical history of prostate CA (prostatectomy), cryo radiation, urethral stricture (s/p dilation), urinary incontinence, CAD, HTN, DM (diet controlled), asthma. 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 Patient was discharged with follow up for bone biospy. Patient obtained a bone biopsy at [facility], soon after as per (Essie) reports the pathology was negative. Patient was being managed by ID, Dr Izaguirre outpatient, PICC line was placed on 04/28 and we has started on vancomycin and cefepime. Of note, patient was placed at [facility] short term rehab for IV infusions. He reports worsening of lower back and pelvic pain, patient denies any fever or dysuria. He reports hematuria with worsening back pain yesterday evening and was transferred from [facility] to ED for further management. Pt. tells me he has chronic lumbar pain x 5 years at least, that in last month and a half pain is worse to the point he cannot walk. + urinary incontinence x 19 years since sx. for prostate ca. He also feels he has concentration/memory difficulty/constipation because of opiate meds he is on and that his pain management doctor was planning lumbar epidural injections. Pain is in both buttocks, radiates down both legs, post.aspects to knees acc.by tingling i same dist.,lancinating/shooting, worse upon ALL movement. MRI LS Spine 05/14 ADDENDUM #1 #3 in the impression was erroneously deleted. Please refer to #3 of the addended impression regarding bilateral sacral signal abnormalities. Impression: 1. Abnormal bone marrow signal within the left L4-L5 posterior facet complex extending into the pedicles may be secondary to an aggressive degenerative facet arthropathy. Acute fracture or osteomyelitis cannot be excluded in the appropriate clinical setting. Please correlate clinically. Dedicated lumbar spine CT is recommended to better evaluate bony integrity and assess for fractures. 2. A left lateral epidural collection at the level of L5 (near the left L4-L5 facet) measures 7 mm in thickness and mildly compresses the left lateral thecal sac with mass effect on the left L5 nerve root. This is unchanged from 05/13/2018 MRI and may be a degenerative synovial cyst or epidural hematoma (in the setting of fracture). 3. Relatively symmetric signal abnormalities in bilateral sacrum are favored to be acute versus subacute insufficiency fractures. Axial images were not obtained through this level. If warranted, nuclear bone scintigraphy or dedicated MRI of the sacrum may be obtained for complete evaluation. 4. Lumbar spondylosis with multilevel canal and neural foraminal stenosis as detailed above including severe narrowing of the left L4-L5 neural foramen with compression of the left L5 nerve root. Please refer to the report above for detailed evaluation at each level. ORIGINAL REPORT Indication: Unable to ambulate. Technique: A multi sequential, multiplanar MRI of the lumbar spine without contrast. FU: on fentanyl 25--looks more comfortable, though in pain when he moves ( VAS 3/ 10 when laying down and 6/10 when he moves) becomes confused and has poor recall of conversation with Neurosurgery CT 05/16/18 prelim L4-L5 severe facet DJD L, facet synovitis, L abnl signal-- appears more severe degenerative - Past Medical History Cardio/Vascular: Yes: CAD Renal/: Yes: Cancer, UTI, Other (BN stricture, bladder stones) - Alcohol/Substance Use Hx Alcohol Use: No - Smoking History Smoking history: Former smoker Have you smoked in the past 12 months: No Aproximately how many cigarettes per day: 0 If you are a former smoker, when did you quit?: 37 YRS AGO Home Medications - Allergies Allergies/Adverse Reactions: Allergies Allergy/AdvReac Type Severity Reaction Status Date / Time iodine Allergy Rash Verified 05/03/18 09:02 Sulfa (Sulfonamide Allergy "KIDNEY Verified 05/03/18 09:02 Antibiotics) ISSUES" - Home Medications Home Medications: Ambulatory Orders Nebivolol HCl [Bystolic] 10 mg PO DAILY tablet 02/08/15 Escitalopram Oxalate [Lexapro -] 20 mg PO DAILY 10/24/16 Losartan Potassium 50 mg PO DAILY 10/24/16 Ezetimibe [Zetia] 10 mg PO DAILY 11/03/17 Famotidine 20 mg PO DAILY 11/03/17 Simvastatin 20 mg PO HS 11/03/17 Gabapentin [Neurontin -] 300 mg PO BID 04/08/18 Lactobacillus Acidophilus [Bacid -] 1 tab PO DAILY #30 tab 04/12/18 Cefepime HCl [Maxipime] 2 gm IJ BID 05/12/18 Cholecalciferol (Vitamin D3) [Vitamin D] 2,000 unit PO DAILY 05/12/18 Sennosides [Senna] 8.8 mg PO DAILY 05/12/18 Tramadol HCl [Ultram] 50 mg PO BID PRN 05/12/18 Vancomycin [Vancocin] 500 mg IV BID 05/12/18 Venlafaxine HCl ER [Effexor Xr -] 75 mg PO DAILY 05/12/18 Physical Exam-Neuro Vital Signs: Vital Signs Temperature 98.2 F 05/17/18 04:59 Pulse Rate 67 05/17/18 04:59 Respiratory Rate 18 05/17/18 04:59 Blood Pressure 142/92 05/17/18 04:59 O2 Sat by Pulse Oximetry (%) 96 05/17/18 00:00 Labs: CBCD WBC 9.4 K/mm3 (4.0-10.8) 05/15/18 06:00 RBC 3.81 M/mm3 (4.00-5.60) L 05/15/18 06:00 Hgb 9.3 GM/dl (11.7-16.9) L 05/15/18 06:00 Hct 29.3 % (35.4-49) L 05/15/18 06:00 MCV 76.8 fl (80-96) L 05/15/18 06:00 MCHC 31.6 g/dl (32.0-35.9) L 05/15/18 06:00 RDW 15.0 % (11.9-15.9) 05/15/18 06:00 Plt Count 354 K/MM3 (134-434) 05/15/18 06:00 MPV 6.0 fl (7.5-11.1) L 05/15/18 06:00 CMP Sodium 131 mmol/L (136-145) L 05/15/18 06:00 Potassium 4.7 mmol/L (3.5-5.1) 05/15/18 06:00 Chloride 98 mmol/L (98-107) 05/15/18 06:00 Carbon Dioxide 25 mmol/L (22-28) 05/15/18 06:00 Anion Gap 8 (8-16) 05/15/18 06:00 BUN 31 mg/dl (7-18) H 05/15/18 06:00 Creatinine 1.2 mg/dl (0.6-1.3) 05/15/18 06:00 Creat Clearance w eGFR 58.26 (>60) 05/15/18 06:00 Calcium 9.3 mg/dl (8.4-10.2) 05/15/18 06:00 Total Bilirubin 0.3 mg/dl (0.2-1.0) 05/15/18 06:00 AST 16 U/L (10-42) 05/15/18 06:00 ALT 18 U/L (10-40) 05/15/18 06:00 Alkaline Phosphatase 90 U/L (32-92) 05/15/18 06:00 Total Protein 5.7 g/dl (6.4-8.3) L 05/15/18 06:00 Albumin 2.6 g/dl (3.5-5.0) L 05/15/18 06:00 - Neuro Exam Level Of Consciousness: Yes: Alert, Oriented to Person, Oriented to Place Eyes: Yes: TONIO Speech: WNL Mini Mental Exam: Impaired att/conc. DTR's: 2+ Left Bicep, 2+ Right Bicep, 2+ Left Brachioradialis, 2+ Right Brachioradialis, 2+ Left Achilles, 2+ Right Achilles (+ bolat. Hoffmans), 3+ Left Tricep, 3+ Right Tricep Babinski: Present (Bilat. upgoing toes) Motor Strength: 5/5: Left Arm, Right Arm, Left Leg, Right Leg (Bilat IPs- unable to test properly because of pain but at least 3/5. 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 Acute fx/om cannot be excluded. Left lat. epidural collection at L5 compressing left lat.thecal space with mass effect left L5 root. This was also seen on MRI 05/13/18?/synovial cyst vs hematoma.bilat sacrum acute fx. vs subacute insufficiency fxs. Lumbar spondylosis with sevee narrowing left L4/L5 - compression of left L5 nerve root.) Assessment/Plan Pt. with lumbar pain, worse in last 1.5 months-in distribution of L4 nerve roots. He is on opiates with minimal pain control and has s/e to opiates( constipation and cognitive. The pain appears to be to acute on chronic synovitis, spondylosis/DJD .CT spine suggests acute synovitis discogenic/ degenerative in nature, rather than infection seen BY NEUROSURGERY and given options of intervention as per him he is still not clear and would like to speak to his ( suspect component of dementia /vs rx effect on his cognition) I left message with and perhaps best she reaches out to surgeon if she has questions PT consult DR PALMER
[2018-05-17] MEDS ORDERED: PT OWN MED DRAWER 7, Y5N ONE ×2 (09:51→22:30)
[2018-05-17] MEDS: LOSARTAN POTASSIUM 50 MG TABLET (FP) PO SCH (09:57)
[2018-05-17] MEDS: ACETAMINOPHEN 325 MG TABLET (FP) PO PRN (09:57)
[2018-05-17] MEDS: ESCITALOPRAM OXALATE 20 MG TABLET (FP) PO SCH (09:57)
[2018-05-17] MEDS: GABAPENTIN 300 MG CAPSULE (FP) PO SCH ×2 (09:58→22:35)
[2018-05-17] MEDS: SENNOSIDES 8.6MG TABLET (FP) PO SCH (09:58)
[2018-05-17] MEDS: LACTOBACILLUS ACIDOPHILUS 1 TABLET PO SCH (09:58)
[2018-05-17] MEDS: EZETIMIBE 10 MG TABLET (FP) PO SCH (09:58)
[2018-05-17] MEDS ORDERED: RANITIDINE HCL 150 MG TABLET (FP) PO SCH (10:15)
[2018-05-17] MEDS: VANCOMYCIN 1 GRAM (PRE-DOCKED) 1,000 MG/250 ML BAG IVPB SCH (12:26)
[2018-05-17] MEDS: NEBIVOLOL 10 MG TABLET (FP) PO SCH (12:31)
[2018-05-17] MEDS: VENLAFAXINE HCL 75 MG E.R. CAPSULES (FP) PO SCH (12:32)
[2018-05-17] MEDS: CEFEPIME 2 GM/100 ML BAG IVPB SCH ×2 (14:22→22:35)
[2018-05-17] MEDS: RANITIDINE HCL 150 MG TABLET (FP) PO SCH ×2 (14:30→22:35)
[2018-05-17] MEDS: FAMOTIDINE 20 MG TABLET PO SCH (16:50)
--- NOTE | 2018-05-17 20:18 | PN ---
Physical Exam: SUBJECTIVE: Patient seen and examined at the bedside. Feels well, in no acute distress. OBJECTIVE: transfer from [facility] for surgical evaluation with Dr. Brennan. Vital Signs Period Temp Pulse Resp BP Sys/Barber Pulse Ox Last 24 Hr 97.9 F-98.5 F 59-67 18-20 128-167/60-92 96 GENERAL: The patient is awake, alert, and fully oriented, in no acute distress. States he is often forgetful. HEAD: Normal with no signs of trauma. EYES: PERRL, extraocular movements intact, sclera anicteric, conjunctiva clear. No ptosis. ENT: Ears normal, nares patent, oropharynx clear without exudates, moist mucous membranes. NECK: Trachea midline, full range of motion, supple. LUNGS: Breath sounds equal, clear/diminished to auscultation bilaterally HEART: Regular rate and rhythm ABDOMEN: Soft, nontender, nondistended, normoactive bowel sounds, no guarding, no rebound, no hepatosplenomegaly, no masses. EXTREMITIES: no edema. NEUROLOGICAL: mild upper body tremor at rest, pt states this has been chronic for 1 year and he is to follow up with neurologist PSYCH: Normal mood, normal affect. SKIN: Warm, dry, normal turgor, no rashes or lesions noted Active Medications Generic Name Dose Route Start Last Admin Trade Name Freq PRN Reason Stop Dose Admin Acetaminophen 650 mg 05/13/18 08:23 05/17/18 09:57 Tylenol - PO 650 mg Q4H PRN Administration PAIN LEVEL 1-3 Atorvastatin Calcium 10 mg 05/13/18 22:00 05/16/18 21:13 Lipitor - PO 10 mg HS YAYA Administration Ezetimibe 10 mg 05/13/18 10:00 05/17/18 09:58 Zetia - PO 10 mg DAILY YAYA Administration Escitalopram Oxalate 20 mg 05/13/18 10:00 05/17/18 09:57 Lexapro - PO 20 mg DAILY YAYA Administration Fentanyl 1 patch 05/15/18 17:00 05/15/18 17:52 Duragesic 25mcg Patch - TD 05/22/18 16:51 1 patch Q72H YAYA Administration Gabapentin 300 mg 05/13/18 10:00 05/17/18 09:58 Neurontin - PO 300 mg BID YAYA Administration Vancomycin HCl 1,000 mg in 250 mls @ 166.667 mls/hr 05/13/18 09:30 05/17/18 12:26 Vancomycin (Pre-Docked) IVPB 166.667 mls/hr Q24H YAYA Administration Protocol Cefepime HCl 2 gm in 100 mls @ 200 mls/hr 05/13/18 11:15 05/17/18 14:22 Maxipime 2gm Ivpb (Pre-Docked) IVPB 200 mls/hr BID YAYA Administration Lactobacillus Acidophilus 1 tab 05/13/18 10:00 05/17/18 09:58 Bacid - PO 1 tab DAILY YAYA Administration Losartan Potassium 50 mg 05/13/18 10:00 05/17/18 09:57 Cozaar - PO 50 mg DAILY YAYA Administration Miscellaneous 1 each 05/15/18 16:50 Duragesic Patch Waste TD PRN PRN PAIN Nebivolol 10 mg 05/13/18 10:00 05/17/18 12:31 Bystolic - PO 10 mg DAILY YAYA Administration Oxycodone HCl 5 mg 05/16/18 11:57 05/17/18 09:59 Roxicodone - PO 5 mg Q6H PRN Administration PAIN LEVEL 7 - 10 Ranitidine HCl 150 mg 05/17/18 10:15 05/17/18 14:30 Zantac - PO 150 mg BID YAYA Administration Senna 1 tab 05/13/18 10:00 05/17/18 09:58 Senna - PO 1 tab DAILY YAYA Administration Venlafaxine HCl 75 mg 05/13/18 10:00 05/17/18 12:32 Effexor Xr - PO 75 mg DAILY YAYA Administration ASSESSMENT/PLAN: Patient is an 78 year old male with a past medical history of prostate CA ( prostatectomy), cryo radiation, urethral stricture (s/p dilation), urinary incontinence, CAD, HTN, DM (diet controlled), asthma. 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 Pt admitted after he reports worsening of lower back and pelvic pain and hematuria with worsening back pain. : UTI per UA, UC with no growth: Urology following. Monitor intake, vitals. ID following. hmg/hct stable. Hematuria, resolved: hmg/hct stable. Urology following. ID: Pubic osteomyelitis. On Cefepime and Vanco since 6/28/18 and was receiving this therapy at [facility]. ID following. Muscular/Skeletal: Lower back pain, difficulty with ambulation: MRI lumbar/sacrum reviewed, acute fracture/osteo at level of L5 cannot be excluded. Also suggestive of acute synovitis and degenerative disc disease. Patient continues to have difficulty with ambulating with severe back pain. Patient on Fentanyl patch and oxycodone. Neuro/neurosurgery following. possible surgical decompression. Physical therapy. fall risk. Card: Hypertension:: controlled, on Bystolic and Losartan Heme: Anemia: hmg/hct stable. Follow Iron studies. fen regular diet monitor cmp low salt diet prophy pepcid SCDs PT Visit type - Emergency Visit Emergency Visit: Yes ED Registration Date: 05/13/18 Care time: The patient presented to the Emergency Department on the above date and was hospitalized for further evaluation of their emergent condition. - New Patient This patient is new to me today: No - Critical Care Critical Care patient: No - Discharge Referral Referred to [facility] Med P.C.: No
[2018-05-17] MEDS: ATORVASTATIN CA 10 MG TABLET (FP) PO SCH (22:35)
[2018-05-18] MEDS: oxyCODONE HCL 5 MG TABLET PO PRN ×2 (02:06→08:21)
[2018-05-18 06:44] LABS: EOS % 5.4 % (0-4.5); HEMATOCRIT 29.7 % (35.4-49); HEMOGLOBIN 9.7 GM/dL (11.7-16.9); LYMPH % 17.5 % (8-40); MCH 24.8 pg (25.7-33.7); MCHC 32.5 g/dl (32.0-35.9); MEAN CELL VOLUME 76.2 fl (80-96); MEAN PLT VOLUME 6.1 fl (7.5-11.1); MONO % 11.9 % (3.8-10.2); NEUT % 64.2 % (42.8-82.8); PLATELET COUNT 302 K/MM3 (134-434); WHITE BLOOD COUNT 8.3 K/mm3 (4.0-10.0)
[2018-05-18 06:55] LABS: ALBUMIN 2.6 g/dl (3.4-5.0); ANION GAP 5 (8-16); BLOOD UREA NITROGEN 28 mg/dL (7-18); CALCIUM 9.6 mg/dL (8.5-10.1); CHLORIDE 99 mmol/L (98-107); CO2 30 mmol/L (21-32); CREATININE 1.1 mg/dL (0.7-1.3); GLUCOSE,RANDOM 113 mg/dL (74-106); POTASSIUM 4.8 mmol/L (3.5-5.1); SGOT/AST 16 U/L (15-37); SGPT/ALT 23 U/L (12-78); SODIUM 134 mmol/L (136-145)
[2018-05-18 06:57] LABS: ALK PHOS 119 U/L (45-117); BILIRUBIN,TOTAL 0.3 mg/dL (0.2-1.0); TOT PROT 6.1 g/dl (6.4-8.2)
[2018-05-18] MEDS ORDERED: SENNOSIDES 8.6MG TABLET (FP) PO PRN (08:31)
[2018-05-18] MEDS ORDERED: PT OWN MED DRAWER 7, Y5N ONE ×2 (08:36→09:32)
--- NOTE | 2018-05-18 09:11 | PN ---
Progress Note (short form) - Note Progress Note: NEUROSURGERY Somewhat frustrated Pain worse with moving. About the same as 2 weeks ago. No F/C PE: Tmax 98.6, AF, VSS HEENT- NC/AT; Neck- supple; Cor- RR; Lungs- CTA; ABd- mild obesity; Ext- chronic venous changes, minimal edema CN- intact II-XII; Motor- 4+-5 B UE/LE except prox B LE 4+/5 pain limited; Sensation- decreased distal LE vibration; DTR- hyporeflexia B CT LS spine- marked DDD worst L4-5; multilevel spondylosis, L4-5 spondylolisthesis with facet hypertrophy L > R, mild L2-3 retrolisthesis; no obvious vertebral osteomyelitis MRI LS spine- L L4-5 facet edema, epidural L L4-5 inf facet cyst vs fluid collection L4-5 spondylolisthesis/DDD with lateral recess and foramenal stenosis L > R; multilevel spondylosis and DDD ESR 106, WBC 9, CRP 4.8 Urine culture (repeat)-negative Symptomatic from L4-5 spondylolisthesis and probable L L4-5 synovial cyst vs fluid collection Pros and cons of treatment approaches d/w pt again, who expresses better understanding today In face of recent infection on iv abx, pain management injections are not the optimal choice at this time Pain meds and PT Complete iv abx course per Dr Izaguirre/Jair If intractable pain can consider surgical decompression L4-5 with stabilization/ instrumentation given spondylolisthesis and associate synovial cyst, though risks are higher than usual given age and associated medical conditions, and recent infection Surgery should be considered sooner if neurological deterioration, inability to control infection (?fluid L4-5), and/or clinical/pain worsening Repeat PSA if not recently done DVT prophylaxis All questions answered
--- NOTE | 2018-05-18 09:24 | PN ---
Progress Note (short form) - Note Progress Note: 78 y/o male with a past medical history of prostate CA (prostatectomy), cryo radiation, urethral stricture (s/p dilation), urinary incontinence, CAD, HTN, DM (diet controlled), asthma. 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 Patient was discharged with follow up for bone biospy. Patient obtained a bone biopsy at [facility], soon after as per (Essie) reports the pathology was negative. Patient was being managed by ID, Dr Izaguirre outpatient, PICC line was placed on 04/28 and we has started on vancomycin and cefepime. Of note, patient was placed at [facility] short term rehab for IV infusions. He reports worsening of lower back and pelvic pain, patient denies any fever or dysuria. He reports hematuria with worsening back pain yesterday evening and was transferred from [facility] to ED for further management. Pt. tells me he has chronic lumbar pain x 5 years at least, that in last month and a half pain is worse to the point he cannot walk. + urinary incontinence x 19 years since sx. for prostate ca. He also feels he has concentration/memory difficulty/constipation because of opiate meds he is on and that his pain management doctor was planning lumbar epidural injections. Pain is in both buttocks, radiates down both legs, post.aspects to knees acc.by tingling i same dist.,lancinating/shooting, worse upon ALL movement. MRI LS Spine 05/14 ADDENDUM #1 #3 in the impression was erroneously deleted. Please refer to #3 of the addended impression regarding bilateral sacral signal abnormalities. Impression: 1. Abnormal bone marrow signal within the left L4-L5 posterior facet complex extending into the pedicles may be secondary to an aggressive degenerative facet arthropathy. Acute fracture or osteomyelitis cannot be excluded in the appropriate clinical setting. Please correlate clinically. Dedicated lumbar spine CT is recommended to better evaluate bony integrity and assess for fractures. 2. A left lateral epidural collection at the level of L5 (near the left L4-L5 facet) measures 7 mm in thickness and mildly compresses the left lateral thecal sac with mass effect on the left L5 nerve root. This is unchanged from 05/13/2018 MRI and may be a degenerative synovial cyst or epidural hematoma (in the setting of fracture). 3. Relatively symmetric signal abnormalities in bilateral sacrum are favored to be acute versus subacute insufficiency fractures. Axial images were not obtained through this level. If warranted, nuclear bone scintigraphy or dedicated MRI of the sacrum may be obtained for complete evaluation. 4. Lumbar spondylosis with multilevel canal and neural foraminal stenosis as detailed above including severe narrowing of the left L4-L5 neural foramen with compression of the left L5 nerve root. Please refer to the report above for detailed evaluation at each level. ORIGINAL REPORT Indication: Unable to ambulate. Technique: A multi sequential, multiplanar MRI of the lumbar spine without contrast. FU: neurosurgery input reviewed I was unable to reach , though left two messages on fentanyl 25--looks more comfortable, though in pain when he moves ( VAS 3/ 10 when laying down and 6/10 when he moves) CT 05/16/18 prelim L4-L5 severe facet DJD L, facet synovitis, L abnl signal-- appears more severe degenerative - Past Medical History Cardio/Vascular: Yes: CAD Renal/: Yes: Cancer, UTI, Other (BN stricture, bladder stones) - Alcohol/Substance Use Hx Alcohol Use: No - Smoking History Smoking history: Former smoker Have you smoked in the past 12 months: No Aproximately how many cigarettes per day: 0 If you are a former smoker, when did you quit?: 37 YRS AGO Home Medications - Allergies Allergies/Adverse Reactions: Allergies Allergy/AdvReac Type Severity Reaction Status Date / Time iodine Allergy Rash Verified 05/03/18 09:02 Sulfa (Sulfonamide Allergy "KIDNEY Verified 05/03/18 09:02 Antibiotics) ISSUES" - Home Medications Home Medications: Ambulatory Orders Nebivolol HCl [Bystolic] 10 mg PO DAILY tablet 02/08/15 Escitalopram Oxalate [Lexapro -] 20 mg PO DAILY 10/24/16 Losartan Potassium 50 mg PO DAILY 10/24/16 Ezetimibe [Zetia] 10 mg PO DAILY 11/03/17 Famotidine 20 mg PO DAILY 11/03/17 Simvastatin 20 mg PO HS 11/03/17 Gabapentin [Neurontin -] 300 mg PO BID 04/08/18 Lactobacillus Acidophilus [Bacid -] 1 tab PO DAILY #30 tab 04/12/18 Cefepime HCl [Maxipime] 2 gm IJ BID 05/12/18 Cholecalciferol (Vitamin D3) [Vitamin D] 2,000 unit PO DAILY 05/12/18 Sennosides [Senna] 8.8 mg PO DAILY 05/12/18 Tramadol HCl [Ultram] 50 mg PO BID PRN 05/12/18 Vancomycin [Vancocin] 500 mg IV BID 05/12/18 Venlafaxine HCl ER [Effexor Xr -] 75 mg PO DAILY 05/12/18 Physical Exam-Neuro Vital Signs: Vital Signs Temperature 98.3 F 05/18/18 05:49 Pulse Rate 63 05/18/18 05:49 Respiratory Rate 18 05/18/18 05:49 Blood Pressure 151/83 05/18/18 05:49 O2 Sat by Pulse Oximetry (%) 96 05/18/18 02:00 Labs: CBCD WBC 9.4 K/mm3 (4.0-10.8) 05/15/18 06:00 RBC 3.81 M/mm3 (4.00-5.60) L 05/15/18 06:00 Hgb 9.3 GM/dl (11.7-16.9) L 05/15/18 06:00 Hct 29.3 % (35.4-49) L 05/15/18 06:00 MCV 76.8 fl (80-96) L 05/15/18 06:00 MCHC 31.6 g/dl (32.0-35.9) L 05/15/18 06:00 RDW 15.0 % (11.9-15.9) 05/15/18 06:00 Plt Count 354 K/MM3 (134-434) 05/15/18 06:00 MPV 6.0 fl (7.5-11.1) L 05/15/18 06:00 CMP Sodium 131 mmol/L (136-145) L 05/15/18 06:00 Potassium 4.7 mmol/L (3.5-5.1) 05/15/18 06:00 Chloride 98 mmol/L (98-107) 05/15/18 06:00 Carbon Dioxide 25 mmol/L (22-28) 05/15/18 06:00 Anion Gap 8 (8-16) 05/15/18 06:00 BUN 31 mg/dl (7-18) H 05/15/18 06:00 Creatinine 1.2 mg/dl (0.6-1.3) 05/15/18 06:00 Creat Clearance w eGFR 58.26 (>60) 05/15/18 06:00 Calcium 9.3 mg/dl (8.4-10.2) 05/15/18 06:00 Total Bilirubin 0.3 mg/dl (0.2-1.0) 05/15/18 06:00 AST 16 U/L (10-42) 05/15/18 06:00 ALT 18 U/L (10-40) 05/15/18 06:00 Alkaline Phosphatase 90 U/L (32-92) 05/15/18 06:00 Total Protein 5.7 g/dl (6.4-8.3) L 05/15/18 06:00 Albumin 2.6 g/dl (3.5-5.0) L 05/15/18 06:00 - Neuro Exam Level Of Consciousness: Yes: Alert, Oriented to Person, Oriented to Place Eyes: Yes: TONIO Speech: WNL Mini Mental Exam: Impaired att/conc. DTR's: 2+ Left Bicep, 2+ Right Bicep, 2+ Left Brachioradialis, 2+ Right Brachioradialis, 2+ Left Achilles, 2+ Right Achilles (+ bolat. Hoffmans), 3+ Left Tricep, 3+ Right Tricep Babinski: Present (Bilat. upgoing toes) Motor Strength: 5/5: Left Arm, Right Arm, Left Leg, Right Leg (Bilat IPs- unable to test properly because of pain but at least 3/5. 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 Acute fx/om cannot be excluded. Left lat. epidural collection at L5 compressing left lat.thecal space with mass effect left L5 root. This was also seen on MRI 05/13/18?/synovial cyst vs hematoma.bilat sacrum acute fx. vs subacute insufficiency fxs. Lumbar spondylosis with sevee narrowing left L4/L5 - compression of left L5 nerve root.) Assessment/Plan Pt. with lumbar pain, worse in last 1.5 months-in distribution of L4 nerve roots. He is on opiates with minimal pain control and has s/e to opiates( constipation and cognitive. The pain appears to be to acute on chronic synovitis, spondylosis/DJD .CT spine suggests acute synovitis discogenic/ degenerative in nature, rather than infection ? rx induced cognitive changes, ideally to speak to to better decipher his baseline ,as pain medications may have to be adjusted outpt seen BY NEUROSURGERY and given options of intervention likely rehab/FU outpt Pain management at this juncture DR PALMER
[2018-05-18] MEDS: VANCOMYCIN 1 GRAM (PRE-DOCKED) 1,000 MG/250 ML BAG IVPB SCH (09:33)
[2018-05-18] MEDS: GABAPENTIN 300 MG CAPSULE (FP) PO SCH (09:34)
[2018-05-18] MEDS: LACTOBACILLUS ACIDOPHILUS 1 TABLET PO SCH (09:35)
[2018-05-18] MEDS: RANITIDINE HCL 150 MG TABLET (FP) PO SCH (09:35)
[2018-05-18] MEDS: ESCITALOPRAM OXALATE 20 MG TABLET (FP) PO SCH (09:35)
[2018-05-18] MEDS: LOSARTAN POTASSIUM 50 MG TABLET (FP) PO SCH (09:35)
[2018-05-18] MEDS: NEBIVOLOL 10 MG TABLET (FP) PO SCH (09:35)
[2018-05-18] MEDS: EZETIMIBE 10 MG TABLET (FP) PO SCH (09:36)
[2018-05-18] MEDS: VENLAFAXINE HCL 75 MG E.R. CAPSULES (FP) PO SCH (09:36)
[2018-05-18] MEDS ORDERED: DOCUSATE SODIUM 100 MG CAPSULE (FP) PO SCH (10:00)
--- NOTE | 2018-05-18 10:33 | DS ---
Physical Exam: SUBJECTIVE: Patient seen and examined at the bedside. Feels well, no complaints. Had BM yesterday. Dr Brennan discussed surgical options with , patient to continue IV antibiotics and pain management. Patient to follow up with Dr. Brennan outpatient. OBJECTIVE: Vital Signs Period Temp Pulse Resp BP Sys/Barber Pulse Ox Last 24 Hr 98.2 F-98.6 F 59-67 18-20 128-163/66-86 96 PHYSICAL EXAM GENERAL: The patient is awake, alert, and fully oriented, in no acute distress. States he is often forgetful. HEAD: Normal with no signs of trauma. EYES: PERRL, extraocular movements intact, sclera anicteric, conjunctiva clear. No ptosis. ENT: Ears normal, nares patent, oropharynx clear without exudates, moist mucous membranes. NECK: Trachea midline, full range of motion, supple. LUNGS: Breath sounds equal, clear/diminished to auscultation bilaterally HEART: Regular rate and rhythm ABDOMEN: Soft, nontender, nondistended, normoactive bowel sounds, no guarding, no rebound, no hepatosplenomegaly, no masses. EXTREMITIES: no edema. NEUROLOGICAL: mild upper body tremor at rest, pt states this has been chronic for 1 year and he is to follow up with neurologist PSYCH: Normal mood, normal affect. SKIN: Warm, dry, normal turgor, no rashes or lesions noted LABS Laboratory Results - last 24 hr 05/18/18 05/18/18 06:00 06:00 WBC 8.3 RBC 3.90 L Hgb 9.7 L Hct 29.7 L MCV 76.2 L MCH 24.8 L MCHC 32.5 RDW 16.0 H Plt Count 302 MPV 6.1 L Absolute Neuts (auto) 5.3 Neutrophils % 64.2 Lymphocytes % 17.5 Monocytes % 11.9 H Eosinophils % 5.4 H Basophils % 1.0 Nucleated RBC % 0 Sodium 134 L Potassium 4.8 Chloride 99 Carbon Dioxide 30 Anion Gap 5 L BUN 28 H Creatinine 1.1 Creat Clearance w eGFR > 60 Random Glucose 113 H Calcium 9.6 Magnesium 2.0 D Total Bilirubin 0.3 AST 16 ALT 23 Alkaline Phosphatase 119 H Total Protein 6.1 L Albumin 2.6 L HOSPITAL COURSE: Date of Admission:05/13/18 Date of Discharge: 07/18/18 Patient is an 78 year old male with a past medical history of prostate CA ( prostatectomy), cryo radiation, urethral stricture (s/p dilation), urinary incontinence, CAD, HTN, DM (diet controlled), asthma. Patient was discharged from this hospital on 04/28/18 and was being treated with IV antibiotics for pelvic osteomyelitis. Pt admitted after he reports worsening of lower back and pelvic pain and hematuria with worsening back pain. : UTI per UA, UC with no growth: Monitor intake, vitals. ID following. hmg/hct stable. Hematuria, resolved ID: Pubic osteomyelitis. On Cefepime and Vanco since 04/28/18 and was receiving this therapy at [facility]. ID following. Muscular/Skeletal: Lower back pain, difficulty with ambulation: MRI lumbar/sacrum reviewed, acute fracture/osteo at level of L5 cannot be excluded. Also suggestive of acute synovitis and degenerative disc disease. Patient on Fentanyl patch and oxycodone. Neuro/neurosurgery following. possible surgical decompression once acute infection resolves or sooner if pain becomes severe. Physical therapy. fall risk. Card: Hypertension:: controlled, on Bystolic and Losartan Heme: Anemia: hmg/hct stable. Follow Iron studies. fen regular diet monitor cmp low salt diet prophy pepcid SCDs PT Minutes to complete discharge: 60 Discharge Summary Reason For Visit: UTI Current Active Problems Urinary tract infection (Acute) Condition: Improved - Instructions Diet, Activity, Other Instructions: Mr. Marie/[facility] facility: You were admitted on 05/13/2018 for a UTI and blood in the urine. You also had significant back pain. UTI: We did a urine culture and the findings were negative. Please continue to hydrate and if you start to have pain or burning with urination, please let your nurse know. BACK PAIN: We are managing your pain now with Fentanyl 25mcg patch q72 hours and Oxycodone for any breakthrough pain. Please continue this regimen as it seems to be working. You will need to have stool softners and laxatives to assure that you are not constipated. Dr. Brennan, neurosurgery saw you while you were here. His recommendations are if you back pain is persistent he may offer you surgical options. He has spoken to your Essie in great details on all options. PELVIC OSTEOMYLITIS: Please continue the antibiotics (vancomycin and cefepime). Dr. Izaguirre and Dr. Adam are the infectious disease doctors that are prescribing the antibiotics. I am available for any questions that you may have. [facility] [phone] [address] [place] TASH[place] Referrals: Andres Martinez MD [Primary Care Provider] - Vlad Wang DO [Staff Physician] - 3 Weeks Dustin Brennan MD [Staff Physician] - 2 Weeks Disposition: [facility] - Home Medications Comprehensive Discharge Medication List: Ambulatory Orders Nebivolol HCl [Bystolic] 10 mg PO DAILY tablet 02/08/15 Escitalopram Oxalate [Lexapro -] 20 mg PO DAILY 10/24/16 Losartan Potassium 50 mg PO DAILY 10/24/16 Ezetimibe [Zetia] 10 mg PO DAILY 11/03/17 Famotidine 20 mg PO DAILY 11/03/17 Simvastatin 20 mg PO HS 11/03/17 Gabapentin [Neurontin -] 300 mg PO BID 04/08/18 Lactobacillus Acidophilus [Bacid -] 1 tab PO DAILY #30 tab 04/12/18 Cefepime HCl [Maxipime] 2 gm IJ BID 05/12/18 Cholecalciferol (Vitamin D3) [Vitamin D3] 2,000 unit PO DAILY 05/12/18 Sennosides [Senna] 8.8 mg PO DAILY 05/12/18 Venlafaxine HCl ER [Effexor Xr -] 75 mg PO DAILY 05/12/18 Acetaminophen [Tylenol .Regular Strength -] 650 mg PO Q4H PRN tablet 05/16/18 FENTANYL 25mcg PATCH [DURAGESIC 25mcg PATCH -] 1 patch TD Q72H #1 patch.td72 MDD 1 05/16/18 Fentanyl Patch Waste [Duragesic Patch Waste] 1 each TD PRN PRN each 05/16/18 oxyCODONE HCL [Roxicodone -] 5 mg PO Q6H PRN #20 tablet MDD 4 05/16/18 This patient is new to me today: No Emergency Visit: Yes ED Registration Date: 05/13/18 Care time: The patient presented to the Emergency Department on the above date and was hospitalized for further evaluation of their emergent condition. Critical Care patient: No - Discharge Referral Referred to [facility] No
[2018-05-18] MEDS: CEFEPIME 2 GM/100 ML BAG IVPB SCH (13:52)
[2018-05-18] MEDS: fentaNYL 25mcg/hr PATCH.TD72 TD SCH (17:28)
[2018-05-18 19:09] VITALS: BP 140/87; PULSE 62; TEMP 97.9
== END 2018-05-18 20:26 | DRG 552 ==
LOC: FER 22:30 → FM/S 05-13 02:16 → UNDOADMIN 05-13 02:29 → FM/S 05-13 02:29 → J7W 05-16 22:49
PROVIDERS: ADMIT Internal Medicine; ATTEND Nurse Practitioner Family
DX: M47.896 Other spondylosis, lumbar region (principal); M86.9 Osteomyelitis, unspecified; N30.01 Acute cystitis with hematuria; M65.9 Synovitis and tenosynovitis, unspecified; C61 Malignant neoplasm of prostate; I10 Essential (primary) hypertension; I25.10 Atherosclerotic heart disease of native coronary artery without angina pectoris; M48.061 Spinal stenosis, lumbar region without neurogenic claudication; M43.16 Spondylolisthesis, lumbar region; D50.9 Iron deficiency anemia, unspecified; E11.9 Type 2 diabetes mellitus without complications
CPT/HCPCS: 36415; 71046-TC-FY; 72131-TC; 72148-TC; 72192-TC; 80053; 81003; 81015; 82728; 83540; 83550; 83735; 84466; 85025; 85027; 85610; 85651; 86140; 87086; 93005; 97116-GP; 97161-GP; 99281-25; G0480; J0131; J7030

== ENCOUNTER 2018-06-08 11:42 | Emergency (ER) | payer OTHER, BC ==
--- NOTE | 2018-06-08 12:18 | PDOC ---
History of Present Illness - General History Source: Patient Exam Limitations: No Limitations - History of Present Illness Initial Comments: 06/08/18 14:46 The patient is an 78 year old male with a significant past medical history of prostate CA (prostatectomy), cryo radiation, urethral stricture (s/p dilation), urinary incontinence, CAD, HTN, DM (diet controlled), asthma, incontinence, and pubis osteomyelitis, who presents to the emergency department from [facility], for evaluation of fatigue and a hemoglobin of 5.7. The patient states he is very tired this week. The patient states he has been complaining of 5 weeks of hematuria. He states he noticed some light pink drops from his penis about 4- 5 weeks ago which has progressed to bright red blood this week. The patient also reports a couple episodes of loose stool, but denies noticing blood in his stool. He denies melena. The patient denies chest pain, shortness of breath, headache and dizziness. The patient denies fever, chills, nausea, vomit, diarrhea and constipation.The patient denies dysuria, frequency, urgency. Past surgical history:prostatectomy, stricture dilation Social history: Denies toxic habits. <Homa Chapman - Last Filed: 06/08/18 15:55> - General History Source: Patient Exam Limitations: No Limitations <Elizabeth Caal - Last Filed: 06/08/18 17:42> - General Chief Complaint: Revisit, Lab Variance Stated Complaint: ABNORMAL LABS Time Seen by Provider: 06/08/18 12:10 Past History <Homa Chapman - Last Filed: 06/08/18 15:55> - Past Medical History Anemia: No Asthma: Yes (seasonal) Cancer: Yes (PROSTATE ca rx with [id number] in 1997) Cardiac Disorders: Yes CVA: No COPD: No CHF: No Dementia: No Diabetes: Yes (NIDDM) GI Disorders: Yes (HEMORRHOIDS;GI BLEED,GERD;H/H;COLON POLYPS) Disorders: Yes (URINARY INCONTINENCE) HTN: Yes Hypercholesterolemia: Yes Liver Disease: No Seizures: No Thyroid Disease: No - Surgical History Abdominal Surgery: No Appendectomy: Yes Cardiac Surgery: No Cholecystectomy: Yes Lung Surgery: No Neurologic Surgery: No Orthopedic Surgery: Yes (RIGHT KNEE ARTHROSCOPY; WRIST SURGERY) - Suicide/Smoking/Psychosocial Hx Smoking Status: Yes Smoking History: Unknown if ever smoked Have you smoked in the past 12 months: No Number of Cigarettes Smoked Daily: 0 If you are a former smoker, when did you quit?: 37 YRS AGO Hx Alcohol Use: No Drug/Substance Use Hx: No Substance Use Type: None Hx Substance Use Treatment: No <Elizabeth Caal - Last Filed: 06/08/18 17:42> - Past Medical History Allergies/Adverse Reactions: Allergies Allergy/AdvReac Type Severity Reaction Status Date / Time Iodinated Contrast- Oral and Allergy Intermediate Hives Verified 05/20/18 06:37 IV Dye iodine Allergy Rash Verified 05/20/18 06:37 Sulfa (Sulfonamide Allergy "KIDNEY Verified 05/20/18 06:37 Antibiotics) ISSUES" Home Medications: Ambulatory Orders Nebivolol HCl [Bystolic] 10 mg PO DAILY tablet 02/08/15 Escitalopram Oxalate [Lexapro -] 20 mg PO DAILY 10/24/16 Famotidine 20 mg PO DAILY 11/03/17 Simvastatin 20 mg PO HS 11/03/17 Gabapentin [Neurontin -] 300 mg PO BID 04/08/18 Lactobacillus Acidophilus [Bacid -] 1 tab PO DAILY #30 tab 04/12/18 Cholecalciferol (Vitamin D3) [Vitamin D3] 2,000 unit PO DAILY 05/12/18 Venlafaxine HCl ER [Effexor Xr -] 75 mg PO DAILY 05/12/18 Acetaminophen [Tylenol .Regular Strength -] 650 mg PO Q4H PRN tablet 05/16/18 Docusate Sodium [Colace -] 100 mg PO DAILY capsule 05/18/18 Sennosides [Senna -] 2 tab PO HS PRN tablet 05/18/18 Cefepime [Maxipime (Restricted To Id) -] 2 gm IVPB BID 05/28/18 traMADol HCL [Ultram -] 50 mg PO Q3H6XD PRN MDD 4 05/28/18 Vancomycin 1,000 mg IV DAILY #7 vial 06/02/18 Acidoph/L.bulg/Bif.b/S.thermop [Bacid Caplet] 1 each PO DAILY 06/08/18 Cefepime [Maxipime 2Gm Ivpb (Pre-Docked)] 2 gm BID 06/08/18 Losartan Potassium 50 mg PO DAILY 06/08/18 Sodium Polystyrene Sulfonate [Kayexalate] 30 gm PO DAILY 06/08/18 Review of Systems - Review of Systems Able to Perform ROS?: Yes Comments:: 06/08/18 14:47 CONSTITUTIONAL: Absent: fever, no chills, no fatigue EYES: Absent: visual changes ENT: Absent: ear pain, no sore throat CARDIOVASCULAR: Absent: chest pain, no palpitations RESPIRATORY: Absent: cough, no SOB GASTROINTESTINAL: Absent: abdominal pain, no nausea, no vomiting, no constipation, no diarrhea GENITOURINARY: (+) hematuria Absent: dysuria, no frequency, MUSCULOSKELETAL: Absent: back pain, no arthralgia, no myalgia SKIN: Absent: rash NEURO: Absent: headache <Homa Chapman - Last Filed: 06/08/18 15:55> *Physical Exam - Vital Signs Last Vital Signs Temp Pulse Resp BP Pulse Ox 98.0 F 65 20 132/76 98 06/08/18 12:31 06/08/18 12:31 06/08/18 12:31 06/08/18 12:31 06/08/18 13:25 - Physical Exam Comments: 06/08/18 14:48 GENERAL: The patient is in no acute distress. HEAD: Normal with no signs of trauma. EYES: PERRLA, EOMI, sclera anicteric, conjunctiva clear. ENT: Ears normal, nares patent, oropharynx clear without exudates. Moist mucous membranes. NECK: Normal range of motion, supple without lymphadenopathy, JVD, or masses. LUNGS: Breath sounds equal, clear to auscultation bilaterally. No wheezes, and no crackles. HEART:Regular rate and rhythm, normal S1 and S2 without murmur, rub or gallop. ABDOMEN: Soft, nontender, normoactive bowel sounds. No guarding, no rebound. No masses palpable. EXTREMITIES: Normal range of motion, no edema. No clubbing or cyanosis. No erythema, or tenderness. NEUROLOGICAL: Cranial nerves II through XII grossly intact. Normal speech. No focal neurological deficits. MUSCULOSKELETAL: Back non-tender to palpation, no CVA tenderness SKIN: Warm, Dry, normal turgor, no rashes or lesions noted. <Homa Chapman - Last Filed: 06/08/18 15:55> ED Treatment Course - LABORATORY CBC & Chemistry Diagram: 06/08/18 12:55 06/08/18 12:55 - ADDITIONAL ORDERS Additional order review: Laboratory Results 06/08/18 06/08/18 06/08/18 12:55 12:55 12:55 PT with INR 15.70 H INR 1.39 H Sodium 139 Potassium 5.1 Chloride 104 Carbon Dioxide 23 Anion Gap 12 BUN 48 H Creatinine 2.5 H Creat Clearance w eGFR 24.97 Random Glucose 99 Calcium 9.9 Total Bilirubin 0.3 AST 19 ALT 28 Alkaline Phosphatase 120 H D Total Protein 6.9 Albumin 3.0 L Blood Type A POSITIVE Antibody Screen Negative 06/08/18 12:55 RBC 4.20 MCV 74.6 L MCHC 32.3 RDW 17.2 H MPV 6.2 L Neutrophils % 73.5 Lymphocytes % 11.3 D Monocytes % 9.7 Eosinophils % 4.9 H Basophils % 0.6 - RADIOLOGY Radiograph Interpretation: 06/08/18 14:51 EXAM#: TYPE/EXAM: RESULT: [id number] RAD/CHEST X-RAY PORTABLE* Clinical history: Preadmission. Comparison: 05/28/2018. [facility] portable chest film shows a PICC line in place. No pneumothorax is seen. The heart is of borderline size allowing for technique. No evidence of heart failure, acute infiltrate or pleural effusion is seen. There are degenerative changes of the shoulders. Impression: Right PICC line in place. No acute intrathoracic abnormality seen. Reported By: Carlos King MD 06/08/18 1331 <Homa Chapman - Last Filed: 06/08/18 15:55> - LABORATORY CBC & Chemistry Diagram: 06/08/18 12:55 06/08/18 12:55 <Elizabeth Caal - Last Filed: 06/08/18 17:42> Medical Decision Making - Medical Decision Making 06/08/18 15:14 Dr. Cornelius was paged at this time requesting a call back for doctor to doctor consult. 06/08/18 15:56 The patient's case was discussed with Dr. Cornelius at this time. <Homa Chapman - Last Filed: 06/08/18 15:55> - Medical Decision Making 06/08/18 15:59 EKG: Normal sinus rhythm, rate of 66 bpm, axis is normal, intervals are normal, no ST elevations or depressions, T waves upright. Frank is an 78-year-old male with a history of prostate CA, s/p prostatectomy, h/o strictures, h/o incontinence, h/o pubic symphisis osteomyelitis Pt presents to the ER from the snf due to labs demonstrating anemia Pt has noted weakness No pain Pt is pleaseant RRR CTA No abd tenderness Will do l 06/08/18 16:[address] Jefferson Recommends that pt see him in the office for Cystoscopy as long as he has urine output Will discharge to longterm 06/08/18 16:56 Laboratory Tests 06/08/18 06/08/18 06/08/18 12:55 12:55 12:55 WBC 8.2 Hgb 10.1 L Hct 31.3 L Plt Count 206 D Sodium 139 Potassium 5.1 Chloride 104 Carbon Dioxide 23 BUN 48 H Creatinine 2.5 H Random Glucose 99 Creatine Kinase 17 L Troponin I < 0.02 <Elizabeth Caal - Last Filed: 06/08/18 17:42> *DC/Admit/Observation/Transfer - Attestations Scribe Attestion: 06/08/18 14:48 Documentation prepared by Homa Chapman, acting as director of medical education for Elizabeth Caal MD <Homa Chapman - Last Filed: 06/08/18 15:55> - Discharge Dispostion Decision to Admit order: No <Elizabeth Caal - Last Filed: 06/08/18 17:42> Diagnosis at time of Disposition: Urethral stricture Qualifiers: Urethral stricture type: unspecified stricture type Qualified Code(s): N35.9 - Urethral stricture, unspecified Hematuria Qualifiers: Hematuria type: unspecified type Qualified Code(s): R31.9 - Hematuria, unspecified - Discharge Dispostion Disposition: HOME Condition at time of disposition: Stable - Referrals Referrals: Andres Martinez MD [Primary Care Provider] - Dustin Cornelius MD [Staff Physician] - - Patient Instructions Printed Discharge Instructions: DI for Hematuria Additional Instructions: Thank you for coming in to the ER today Please be sure to follow up with Dr Cornelius's office on Wednesday for possible cystoscopy Please return to the ER for any other concerns or complaints
[2018-06-08 12:36] VITALS: TEMP 98; BMI 29.4
[2018-06-08 13:08] LABS: BASO % 0.6 % (0-2.0); EOS % 4.9 % (0-4.5); HEMATOCRIT 31.3 % (35.4-49); HEMOGLOBIN 10.1 GM/dL (11.7-16.9); LYMPH % 11.3 % (8-40); MCH 24.1 pg (25.7-33.7); MCHC 32.3 g/dl (32.0-35.9); MEAN CELL VOLUME 74.6 fl (80-96); MEAN PLT VOLUME 6.2 fl (7.5-11.1); MONO % 9.7 % (3.8-10.2); NEUT % 73.5 % (42.8-82.8); PLATELET COUNT 206 K/MM3 (134-434); RDW 17.2 % (11.9-15.9); WHITE BLOOD COUNT 8.2 K/mm3 (4.0-10.0)
[2018-06-08 13:18] LABS: INR 1.39 (0.83-1.09); PROTHROMBIN TIME (PATIENT) 15.7 SEC (9.7-13.0)
[2018-06-08 13:23] LABS: ANION GAP 12 (8-16); BLOOD UREA NITROGEN 48 mg/dL (7-18); CALCIUM 9.9 mg/dL (8.5-10.1); CHLORIDE 104 mmol/L (98-107); CO2 23 mmol/L (21-32); CREATININE 2.5 mg/dL (0.7-1.3); GLUCOSE,RANDOM 99 mg/dL (74-106); POTASSIUM 5.1 mmol/L (3.5-5.1); SGOT/AST 19 U/L (15-37); SGPT/ALT 28 U/L (12-78); SODIUM 139 mmol/L (136-145)
[2018-06-08 13:24] LABS: BILIRUBIN,TOTAL 0.3 mg/dL (0.2-1.0); TOT PROT 6.9 g/dl (6.4-8.2)
[2018-06-08 13:25] LABS: ALK PHOS 120 U/L (45-117)
[2018-06-08] MEDS ORDERED: ACETAMINOPHEN 325 MG TABLET (FP) PO ONE (17:41)
[2018-06-08] MEDS ORDERED: ACETAMINOPHEN 325 MG TABLET (FP) ONE (18:07)
[2018-06-08 19:20] VITALS: BP 139/93; PULSE 74
--- NOTE | 2018-06-09 16:48 | EKG ---
Test Reason : Blood Pressure : / mmHG Vent. Rate : 066 BPM Atrial Rate : 066 BPM P-R Int : 196 ms QRS Dur : 096 ms QT Int : 420 ms P-R-T Axes : 057 078 045 degrees QTc Int : 440 ms NORMAL SINUS RHYTHM CANNOT RULE OUT ANTERIOR INFARCT , AGE UNDETERMINED ABNORMAL ECG WHEN COMPARED WITH ECG OF 28-MAY-2018 02:19, CRITERIA FOR INFERIOR INFARCT ARE NO LONGER PRESENT Confirmed by COLIN WELLS, ZELDA ([id number]) on 06/09/2018 3:48:27 PM Referred By: Confirmed By:ZELDA SHAW MD
== END 2018-06-08 19:20 | disposition home or self-care (01) ==
LOC: JER 11:42
DX: N35.9 Urethral stricture, unspecified (principal); R31.9 Hematuria, unspecified; I10 Essential (primary) hypertension; Z85.46 Personal history of malignant neoplasm of prostate; E11.9 Type 2 diabetes mellitus without complications; J45.909 Unspecified asthma, uncomplicated; I25.10 Atherosclerotic heart disease of native coronary artery without angina pectoris
CPT/HCPCS: 36415; 71045-TC-FY; 80053; 82550; 84484; 85025; 85610; 86850; 86900; 86901; 93005; 93010; 99284-25

== ENCOUNTER 2018-06-27 13:01 | Inpatient (IN) | payer OTHER, BC ==
--- NOTE | 2018-06-27 13:20 | PDOC ---
History of Present Illness <Demar Asif - Last Filed: 06/27/18 16:03> - History of Present Illness Initial Comments: Carlos Marie is an 78yo man with a PMH of prostate CA s/p prostatectomy, h/o cryoradiation, uretheral strictures s/p dilation c/b incontinence, CAD, HTN, DM , asthma who was sent to the ED today for hyperkalemia on labs today. He was additionally noted to be tremulous. Mr Marie has not noticed any change in symptoms recently, but he does report that he has had alternating diarrhea and constipation for the past month or so. He also complains of insomnia recently. Neither of these has worsened recently. His appetite has been normal, and he denies fevers or chills, malaise, fatigue, or any other new symptoms. He reports that the tremulousness started this past spring while he was admitted to the hospital. Since that time, it has waxed and waned but has been present constantly. He has never had it evaluated; he does not feel it is worse than normal today. <Jahaira Choi - Last Filed: 06/27/18 19:45> - General Chief Complaint: Revisit, Lab Variance Stated Complaint: HIGH POTASSIUM Time Seen by Provider: 06/27/18 13:20 Past History <Demar Asif - Last Filed: 06/27/18 16:03> - Past Medical History Anemia: No Asthma: Yes (seasonal) Cancer: Yes (PROSTATE ca rx with [id number] in 1997) Cardiac Disorders: Yes CVA: No COPD: No CHF: No Dementia: No Diabetes: Yes (NIDDM) GI Disorders: Yes (HEMORRHOIDS;GI BLEED,GERD;H/H;COLON POLYPS) Disorders: Yes (URINARY INCONTINENCE) HTN: Yes Hypercholesterolemia: Yes Liver Disease: No Seizures: No Thyroid Disease: No - Surgical History Abdominal Surgery: No Appendectomy: Yes Cardiac Surgery: No Cholecystectomy: Yes Lung Surgery: No Neurologic Surgery: No Orthopedic Surgery: Yes (RIGHT KNEE ARTHROSCOPY; WRIST SURGERY) - Suicide/Smoking/Psychosocial Hx Smoking Status: Yes Smoking History: Unknown if ever smoked Have you smoked in the past 12 months: No Number of Cigarettes Smoked Daily: 0 If you are a former smoker, when did you quit?: 37 YRS AGO Hx Alcohol Use: No Drug/Substance Use Hx: No Substance Use Type: None Hx Substance Use Treatment: No <Jahaira Choi - Last Filed: 06/27/18 19:45> - Past Medical History Allergies/Adverse Reactions: Allergies Allergy/AdvReac Type Severity Reaction Status Date / Time Iodinated Contrast- Oral and Allergy Intermediate Hives Verified 05/20/18 06:37 IV Dye iodine Allergy Rash Verified 05/20/18 06:37 Sulfa (Sulfonamide Allergy "KIDNEY Verified 05/20/18 06:37 Antibiotics) ISSUES" Home Medications: Ambulatory Orders Nebivolol HCl [Bystolic] 10 mg PO DAILY tablet 02/08/15 Famotidine 20 mg PO DAILY 11/03/17 Simvastatin 20 mg PO HS 11/03/17 Lactobacillus Acidophilus [Bacid -] 1 tab PO DAILY #30 tab 04/12/18 Cholecalciferol (Vitamin D3) [Vitamin D3] 2,000 unit PO DAILY 05/12/18 Venlafaxine HCl ER [Effexor Xr -] 75 mg PO DAILY 05/12/18 Acetaminophen [Tylenol .Regular Strength -] 650 mg PO Q4H PRN tablet 05/16/18 Docusate Sodium [Colace -] 100 mg PO DAILY capsule 05/18/18 Sennosides [Senna -] 2 tab PO HS PRN tablet 05/18/18 traMADol HCL [Ultram -] 50 mg PO Q3H6XD PRN MDD 4 05/28/18 Losartan Potassium 50 mg PO DAILY 06/08/18 Sodium Polystyrene Sulfonate [Kayexalate] 30 gm PO DAILY 06/08/18 Cefuroxime Axetil [Cefuroxime] 250 mg PO BID 06/27/18 Review of Systems - Review of Systems Comments:: General: No fevers, no chills, no weight or appetite change, no malaise HEENT: No changes in vision, no changes in hearing, no congestion, no sore throat CV: No chest pain, no palpitations, no LE edema Pulm: No SOB, no cough, no wheezing GI: No nausea or vomiting, no melena. Recent constipation and diarrhea, alternating. : No frequency, no urgency, no dysuria. h/o prostate CA, uretheral strictures , incontinence Musc: No back pain, no joint swelling, no recent injury Skin: No rash, no lesions, no erythema Endo: No excessive thirst, no heat/cold intolerance Heme: No unusual bruising or bleeding, no swollen glands Neuro: No syncope, no numbness/tingling, no focal weakness Vasc: No claudication Psych: No recent change in mood, no SI or HI <Jahaira Choi - Last Filed: 06/27/18 19:45> *Physical Exam - Vital Signs Last Vital Signs Temp Pulse Resp BP Pulse Ox 98.6 F 59 L 20 152/88 100 06/27/18 13:02 06/27/18 13:02 06/27/18 13:02 06/27/18 13:02 06/27/18 13:02 <Demar Asif - Last Filed: 06/27/18 16:03> - Physical Exam Comments: General: Comfortable, no acute distress HEENT: PERRL, EOMI, MMM, voice normal, normal neck ROM, no LAD Cards: RRR, no murmur appreciated Pulm: Comfortable on room air, clear to auscultation bilaterally Abd: Soft, nontender, nondistended : No CVA tenderness. Genital exam deferred. Ext: Atraumatic. No LE edema. ROM intact. Strength 5/5 and equal bilaterally Vasc: Extremities WWP. Palpable radial and pedal pulses bilaterally Neuro: A&Ox3, CN grossly intact, normal speech, motor/sensory grossly intact and symmetric. Tremor in b/l hands, R>L, present at rest and with movement. Psych: Mood appropriate to situation <Jahaira Choi - Last Filed: 06/27/18 19:45> ED Treatment Course - LABORATORY CBC & Chemistry Diagram: 06/27/18 14:35 06/27/18 14:35 - ADDITIONAL ORDERS Additional order review: Laboratory Results 06/27/18 06/27/18 06/27/18 14:35 14:35 14:35 PT with INR 13.8 H INR 1.24 H Sodium 132 L Potassium 6.2 H* D Chloride 105 Carbon Dioxide 19 L Anion Gap 8 BUN 67 H D Creatinine 2.3 H Creat Clearance w eGFR 27.50 Random Glucose 120 H D Calcium 9.6 Total Bilirubin 0.7 AST 27 D ALT 44 H D Alkaline Phosphatase 97 H Creatine Kinase 26 L Troponin I < 0.03 Total Protein 6.9 Albumin 3.7 06/27/18 14:35 RBC 4.69 MCV 77.6 L MCHC 31.8 L RDW 17.1 H D MPV 6.5 L D Neutrophils % 76.0 Lymphocytes % 13.3 Monocytes % 5.4 Eosinophils % 4.7 H Basophils % 0.6 - RADIOLOGY Radiology Studies Ordered: Category Date Time Status CHEST X-RAY PORTABLE* [RAD] Stat Radiology 06/27/18 13:58 Taken <Demar Asif - Last Filed: 06/27/18 16:03> - LABORATORY CBC & Chemistry Diagram: 06/27/18 14:35 06/27/18 14:35 <Jahaira Choi - Last Filed: 06/27/18 19:45> Medical Decision Making - Medical Decision Making Carlos Marie is an 78yo man with a history of prostate CA s/p prostatectomy, radiation, c/b uretheral strictures s/p dilation c/b incontinence, CAD, HTN, DM , asthma who presents from his PMD's office today for hyperkalemia. - No specific findings on exam other than tremulousness - Spoke to Dr Coronado, would like to admit Mr Marie for workup - CBC, CMP, trop, coags, UA, EKG, CXR ordered - Will admit to Dr Coronado. Discussed with Dr Asif. <Jahaira Choi - Last Filed: 06/27/18 19:45> *DC/Admit/Observation/Transfer <Demar Asif - Last Filed: 06/27/18 16:03> - Discharge Dispostion Decision to Admit order: Yes <Jahaira Choi - Last Filed: 06/27/18 19:45> Diagnosis at time of Disposition: Hyperkalemia - Discharge Dispostion Condition at time of disposition: Fair
[2018-06-27 14:51] LABS: BASO % 0.6 % (0-2.0); EOS % 4.7 % (0-4.5); HEMATOCRIT 36.4 % (35.4-49); HEMOGLOBIN 11.6 GM/dl (11.7-16.9); LYMPH % 13.3 % (8-40); MCH 24.7 pg (25.7-33.7); MCHC 31.8 g/dl (32.0-35.9); MEAN CELL VOLUME 77.6 fl (80-96); MEAN PLT VOLUME 6.5 fl (7.5-11.1); MONO % 5.4 % (3.8-10.2); PLATELET COUNT 317 K/MM3 (134-434); RBC 4.69 M/mm3 (4.00-5.60); RDW 17.1 % (11.9-15.9); WHITE BLOOD COUNT 12.2 K/mm3 (4.0-10.8)
[2018-06-27 14:56] LABS: INR 1.24 (0.82-1.09); PROTHROMBIN TIME (PATIENT) 13.8 SEC (10.2-13.0)
[2018-06-27 15:00] LABS: ALBUMIN 3.7 g/dl (3.5-5.0); ALK PHOS 97 U/L (32-92); ANION GAP 8 MMOL/L (8-16); BILIRUBIN,TOTAL 0.7 mg/dl (0.2-1.0); BLOOD UREA NITROGEN 67 mg/dl (7-18); CALCIUM 9.6 mg/dl (8.4-10.2); CHLORIDE 105 mmol/L (98-107); CO2 19 mmol/L (22-28); CREATININE 2.3 mg/dl (0.6-1.3); GLUCOSE,RANDOM 120 mg/dl (74-106); SGOT/AST 27 U/L (10-42); SGPT/ALT 44 U/L (10-40); SODIUM 132 mmol/L (136-145); TOT PROT 6.9 g/dl (6.4-8.3)
[2018-06-27 15:02] LABS: POTASSIUM 6.2 mmol/L (3.5-5.1)
[2018-06-27] MEDS ORDERED: DEXTROSE 50%-WATER - 25 GM/50 ML VIAL IVPUSH ONE ×2 (15:51)
[2018-06-27] MEDS ORDERED: CALCIUM CHLORIDE 10% 1 GM/10 ML *VIAL IVPB ONE (15:54)
[2018-06-27] MEDS ORDERED: INSULIN SLIDING SCALE (NOVOLOG) 1 VIAL SQ ONE (15:57)
[2018-06-27] MEDS ORDERED: SODIUM POLYSTYRENE SULFONATE 15 GM/60 ML BOTTLE PO ONE (15:57)
[2018-06-27] MEDS ORDERED: DEXTROSE 50%-WATER 25 GM/50 ML DISP.SYRIN ONE (16:03)
[2018-06-27] MEDS ORDERED: INSULIN REGULAR HUMAN 100 UNITS/ML *VIAL ONE (16:05)
[2018-06-27] MEDS ORDERED: SODIUM CHLORIDE 0.9% 500 ML INFUS.BAG IV ONE (16:17)
[2018-06-27] MEDS ORDERED: INSULIN REGULAR HUMAN 100 UNITS/ML *VIAL IVPUSH ONE (16:30)
--- NOTE | 2018-06-27 16:47 | PDOC ---
Attending Attestation - Resident Resident Name: JimboJahaira - ED Attending Attestation I have performed the following: I have examined & evaluated the patient, The case was reviewed & discussed with the resident, I agree w/resident's findings & plan, Exceptions are as noted - HPI HPI: 06/27/18 16:38 Sent for ER evaluation and admission by Dr. Coronado. Blood work yesterday showed an elevated potassium of 6.8. Also with poorly controlled diabetes and renal insufficiency. Presently, the patient is asymptomatic except for tremor in his hands, which has been stable for several months. Due to the possibility of hypoglycemia, primary physician stopped his diabetes medication several days ago. - Physicial Exam PE: 06/27/18 16:47 Alert oriented and well-developed well-nourished no acute distress cheerful and cooperative Afebrile, vital signs normal HEENT clear. No pallor or icterus Neck supple without bruit mass or nodes Lungs clear to P&A CV regular without murmur rub or gallop pulses full and symmetric no JVD or edema no bruits Abdomen nondistended. Bowel sounds normal. Soft without mass tenderness organomegaly Extremities no CCE Neurological shows a fine tremor in both hands. Normal cranial nerves. No sensory or motor deficits. - Medical Decision Making 06/27/18 16:48 Impression: Tremor, diabetes, renal insufficiency, hyperkalemia. Potassium is 6.2 today. EKG no acute changes. Plan: Admission, monitor, glucose control, lower potassium, investigate renal insufficiency. Dr. Coronado present in the emergency room, evaluated the patient , and will admit with telemetry monitoring and frequent monitoring of potassium
[2018-06-27 16:52] LABS: PH,URINE 5.5 (4.5-8); URINE APPEARANCE Clear; URINE BILIRUBIN Negative (NEGATIVE); URINE COLOR Yellow; URINE GLUCOSE (UA) Negative (NEGATIVE); URINE KETONE Negative (NEGATIVE); URINE LEUK ESTERASE 1+ (NEGATIVE); URINE NITRITE Negative (NEGATIVE); URINE PROTEIN 2+ (NEGATIVE); URINE UROBILINOGEN 0.2 (0.2-1.0)
[2018-06-27 17:15] LABS: URINE RBC >100 /hpf (0-3)
[2018-06-27 17:16] LABS: URINE BACTERIA FEW /hpf (NEGATIVE); URINE WBC >50 (0-2)
[2018-06-27 19:02] VITALS: BMI 28.0
--- NOTE | 2018-06-27 21:04 | HP ---
Admitting History and Physical - Admission Chief Complaint: tremors and weakness, unsteady gait History of Present Illness: 78 yo male with PMH of prostate cancer was sent from my office for elevated potassium level, extreme weakness, and unsteady gait. The patient has history of prostate cancer, had prostatectomy and cryotherapy. He has been treated recently with Vancomycin for osteomyelits . His kidney function declined during the past few months. - Past Medical History Cardiovascular: Yes: CAD, HTN Renal/: Yes: Cancer, UTI, Other (BN stricture, bladder stones) - Smoking History Smoking history: Unknown if ever smoked Have you smoked in the past 12 months: No Aproximately how many cigarettes per day: 0 If you are a former smoker, when did you quit?: 37 YRS AGO - Alcohol/Substance Use Hx Alcohol Use: No Home Medications - Allergies Allergies/Adverse Reactions: Allergies Allergy/AdvReac Type Severity Reaction Status Date / Time Iodinated Contrast- Oral and Allergy Intermediate Hives Verified 05/20/18 06:37 IV Dye iodine Allergy Rash Verified 05/20/18 06:37 Sulfa (Sulfonamide Allergy "KIDNEY Verified 05/20/18 06:37 Antibiotics) ISSUES" - Home Medications Home Medications: Ambulatory Orders Nebivolol HCl [Bystolic] 10 mg PO DAILY tablet 02/08/15 Famotidine 20 mg PO DAILY 11/03/17 Simvastatin 20 mg PO HS 11/03/17 Lactobacillus Acidophilus [Bacid -] 1 tab PO DAILY #30 tab 04/12/18 Cholecalciferol (Vitamin D3) [Vitamin D3] 2,000 unit PO DAILY 05/12/18 Venlafaxine HCl ER [Effexor Xr -] 75 mg PO DAILY 05/12/18 Acetaminophen [Tylenol .Regular Strength -] 650 mg PO Q4H PRN tablet 05/16/18 Docusate Sodium [Colace -] 100 mg PO DAILY capsule 05/18/18 Sennosides [Senna -] 2 tab PO HS PRN tablet 05/18/18 traMADol HCL [Ultram -] 50 mg PO Q3H6XD PRN MDD 4 05/28/18 Losartan Potassium 50 mg PO DAILY 06/08/18 Sodium Polystyrene Sulfonate [Kayexalate] 30 gm PO DAILY 06/08/18 Cefuroxime Axetil [Cefuroxime] 250 mg PO BID 08/27/18 Physical Examination Vital Signs: Vital Signs Temperature 97.4 F L 06/27/18 18:54 Pulse Rate 86 06/27/18 18:54 Respiratory Rate 18 06/27/18 18:54 Blood Pressure 104/87 06/27/18 18:54 O2 Sat by Pulse Oximetry (%) 100 06/27/18 18:54 Labs: CBC, BMP 06/27/18 14:35 06/27/18 14:35 Problem List - Problems (1) Acute hyperkalemia Assessment/Plan: kayexalate given in ER, Calcium chloride 1 gm and Insulin and D50 were given repeat K in the evening Code(s): E87.5 - HYPERKALEMIA (2) Acute kidney failure Assessment/Plan: the patient's renal function has been declining continously over the past few months, I will try hydration and recheck kidney function in am Code(s): N17.9 - ACUTE KIDNEY FAILURE, UNSPECIFIED (3) Malignant neoplasm of prostate Assessment/Plan: had a CT scan of the abdomen which did not identify any kidney obstructive changes Code(s): C61 - MALIGNANT NEOPLASM OF PROSTATE (4) Osteomyelitis Code(s): M86.9 - OSTEOMYELITIS, UNSPECIFIED (5) Diabetes mellitus Assessment/Plan: stopped Tradjenta accuchecks AC an HS with GURPREET Hb A1 C was 6 in my office for now it will be managed with diet only Code(s): E11.9 - TYPE 2 DIABETES MELLITUS WITHOUT COMPLICATIONS (6) CAD (coronary artery disease) Assessment/Plan: repeat lipids Code(s): I25.10 - ATHSCL HEART DISEASE OF [place] CORONARY ARTERY W/O ANG PCTRS (7) Leukocytosis Assessment/Plan: UA and urine cultures it may difficult to obtain cultures due to patient;s incontinence Code(s): D72.829 - ELEVATED WHITE BLOOD CELL COUNT, UNSPECIFIED
[2018-06-27 21:25] LABS: ALBUMIN 3.3 g/dl (3.5-5.0); ALK PHOS 85 U/L (32-92); ANION GAP 10 MMOL/L (8-16); BILIRUBIN,TOTAL 0.6 mg/dl (0.2-1.0); BLOOD UREA NITROGEN 64 mg/dl (7-18); CALCIUM 9.8 mg/dl (8.4-10.2); CHLORIDE 106 mmol/L (98-107); CO2 18 mmol/L (22-28); CREATININE 2.5 mg/dl (0.6-1.3); GLUCOSE,RANDOM 188 mg/dl (74-106); POTASSIUM 5.4 mmol/L (3.5-5.1); SGOT/AST 32 U/L (10-42); SGPT/ALT 44 U/L (10-40); SODIUM 134 mmol/L (136-145); TOT PROT 6.1 g/dl (6.4-8.3)
[2018-06-27] MEDS: CEFUROXIME AXETIL 250 MG TABLET PO SCH (22:00)
[2018-06-27] MEDS: HYDROXYCHLOROQUINE SO4 200 MG TABLET (FP) PO SCH (22:00)
[2018-06-27] MEDS ORDERED: CEFUROXIME AXETIL 250 MG/5 ML BOTTLE PO SCH (22:00)
[2018-06-27] MEDS: INSULIN SLIDING SCALE (NOVOLOG) 1 VIAL SQ SCH (22:52)
[2018-06-28] MEDS: INSULIN SLIDING SCALE (NOVOLOG) 1 VIAL SQ SCH ×4 (06:26→21:56)
[2018-06-28 07:56] LABS: EOS % 5.8 % (0-4.5); HEMATOCRIT 32.3 % (35.4-49); HEMOGLOBIN 10.1 GM/dl (11.7-16.9); LYMPH % 24.5 % (8-40); MCH 23.9 pg (25.7-33.7); MCHC 31.2 g/dl (32.0-35.9); MEAN CELL VOLUME 76.6 fl (80-96); MEAN PLT VOLUME 6.8 fl (7.5-11.1); MONO % 7.5 % (3.8-10.2); NEUT % 61.2 % (42.8-82.8); PLATELET COUNT 255 K/MM3 (134-434); RBC 4.21 M/mm3 (4.00-5.60); RDW 17.8 % (11.9-15.9); WHITE BLOOD COUNT 8.9 K/mm3 (4.0-10.8)
[2018-06-28 08:18] LABS: ALBUMIN 3.3 g/dl (3.5-5.0); ALK PHOS 79 U/L (32-92); ANION GAP 5 MMOL/L (8-16); BILIRUBIN,TOTAL 0.6 mg/dl (0.2-1.0); BLOOD UREA NITROGEN 58 mg/dl (7-18); CALCIUM 9.3 mg/dl (8.4-10.2); CHLORIDE 107 mmol/L (98-107); CO2 20 mmol/L (22-28); CREATININE 2.2 mg/dl (0.6-1.3); GLUCOSE,RANDOM 135 mg/dl (74-106); MAGNESIUM 1.4 mg/dL (1.8-2.4); PHOSPHOROUS 4.5 mg/dl (2.5-4.6); POTASSIUM 5.1 mmol/L (3.5-5.1); SGOT/AST 24 U/L (10-42); SGPT/ALT 42 U/L (10-40); SODIUM 132 mmol/L (136-145); TOT PROT 5.8 g/dl (6.4-8.3)
[2018-06-28] MEDS ORDERED: PT OWN MED DRAWER 7, Y5N ONE ×2 (09:18→22:01)
[2018-06-28] MEDS: HYDROXYCHLOROQUINE SO4 200 MG TABLET (FP) PO SCH ×2 (09:27→22:00)
[2018-06-28] MEDS: CEFUROXIME AXETIL 250 MG TABLET PO SCH ×2 (09:28→22:03)
[2018-06-28] MEDS: NEBIVOLOL 10 MG TABLET (FP) PO SCH (09:28)
[2018-06-28] MEDS: ESCITALOPRAM OXALATE 20 MG TABLET (FP) PO SCH (09:28)
--- NOTE | 2018-06-28 09:49 | EKG ---
Test Reason : Blood Pressure : / mmHG Vent. Rate : 054 BPM Atrial Rate : 054 BPM P-R Int : 210 ms QRS Dur : 094 ms QT Int : 434 ms P-R-T Axes : 015 -03 035 degrees QTc Int : 411 ms SINUS BRADYCARDIA WITH 1ST DEGREE A-V BLOCK INFERIOR INFARCT , AGE UNDETERMINED ABNORMAL ECG WHEN COMPARED WITH ECG OF 08-JUN-2018 13:27, INFERIOR INFARCT IS NOW PRESENT Confirmed by Tyler Atkinson MD ([id number]) on 06/28/2018 9:48:39 AM Referred By: SUZETTE STEPHENS Confirmed By:Tyler Atkinson MD
[2018-06-28] MEDS: ACETAMINOPHEN 325 MG TABLET (FP) PO PRN ×2 (11:33→18:35)
[2018-06-28] MEDS ORDERED: MAGNESIUM SULF 50% (8.12 MEQ/2 ML-1 GM VIAL) IVPB ONE (15:59)
[2018-06-28] MEDS ORDERED: SODIUM CHLORIDE 1,000 ML IV SCH (16:45)
--- NOTE | 2018-06-28 18:21 | CON.NEURO ---
Consult - History of Present Illness History of Present Illness: 78 yo male with PMH of prostate cancer was admitted for elevated potassium level , extreme weakness, and unsteady gait. The patient has history of prostate cancer, had prostatectomy and cryotherapy. He has been treated recently with Vancomycin for osteomyelits . His kidney function declined during the past few months. seen in past for intractable low back pain -much more lucid than prior visit ( ? rx induced ); +tremor though he had this in past as well. back pain stable on tramadol. - History Source History Provided By: Patient - Past Medical History Cardio/Vascular: Yes: CAD, HTN Renal/: Yes: Cancer, UTI, Other (BN stricture, bladder stones) - Alcohol/Substance Use Hx Alcohol Use: No - Smoking History Smoking history: Unknown if ever smoked Have you smoked in the past 12 months: No Aproximately how many cigarettes per day: 0 If you are a former smoker, when did you quit?: 37 YRS AGO Home Medications - Allergies Allergies/Adverse Reactions: Allergies Allergy/AdvReac Type Severity Reaction Status Date / Time Iodinated Contrast- Oral and Allergy Intermediate Hives Verified 05/20/18 06:37 IV Dye iodine Allergy Rash Verified 05/20/18 06:37 Sulfa (Sulfonamide Allergy "KIDNEY Verified 05/20/18 06:37 Antibiotics) ISSUES" - Home Medications Home Medications: Ambulatory Orders Nebivolol HCl [Bystolic] 10 mg PO DAILY tablet 02/08/15 Famotidine 20 mg PO DAILY 11/03/17 Simvastatin 20 mg PO HS 11/03/17 Lactobacillus Acidophilus [Bacid -] 1 tab PO DAILY #30 tab 04/12/18 Cholecalciferol (Vitamin D3) [Vitamin D3] 2,000 unit PO DAILY 05/12/18 Venlafaxine HCl ER [Effexor Xr -] 75 mg PO DAILY 05/12/18 Acetaminophen [Tylenol .Regular Strength -] 650 mg PO Q4H PRN tablet 05/16/18 Docusate Sodium [Colace -] 100 mg PO DAILY capsule 05/18/18 Sennosides [Senna -] 2 tab PO HS PRN tablet 05/18/18 traMADol HCL [Ultram -] 50 mg PO Q3H6XD PRN MDD 4 05/28/18 Losartan Potassium 50 mg PO DAILY 06/08/18 Sodium Polystyrene Sulfonate [Kayexalate] 30 gm PO DAILY 06/08/18 Cefuroxime Axetil [Cefuroxime] 250 mg PO BID 06/27/18 Physical Exam-Neuro Vital Signs: Vital Signs Temperature 98.6 F 06/28/18 14:12 Pulse Rate 68 06/28/18 14:12 Respiratory Rate 18 06/28/18 14:12 Blood Pressure 125/75 06/28/18 14:12 O2 Sat by Pulse Oximetry (%) 100 06/28/18 14:12 Labs: CBC, BMP 06/28/18 07:00 06/28/18 07:00 INR, PTT INR 1.24 (0.82-1.09) H 06/27/18 14:35 Problem List - Problems (1) Acute hyperkalemia Code(s): E87.5 - HYPERKALEMIA (2) Acute kidney failure Code(s): N17.9 - ACUTE KIDNEY FAILURE, UNSPECIFIED (3) Altered mental status Code(s): R41.82 - ALTERED MENTAL STATUS, UNSPECIFIED Qualifiers: Altered mental status type: unspecified Qualified Code(s): R41.82 - Altered mental status, unspecified (4) Osteomyelitis Code(s): M86.9 - OSTEOMYELITIS, UNSPECIFIED Assessment/Plan 78 yo male with PMH of prostate cancer was admitted for elevated potassium level , extreme weakness, and unsteady gait. The patient has history of prostate cancer, had prostatectomy and cryotherapy. He has been treated recently with Vancomycin for osteomyelits . His kidney function declined during the past few months. seen in past for intractable low back pain -much more lucid than prior visit ( ? rx induced ); +tremor though he had this in past as well. back pain stable on tramadol. suspect metabolic syndrome contributed to weakness FU K, MAG , creatinine etc consider RENAL consult tremor -metabolic vs RX induced vs ET vs slight parkinsonism (less likely latter )-looks better than prior --no RX fr now and wait for metabolites to correct celexa can sometimes cause hyponatremia please call us back if further issues DR PALMER
--- NOTE | 2018-06-28 22:44 | PN ---
Progress Note, Physician Chief Complaint: tremors are persisting History of Present Illness: 78 yo male feeling better, had 3 bowel movements since the administration of the KAyexalate. yesterday. The tremors in his upper extremities continue. He still feels weak. - Current Medication List Current Medications: Active Medications Acetaminophen (Tylenol -) 650 mg PO Q6H PRN PRN Reason: PAIN Last Admin: 06/28/18 18:35 Dose: 650 mg Cefuroxime Axetil (Ceftin -) 250 mg PO BID [facility] Last Admin: 06/28/18 22:03 Dose: 250 mg Escitalopram Oxalate (Lexapro -) 20 mg PO DAILY [facility] Last Admin: 06/28/18 09:28 Dose: 20 mg Famotidine (Pepcid -) 20 mg PO DAILY [facility] Hydroxychloroquine Sulfate (Plaquenil -) 200 mg PO BID [facility] Last Admin: 06/28/18 22:00 Dose: Not Given Sodium Chloride (Normal Saline -) 1,000 mls @ 50 mls/hr IV ASDIR [facility] Stop: 06/29/18 16:45 Last Admin: 06/28/18 16:50 Dose: 50 mls/hr Insulin Aspart (Novolog Vial Sliding Scale -) 1 vial SQ [facility]; Protocol Last Admin: 06/28/18 21:56 Dose: Not Given Magnesium Oxide (Mag-Ox -) 400 mg PO BID [facility] Nebivolol (Bystolic -) 10 mg PO DAILY [facility] Last Admin: 06/28/18 09:28 Dose: 10 mg - Objective Vital Signs: Vital Signs Temperature 98.6 F 06/28/18 22:30 Pulse Rate 70 06/28/18 22:30 Respiratory Rate 19 06/28/18 22:30 Blood Pressure 134/78 06/28/18 22:30 O2 Sat by Pulse Oximetry (%) 100 06/28/18 22:30 Constitutional: Yes: No Distress, Calm Eyes: Yes: Conjunctiva Clear, EOM Intact HENT: Yes: Atraumatic, Normocephalic Neck: Yes: Supple, Trachea Midline Cardiovascular: Yes: Regular Rate and Rhythm, S1, S2 Respiratory: Yes: Regular, CTA Bilaterally Gastrointestinal: Yes: Normal Bowel Sounds, Soft, Abdomen, Obese. No: Hepatomegaly, Splenomegaly Breast(s): Yes: WNL Extremities: No: Calf Tenderness Edema: No Peripheral Pulses WNL: Yes Integumentary: Yes: Other (hyperpigmenttaion of the anterior shins) Psychiatric: Yes: Alert, Oriented Labs: CBC, BMP 06/28/18 07:00 06/28/18 07:00 INR, PTT INR 1.24 (0.82-1.09) H 06/27/18 14:35 - ....Imaging Chest X-ray: Other (no pleural effusion no infiltrate) Problem List - Problems (1) Acute hyperkalemia Assessment/Plan: k corrected to 5.1 Code(s): E87.5 - HYPERKALEMIA (2) Hypomagnesemia syndrome Assessment/Plan: correct MAgnesium , repeat level in am, start Magnesium oxide 400 mg po bid Code(s): E83.42 - HYPOMAGNESEMIA (3) Acute kidney failure Assessment/Plan: repeat CMP in am iv hydration with NS Code(s): N17.9 - ACUTE KIDNEY FAILURE, UNSPECIFIED (4) Leukocytosis Assessment/Plan: continue Ceftin 250 mmg po bid Code(s): D72.829 - ELEVATED WHITE BLOOD CELL COUNT, UNSPECIFIED (5) Malignant neoplasm of prostate Assessment/Plan: had a CT scan of the abdomen which did not identify any kidney obstructive changes urine cultures pending, the patient is incontinent Code(s): C61 - MALIGNANT NEOPLASM OF PROSTATE (6) Diabetes mellitus Assessment/Plan: stopped Tradjenta accuchecks AC an HS with GURPREET Hb A1 C was 6 in my office for now it will be managed with diet only Code(s): E11.9 - TYPE 2 DIABETES MELLITUS WITHOUT COMPLICATIONS (7) CAD (coronary artery disease) Assessment/Plan: repeat lipids in am Code(s): I25.10 - ATHSCL HEART DISEASE OF [place] CORONARY ARTERY W/O ANG PCTRS (8) Coarse tremors Assessment/Plan: Neurology consult correct metabolic abnormalitis TSH in am Code(s): G25.2 - OTHER SPECIFIED FORMS OF TREMOR
[2018-06-28] MEDS: MAGNESIUM OXIDE 400 MG TABLET (FP) PO SCH (22:54)
[2018-06-29] MEDS: INSULIN SLIDING SCALE (NOVOLOG) 1 VIAL SQ SCH ×2 (06:44→11:44)
[2018-06-29 07:06] LABS: BASO % 0.7 % (0-2.0); EOS % 6.7 % (0-4.5); HEMATOCRIT 34.5 % (35.4-49); HEMOGLOBIN 10.6 GM/dl (11.7-16.9); LYMPH % 20.5 % (8-40); MCH 23.9 pg (25.7-33.7); MCHC 30.9 g/dl (32.0-35.9); MEAN CELL VOLUME 77.4 fl (80-96); MEAN PLT VOLUME 6.4 fl (7.5-11.1); MONO % 6.7 % (3.8-10.2); NEUT % 65.4 % (42.8-82.8); PLATELET COUNT 287 K/MM3 (134-434); RBC 4.46 M/mm3 (4.00-5.60); RDW 17.3 % (11.9-15.9); WHITE BLOOD COUNT 10.1 K/mm3 (4.0-10.8)
[2018-06-29 07:35] LABS: ALBUMIN 3.3 g/dl (3.5-5.0); ALK PHOS 89 U/L (32-92); ANION GAP 8 MMOL/L (8-16); BILIRUBIN,TOTAL 0.7 mg/dl (0.2-1.0); BLOOD UREA NITROGEN 52 mg/dl (7-18); CALCIUM 9.5 mg/dl (8.4-10.2); CHLORIDE 104 mmol/L (98-107); CHOLESTEROL 117 mg/dl; CO2 20 mmol/L (22-28); CREATININE 1.9 mg/dl (0.6-1.3); GLUCOSE,RANDOM 119 mg/dl (74-106); HDL CHOLESTEROL 30 mg/dl (29-89); LDL CHOLESTEROL (ONLY DFH) 58 mg/dl; MAGNESIUM 1.9 mg/dL (1.8-2.4); POTASSIUM 4.7 mmol/L (3.5-5.1); SGOT/AST 27 U/L (10-42); SGPT/ALT 44 U/L (10-40); SODIUM 132 mmol/L (136-145); TOT PROT 6.3 g/dl (6.4-8.3); TRIGLYCERIDES 147 mg/dl (35-160)
[2018-06-29] MEDS ORDERED: HYDROXYCHLOROQUINE SO4 200 MG TABLET (FP) PO SCH (10:00)
[2018-06-29] MEDS ORDERED: FAMOTIDINE 20 MG TABLET PO SCH (10:00)
[2018-06-29] MEDS ORDERED: PT OWN MED DRAWER 7, Y5N ONE (10:35)
[2018-06-29 10:52] VITALS: BP 149/74; PULSE 72; TEMP 98.8
[2018-06-29] MEDS: CEFUROXIME AXETIL 250 MG TABLET PO SCH (10:52)
[2018-06-29] MEDS: MAGNESIUM OXIDE 400 MG TABLET (FP) PO SCH (10:53)
[2018-06-29] MEDS: NEBIVOLOL 10 MG TABLET (FP) PO SCH (10:53)
[2018-06-29 10:54] LABS: PH,URINE 5.5 (4.5-8); URINE APPEARANCE Slightly; URINE BILIRUBIN Negative (NEGATIVE); URINE COLOR Red; URINE GLUCOSE (UA) Negative (NEGATIVE); URINE KETONE Negative (NEGATIVE); URINE LEUK ESTERASE 2+ (NEGATIVE); URINE NITRITE Negative (NEGATIVE); URINE PROTEIN 3+ (NEGATIVE); URINE UROBILINOGEN 0.2 (0.2-1.0)
[2018-06-29] MEDS: ESCITALOPRAM OXALATE 20 MG TABLET (FP) PO SCH (10:55)
[2018-06-29] MEDS: ACETAMINOPHEN 325 MG TABLET (FP) PO PRN (10:56)
[2018-06-29 10:59] LABS: URINE RBC >100 /hpf (0-3)
--- NOTE | 2018-06-29 21:05 | DS ---
Physical Examination Vital Signs: Vital Signs Temperature 98.8 F 06/29/18 10:51 Pulse Rate 72 06/29/18 10:51 Respiratory Rate 19 06/29/18 10:51 Blood Pressure 149/74 06/29/18 10:51 O2 Sat by Pulse Oximetry (%) 100 06/28/18 22:30 Constitutional: Yes: No Distress, Calm Eyes: Yes: Conjunctiva Clear, EOM Intact HENT: Yes: Atraumatic, Normocephalic Neck: Yes: Supple, Trachea Midline Cardiovascular: Yes: Regular Rate and Rhythm, S1, S2 Respiratory: Yes: Regular, CTA Bilaterally Gastrointestinal: Yes: Normal Bowel Sounds, Soft, Abdomen, Obese. No: Hepatomegaly, Splenomegaly Extremities: No: Calf Tenderness Edema: No Peripheral Pulses WNL: Yes Neurological: Yes: Alert, Oriented Psychiatric: Yes: Alert, Oriented Labs: CBC, BMP 06/29/18 07:00 06/29/18 07:00 Discharge Summary Reason For Visit: HYPERKALEMIA Hospital Course: 78 yo male admitted for symptomatic hyperkaliemia, was admitted for monitoring and administration of KAyexalate. He was also found to have low Magnesium level. He is discharged home today with VNS order ad recommendation for short term follow up in my office. Condition: Fair - Instructions Referrals: Geetha Coroando MD [Primary Care Provider] - Disposition: HOME - Home Medications Comprehensive Discharge Medication List: Ambulatory Orders Nebivolol HCl [Bystolic] 10 mg PO DAILY tablet 02/08/15 Famotidine 20 mg PO DAILY 11/03/17 Lactobacillus Acidophilus [Bacid -] 1 tab PO DAILY #30 tab 04/12/18 Cholecalciferol (Vitamin D3) [Vitamin D3] 2,000 unit PO DAILY 05/12/18 Docusate Sodium [Colace -] 100 mg PO DAILY capsule 05/18/18 Cefuroxime Axetil [Cefuroxime] 250 mg PO BID 06/27/18 Cefuroxime Axetil [Ceftin -] 250 mg PO BID tablet 06/28/18 Escitalopram Oxalate [Lexapro -] 20 mg PO DAILY tablet 06/28/18 Famotidine [Pepcid -] 20 mg PO DAILY tablet 06/28/18 Hydroxychloroquine So4 [Plaquenil -] 200 mg PO DAILY tablet 06/28/18 Magnesium Oxide [Mag-Ox -] 400 mg PO BID #60 tablet 06/28/18 Nebivolol [Bystolic -] 10 mg PO DAILY tab 06/28/18
--- NOTE | 2018-06-29 21:08 | PN ---
Progress Note, Physician Chief Complaint: tremors are persisting but less pronnounced History of Present Illness: 78 yo male feeling better, received Magnesium iv He still feels weak an dis complaining of suprapubic discomfort. - Objective Vital Signs: Vital Signs Temperature 98.8 F 06/29/18 10:51 Pulse Rate 72 06/29/18 10:51 Respiratory Rate 19 06/29/18 10:51 Blood Pressure 149/74 06/29/18 10:51 O2 Sat by Pulse Oximetry (%) 100 06/28/18 22:30 Constitutional: Yes: No Distress, Calm Eyes: Yes: Conjunctiva Clear, EOM Intact HENT: Yes: Atraumatic, Normocephalic Neck: Yes: Supple, Trachea Midline Cardiovascular: Yes: Regular Rate and Rhythm, S1, S2 Respiratory: Yes: Regular, CTA Bilaterally Gastrointestinal: Yes: Normal Bowel Sounds, Soft, Abdomen, Obese. No: Hepatomegaly, Splenomegaly Genitourinary: Yes: WNL Extremities: No: Calf Tenderness Edema: No Peripheral Pulses WNL: Yes Wound/Incision: Yes: Well Approximated Psychiatric: Yes: Oriented Labs: CBC, BMP 06/29/18 07:00 06/29/18 07:00 INR, PTT INR 1.24 (0.82-1.09) H 06/27/18 14:35 Problem List - Problems (1) Acute hyperkalemia Assessment/Plan: k corrected Code(s): E87.5 - HYPERKALEMIA (2) Hypomagnesemia syndrome Assessment/Plan: correct MAgnesium , repeat level in am, start Magnesium oxide 400 mg po bid Code(s): E83.42 - HYPOMAGNESEMIA (3) Acute kidney failure Assessment/Plan: repeat CMP in am iv hydration with NS Code(s): N17.9 - ACUTE KIDNEY FAILURE, UNSPECIFIED (4) Leukocytosis Assessment/Plan: continue Ceftin 250 mmg po bid Code(s): D72.829 - ELEVATED WHITE BLOOD CELL COUNT, UNSPECIFIED (5) Malignant neoplasm of prostate Assessment/Plan: had a CT scan of the abdomen which did not identify any kidney obstructive changes urine cultures pending, the patient is incontinent Code(s): C61 - MALIGNANT NEOPLASM OF PROSTATE (6) Diabetes mellitus Assessment/Plan: stopped Tradjenta accuchecks AC an HS with GURPREET Hb A1 C was 6 in my office for now it will be managed with diet only Code(s): E11.9 - TYPE 2 DIABETES MELLITUS WITHOUT COMPLICATIONS (7) CAD (coronary artery disease) Assessment/Plan: repeat lipids in am Code(s): I25.10 - ATHSCL HEART DISEASE OF [place] CORONARY ARTERY W/O ANG PCTRS (8) Coarse tremors Assessment/Plan: Neurology consult correct metabolic abnormalitis TSH pending Code(s): G25.2 - OTHER SPECIFIED FORMS OF TREMOR
== END 2018-06-29 12:55 | disposition home or self-care (01) | DRG 641 ==
LOC: FER 13:01 → SUPCPDRO 13:01 → OBSVTOIN 15:29 → FM/S 15:29
PROVIDERS: ADMIT Internal Medicine; ATTEND Internal Medicine
DX: E87.5 Hyperkalemia (principal); N17.9 Acute kidney failure, unspecified; M86.9 Osteomyelitis, unspecified; E11.9 Type 2 diabetes mellitus without complications; I25.10 Atherosclerotic heart disease of native coronary artery without angina pectoris; D72.829 Elevated white blood cell count, unspecified; E83.42 Hypomagnesemia; C61 Malignant neoplasm of prostate; G25.2 Other specified forms of tremor; I10 Essential (primary) hypertension
CPT/HCPCS: 36415; 71045-TC-FY; 80053; 80061; 81003; 81015; 82550; 82962; 83735; 84100; 84443; 84484; 85025; 85610; 87086; 87186; 93005; 97116-GP; 97161-GP; 99282-25; J7030

== ENCOUNTER 2018-09-29 05:18 | Day surgery (SDC) | payer OTHER, BC ==
[2018-09-14 14:18] VITALS: BMI 30.5
[2018-09-29] MEDS ORDERED: MIDAZOLAM HCL 2 MG/2 ML SINGLE DOSE VIAL ONE (11:32)
[2018-09-29] MEDS ORDERED: PROPOFOL 20 ML ONE (11:38)
[2018-09-29] MEDS ORDERED: ceFAZolin SODIUM 1 GM VIAL IVPB ONE (11:41)
[2018-09-29] MEDS ORDERED: oxyCODONE HCL 5 MG TABLET PO PRN (12:26)
--- NOTE | 2018-09-29 12:29 | OP ---
Operative Note - Note: Operative Date: 09/29/18 Pre-Operative Diagnosis: bladder stone Operation: cysto/laser stone Findings: bladder stone, stone lining prostatic urethra Post-Operative Diagnosis: Same as Pre-op Surgeon: Carlos Daniel Anesthesia: General Specimens Removed: stone frags Estimated Blood Loss (mls): 2
[2018-09-29] MEDS ORDERED: ELECTROLYTE-148 SOLN 1,000 ML IV SCH (12:30)
[2018-09-29] MEDS ORDERED: LACTATED RINGERS SOLUTION 1,000 ML IV SCH (14:15)
[2018-09-29] MEDS ORDERED: ONDANSETRON 4 MG/2 ML VIAL IVPUSH PRN (14:15)
--- NOTE | 2018-09-29 14:35 | OP ---
DATE OF OPERATION: 09/29/2018 PREOPERATIVE DIAGNOSIS: Bladder stone. POSTOPERATIVE DIAGNOSES: Bladder stone. Prostatic urethral stones. PROCEDURES: Cystoscopy, laser lithotripsy of bladder stones and prostatic urethral stones. SURGEON: Eden Bustamante MD INDICATIONS: The patient is an 78-year-old male with history of prostate cancer, status post radiation, status post cryotherapy, status post TUR of bladder neck by Dr. Funez in the past for obstruction. Patient has persistent incontinence and recently for workup of hematuria noted to have a stone sitting at the bladder neck in his bladder. Also, a question of possible prostatic urethral stone. After reviewing treatment options, patient taken to the OR for laser lithotripsy of the stone. DESCRIPTION OF PROCEDURE: Patient taken to the OR and placed supine on the operating table. After cardiac monitoring administered and general anesthesia established, he was prepped and draped in dorsal lithotomy position. He was given 2 g of Ancef. The 26-Latvian resectoscope was inserted into the urethra without difficulty. Anterior urethra was normal. Prostatic urethra was open with some mild narrowing at the bladder neck, but the scope could be inserted into the bladder neck. There was a stone seen sort of obstructing the bladder neck area, as well as also a larger stone adherent to the prostatic urethra and several smaller stones adherent to prostatic urethra. Attention was first turned to the stone in the bladder and this was pulverized into fine dust in 3-4 mm fragments and these removed with the IntellectSpaceik evacuator. Then, the prostatic urethral stones were treated with the laser fiber, again using the laser fiber at a setting of 1.5 joules and 15 Hz. The stone was pulverized into fine dust and fragments until no other visual gross prostatic urethral stones were seen. Then, the procedure was completed. All stone fragments were removed with the Ellik evacuator. Repeat inspection of the bladder revealed no evidence of any injury, bilateral ureteral orifices were seen in their normal anatomic position. Cystoscope was then removed and a 20-Latvian Geronimo was then placed to straight drainage. Muse-tinged urine retrieved. Patient was awoken from anesthesia and transferred to recovery room in stable condition. There were no complications. Estimated blood loss minimal. EDEN BUSTAMANTE M.D. [id number]
[2018-09-29 19:48] VITALS: BP 150/80; PULSE 70; TEMP 98.2
--- NOTE | 2018-09-30 18:07 | PATH ---
Surgical Pathology Report Patient Name: EDEN CALVO [facility]. Rec. #: [id number] /Age/Gender: 1940 (Age: 78) / M Account: [id number] Location: U SURGICAL Taken: 09/29/2018 Received: 09/29/2018 Reported: 09/30/2018 Physicians: Eden Daniel M.D. Specimen(s) Received BLADDER STONES Clinical History Bladder stones Final Diagnosis BLADDER STONES, CYSTOSCOPY AND LASER LITHOTRIPSY: BLADDER CALCULI. MACROSCOPIC DIAGNOSIS. Electronically Signed Meredith Patino M.D. Gross Description Received fresh labeled "bladder stones," is a 2.0 x 0.8 x 0.3 cm aggregate of bolton, irregular to fragmented calculi. The specimen is sent for chemical analysis. 09/29/201809/29/2018
== END 2018-09-29 16:15 | disposition home or self-care (01) ==
LOC: JASU-SURG 05:18
PROVIDERS: ATTEND Urology
PROC: 0TFD8ZZ Fragmentation in Urethra, Via Natural or Artificial Opening Endoscopic (ICD-10-PCS; principal; 2018-09-29 11:00)
PROC: 0TCB8ZZ Extirpation of Matter from Bladder, Via Natural or Artificial Opening Endoscopic (ICD-10-PCS; 2018-09-29 11:00)
DX: N21.0 Calculus in bladder (principal); N21.1 Calculus in urethra; N39.498 Other specified urinary incontinence; I10 Essential (primary) hypertension; E11.9 Type 2 diabetes mellitus without complications; G47.30 Sleep apnea, unspecified
CPT/HCPCS: 36415; 82360; 82962; 88300-TC; 94760

== ENCOUNTER 2019-09-25 04:21 | Inpatient (IN) | payer OTHER, BC ==
--- NOTE | 2019-09-25 04:30 | PDOC ---
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 Patient states he has been feeling poorly for the past several days. Reports right-sided lower back pain in that time period as well. His decided to call 07-12 when the patient slid slowly out of bed in the middle of the night and could not get up. Took his torsemide and bistolic later in the day than usual and is speculating whether this caused him to feel so weak. Denies loss of consciousness or hitting his head. Had one episode of NBNB vomiting. Has had poor po intake for the past couple weeks. Unsure if he has had fevers. No chills , chest pain, or shortness of breath. PCP: Dr. Martinez Cardiology: Alan Emanuel ROS: Constitutional: no diaphoresis, no chills HEENT: no throat pain, no dysphagia Cardiovascular: no chest pain, no palpitations Respiratory: no cough, no shortness of breath Gastrointestinal: no abdominal pain, no nausea Genitourinary: no dysuria, no hematuria Musculoskeletal: +R. sided back pain, no L. sided back pain Skin: no rash, no itching Neurologic: no syncope +weakness PE: General: Awake, alert, and fully oriented, in no acute distress Head: No signs of trauma Eyes: EOMI, sclera anicteric ENT: Dry mucus membranes Neck: Normal ROM, supple Lungs: Lungs clear, Normal breath sounds Cardio: Regular rhythm, S1 and S2 present Abdomen: Soft, nontender. Ostomy in place without signs of infection. No CVA tenderness bilaterally. Extremities: Normal range of motion, Distal pulses present, No calf tenderness SKIN: Warm, Dry, normal turgor Neurologic: Cranial nerves II through XII grossly intact. Normal speech Back: No midline tenderness, no step-offs/deformities/fluctuance; no overlying wound or lesion ED Course/MDM: DDX including but not limited to UTI/pyelonephritis, viral illness/influenza, pneumonia Labs, [facility]30 CBC WBC 17.7 K/mm3 (4.0-10.0) H 09/25/19 05:20 RBC 4.62 M/mm3 (4.00-5.60) 09/25/19 05:20 Hgb 12.0 GM/dL (11.7-16.9) 09/25/19 05:20 Hct 36.7 % (35.4-49) 09/25/19 05:20 MCV 79.5 fl (80-96) L 09/25/19 05:20 MCH 26.0 pg (25.7-33.7) 09/25/19 05:20 MCHC 32.8 g/dl (32.0-35.9) 09/25/19 05:20 RDW 21.7 % (11.9-15.9) H 09/25/19 05:20 Plt Count 222 K/MM3 (134-434) 09/25/19 05:20 MPV 6.3 fl (7.5-11.1) L 09/25/19 05:20 Absolute Neuts (auto) 15.7 K/mm3 (1.5-8.0) H 09/25/19 05:20 Neutrophils % 88.6 % (42.8-82.8) H 09/25/19 05:20 Lymphocytes % 2.6 % (8-40) L 09/25/19 05:20 Monocytes % 8.3 % (3.8-10.2) 09/25/19 05:20 Eosinophils % 0.0 % (0-4.5) 09/25/19 05:20 Basophils % 0.5 % (0-2.0) 09/25/19 05:20 Nucleated RBC % 0 % (0-0) 09/25/19 05:20 Leukocytosis CMP Sodium 131 mmol/L (136-145) L 09/25/19 05:20 Potassium 4.2 mmol/L (3.5-5.1) 09/25/19 05:20 Chloride 104 mmol/L (98-107) 09/25/19 05:20 Carbon Dioxide 19 mmol/L (21-32) L 09/25/19 05:20 Anion Gap 8 MMOL/L (8-16) 09/25/19 05:20 BUN 58.6 mg/dL (7-18) H 09/25/19 05:20 Creatinine 2.0 mg/dL (0.55-1.3) H 09/25/19 05:20 Est GFR (CKD-EPI)AfAm 35.23 09/25/19 05:20 Est GFR (CKD-EPI)NonAf 30.40 09/25/19 05:20 Random Glucose 179 mg/dL (74-106) H 09/25/19 05:20 Calcium 9.0 mg/dL (8.5-10.1) 09/25/19 05:20 Total Bilirubin 0.5 mg/dL (0.2-1) 09/25/19 05:20 AST 26 U/L (15-37) 09/25/19 05:20 ALT 34 U/L (13-61) 09/25/19 05:20 Alkaline Phosphatase 100 U/L (45-117) 09/25/19 05:20 Creatine Kinase 93 U/L (26-308) 09/25/19 05:20 Troponin I 0.05 ng/ml (0.00-0.05) 09/25/19 05:20 Total Protein 6.5 g/dl (6.4-8.2) 09/25/19 05:20 Albumin 3.3 g/dl (3.4-5.0) L 09/25/19 05:20 TSH 1.46 uIU/ml (0.358-3.74) 09/25/19 05:20 Electrolytes unremarkable BUN and Cr elevated (no prior values in chart) TSH normal No transaminitis Tpn undetectable UA with infection; Zosyn ordered 09/25/19 06:21 EKG: rate 74, QTc 450, sinus, incomplete RBBB CXR without acute pathology, my impression Admission is appropriate for patient as he has fever, dehydration, unclear ability to maintain oral hydration, increased Cr without known prior cause Upon asking him, patient a history of elevated BUN but does not know his baseline value 09/25/19 06:46 Microblog sent; awaiting callback Patient does not know his 's phone number; left cell phone at home. Per his request, attempted to call his cell phone number ([phone]) but no one answered 09/25/19 07:[address] Flavio Isaac who accepted patient for med/surg admission under Dr. Powers 09/25/19 07:19 Past History - Past Medical History Allergies/Adverse Reactions: Allergies Allergy/AdvReac Type Severity Reaction Status Date / Time Iodinated Contrast Media Allergy Intermediate Hives Verified 09/14/18 13:48 [Iodinated Contrast- Oral and IV Dye] iodine Allergy Rash Verified 09/14/18 13:48 Sulfa (Sulfonamide Allergy "KIDNEY Verified 09/14/18 13:48 Antibiotics) ISSUES" sulfacetamide AdvReac Severe Verified 09/25/19 05:40 [From Sulfamide] Home Medications: Ambulatory Orders Allopurinol [Zyloprim -] 100 mg PO DAILY 09/25/19 Aripiprazole 2 mg DAILY 09/25/19 Escitalopram Oxalate [Lexapro -] 20 mg PO DAILY 09/25/19 Ezetimibe 10 mg PO DAILY 09/25/19 Hydroxychloroquine Sulfate [Plaquenil] 200 mg PO BID 09/25/19 Nebivolol HCl [Bystolic] 5 mg PO DAILY 09/25/19 Torsemide [Demadex -] 5 mg PO DAILY 09/25/19 Venlafaxine HCl ER [Effexor Xr -] 75 mg DAILY 09/25/19 ED Treatment Course - LABORATORY CBC & Chemistry Diagram: 09/25/19 05:20 09/25/19 05:20 Discharge - Discharge Information Problems reviewed: Yes Clinical Impression/Diagnosis: UTI (urinary tract infection) Qualifiers: Urinary tract infection type: site unspecified Hematuria presence: with hematuria Qualified Code(s): N39.0 - Urinary tract infection, site not specified Condition: Guarded - Admission Yes - Follow up/Referral - Patient Discharge Instructions - Post Discharge Activity
[2019-09-25 04:53] VITALS: BMI 29.7
[2019-09-25] MEDS ORDERED: ACETAMINOPHEN 1000 MG/100 ML VIAL (NON FORMULARY) IVPB ONE ×2 (05:01→19:13)
[2019-09-25] MEDS ORDERED: ACETAMINOPHEN INJECTION 100 ML IVPB ONE ×2 (05:01→19:31)
--- NOTE | 2019-09-25 05:39 | PDOC ---
Attending Attestation - Resident Resident Name: TiffanyJulianna - ED Attending Attestation I have performed the following: I have examined & evaluated the patient, The case was reviewed & discussed with the resident, I agree w/resident's findings & plan - HPI HPI: 09/25/19 05:58 Pt comes with fever and weakness. We will check UA and CXR and look for flu and the usual sources of fever. - Physicial Exam PE: 09/25/19 06:29 Pt appears tired; but good muscle tone and heart and lungs normal. No flank pain and no rash and no pitting edema Suprapubic bag with cloudy urine. Likely UTI - Medical Decision Making 09/25/19 06:31 Pt has WBC of 17; he had a UTI We will admit for hydration and IV abx, as this is a complicated UTI and we need to await cultures and see that pt is improving.
[2019-09-25 05:50] LABS: BASO % 0.5 % (0-2.0); HEMATOCRIT 36.7 % (35.4-49); LYMPH % 2.6 % (8-40); MCHC 32.8 g/dl (32.0-35.9); MEAN CELL VOLUME 79.5 fl (80-96); MEAN PLT VOLUME 6.3 fl (7.5-11.1); MONO % 8.3 % (3.8-10.2); NEUT % 88.6 % (42.8-82.8); PLATELET COUNT 222 K/MM3 (134-434); RBC 4.62 M/mm3 (4.00-5.60); RDW 21.7 % (11.9-15.9); WHITE BLOOD COUNT 17.7 K/mm3 (4.0-10.0)
[2019-09-25 05:57] LABS: INR 1.21 (0.83-1.09); PROTHROMBIN TIME (PATIENT) 14.3 SEC (9.7-13.0)
[2019-09-25 06:10] LABS: ALBUMIN 3.3 g/dl (3.4-5.0); BILIRUBIN,TOTAL 0.5 mg/dL (0.2-1); BLOOD UREA NITROGEN 58.6 mg/dL (7-18); POTASSIUM 4.2 mmol/L (3.5-5.1); TOT PROT 6.5 g/dl (6.4-8.2)
[2019-09-25] MEDS ORDERED: PIPERACILLIN/TAZOB 3.375 GM 3.375 GM in DEXTROSE 5%-WATER - 50 ML IVPB ONE (06:15)
[2019-09-25 06:16] LABS: HYALINE CASTS 57 /lpf (0-8); PH,URINE 7.5 (5.0-8.0); URINE APPEARANCE CLOUDY; URINE BACTERIA 7157.1 /hpf (NEGATIVE); URINE BILIRUBIN NEGATIVE (NEGATIVE); URINE COLOR YELLOW; URINE GLUCOSE (UA) NEGATIVE (NEGATIVE); URINE KETONE NEGATIVE (NEGATIVE); URINE LEUK ESTERASE 3+ (NEGATIVE); URINE NITRITE NEGATIVE (NEGATIVE); URINE PROTEIN 2+ (NEGATIVE); URINE RBC 7 /hpf (0-4); URINE UROBILINOGEN 0.2 mg/dL (0.2-1.0); URINE WBC 139 /hpf (0-5)
[2019-09-25] MEDS ORDERED: PIPERACILLIN/TAZOB 3.375 GM 3.375 GM/50 ML BAG IVPB ONE ×2 (06:25→15:04)
[2019-09-25 07:32] LABS: ANISOCYTOSIS 2+
--- NOTE | 2019-09-25 08:06 | HP ---
CHIEF COMPLAINT: Generalized weakness PCP: Dr Martinez HISTORY OF PRESENT ILLNESS: Pt is an 79 y/o M with a significant PMH of HTN, Prostate cancer s/p radiation treatment (now with illeal conduit), osteomyelitis of pelvis, who presented to [facility] due to 4-5 days of generalized weakness. Pt states he has had decreased PO intake due to lack of appetite during this time. Pt also states he has been sleeping a lot more. This am, pt states he slipped off of his bed due to his recent weakness and this is what prompted him to come to our emergency department. Endorses 1 episode of vomiting. Denies subjective fevers, chills, shortness of breath, LOC, chest pain, or numbness/tingling. 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 Mother Non Hodgkin's Lymphoma SurgHx- illeal Conduit formation, Right meniscus surgery, Appendectomy/ Cholecystectomy ER course was notable for: (1) WBC 17.7 (2) Bun/Cr 58.6/2.0 (3) Zosyn Allergies Iodinated Contrast Media Allergy (Intermediate, Verified 09/25/19 05:40) Rash sulfacetamide [From Sulfamide] Adverse Reaction (Severe, Verified 09/25/19 05:40 ) REVIEW OF SYSTEMS CONSTITUTIONAL: present: generalized weakness HEENT: Absent: rhinorrhea, nasal congestion, throat pain, throat swelling, difficulty swallowing, mouth swelling, ear pain, eye pain, visual changes CARDIOVASCULAR: Absent: chest pain, syncope, palpitations, irregular heart rate, lightheadedness , peripheral edema RESPIRATORY: Absent: cough, shortness of breath, dyspnea with exertion, orthopnea, wheezing, stridor, hemoptysis GASTROINTESTINAL: Absent: abdominal pain, abdominal distension, nausea, vomiting, diarrhea, constipation, melena, hematochezia GENITOURINARY: present: flank pain MUSCULOSKELETAL: Absent: myalgia, arthralgia, joint swelling, back pain, neck pain SKIN: Absent: rash, itching, pallor HEMATOLOGIC/IMMUNOLOGIC: Absent: easy bleeding, easy bruising, lymphadenopathy, frequent infections ENDOCRINE: Absent: unexplained weight gain, unexplained weight loss, heat intolerance, cold intolerance NEUROLOGIC: Absent: headache, focal weakness or paresthesias, dizziness, unsteady gait, seizure, mental status changes, bladder or bowel incontinence PSYCHIATRIC: Absent: anxiety, depression, suicidal or homicidal ideation, hallucinations. PHYSICAL EXAMINATION Vital Signs - 24 hr 09/25/19 09/25/19 04:51 06:34 Temperature 102.3 F H 99.4 F Pulse Rate 86 Pulse Rate [ 88 Apical] Respiratory 20 18 Rate Blood Pressure 119/79 Blood Pressure 120/69 [Left Arm] O2 Sat by Pulse 98 98 Oximetry (%) GENERAL: NAD, AAOx3 HEAD: Normal with no signs of trauma. EYES: EOMI Sclera Clear EARS, NOSE, THROAT: MMM NECK: Normal range of motion, supple. LUNGS: CTA b/l HEART: RRR S1S2 ABDOMEN: Midline surgical scar. illeal conduit. BS Audible, no guarding or rigidity. Nontender to palpation. LOWER EXTREMITIES: 1+ edema NEUROLOGICAL: Cranial nerves II-XII intact. Normal speech. PSYCHIATRIC: Cooperative. Good eye contact. Appropriate mood and affect. SKIN: No rashes or lesions appreciated Laboratory Results - last 24 hr 09/25/19 09/25/19 09/25/19 05:19 05:20 05:20 WBC 17.7 H RBC 4.62 Hgb 12.0 Hct 36.7 MCV 79.5 L MCH 26.0 MCHC 32.8 RDW 21.7 H Plt Count 222 MPV 6.3 L Absolute Neuts (auto) 15.7 H Neutrophils % 88.6 H Lymphocytes % 2.6 L Monocytes % 8.3 Eosinophils % 0.0 Basophils % 0.5 Nucleated RBC % 0 Anisocytosis 2+ Microcytosis . PT with INR INR Sodium 131 L Potassium 4.2 Chloride 104 Carbon Dioxide 19 L Anion Gap 8 BUN 58.6 H Creatinine 2.0 H Est GFR (CKD-EPI)AfAm 35.23 Est GFR (CKD-EPI)NonAf 30.40 Random Glucose 179 H Calcium 9.0 Total Bilirubin 0.5 AST 26 ALT 34 Alkaline Phosphatase 100 Creatine Kinase 93 Troponin I 0.05 Total Protein 6.5 Albumin 3.3 L TSH Urine Color Yellow Urine Appearance Cloudy Urine pH 7.5 Ur Specific [place] 1.012 Urine Protein 2+ H Urine Glucose (UA) Negative Urine Ketones Negative Urine Blood Trace Urine Nitrite Negative Urine Bilirubin Negative Urine Urobilinogen 0.2 Ur Leukocyte Esterase 3+ H Urine WBC (Auto) 139 Urine RBC (Auto) 7 Urine Casts (Auto) 57 U Epithel Cells (Auto) 4.0 Urine Bacteria (Auto) 7157.1 Influenza A (Rapid) Influenza B (Rapid) 09/25/19 09/25/19 09/25/19 05:20 05:20 06:56 WBC RBC Hgb Hct MCV MCH MCHC RDW Plt Count MPV Absolute Neuts (auto) Neutrophils % Lymphocytes % Monocytes % Eosinophils % Basophils % Nucleated RBC % Anisocytosis Microcytosis PT with INR 14.30 H INR 1.21 H Sodium Potassium Chloride Carbon Dioxide Anion Gap BUN Creatinine Est GFR (CKD-EPI)AfAm Est GFR (CKD-EPI)NonAf Random Glucose Calcium Total Bilirubin AST ALT Alkaline Phosphatase Creatine Kinase Troponin I Total Protein Albumin TSH 1.46 Urine Color Urine Appearance Urine pH Ur Specific [place] Urine Protein Urine Glucose (UA) Urine Ketones Urine Blood Urine Nitrite Urine Bilirubin Urine Urobilinogen Ur Leukocyte Esterase Urine WBC (Auto) Urine RBC (Auto) Urine Casts (Auto) U Epithel Cells (Auto) Urine Bacteria (Auto) Influenza A (Rapid) Negative Influenza B (Rapid) Negative ASSESSMENT/PLAN: Pt is an 79 y/o M with a significant PMH of HTN, Prostate cancer s/p radiation treatment (now with illeal conduit), osteomyelitis of pelvis, who presented to [facility] due to 4-5 days of generalized weakness #UTI 2/2 Possible Pyelonephritis -WBC 17.7. Endorses Right flank pain. -Leuk Est 3+. -Illeal Conduit. Will order Renal/Bladder U/S to assess for any hydronephrosis or Reflux disease -Received Zosyn in ED -Will continue on Zosyn. ID Consult -Urology/Nephrology Consult. -NS@100cc/hr -Repeat CBC/CMP in am. Trend WBC. -Blood/Urine cultures #HTN -Will restart patient on hoe medications. Bystolic and Torosemide. #DVT ppx -Heparin SQ TID #FEN -NS at 100 cc/hr -Monitor Electrolytes -Sodium Controlled Diet #Dispo -Med Surg Visit type - Emergency Visit Emergency Visit: Yes ED Registration Date: 09/25/19 Care time: The patient presented to the Emergency Department on the above date and was hospitalized for further evaluation of their emergent condition. - New Patient This patient is new to me today: Yes Date on this admission: 11/25/19 - Critical Care Critical Care patient: No ATTENDING PHYSICIAN STATEMENT I saw and evaluated the patient. I reviewed the resident's note and discussed the case with the resident. I agree with the resident's findings and plan as documented. SUBJECTIVE: OBJECTIVE: ASSESSMENT AND PLAN:
[2019-09-25] MEDS: SODIUM CHLORIDE 1,000 ML IV SCH (08:30)
[2019-09-25] MEDS: HEPARIN NA (PORCINE) 5,000 UNITS/ML 1ML VIAL SQ SCH ×3 (09:42→23:00)
[2019-09-25] MEDS ORDERED: HEPARIN NA (PORCINE) 5,000 UNITS/ML 1ML VIAL ONE ×2 (10:38→14:06)
--- NOTE | 2019-09-25 11:32 | CONSULT ---
Consultation: REQUESTING PROVIDER: Dr. Isaac CONSULT SERVICE: Nephrology HISTORY OF PRESENT ILLNESS: Patient is an 79 year old male with history of hypertension, prostate cancer (s/ p external beam radiation, and subsequent ileal conduit surgery), osteomyelitis of pelvis, chronic kidney disease stage III, diabetes mellitus presented with complaint of weakness. Patient reports symptoms ongoing for past several days without clear palliative of provocative features. In the ED patient was septic with fever to 102.3F, and WBC 17.7. Urinalysis with cloudy urine with trace blood, 3+ leukocyte esterase, with pyuria and bacteriuria. Labs also revealed azotemia with Bun/Cr 58.6/ 2.0. Records obtained from Dr. Montana reveal his last BUN/ Cr values were 46/ 1.38 in August, and 35/ 1.65 in September. Past medical history: hypertension, prostate cancer, osteomyelitis of pelvis, chronic kidney disease stage III, diabetes mellitus Past surgical history: radical cystectomy (07/2019), ileal conduit Family history Mother: Non-hodgkins lymphoma Father: noncontribuatory Allergies: Iodine, contrast media Social history: Former smoker, with 15 pack year history, quit over 20 years ago. Admits rare, social alcohol consumption. Denies illicit drug use. REVIEW OF SYSTEMS: CONSTITUTIONAL: Admits: subjective fevers, generalized weakness, malaise, loss of appetite. Absent: chills, diaphoresis, weight change HEENT: Absent: rhinorrhea, nasal congestion, throat pain, throat swelling, difficulty swallowing, mouth swelling, ear pain, eye pain, visual changes CARDIOVASCULAR: Absent: chest pain, syncope, palpitations, irregular heart rate, lightheadedness , peripheral edema RESPIRATORY: Absent: cough, shortness of breath, dyspnea with exertion, orthopnea, wheezing, stridor, hemoptysis GASTROINTESTINAL: Absent: abdominal pain, abdominal distension, nausea, vomiting, diarrhea, constipation, melena, hematochezia GENITOURINARY: Absent: dysuria, frequency, urgency, hesitancy, hematuria, flank pain, genital pain MUSCULOSKELETAL: Absent: myalgia, arthralgia, joint swelling, back pain, neck pain SKIN: Absent: rash, itching, pallor HEMATOLOGIC/IMMUNOLOGIC: Absent: easy bleeding, easy bruising, lymphadenopathy, frequent infections ENDOCRINE: Absent: unexplained weight gain, unexplained weight loss, heat intolerance, cold intolerance NEUROLOGIC: Absent: headache, focal weakness or paresthesias, dizziness, unsteady gait, seizure, mental status changes, bladder or bowel incontinence PSYCHIATRIC: Absent: anxiety, depression, suicidal or homicidal ideation, hallucinations. PHYSICAL EXAMINATION Vital Signs - 24 hr 09/25/19 09/25/19 09/25/19 04:51 06:34 07:15 Temperature 102.3 F H 99.4 F Pulse Rate 86 Pulse Rate [ 88 66 Apical] Respiratory 20 18 18 Rate Blood Pressure 119/79 Blood Pressure 120/69 102/61 [Left Arm] O2 Sat by Pulse 98 98 98 Oximetry (%) 09/25/19 10:28 Temperature 98.2 F Pulse Rate Pulse Rate [ 60 Apical] Respiratory Rate Blood Pressure Blood Pressure 113/71 [Left Arm] O2 Sat by Pulse 100 Oximetry (%) GENERAL: Patient is awake, alert, and fully oriented. No acute distress. HEENT: NC/AT. PERRL, EOMI. Moist mucous membranes. LUNGS: Breath sounds equal, clear to auscultation bilaterally. No wheezes, and no crackles. No accessory muscle use. HEART: Regular rate and rhythm, normal S1 and S2 without murmur, rub or gallop. ABDOMEN: Soft, nontender, not distended, normoactive bowel sounds, no guarding, no rebound tenderness. EXTREMITIES: 2+ radial, dorsalis pedis pulses bilaterally, warm, well-perfused. No peripheral edema. NEUROLOGICAL: Cranial nerves II-XII intact. Normal speech. No gross focal deficits. PSYCHIATRIC: Cooperative. Appropriate mood and affect upon my encounter. SKIN: Warm, dry. Ileal conduit stoma noted pink, clean, dry. Laboratory Results - last 24 hr 09/25/19 09/25/19 09/25/19 05:19 05:20 05:20 WBC 17.7 H RBC 4.62 Hgb 12.0 Hct 36.7 MCV 79.5 L MCH 26.0 MCHC 32.8 RDW 21.7 H Plt Count 222 MPV 6.3 L Absolute Neuts (auto) 15.7 H Neutrophils % 88.6 H Lymphocytes % 2.6 L Monocytes % 8.3 Eosinophils % 0.0 Basophils % 0.5 Nucleated RBC % 0 Anisocytosis 2+ Microcytosis . PT with INR INR Sodium 131 L Potassium 4.2 Chloride 104 Carbon Dioxide 19 L Anion Gap 8 BUN 58.6 H Creatinine 2.0 H Est GFR (CKD-EPI)AfAm 35.23 Est GFR (CKD-EPI)NonAf 30.40 Random Glucose 179 H Calcium 9.0 Total Bilirubin 0.5 AST 26 ALT 34 Alkaline Phosphatase 100 Creatine Kinase 93 Troponin I 0.05 Total Protein 6.5 Albumin 3.3 L TSH Urine Color Yellow Urine Appearance Cloudy Urine pH 7.5 Ur Specific [place] 1.012 Urine Protein 2+ H Urine Glucose (UA) Negative Urine Ketones Negative Urine Blood Trace Urine Nitrite Negative Urine Bilirubin Negative Urine Urobilinogen 0.2 Ur Leukocyte Esterase 3+ H Urine WBC (Auto) 139 Urine RBC (Auto) 7 Urine Casts (Auto) 57 U Epithel Cells (Auto) 4.0 Urine Bacteria (Auto) 7157.1 Influenza A (Rapid) Influenza B (Rapid) 09/25/19 09/25/19 09/25/19 05:20 05:20 06:56 WBC RBC Hgb Hct MCV MCH MCHC RDW Plt Count MPV Absolute Neuts (auto) Neutrophils % Lymphocytes % Monocytes % Eosinophils % Basophils % Nucleated RBC % Anisocytosis Microcytosis PT with INR 14.30 H INR 1.21 H Sodium Potassium Chloride Carbon Dioxide Anion Gap BUN Creatinine Est GFR (CKD-EPI)AfAm Est GFR (CKD-EPI)NonAf Random Glucose Calcium Total Bilirubin AST ALT Alkaline Phosphatase Creatine Kinase Troponin I Total Protein Albumin TSH 1.46 Urine Color Urine Appearance Urine pH Ur Specific [place] Urine Protein Urine Glucose (UA) Urine Ketones Urine Blood Urine Nitrite Urine Bilirubin Urine Urobilinogen Ur Leukocyte Esterase Urine WBC (Auto) Urine RBC (Auto) Urine Casts (Auto) U Epithel Cells (Auto) Urine Bacteria (Auto) Influenza A (Rapid) Negative Influenza B (Rapid) Negative Active Medications Generic Name Dose Route Start Last Admin Trade Name Freq PRN Reason Stop Dose Admin Heparin Sodium (Porcine) 5,000 unit 09/25/19 08:45 09/25/19 09:42 Heparin - SQ 5,000 unit TID [facility] Administration Sodium Chloride 1,000 mls @ 100 mls/hr 09/25/19 08:15 09/25/19 08:30 Normal Saline - IV 100 mls/hr ASDIR YAYA Administration ASSESSMENT/PLAN: Patient is an 79 year old male with history of hypertension, prostate cancer (s/ p external beam radiation, and subsequent ileal conduit surgery), osteomyelitis of pelvis, chronic kidney disease stage III, diabetes mellitus admitted for sepsis secondary to acute complicated urinary tract infection. Sepsis secondary to acute complicated urinary tract infection -Patient received Zosyn in ED. -ID recommendations (Dr. Adam) appreciated. Will continue Zosyn. -Follow urine cultures -Urology consuly appreciated. -Continue IV normal saline at 100mL/ hour HOLLY on CKD III -Azotemia with increase of BUN to 58.6/ Cr to 2.0; increased from baseline. -Records obtained from Dr. Montana reveal his last values were BUN of 35/ Cr of 1.65 in September. -HOLLY likely secondary to sepsis. Will continue hydration with IV normal saline at 100mL/ hour -Follow renal ultrasound -Follow urine studies, urine electrolytes. Disposition: We will continue to follow the patient. Thank you for this consultative opportunity. Visit type - Emergency Visit Emergency Visit: Yes ED Registration Date: 09/25/19 Care time: The patient presented to the Emergency Department on the above date and was hospitalized for further evaluation of their emergent condition. - New Patient This patient is new to me today: Yes Date on this admission: 09/25/19 - Critical Care Critical Care patient: No ATTENDING PHYSICIAN STATEMENT I saw and evaluated the patient. I reviewed the resident's note and discussed the case with the resident. I agree with the resident's findings and plan as documented. SUBJECTIVE: OBJECTIVE: ASSESSMENT AND PLAN:
--- NOTE | 2019-09-25 11:41 | PN ---
Progress Note (short form) - Note Progress Note: ID consult dictated 79 yo man admitted with weakness over last several days slide out of bed onto the floor yesterday fever uti recent ileiostomy history of osteomyelitis of the pubis 2017 leatha/ckd continue zosyn renal sonogram f/u cultures blood cultures ordered
[2019-09-25] MEDS ORDERED: FAMOTIDINE 20 MG TABLET PO SCH (12:00)
[2019-09-25] MEDS ORDERED: FAMOTIDINE 20 MG/50 ML IVPB 20 MG/50 ML MG IVPB ONE ×2 (13:59→14:53)
--- NOTE | 2019-09-25 14:37 | PN ---
Teaching Attending Note Name of Resident: Flavio Isaac ATTENDING PHYSICIAN STATEMENT I saw and evaluated the patient. I reviewed the resident's note and discussed the case with the resident. I agree with the resident's findings and plan as documented. SUBJECTIVE: Complains of R hip pain generalized weakness, found to have fever. no cough/sputum/nausea/vomiting/diarrhea. OBJECTIVE: Febrile, Tmax 102.3. Hemodynamically Stable Last Vital Signs Temp Pulse Resp BP Pulse Ox 98.2 F 60 18 113/71 100 09/25/19 10:28 09/25/19 10:28 09/25/19 07:15 09/25/19 10:28 09/25/19 10:28 HEENT - Atraumatic, Normocephalic. Heart - S1, S2, RRR Lungs -clear to auscultation Abdomen - RLQ ileal conduit. Soft, Bowel Sounds normal. Extremities - mild edema, chronic venous stasis skin changes. Neuro - AAO x 3. Tone/Power normal all 4 extremities. Laboratory Results - last 24 hr 09/25/19 09/25/19 09/25/19 05:19 05:20 05:20 WBC 17.7 H RBC 4.62 Hgb 12.0 Hct 36.7 MCV 79.5 L MCH 26.0 MCHC 32.8 RDW 21.7 H Plt Count 222 MPV 6.3 L Absolute Neuts (auto) 15.7 H Neutrophils % 88.6 H Lymphocytes % 2.6 L Monocytes % 8.3 Eosinophils % 0.0 Basophils % 0.5 Nucleated RBC % 0 Anisocytosis 2+ Microcytosis . PT with INR INR Sodium 131 L Potassium 4.2 Chloride 104 Carbon Dioxide 19 L Anion Gap 8 BUN 58.6 H Creatinine 2.0 H Est GFR (CKD-EPI)AfAm 35.23 Est GFR (CKD-EPI)NonAf 30.40 Random Glucose 179 H Calcium 9.0 Total Bilirubin 0.5 AST 26 ALT 34 Alkaline Phosphatase 100 Creatine Kinase 93 Troponin I 0.05 Total Protein 6.5 Albumin 3.3 L TSH Urine Color Yellow Urine Appearance Cloudy Urine pH 7.5 Ur Specific [place] 1.012 Urine Protein 2+ H Urine Glucose (UA) Negative Urine Ketones Negative Urine Blood Trace Urine Nitrite Negative Urine Bilirubin Negative Urine Urobilinogen 0.2 Ur Leukocyte Esterase 3+ H Urine WBC (Auto) 139 Urine RBC (Auto) 7 Urine Casts (Auto) 57 U Epithel Cells (Auto) 4.0 Urine Bacteria (Auto) 7157.1 Influenza A (Rapid) Influenza B (Rapid) 09/25/19 09/25/19 09/25/19 05:20 05:20 06:56 WBC RBC Hgb Hct MCV MCH MCHC RDW Plt Count MPV Absolute Neuts (auto) Neutrophils % Lymphocytes % Monocytes % Eosinophils % Basophils % Nucleated RBC % Anisocytosis Microcytosis PT with INR 14.30 H INR 1.21 H Sodium Potassium Chloride Carbon Dioxide Anion Gap BUN Creatinine Est GFR (CKD-EPI)AfAm Est GFR (CKD-EPI)NonAf Random Glucose Calcium Total Bilirubin AST ALT Alkaline Phosphatase Creatine Kinase Troponin I Total Protein Albumin TSH 1.46 Urine Color Urine Appearance Urine pH Ur Specific [place] Urine Protein Urine Glucose (UA) Urine Ketones Urine Blood Urine Nitrite Urine Bilirubin Urine Urobilinogen Ur Leukocyte Esterase Urine WBC (Auto) Urine RBC (Auto) Urine Casts (Auto) U Epithel Cells (Auto) Urine Bacteria (Auto) Influenza A (Rapid) Negative Influenza B (Rapid) Negative Current Medications Generic Name Dose Route Start Last Admin Trade Name Freq PRN Reason Stop Dose Admin Allopurinol 100 mg 09/26/19 10:00 Zyloprim - PO DAILY YAYA Aripiprazole 2 mg 09/26/19 10:00 Abilify PO DAILY YAYA Ezetimibe 10 mg 09/26/19 10:00 Zetia - PO DAILY YAYA Escitalopram Oxalate 20 mg 09/26/19 10:00 Lexapro - PO DAILY YAYA Famotidine 20 mg 09/25/19 12:00 Pepcid - PO DAILY YAYA Heparin Sodium (Porcine) 5,000 unit 09/25/19 08:45 09/25/19 09:42 Heparin - SQ 5,000 unit TID YAYA Administration Hydroxychloroquine Sulfate 200 mg 09/25/19 22:00 Plaquenil - PO BID YAYA Sodium Chloride 1,000 mls @ 100 mls/hr 09/25/19 08:15 09/25/19 08:30 Normal Saline - IV 100 mls/hr ASDIR YAYA Administration Piperacillin Sod/Tazobactam 50 mls @ 100 mls/hr 09/25/19 12:00 Sod 3.375 gm/ Dextrose IVPB Q8H-IV YAYA Protocol Venlafaxine HCl 75 mg 09/26/19 10:00 Effexor Xr - PO DAILY [facility] Home Medications Medication Instructions Recorded Allopurinol [Zyloprim -] 100 mg PO DAILY 09/25/19 Aripiprazole 2 mg DAILY 09/25/19 Escitalopram Oxalate [Lexapro -] 20 mg PO DAILY 09/25/19 Ezetimibe 10 mg PO DAILY 09/25/19 Hydroxychloroquine Sulfate 200 mg PO BID 09/25/19 [Plaquenil] Nebivolol HCl [Bystolic] 5 mg PO DAILY 09/25/19 Torsemide [Demadex -] 5 mg PO DAILY 09/25/19 Venlafaxine HCl ER [Effexor Xr -] 75 mg DAILY 09/25/19 ASSESSMENT AND PLAN: 79 year old male with history of HTN, Prostate cancer s/p RTx, 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 No headache/visual disturbance/focal limb weakness or numbness. No fits, faints, blackouts, seizures, head injury. Renal US - prominent renal pelvis, without significant hydronephrosis. 1. Sepsis secondary to UTI, possible pyelonephritis in patient s/p Cystectomy and Ileal conduit. UA - LE+++, WBC 17.7, T 102.3 Continue Zosyn empiricaly pending Urine Cx results. Renal US as above. Urology and ID consults placed. IV hydration. 2. HOLLY vs CKD, unknown baseline Creatinine. Will contact PCP office to determine baseline Creat Renal US shows no significant obstruction Nephrology consulted. Normally on Torsemide - held in favor of IV fluids currently. IV hydration ongoing. 3. HTN - normally on Bystolic and Torsemide. Will hold Torsemide. 4. HLD - continue Ezetimibe. 5. Depression - Continue Abilify, Lexapro, Effexor 6. Unspecified Rheumatological Disorder - on Plaquenil. Continue. DVT Px - Heparin SQ
--- NOTE | 2019-09-25 14:58 | PN ---
Teaching Attending Note Name of Resident: Sanya Ruano (Nephrology) ATTENDING PHYSICIAN STATEMENT I saw and evaluated the patient. I reviewed the resident's note and discussed the case with the resident. I agree with the resident's findings and plan as documented. Renal Pt is an 79 year old male with pmhx of htn, prostate cancer, pelvic osteo and CKD who presents with 5 days of weakness and decreased PO intake. He was found to have a UTI and started on abx. I was called to evaluate him for HOLLY. He follows with Dr Brooks. pmhx htn prostate cance, ckd pshx ileal conduit allergies contrast iodine family hx non contrib soc lives at home Current Medications Generic Name Dose Route Start Last Admin Trade Name Freq PRN Reason Stop Dose Admin Allopurinol 100 mg 09/26/19 10:00 Zyloprim - PO DAILY YAYA Aripiprazole 2 mg 09/26/19 10:00 Abilify PO DAILY YAYA Ezetimibe 10 mg 09/26/19 10:00 Zetia - PO DAILY YAYA Escitalopram Oxalate 20 mg 09/26/19 10:00 Lexapro - PO DAILY YAYA Heparin Sodium (Porcine) 5,000 unit 09/25/19 08:45 09/25/19 09:42 Heparin - SQ 5,000 unit TID YAYA Administration Hydroxychloroquine Sulfate 200 mg 09/25/19 22:00 Plaquenil - PO BID YAYA Sodium Chloride 1,000 mls @ 100 mls/hr 09/25/19 08:15 09/25/19 08:30 Normal Saline - IV 100 mls/hr ASDIR YAYA Administration Piperacillin Sod/Tazobactam 50 mls @ 100 mls/hr 09/25/19 12:00 Sod 3.375 gm/ Dextrose IVPB Q8H-IV YAYA Protocol Famotidine/Sodium Chloride 20 mg in 50 mls @ 100 mls/hr 09/25/19 14:53 Pepcid 20 Mg Premixed Ivpb - IVPB 09/25/19 15:22 ONCE ONE Torsemide 5 mg 09/26/19 10:00 Demadex - PO DAILY YAYA Venlafaxine HCl 75 mg 09/26/19 10:00 Effexor Xr - PO DAILY YAYA Microbiology Laboratory Tests 06/29/18 08/27/18 09/14/18 07:00 11:02 13:41 WBC Sodium Potassium Creatinine 1.9 H 1.8 H 1.6 H Urine Protein Ur Leukocyte Esterase 10/21/18 01/11/19 09/25/19 10:00 11:17 05:19 WBC Sodium Potassium Creatinine 1.6 H 1.5 H Urine Protein 2+ H Ur Leukocyte Esterase 3+ H 09/25/19 09/25/19 05:20 05:20 WBC 17.7 H Sodium 131 L Potassium 4.2 Creatinine 2.0 H Urine Protein Ur Leukocyte Esterase Last Vital Signs Temp Pulse Resp BP Pulse Ox 98.2 F 60 18 113/71 100 09/25/19 10:28 09/25/19 10:28 09/25/19 07:15 09/25/19 10:28 09/25/19 10:28 cardio s1s2 pulm clear GI soft ileal conduit ext neg edema neuro awake and alert Impression 1. CKD 2. HOLLY 3. prostate ca 4. hx of ileal conduit 5. UTI 6. 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
[2019-09-25] MEDS: PIPERACILLIN/TAZOB 3.375 GM 3.375 GM in DEXTROSE 5%-WATER - 50 ML IVPB SCH ×2 (15:11→18:48)
[2019-09-25] MEDS ORDERED: ACETAMINOPHEN 325 MG TABLET (FP) PO PRN (15:38)
--- NOTE | 2019-09-25 15:47 | CONS ---
INFECTIOUS DISEASE CONSULTATION DATE OF CONSULTATION: 09/25/2019 This is an 79-year-old man, past medical history of hypertension; prostate cancer, status post radiation treatment. He has a history of osteomyelitis of his pelvis, for which he was diagnosed and treated here at [facility] and at [place]. He received 6 weeks of vancomycin and cefepime. This was in 2018, via PICC line. He is now status post recent ileal conduit with total cystectomy. This was done July 06 at [facility]. He was discharged home on the . His operative finding: He was noted to have a fistula from his bladder into his pelvis and apparently was leaking urine. He reports his operative course was complicated by hiccups. He has been doing well at home. He has now an ileostomy. Until several days ago when he has had progressive fatigue, he had been sleeping more than usual, eating less than usual for the last 4-5 days. On the -, he slid out of bed onto the floor. He was unable to get up due to generalized weakness, and he had vomited twice. He had no fevers or chills. He has been emptying his ileostomy regularly. He lives at home with his . He was noted in the ER to have a temperature of 102.3 and a white count of 17.7. He denies any shortness of breath, abdominal pain, or chest pain. PAST MEDICAL HISTORY: Notable for hypertension, prostate cancer treated with radiation therapy, osteomyelitis of the pubic bone. SURGICAL HISTORY: Notable for ileal conduit. He had a total cystectomy. He has had an appendectomy and cholecystectomy many years ago, as well as right meniscus surgery. ALLERGIES: He is allergic to IODINE and to SULFAMIDE. MEDICATIONS AT HOME: Include Plaquenil, allopurinol, Bystolic, Demadex, Lexapro, and Effexor. 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 Denies alcohol, tobacco, or illicit drug use. He is , and he lives at home with his . REVIEW OF SYSTEMS: As per HPI. FAMILY HISTORY: His father at age 101 and had colon cancer, and his mother had a history of non-Hodgkin lymphoma. He is also feeling much better now than on admission. PHYSICAL EXAMINATION: Vital Signs: His temperature is 98.2, pulse of 60, blood pressure 113/71. His respiratory rate is 18, and he is saturating 100% on room air. General: He is alert and oriented x3. HEENT: He is normocephalic. His eyes are anicteric. Neck: Supple. Lungs: Clear to auscultation. Heart: Regular rate and rhythm. Abdomen: Soft, nontender. He has an ileostomy draining clear urine. Extremities: Without edema. LABORATORY DATA: White count is 17.7, hemoglobin is 12, platelets are 222. His BUN is 58 and creatinine 2. His LFTs are normal. Urinalysis has 3+ leukocyte esterase with 139 white cells. Influenza screen is negative. Urine culture is pending. Blood cultures have been ordered. He was given a dose of Zosyn in the ER. In summary, this is an elderly man admitted status post recent ileostomy and total cystectomy, admitted with fever of 102.8 and chills. Only source appears to be his urine. He has some acute kidney injury. His baseline creatinine last in December 2018 was 1.5, currently is 2. He last prior urine culture grew enterobacter with a lot of cephalosporin resistance. Given this, I would continue him on piperacillin/tazobactam as started. Would obtain blood cultures as well as urine cultures and a renal ultrasound. I have called Medical Records and asked them to merge his medical record numbers, so we will have access to his prior admissions. Further recommendations to follow. MARTY CARPIO M.D. [id number]
--- NOTE | 2019-09-25 15:57 | EKG ---
Test Reason : Blood Pressure : / mmHG Vent. Rate : 074 BPM Atrial Rate : 074 BPM P-R Int : 218 ms QRS Dur : 098 ms QT Int : 406 ms P-R-T Axes : 016 -22 027 degrees QTc Int : 450 ms SINUS RHYTHM WITH 1ST DEGREE A-V BLOCK INCOMPLETE RIGHT BUNDLE BRANCH BLOCK INFERIOR INFARCT , AGE UNDETERMINED ABNORMAL ECG NO PREVIOUS ECGS AVAILABLE Confirmed by DEEDEE COLLADO MD ([id number]) on 09/25/2019 3:56:51 PM Referred By: Confirmed By:DEEDEE COLLADO MD
[2019-09-26] MEDS ORDERED: DEXTROSE 5%-WATER - 50 ML IVPB ONE ×3 (01:09→17:22)
[2019-09-26] MEDS ORDERED: PIPERACILLIN/TAZOBACTAM 3.375 GM VIAL IVPB ONE ×3 (01:09→17:22)
[2019-09-26] MEDS: PIPERACILLIN/TAZOB 3.375 GM 3.375 GM in DEXTROSE 5%-WATER - 50 ML IVPB SCH ×3 (01:16→17:30)
[2019-09-26] MEDS: ACETAMINOPHEN 325 MG TABLET (FP) PO PRN ×2 (01:17→17:32)
[2019-09-26] MEDS ORDERED: ONDANSETRON 4 MG/2 ML VIAL IVPUSH ONE (02:01)
[2019-09-26] MEDS: HYDROXYCHLOROQUINE SO4 200 MG TABLET (FP) PO SCH ×4 (03:00→21:47)
[2019-09-26] MEDS: HEPARIN NA (PORCINE) 5,000 UNITS/ML 1ML VIAL SQ SCH ×3 (07:08→21:38)
[2019-09-26 08:20] LABS: BASO % 0.3 % (0-2.0); HEMATOCRIT 35.8 % (35.4-49); HEMOGLOBIN 11.6 GM/dL (11.7-16.9); LYMPH % 6.2 % (8-40); MCH 26.5 pg (25.7-33.7); MCHC 32.5 g/dl (32.0-35.9); MEAN CELL VOLUME 81.5 fl (80-96); MEAN PLT VOLUME 6.3 fl (7.5-11.1); MONO % 7.8 % (3.8-10.2); NEUT % 85.7 % (42.8-82.8); PLATELET COUNT 187 K/MM3 (134-434); RDW 21.9 % (11.9-15.9); WHITE BLOOD COUNT 8.5 K/mm3 (4.0-10.0)
[2019-09-26 08:38] LABS: INR 1.21 (0.83-1.09); PROTHROMBIN TIME (PATIENT) 14.3 SEC (9.7-13.0)
[2019-09-26 08:41] LABS: ACTIVATED PTT 27.6 SECONDS (25.2-36.5)
[2019-09-26 08:47] LABS: ALBUMIN 2.6 g/dl (3.4-5.0); BILIRUBIN,TOTAL 0.5 mg/dL (0.2-1); BLOOD UREA NITROGEN 53.7 mg/dL (7-18); CALCIUM 8.4 mg/dL (8.5-10.1); CREATININE 1.8 mg/dL (0.55-1.3); PHOSPHOROUS 3.2 mg/dL (2.5-4.9); POTASSIUM 4.1 mmol/L (3.5-5.1); TOT PROT 5.6 g/dl (6.4-8.2)
[2019-09-26] MEDS ORDERED: PT OWN MED DRAWER 7, Y5N ONE ×2 (09:15→20:32)
[2019-09-26] MEDS: ARIPiprazole 2 MG TABLET PO SCH (09:22)
[2019-09-26] MEDS: VENLAFAXINE HCL 75 MG E.R. CAPSULES (FP) PO SCH (09:22)
[2019-09-26] MEDS: NEBIVOLOL 5 MG TABLET (FP) PO SCH (09:22)
[2019-09-26] MEDS: ALLOPURINOL 100 MG TABLET (FP) PO SCH (09:23)
[2019-09-26] MEDS: ESCITALOPRAM OXALATE 20 MG TABLET (FP) PO SCH (09:24)
[2019-09-26] MEDS: SODIUM CHLORIDE 1,000 ML IV SCH (09:25)
[2019-09-26] MEDS ORDERED: FAMOTIDINE 20 MG TABLET PO SCH (10:00)
[2019-09-26] MEDS ORDERED: TORSEMIDE 5 MG TABLET PO SCH (10:00)
[2019-09-26] MEDS ORDERED: PROCHLORPERAZINE INJECTION 10 MG/2 ML VIAL IM PRN (10:37)
[2019-09-26] MEDS: PANTOPRAZOLE 20 MG TABLET (FP) PO SCH ×2 (12:03→21:38)
--- NOTE | 2019-09-26 13:04 | PN ---
Physical Exam: SUBJECTIVE: Patient seen and examined at the bedside. States that he continue to feel weak and does not have much of an appetite. Endorses some flank pain and suprapubic pain. Also endorsed some nausea, fever, chills. Denied cp, sob, vomiting, constipation, diarrhea, numbness, tingling. OBJECTIVE: Vital Signs Period Temp Pulse Resp BP Sys/Barber Pulse Ox Last 24 Hr 97.8 F-101.7 F 66-95 17-20 131-163/47-92 95-98 GENERAL: The patient is awake, alert, and fully oriented, in moderate acute distress. Diaphoretic and tremulous. HEAD: Normal with no signs of trauma. EYES: PERRL, extraocular movements intact, sclera anicteric, conjunctiva clear. No ptosis. ENT: Oropharynx clear without exudates, moist mucous membranes. NECK: Trachea midline, full range of motion, supple. LUNGS: Breath sounds equal, clear to auscultation bilaterally, no wheezes, no crackles, no accessory muscle use. HEART: Regular rate and rhythm, S1, S2 without murmur, rub. ABDOMEN: Soft, mildly tender in the suprapubic region, nondistended, normoactive bowel sounds, no guarding, no rebound. Midline surgical scar. Illeal conduit. EXTREMITIES: 2+ pulses, warm, well-perfused, no edema. NEUROLOGICAL: Cranial nerves II through XII grossly intact. Normal speech, gait not observed. PSYCH: Mildly nervous. SKIN: Warm, wet skin, normal turgor, no rashes or lesions noted. Laboratory Results - last 24 hr 09/25/19 09/25/19 09/26/19 17:30 17:30 07:30 WBC 8.5 RBC 4.40 Hgb 11.6 L Hct 35.8 MCV 81.5 MCH 26.5 MCHC 32.5 RDW 21.9 H Plt Count 187 MPV 6.3 L Absolute Neuts (auto) 7.2 Neutrophils % 85.7 H Lymphocytes % 6.2 L D Monocytes % 7.8 Eosinophils % 0.0 Basophils % 0.3 Nucleated RBC % 0 PT with INR INR PTT (Actin FS) Sodium Potassium Chloride Carbon Dioxide Anion Gap BUN Creatinine Est GFR (CKD-EPI)AfAm Est GFR (CKD-EPI)NonAf Random Glucose Calcium Phosphorus Magnesium Total Bilirubin AST ALT Alkaline Phosphatase Total Protein Albumin Ur Random Creatinine Cancelled 69.0 Ur Random Sodium 37 L Ur Random Potassium 24.0 L Ur Random Chloride 43 L 09/26/19 09/26/19 07:30 07:30 WBC RBC Hgb Hct MCV MCH MCHC RDW Plt Count MPV Absolute Neuts (auto) Neutrophils % Lymphocytes % Monocytes % Eosinophils % Basophils % Nucleated RBC % PT with INR 14.30 H INR 1.21 H PTT (Actin FS) 27.6 Sodium 136 Potassium 4.1 Chloride 110 H Carbon Dioxide 21 Anion Gap 5 L BUN 53.7 H Creatinine 1.8 H Est GFR (CKD-EPI)AfAm 40.02 Est GFR (CKD-EPI)NonAf 34.53 Random Glucose 136 H Calcium 8.4 L Phosphorus 3.2 Magnesium 2.0 Total Bilirubin 0.5 AST 23 ALT 34 Alkaline Phosphatase 76 Total Protein 5.6 L Albumin 2.6 L Ur Random Creatinine Ur Random Sodium Ur Random Potassium Ur Random Chloride Active Medications Generic Name Dose Route Start Last Admin Trade Name Freq PRN Reason Stop Dose Admin Acetaminophen 650 mg 09/25/19 15:45 09/26/19 01:17 Tylenol - PO 650 mg Q6H PRN Administration PAIN LEVEL 4 - 6 Allopurinol 100 mg 09/26/19 10:00 09/26/19 09:23 Zyloprim - PO 100 mg DAILY YAYA Administration Aripiprazole 2 mg 09/26/19 10:00 09/26/19 09:22 Abilify PO 2 mg DAILY YAYA Administration Docusate Sodium 100 mg 09/26/19 12:30 Colace - PO DAILY [facility] Ezetimibe 10 mg 09/26/19 10:00 Zetia - PO DAILY [facility] Escitalopram Oxalate 20 mg 09/26/19 10:00 09/26/19 09:24 Lexapro - PO 20 mg DAILY YAYA Administration Heparin Sodium (Porcine) 5,000 unit 09/25/19 08:45 09/26/19 07:08 Heparin - SQ 5,000 unit TID YAYA Administration Hydroxychloroquine Sulfate 200 mg 09/25/19 22:00 09/26/19 09:47 Plaquenil - PO Not Given BID YAYA Sodium Chloride 1,000 mls @ 100 mls/hr 09/25/19 08:15 09/26/19 09:25 Normal Saline - IV Not Given ASDIR YAYA Piperacillin Sod/Tazobactam 50 mls @ 100 mls/hr 09/25/19 12:00 09/26/19 09:21 Sod 3.375 gm/ Dextrose IVPB 100 mls/hr Q8H-IV YAYA Administration Protocol Nebivolol 5 mg 09/26/19 10:00 09/26/19 09:22 Bystolic - PO 5 mg DAILY YAYA Administration Pantoprazole Sodium 20 mg 09/26/19 10:45 09/26/19 12:03 Protonix - PO 20 mg BID YAYA Administration Polyethylene Glycol 17 gm 09/26/19 12:30 Miralax (For Daily Use) - PO DAILY YAYA Prochlorperazine Edisylate 5 mg 09/26/19 10:37 Compazine Injection - IM Q4H PRN NAUSEA AND/OR VOMITING Venlafaxine HCl 75 mg 09/26/19 10:00 09/26/19 09:22 Effexor Xr - PO 75 mg DAILY YAYA Administration ASSESSMENT/PLAN: Carlos Marie is an 79 year old male with a psat medical history of HTN, Prostate cancer s/p radiation treatment (now with illeal conduit), osteomyelitis of pelvis, who presented to [facility] due to 4-5 days of generalized weakness Sepsis secondary to complicated UTI s/p ileal conduit - WBC 17.7, improved to 8.5 - Leuk Est 3+, 139 WBC, >7000 bacteria - ID Consult, recs appreciated - continue Zosyn due to hx of Enterobacter with cephalosporin resistance - Urology consulted due to hx of ileal conduit - NS@100cc/hr - Blood cxs showing lactose fermenting gram negative bacilli - Urine cultures showing lactose fermenting gram negatives, non lactose fermenting gram negatives, group D strep/enteroccocus - continues to be febrile, watch for resolution of fevers, may need antibiotic adjustment - patient requesting that upon discharge, medical records be faxed to his urologist/oncologist Dr. Rayo Ann, HOLLY on CKD - admission CRE 2.0, improved to 1.8 - baseline 1.4-1.7, follows with Dr. Brooks outpatient - renal consulted, recs appreciated - Renal/Bladder U/S showing prominent renal pelvis with no hydronephrosis or acute pathology - continue IV fluids HTN - home medications Bystolic - Torosemide held HLD - continue home ezetimibe Depression - home abilify, Lexapro, Effexor Rheumatoid Arthritis - on home Plaquenil DVT ppx -Heparin 5000 units SQ TID F/E/N - NS at 100 cc/hr - continue to monitor electrolytes and replete as necessary - Sodium Controlled Diet Dispo - continue to monitor on Med Surg Visit type - Emergency Visit Emergency Visit: Yes ED Registration Date: 09/25/19 Care time: The patient presented to the Emergency Department on the above date and was hospitalized for further evaluation of their emergent condition. - New Patient This patient is new to me today: Yes Date on this admission: 09/26/19 - Critical Care Critical Care patient: No
--- NOTE | 2019-09-26 13:09 | PN ---
Teaching Attending Note Name of Resident: Carlos Babin ATTENDING PHYSICIAN STATEMENT I saw and evaluated the patient. I reviewed the resident's note and discussed the case with the resident. I agree with the resident's findings and plan as documented. SUBJECTIVE: Complains of dyspepsia and nausea. No vomiting/cough/sputum/ diarrhea. OBJECTIVE: Febrile, Tmax 102.3, now 101. Hemodynamically Stable Last Vital Signs Temp Pulse Resp BP Pulse Ox 97.8 F 88 18 163/92 96 09/26/19 09:41 09/26/19 09:41 09/26/19 09:41 09/26/19 09:41 09/26/19 09:00 Heart - S1, S2, RRR Lungs - clear to auscultation Abdomen - RLQ ileal conduit. Soft, Bowel Sounds normal. Extremities - mild edema, chronic venous stasis skin changes. Neuro - AAO x 3. Tone/Power normal all 4 extremities. Laboratory Results - last 24 hr 09/25/19 09/25/19 09/26/19 17:30 17:30 07:30 WBC 8.5 RBC 4.40 Hgb 11.6 L Hct 35.8 MCV 81.5 MCH 26.5 MCHC 32.5 RDW 21.9 H Plt Count 187 MPV 6.3 L Absolute Neuts (auto) 7.2 Neutrophils % 85.7 H Lymphocytes % 6.2 L D Monocytes % 7.8 Eosinophils % 0.0 Basophils % 0.3 Nucleated RBC % 0 PT with INR INR PTT (Actin FS) Sodium Potassium Chloride Carbon Dioxide Anion Gap BUN Creatinine Est GFR (CKD-EPI)AfAm Est GFR (CKD-EPI)NonAf Random Glucose Calcium Phosphorus Magnesium Total Bilirubin AST ALT Alkaline Phosphatase Total Protein Albumin Ur Random Creatinine Cancelled 69.0 Ur Random Sodium 37 L Ur Random Potassium 24.0 L Ur Random Chloride 43 L 09/26/19 09/26/19 07:30 07:30 WBC RBC Hgb Hct MCV MCH MCHC RDW Plt Count MPV Absolute Neuts (auto) Neutrophils % Lymphocytes % Monocytes % Eosinophils % Basophils % Nucleated RBC % PT with INR 14.30 H INR 1.21 H PTT (Actin FS) 27.6 Sodium 136 Potassium 4.1 Chloride 110 H Carbon Dioxide 21 Anion Gap 5 L BUN 53.7 H Creatinine 1.8 H Est GFR (CKD-EPI)AfAm 40.02 Est GFR (CKD-EPI)NonAf 34.53 Random Glucose 136 H Calcium 8.4 L Phosphorus 3.2 Magnesium 2.0 Total Bilirubin 0.5 AST 23 ALT 34 Alkaline Phosphatase 76 Total Protein 5.6 L Albumin 2.6 L Ur Random Creatinine Ur Random Sodium Ur Random Potassium Ur Random Chloride Current Medications Generic Name Dose Route Start Last Admin Trade Name Freq PRN Reason Stop Dose Admin Acetaminophen 650 mg 09/25/19 15:45 09/26/19 01:17 Tylenol - PO 650 mg Q6H PRN Administration PAIN LEVEL 4 - 6 Allopurinol 100 mg 09/26/19 10:00 09/26/19 09:23 Zyloprim - PO 100 mg DAILY YAYA Administration Aripiprazole 2 mg 09/26/19 10:00 09/26/19 09:22 Abilify PO 2 mg DAILY YAYA Administration Docusate Sodium 100 mg 09/26/19 12:30 Colace - PO DAILY [facility] Ezetimibe 10 mg 09/26/19 10:00 Zetia - PO DAILY [facility] Escitalopram Oxalate 20 mg 09/26/19 10:00 09/26/19 09:24 Lexapro - PO 20 mg DAILY YAYA Administration Heparin Sodium (Porcine) 5,000 unit 09/25/19 08:45 09/26/19 07:08 Heparin - SQ 5,000 unit TID YAYA Administration Hydroxychloroquine Sulfate 200 mg 09/25/19 22:00 09/26/19 09:47 Plaquenil - PO Not Given BID YAYA Sodium Chloride 1,000 mls @ 100 mls/hr 09/25/19 08:15 09/26/19 09:25 Normal Saline - IV Not Given ASDIR YAYA Piperacillin Sod/Tazobactam 50 mls @ 100 mls/hr 09/25/19 12:00 09/26/19 09:21 Sod 3.375 gm/ Dextrose IVPB 100 mls/hr Q8H-IV YAYA Administration Protocol Nebivolol 5 mg 09/26/19 10:00 09/26/19 09:22 Bystolic - PO 5 mg DAILY YAYA Administration Pantoprazole Sodium 20 mg 09/26/19 10:45 09/26/19 12:03 Protonix - PO 20 mg BID YAYA Administration Polyethylene Glycol 17 gm 09/26/19 12:30 Miralax (For Daily Use) - PO DAILY YAYA Prochlorperazine Edisylate 5 mg 09/26/19 10:37 Compazine Injection - IM Q4H PRN NAUSEA AND/OR VOMITING Venlafaxine HCl 75 mg 09/26/19 10:00 09/26/19 09:22 Effexor Xr - PO 75 mg DAILY YAYA Administration Home Medications Medication Instructions Recorded Allopurinol [Zyloprim -] 100 mg PO DAILY 09/25/19 Aripiprazole 2 mg DAILY 09/25/19 Escitalopram Oxalate [Lexapro -] 20 mg PO DAILY 09/25/19 Ezetimibe 10 mg PO DAILY 09/25/19 Hydroxychloroquine Sulfate 200 mg PO BID 09/25/19 [Plaquenil] Nebivolol HCl [Bystolic] 5 mg PO DAILY 09/25/19 Torsemide [Demadex -] 5 mg PO DAILY 09/25/19 Venlafaxine HCl ER [Effexor Xr -] 75 mg DAILY 09/25/19 ASSESSMENT AND PLAN: 79 year old male with history of HTN, Prostate cancer s/p RTx, 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 No headache/visual disturbance/focal limb weakness or numbness. No fits, faints, blackouts, seizures, head injury. Renal US - prominent renal pelvis, without significant hydronephrosis. 1. Sepsis secondary to UTI, possible pyelonephritis in patient s/p Cystectomy and Ileal conduit. UA - LE+++, WBC down from 17.7 to 8.5, Tnow 101. Urine Cx and Blood Cx positive, final ID and sens pending. Continue Zosyn empirically pending Cx results. Renal US as above. Urology and ID consulted IV hydration ongoing. 2. HOLLY vs CKD, baseline Creat approx 1.3 Renal US shows no significant obstruction Nephrology consulted. Normally on Torsemide - held in favor of IV fluids currently. IV hydration ongoing. 3. HTN - normally on Bystolic and Torsemide. Torsemide held. 4. HLD - continue Ezetimibe. 5. Depression - Continue Abilify, Lexapro, Effexor 6. RA - on Plaquenil. Continue. DVT Px - Heparin SQ
[2019-09-26] MEDS ORDERED: SODIUM CHLORIDE 1,000 ML IV SCH (13:14)
[2019-09-26] MEDS: DOCUSATE SODIUM 100 MG CAPSULE (FP) PO SCH (15:36)
[2019-09-26] MEDS: POLYETHYLENE GLYCOL 3350 119 GM BTL PO SCH (15:37)
[2019-09-26] MEDS: EZETIMIBE 10 MG TABLET (FP) PO SCH (15:37)
[2019-09-26] MEDS ORDERED: ACETAMINOPHEN 325 MG TABLET (FP) PO PRN (16:08)
--- NOTE | 2019-09-26 18:22 | PN ---
Progress Note, Physician History of Present Illness: Pt seen and examined at bedside. He is awake and alert. - Current Medication List Current Medications: Active Medications Acetaminophen (Tylenol -) 650 mg PO Q6H PRN PRN Reason: PAIN LEVEL 4 - 6 Last Admin: 09/26/19 17:32 Dose: 650 mg Acetaminophen (Tylenol -) 650 mg PO Q4H PRN PRN Reason: FEVER Allopurinol (Zyloprim -) 100 mg PO DAILY [facility] Last Admin: 09/26/19 09:23 Dose: 100 mg Aripiprazole (Abilify) 2 mg PO DAILY [facility] Last Admin: 09/26/19 09:22 Dose: 2 mg Docusate Sodium (Colace -) 100 mg PO DAILY [facility] Last Admin: 09/26/19 15:36 Dose: 100 mg Ezetimibe (Zetia -) 10 mg PO DAILY [facility] Last Admin: 09/26/19 15:37 Dose: 10 mg Escitalopram Oxalate (Lexapro -) 20 mg PO DAILY [facility] Last Admin: 09/26/19 09:24 Dose: 20 mg Heparin Sodium (Porcine) (Heparin -) 5,000 unit SQ TID [facility] Last Admin: 09/26/19 15:39 Dose: 5,000 unit Hydroxychloroquine Sulfate (Plaquenil -) 200 mg PO BID [facility] Last Admin: 09/26/19 09:47 Dose: Not Given Piperacillin Sod/Tazobactam (Sod 3.375 gm/ Dextrose) 50 mls @ 100 mls/hr IVPB Q8H-IV YAYA; Protocol Last Admin: 09/26/19 17:30 Dose: 100 mls/hr Sodium Chloride (Normal Saline -) 1,000 mls @ 75 mls/hr IV ASDIR [facility] Last Admin: 09/26/19 15:38 Dose: 75 mls/hr Nebivolol (Bystolic -) 5 mg PO DAILY [facility] Last Admin: 09/26/19 09:22 Dose: 5 mg Pantoprazole Sodium (Protonix -) 20 mg PO BID [facility] Last Admin: 09/26/19 12:03 Dose: 20 mg Polyethylene Glycol (Miralax (For Daily Use) -) 17 gm PO DAILY [facility] Last Admin: 09/26/19 15:37 Dose: 17 grams Prochlorperazine Edisylate (Compazine Injection -) 5 mg IM Q4H PRN PRN Reason: NAUSEA AND/OR VOMITING Venlafaxine HCl (Effexor Xr -) 75 mg PO DAILY YAYA Last Admin: 09/26/19 09:22 Dose: 75 mg - Objective Vital Signs: Vital Signs Temperature 97.6 F 09/26/19 14:54 Pulse Rate 70 09/26/19 14:54 Respiratory Rate 20 09/26/19 14:54 Blood Pressure 148/68 09/26/19 14:54 O2 Sat by Pulse Oximetry (%) 96 09/26/19 09:00 Constitutional: Yes: Calm Eyes: Yes: Conjunctiva Clear HENT: Yes: Atraumatic Neck: Yes: Supple Cardiovascular: Yes: S1, S2 Respiratory: Yes: CTA Bilaterally Gastrointestinal: Yes: Normal Bowel Sounds, Soft Genitourinary: Yes: Other (ileal conduit) Edema: No Neurological: Yes: Oriented Psychiatric: Yes: Oriented Labs: CBC, BMP 09/26/19 07:30 09/26/19 07:30 INR, PTT INR 1.21 (0.83-1.09) H 09/26/19 07:30 Assessment/Plan Current Medications Generic Name Dose Route Start Last Admin Trade Name Freq PRN Reason Stop Dose Admin Acetaminophen 650 mg 09/25/19 15:45 09/26/19 17:32 Tylenol - PO 650 mg Q6H PRN Administration PAIN LEVEL 4 - 6 Acetaminophen 650 mg 09/26/19 16:08 Tylenol - PO Q4H PRN FEVER Allopurinol 100 mg 09/26/19 10:00 09/26/19 09:23 Zyloprim - PO 100 mg DAILY YAYA Administration Aripiprazole 2 mg 09/26/19 10:00 09/26/19 09:22 Abilify PO 2 mg DAILY YAYA Administration Docusate Sodium 100 mg 09/26/19 12:30 09/26/19 15:36 Colace - PO 100 mg DAILY YAYA Administration Ezetimibe 10 mg 09/26/19 10:00 09/26/19 15:37 Zetia - PO 10 mg DAILY YAYA Administration Escitalopram Oxalate 20 mg 09/26/19 10:00 09/26/19 09:24 Lexapro - PO 20 mg DAILY YAYA Administration Heparin Sodium (Porcine) 5,000 unit 09/25/19 08:45 09/26/19 15:39 Heparin - SQ 5,000 unit TID YAYA Administration Hydroxychloroquine Sulfate 200 mg 09/25/19 22:00 09/26/19 09:47 Plaquenil - PO Not Given BID YAYA Piperacillin Sod/Tazobactam 50 mls @ 100 mls/hr 09/25/19 12:00 09/26/19 17:30 Sod 3.375 gm/ Dextrose IVPB 100 mls/hr Q8H-IV YAYA Administration Protocol Sodium Chloride 1,000 mls @ 75 mls/hr 09/26/19 13:14 09/26/19 15:38 Normal Saline - IV 75 mls/hr ASDIR YAYA Administration Nebivolol 5 mg 09/26/19 10:00 09/26/19 09:22 Bystolic - PO 5 mg DAILY YAYA Administration Pantoprazole Sodium 20 mg 09/26/19 10:45 09/26/19 12:03 Protonix - PO 20 mg BID YAYA Administration Polyethylene Glycol 17 gm 09/26/19 12:30 09/26/19 15:37 Miralax (For Daily Use) - PO 17 grams DAILY YAYA Administration Prochlorperazine Edisylate 5 mg 09/26/19 10:37 Compazine Injection - IM Q4H PRN NAUSEA AND/OR VOMITING Venlafaxine HCl 75 mg 09/26/19 10:00 09/26/19 09:22 Effexor Xr - PO 75 mg DAILY YAYA Administration Impression 1. CKD 2. HOLLY 3. prostate ca 4. hx of ileal conduit 5. UTI 6. HTN 7. sepsis 8. bacteremia Plan - cont fluids - abx per medical team - renal function improving - avoid nsaids - repeat bmp in am
--- NOTE | 2019-09-26 20:12 | CON.GU ---
Consult Consult Specialty:: Referred by:: medicine Reason for Consultation:: UTI/ileal conduit - History of Present Illness Chief Complaint: UTI/ileal conduit History of Present Illness: 79 year old male with a history of prostate cancer with multiple recurrences who had bladder neck strictures. He had a salvage prostatectomy and cystectomy and urinary diversion with formation of an ileal conduit in July 2019. Path was postive for recurrent prostate cancer. He presents this week to [facility]. He has fatigue and malaise and fevers. US reveals bilateral renal pelvis fullness. His leukocytosis and fever curve are improving on ABX - History Source History Provided By: Patient Limitations to Obtaining History: No Limitations - Past Medical History Renal/: Yes: Cancer, Other - Alcohol/Substance Use Hx Alcohol Use: No - Smoking History Smoking history: Never smoked Have you smoked in the past 12 months: No Home Medications - Allergies Allergies/Adverse Reactions: Allergies Allergy/AdvReac Type Severity Reaction Status Date / Time Iodinated Contrast Media Allergy Intermediate Hives Verified 09/14/18 13:48 [Iodinated Contrast- Oral and IV Dye] iodine Allergy Rash Verified 09/14/18 13:48 Sulfa (Sulfonamide Allergy "KIDNEY Verified 09/14/18 13:48 Antibiotics) ISSUES" sulfacetamide AdvReac Severe Verified 09/25/19 05:40 [From Sulfamide] - Home Medications Home Medications: Ambulatory Orders Allopurinol [Zyloprim -] 100 mg PO DAILY 09/25/19 Aripiprazole 2 mg DAILY 09/25/19 Escitalopram Oxalate [Lexapro -] 20 mg PO DAILY 09/25/19 Ezetimibe 10 mg PO DAILY 09/25/19 Hydroxychloroquine Sulfate [Plaquenil] 200 mg PO BID 09/25/19 Nebivolol HCl [Bystolic] 5 mg PO DAILY 09/25/19 Torsemide [Demadex -] 5 mg PO DAILY 09/25/19 Venlafaxine HCl ER [Effexor Xr -] 75 mg DAILY 09/25/19 Review of Systems - Review of Systems Constitutional: reports: Fever, Lethargy, Loss of Appetite Physical Exam- Vital Signs: Vital Signs Temperature 98.7 F 09/26/19 18:47 Pulse Rate 68 09/26/19 18:47 Respiratory Rate 20 09/26/19 18:47 Blood Pressure 131/72 09/26/19 18:47 O2 Sat by Pulse Oximetry (%) 96 09/26/19 09:00 Gastrointestinal: Yes: Soft, Other (conduit is functioning. stoma appears pink and healthy) Labs: CBC, BMP 09/26/19 07:30 09/26/19 07:30 Imaging - Results Ultrasound: Report Reviewed Problem List - Problems (1) Status post ileal conduit Assessment/Plan: conduit appears healthy. abdomen is otherwise soft. He is improving clinically on abx. If he does worse would get a CT scan and a loopogram. Mild bilateral renal pelvis dilation is normal (2) UTI (urinary tract infection) Code(s): N39.0 - URINARY TRACT INFECTION, SITE NOT SPECIFIED Qualifiers: Urinary tract infection type: site unspecified Hematuria presence: with hematuria Qualified Code(s): N39.0 - Urinary tract infection, site not specified; R31.9 - Hematuria, unspecified
[2019-09-27] MEDS ORDERED: PIPERACILLIN/TAZOBACTAM 3.375 GM VIAL IVPB ONE ×2 (02:18→09:05)
[2019-09-27] MEDS ORDERED: DEXTROSE 5%-WATER - 50 ML IVPB ONE ×2 (02:18→09:05)
[2019-09-27] MEDS: PIPERACILLIN/TAZOB 3.375 GM 3.375 GM in DEXTROSE 5%-WATER - 50 ML IVPB SCH ×2 (02:19→09:21)
[2019-09-27] MEDS: HEPARIN NA (PORCINE) 5,000 UNITS/ML 1ML VIAL SQ SCH ×3 (05:18→21:00)
[2019-09-27] MEDS: ACETAMINOPHEN 325 MG TABLET (FP) PO PRN ×2 (05:27→20:59)
[2019-09-27 08:27] LABS: HEMATOCRIT 30.7 % (35.4-49); HEMOGLOBIN 10.1 GM/dL (11.7-16.9); MCH 26.1 pg (25.7-33.7); MCHC 32.8 g/dl (32.0-35.9); MEAN CELL VOLUME 79.7 fl (80-96); MEAN PLT VOLUME 6.3 fl (7.5-11.1); PLATELET COUNT 176 K/MM3 (134-434); RBC 3.86 M/mm3 (4.00-5.60); RDW 21.5 % (11.9-15.9); WHITE BLOOD COUNT 5.3 K/mm3 (4.0-10.0)
[2019-09-27 08:48] LABS: BLOOD UREA NITROGEN 36.5 mg/dL (7-18); CREATININE 1.5 mg/dL (0.55-1.3); POTASSIUM 3.9 mmol/L (3.5-5.1)
[2019-09-27] MEDS: ESCITALOPRAM OXALATE 20 MG TABLET (FP) PO SCH (09:22)
[2019-09-27] MEDS: DOCUSATE SODIUM 100 MG CAPSULE (FP) PO SCH (09:22)
[2019-09-27] MEDS: VENLAFAXINE HCL 75 MG E.R. CAPSULES (FP) PO SCH (09:22)
[2019-09-27] MEDS: HYDROXYCHLOROQUINE SO4 200 MG TABLET (FP) PO SCH ×2 (09:22→21:03)
[2019-09-27] MEDS: ALLOPURINOL 100 MG TABLET (FP) PO SCH (09:22)
[2019-09-27] MEDS: NEBIVOLOL 5 MG TABLET (FP) PO SCH (09:22)
[2019-09-27] MEDS: ARIPiprazole 2 MG TABLET PO SCH (09:22)
[2019-09-27] MEDS: EZETIMIBE 10 MG TABLET (FP) PO SCH (09:22)
[2019-09-27] MEDS: PANTOPRAZOLE 20 MG TABLET (FP) PO SCH ×2 (09:23→21:00)
[2019-09-27] MEDS: POLYETHYLENE GLYCOL 3350 119 GM BTL PO SCH (09:31)
--- NOTE | 2019-09-27 12:57 | PN ---
Progress Note, Physician History of Present Illness: Pt seen and examined at bedside. He is awake and alert. He is tolerating diet. - Current Medication List Current Medications: Active Medications Acetaminophen (Tylenol -) 650 mg PO Q6H PRN PRN Reason: PAIN LEVEL 4 - 6 Last Admin: 09/27/19 05:27 Dose: 650 mg Acetaminophen (Tylenol -) 650 mg PO Q4H PRN PRN Reason: FEVER Allopurinol (Zyloprim -) 100 mg PO DAILY [facility] Last Admin: 09/27/19 09:22 Dose: 100 mg Aripiprazole (Abilify) 2 mg PO DAILY [facility] Last Admin: 09/27/19 09:22 Dose: 2 mg Docusate Sodium (Colace -) 100 mg PO DAILY [facility] Last Admin: 09/27/19 09:22 Dose: 100 mg Ezetimibe (Zetia -) 10 mg PO DAILY [facility] Last Admin: 09/27/19 09:22 Dose: 10 mg Escitalopram Oxalate (Lexapro -) 20 mg PO DAILY [facility] Last Admin: 09/27/19 09:22 Dose: 20 mg Heparin Sodium (Porcine) (Heparin -) 5,000 unit SQ TID [facility] Last Admin: 09/27/19 05:18 Dose: 5,000 unit Hydroxychloroquine Sulfate (Plaquenil -) 200 mg PO BID [facility] Last Admin: 09/27/19 09:22 Dose: 200 mg Piperacillin Sod/Tazobactam (Sod 3.375 gm/ Dextrose) 50 mls @ 100 mls/hr IVPB Q8H-IV YAYA; Protocol Last Admin: 09/27/19 09:21 Dose: 100 mls/hr Sodium Chloride (Normal Saline -) 1,000 mls @ 75 mls/hr IV ASDIR [facility] Last Admin: 09/26/19 15:38 Dose: 75 mls/hr Nebivolol (Bystolic -) 5 mg PO DAILY [facility] Last Admin: 09/27/19 09:22 Dose: 5 mg Pantoprazole Sodium (Protonix -) 20 mg PO BID [facility] Last Admin: 09/27/19 09:23 Dose: 20 mg Polyethylene Glycol (Miralax (For Daily Use) -) 17 gm PO DAILY [facility] Last Admin: 09/27/19 09:31 Dose: 17 grams Prochlorperazine Edisylate (Compazine Injection -) 5 mg IM Q4H PRN PRN Reason: NAUSEA AND/OR VOMITING Venlafaxine HCl (Effexor Xr -) 75 mg PO DAILY [facility] Last Admin: 09/27/19 09:22 Dose: 75 mg - Objective Vital Signs: Vital Signs Temperature 98.4 F 09/27/19 09:20 Pulse Rate 63 09/27/19 09:20 Respiratory Rate 20 09/27/19 09:20 Blood Pressure 152/76 09/27/19 09:20 O2 Sat by Pulse Oximetry (%) 96 09/26/19 21:00 Constitutional: Yes: Calm Eyes: Yes: Conjunctiva Clear HENT: Yes: Atraumatic Cardiovascular: Yes: S1, S2 Respiratory: Yes: CTA Bilaterally Gastrointestinal: Yes: Soft Genitourinary: Yes: Other (ileal conduit) Musculoskeletal: Yes: WNL Edema: Yes Edema: LLE: 1+, RLE: 1+ Neurological: Yes: Oriented Psychiatric: Yes: Oriented Labs: CBC, BMP 09/27/19 07:10 09/27/19 07:10 INR, PTT INR 1.21 (0.83-1.09) H 09/26/19 07:30 Assessment/Plan Current Medications Generic Name Dose Route Start Last Admin Trade Name Freq PRN Reason Stop Dose Admin Acetaminophen 650 mg 09/25/19 15:45 09/27/19 05:27 Tylenol - PO 650 mg Q6H PRN Administration PAIN LEVEL 4 - 6 Acetaminophen 650 mg 09/26/19 16:08 Tylenol - PO Q4H PRN FEVER Allopurinol 100 mg 09/26/19 10:00 09/27/19 09:22 Zyloprim - PO 100 mg DAILY [facility] Administration Aripiprazole 2 mg 09/26/19 10:00 09/27/19 09:22 Abilify PO 2 mg DAILY [facility] Administration Docusate Sodium 100 mg 09/26/19 12:30 09/27/19 09:22 Colace - PO 100 mg DAILY [facility] Administration Ezetimibe 10 mg 09/26/19 10:00 09/27/19 09:22 Zetia - PO 10 mg DAILY [facility] Administration Escitalopram Oxalate 20 mg 09/26/19 10:00 09/27/19 09:22 Lexapro - PO 20 mg DAILY [facility] Administration Heparin Sodium (Porcine) 5,000 unit 09/25/19 08:45 09/27/19 05:18 Heparin - SQ 5,000 unit TID YAYA Administration Hydroxychloroquine Sulfate 200 mg 09/25/19 22:00 09/27/19 09:22 Plaquenil - PO 200 mg BID [facility]A Administration Piperacillin Sod/Tazobactam 50 mls @ 100 mls/hr 09/25/19 12:00 09/27/19 09:21 Sod 3.375 gm/ Dextrose IVPB 100 mls/hr Q8H-IV YAYA Administration Protocol Sodium Chloride 1,000 mls @ 75 mls/hr 09/26/19 13:14 09/26/19 15:38 Normal Saline - IV 75 mls/hr ASDIR [facility]A Administration Nebivolol 5 mg 09/26/19 10:00 09/27/19 09:22 Bystolic - PO 5 mg DAILY [facility] Administration Pantoprazole Sodium 20 mg 09/26/19 10:45 09/27/19 09:23 Protonix - PO 20 mg BID YAYA Administration Polyethylene Glycol 17 gm 09/26/19 12:30 09/27/19 09:31 Miralax (For Daily Use) - PO 17 grams DAILY [facility] Administration Prochlorperazine Edisylate 5 mg 09/26/19 10:37 Compazine Injection - IM Q4H PRN NAUSEA AND/OR VOMITING Venlafaxine HCl 75 mg 09/26/19 10:00 09/27/19 09:22 Effexor Xr - PO 75 mg DAILY [facility] Administration Impression 1. CKD 2. HOLLY 3. prostate ca 4. hx of ileal conduit 5. UTI 6. HTN 7. sepsis 8. bacteremia Plan - renal function is improving - hold fluids for now as he is developing edema - will evaluate for fluids again tomorrow - avoid nsaids - repeat bmp in am
--- NOTE | 2019-09-27 15:09 | PN ---
Teaching Attending Note Name of Resident: Carlos Babin ATTENDING PHYSICIAN STATEMENT I saw and evaluated the patient. I reviewed the resident's note and discussed the case with the resident. I agree with the resident's findings and plan as documented. SUBJECTIVE: Feeling much improved. No abdominal discomfort. No further fevers or nausea. OBJECTIVE: Fever - resolved. Hemodynamically Stable Last Vital Signs Temp Pulse Resp BP Pulse Ox 98.4 F 63 20 152/76 96 09/27/19 09:20 09/27/19 09:20 09/27/19 09:20 09/27/19 09:20 09/26/19 21:00 Heart - S1, S2, RRR Lungs - clear to auscultation Abdomen - RLQ ileal conduit. Soft, Bowel Sounds normal. Extremities - mild edema, chronic venous stasis skin changes. Neuro - AAO x 3. Tone/Power normal all 4 extremities. Laboratory Results - last 24 hr 09/27/19 09/27/19 07:10 07:10 WBC 5.3 RBC 3.86 L Hgb 10.1 L Hct 30.7 L MCV 79.7 L MCH 26.1 MCHC 32.8 RDW 21.5 H Plt Count 176 MPV 6.3 L Sodium 136 Potassium 3.9 Chloride 108 H Carbon Dioxide 18 L Anion Gap 9 BUN 36.5 H Creatinine 1.5 H Est GFR (CKD-EPI)AfAm 49.89 Est GFR (CKD-EPI)NonAf 43.04 Random Glucose 108 H Calcium 9.0 Current Medications Generic Name Dose Route Start Last Admin Trade Name Freq PRN Reason Stop Dose Admin Acetaminophen 650 mg 09/25/19 15:45 09/27/19 05:27 Tylenol - PO 650 mg Q6H PRN Administration PAIN LEVEL 4 - 6 Acetaminophen 650 mg 09/26/19 16:08 Tylenol - PO Q4H PRN FEVER Allopurinol 100 mg 09/26/19 10:00 09/27/19 09:22 Zyloprim - PO 100 mg DAILY YAYA Administration Aripiprazole 2 mg 09/26/19 10:00 09/27/19 09:22 Abilify PO 2 mg DAILY YAYA Administration Docusate Sodium 100 mg 09/26/19 12:30 09/27/19 09:22 Colace - PO 100 mg DAILY YAYA Administration Ezetimibe 10 mg 09/26/19 10:00 09/27/19 09:22 Zetia - PO 10 mg DAILY YAYA Administration Escitalopram Oxalate 20 mg 09/26/19 10:00 09/27/19 09:22 Lexapro - PO 20 mg DAILY YAYA Administration Heparin Sodium (Porcine) 5,000 unit 09/25/19 08:45 09/27/19 05:18 Heparin - SQ 5,000 unit TID YAYA Administration Hydroxychloroquine Sulfate 200 mg 09/25/19 22:00 09/27/19 09:22 Plaquenil - PO 200 mg BID AYYA Administration Piperacillin Sod/Tazobactam 50 mls @ 100 mls/hr 09/25/19 12:00 09/27/19 09:21 Sod 3.375 gm/ Dextrose IVPB 100 mls/hr Q8H-IV YAYA Administration Protocol Nebivolol 5 mg 09/26/19 10:00 09/27/19 09:22 Bystolic - PO 5 mg DAILY YAYA Administration Pantoprazole Sodium 20 mg 09/26/19 10:45 09/27/19 09:23 Protonix - PO 20 mg BID YAYA Administration Polyethylene Glycol 17 gm 09/26/19 12:30 09/27/19 09:31 Miralax (For Daily Use) - PO 17 grams DAILY YAYA Administration Prochlorperazine Edisylate 5 mg 09/26/19 10:37 Compazine Injection - IM Q4H PRN NAUSEA AND/OR VOMITING Venlafaxine HCl 75 mg 09/26/19 10:00 09/27/19 09:22 Effexor Xr - PO 75 mg DAILY YAYA Administration Home Medications Medication Instructions Recorded Allopurinol [Zyloprim -] 100 mg PO DAILY 09/25/19 Aripiprazole 2 mg DAILY 09/25/19 Escitalopram Oxalate [Lexapro -] 20 mg PO DAILY 09/25/19 Ezetimibe 10 mg PO DAILY 09/25/19 Hydroxychloroquine Sulfate 200 mg PO BID 09/25/19 [Plaquenil] Nebivolol HCl [Bystolic] 5 mg PO DAILY 09/25/19 Torsemide [Demadex -] 5 mg PO DAILY 09/25/19 Venlafaxine HCl ER [Effexor Xr -] 75 mg DAILY 09/25/19 ASSESSMENT AND PLAN: 79 year old male with history of HTN, Prostate cancer s/p RTx, 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 No headache/visual disturbance/focal limb weakness or numbness. No fits, faints, blackouts, seizures, head injury. Renal US - prominent renal pelvis, without significant hydronephrosis. 1. Sepsis secondary to UTI, possible pyelonephritis in patient s/p Cystectomy and Ileal conduit. UA - LE+++, WBC down from 17.7 to 8.5, fever resolved. Urine Cx and Blood Cx positive: Urine Cx - Citerobacter, Pseudomonas, Klebsiella, enterococcus Blood Cx - Citerobacter Continue Zosyn empirically pending ID review of Cx results. Renal US as above. Urology - conduit appears intact, no intervention required. For PICC today for anticipated out-patient IV Abx course. 2. HOLLY vs CKD, baseline Creat approx 1.3 Renal US shows no significant obstruction Creatinine improving. Nephrology following Normally on Torsemide - held in favor of IV fluids, now held. Will monitor fluid status for resumption of Torsemide. 3. HTN - normally on Bystolic and Torsemide. Torsemide held. 4. HLD - continue Ezetimibe. 5. Depression - Continue Abilify, Lexapro, Effexor 6. RA - on Plaquenil. Continue. DVT Px - Heparin SQ
--- NOTE | 2019-09-27 15:54 | PN ---
Progress Note (short form) - Note Progress Note: doing better feels well Vital Signs Period Temp Pulse Resp BP Sys/Barber Pulse Ox Last 24 Hr 98.0 F-98.7 F 60-68 18-20 115-153/64-76 96 cor-rrr lungs clear abd soft, +ileostomy ext no edema CBC, BMP 09/27/19 07:10 09/27/19 07:10 Microbiology 09/25/19 15:00 Blood - Peripheral Venous Blood Culture - Preliminary NO GROWTH OBTAINED AFTER 48 HOURS, INCUBATION TO CONTINUE FOR 3 DAYS. 09/25/19 15:00 Blood - Peripheral Venous Blood Culture - Final Citrobacter Farmeri 09/25/19 05:19 Urine - Urine Suprapubic Urine Culture - Preliminary Citrobacter Farmeri Pseudomonas Aeruginosa Klebsiella Pneumoniae Group D Strep Or Entero Coccus a/p citrobacter farmen bacteremia- most likely secondary to UTI but given recent surgery would suggest ct abd/pelvis no iv contrast s/o ileostomy 07/06/19 will switch to ertapenem- for QDay dosing- d/w patient and by phone d/w resident on hospitalist service who has spoken with his attending reccomendations reviewed
--- NOTE | 2019-09-27 17:14 | PN ---
Physical Exam: SUBJECTIVE: Patient seen and examined at the bedside. Patient stated that he is doing better. Endorsed better appetite. Denied cp, sob, abd pain, fever, chills , n/v/c/d, numbness, tingling. Cultures grew multi-resistant Citrobacter farmeri requiring IV antibiotics. Patient was scheduled for PICC line, however patient's family requests that the patient's urologist/oncologist Dr. Rayo Ann be made aware of the current plans regarding the patient prior to placement of the PICC line. Call placed to the doctor's office ([phone]) and information left and awaiting callback. Spoken with patient's family and patient about the current plan and all acknowledged that delay in placement of the PICC line while coordinating with multiple providers will cause the patient to have an extended hospital stay as PICC line will now not be able to be placed until Wednesday due to upcoming holiday. Family understands plan and is in agreement. OBJECTIVE: Vital Signs Period Temp Pulse Resp BP Sys/Barber Pulse Ox Last 24 Hr 97.9 F-98.7 F 59-68 18-20 115-161/64-76 96 GENERAL: The patient is awake, alert, and fully oriented, in no acute distress. Anxious about current medical situation. HEAD: Normal with no signs of trauma. EYES: PERRL, extraocular movements intact, sclera anicteric, conjunctiva clear. No ptosis. ENT: Oropharynx clear without exudates, moist mucous membranes. NECK: Trachea midline, full range of motion, supple. LUNGS: Breath sounds equal, clear to auscultation bilaterally, no wheezes, no crackles, no accessory muscle use. HEART: Regular rate and rhythm, S1, S2 without murmur, rub. ABDOMEN: Soft, mildly tender in the suprapubic region, nondistended, normoactive bowel sounds, no guarding, no rebound. Midline surgical scar. Illeal conduit present, no warmness, tenderness, or redness at the site. EXTREMITIES: 2+ pulses, warm, well-perfused, trace edema. NEUROLOGICAL: Cranial nerves II through XII grossly intact. Normal speech, gait not observed. PSYCH: Anxious. SKIN: Warm, wet skin, normal turgor, chronic venous stasis. Laboratory Results - last 24 hr 09/27/19 09/27/19 07:10 07:10 WBC 5.3 RBC 3.86 L Hgb 10.1 L Hct 30.7 L MCV 79.7 L MCH 26.1 MCHC 32.8 RDW 21.5 H Plt Count 176 MPV 6.3 L Sodium 136 Potassium 3.9 Chloride 108 H Carbon Dioxide 18 L Anion Gap 9 BUN 36.5 H Creatinine 1.5 H Est GFR (CKD-EPI)AfAm 49.89 Est GFR (CKD-EPI)NonAf 43.04 Random Glucose 108 H Calcium 9.0 Active Medications Generic Name Dose Route Start Last Admin Trade Name Freq PRN Reason Stop Dose Admin Acetaminophen 650 mg 09/25/19 15:45 09/27/19 05:27 Tylenol - PO 650 mg Q6H PRN Administration PAIN LEVEL 4 - 6 Acetaminophen 650 mg 09/26/19 16:08 Tylenol - PO Q4H PRN FEVER Allopurinol 100 mg 09/26/19 10:00 09/27/19 09:22 Zyloprim - PO 100 mg DAILY YAYA Administration Aripiprazole 2 mg 09/26/19 10:00 09/27/19 09:22 Abilify PO 2 mg DAILY YAYA Administration Docusate Sodium 100 mg 09/26/19 12:30 09/27/19 09:22 Colace - PO 100 mg DAILY YAYA Administration Ezetimibe 10 mg 09/26/19 10:00 09/27/19 09:22 Zetia - PO 10 mg DAILY YAYA Administration Escitalopram Oxalate 20 mg 09/26/19 10:00 09/27/19 09:22 Lexapro - PO 20 mg DAILY YAYA Administration Heparin Sodium (Porcine) 5,000 unit 09/25/19 08:45 09/27/19 15:15 Heparin - SQ Not Given TID YAYA Hydroxychloroquine Sulfate 200 mg 09/25/19 22:00 09/27/19 09:22 Plaquenil - PO 200 mg BID YAYA Administration Ertapenem 1 gm/ Sodium 50 mls @ 100 mls/hr 09/27/19 16:00 Chloride IVPB DAILY YAYA Nebivolol 5 mg 09/26/19 10:00 09/27/19 09:22 Bystolic - PO 5 mg DAILY YAYA Administration Pantoprazole Sodium 20 mg 09/26/19 10:45 09/27/19 09:23 Protonix - PO 20 mg BID YAYA Administration Polyethylene Glycol 17 gm 09/26/19 12:30 09/27/19 09:31 Miralax (For Daily Use) - PO 17 grams DAILY YAYA Administration Prochlorperazine Edisylate 5 mg 09/26/19 10:37 Compazine Injection - IM Q4H PRN NAUSEA AND/OR VOMITING Venlafaxine HCl 75 mg 09/26/19 10:00 09/27/19 09:22 Effexor Xr - PO 75 mg DAILY YAYA Administration ASSESSMENT/PLAN: Carlos Marie is an 79 year old male with a psat medical history of HTN, Prostate cancer s/p radiation treatment (now with illeal conduit), osteomyelitis of pelvis, who presented to [facility] due to 4-5 days of generalized weakness Sepsis secondary to complicated UTI s/p ileal conduit - WBC 17.7, improved to 5.3 - Leuk Est 3+, 139 WBC, >7000 bacteria - ID Consult, recs appreciated, - switching to once daily ertapenem due to sensitivities, will continue antibiotic outpatient when discharged - Urology consulted due to hx of ileal conduit, advised no surgical options and to continue medical treatment, noted healthy ileal conduit - Blood cxs showing Citrobacter farmeri with multiple resistance - Urine cultures showing showing Citrobacter farmeri with multiple resistance, additionally pseudomonas, klebsiella, enterococcus - afebrile for greater than 24 hours - patient will require PICC line prior to discharge as has sulfa allergy and will need IV abx - patient's family spoken to at length about necessity for PICC line and plan, they are requesting for information to be relayed to patient's urologist Dr. Rayo Ann prior to insertion of PICC line and outpatient treatment. Call placed to service of Dr. Ann and awaiting callback. Family ( Essie and son Chiki) and patient understand that delay of PICC line will necessitate extended hospital stay due to PICC line not being able to be placed until Wednesday due to upcoming holiday. HOLLY on CKD - admission CRE 2.0, improved to 1.5 - baseline 1.4-1.7, follows with Dr. Brooks outpatient - nephrology consulted, recs appreciated - Renal/Bladder U/S showing prominent renal pelvis with no hydronephrosis or acute pathology - holding fluids as patient is developing edema - continue to follow BMP - monitor fluid status HTN - home medications Bystolic - Torosemide held HLD - continue home ezetimibe Depression - home abilify, Lexapro, Effexor Rheumatoid Arthritis - on home Plaquenil DVT ppx -Heparin 5000 units SQ TID F/E/N - fluids held, monitor fluid status - continue to monitor electrolytes and replete as necessary - Sodium Controlled Diet Dispo - continue to monitor on Med Surg - patient requesting that upon discharge, medical records be faxed to his urologist/oncologist Dr. Rayo Ann, - attempted to speak with Dr. Rayo Ann today calling , awaiting callback to discuss case as per family request Visit type - Emergency Visit Emergency Visit: Yes ED Registration Date: 09/25/19 Care time: The patient presented to the Emergency Department on the above date and was hospitalized for further evaluation of their emergent condition. - New Patient This patient is new to me today: No - Critical Care Critical Care patient: No
[2019-09-27] MEDS: ERTAPENEM SODIUM 1 GM in SODIUM CHLORIDE 50 ML IVPB SCH (18:00)
[2019-09-28] MEDS: HEPARIN NA (PORCINE) 5,000 UNITS/ML 1ML VIAL SQ SCH ×3 (06:47→21:20)
[2019-09-28 08:05] LABS: HEMATOCRIT 31.8 % (35.4-49); HEMOGLOBIN 10.3 GM/dL (11.7-16.9); MCH 25.7 pg (25.7-33.7); MCHC 32.3 g/dl (32.0-35.9); MEAN CELL VOLUME 79.6 fl (80-96); MEAN PLT VOLUME 6.2 fl (7.5-11.1); PLATELET COUNT 179 K/MM3 (134-434); RBC 3.99 M/mm3 (4.00-5.60); RDW 21.2 % (11.9-15.9); WHITE BLOOD COUNT 6.4 K/mm3 (4.0-10.0)
[2019-09-28 08:56] LABS: BLOOD UREA NITROGEN 27.2 mg/dL (7-18); CALCIUM 9.3 mg/dL (8.5-10.1); CREATININE 1.3 mg/dL (0.55-1.3)
[2019-09-28] MEDS: VENLAFAXINE HCL 75 MG E.R. CAPSULES (FP) PO SCH (09:00)
[2019-09-28] MEDS: DOCUSATE SODIUM 100 MG CAPSULE (FP) PO SCH (09:00)
[2019-09-28] MEDS: ARIPiprazole 2 MG TABLET PO SCH (09:00)
[2019-09-28] MEDS: ESCITALOPRAM OXALATE 20 MG TABLET (FP) PO SCH (09:01)
[2019-09-28] MEDS: POLYETHYLENE GLYCOL 3350 119 GM BTL PO SCH (09:01)
[2019-09-28] MEDS: NEBIVOLOL 5 MG TABLET (FP) PO SCH (09:01)
[2019-09-28] MEDS: ALLOPURINOL 100 MG TABLET (FP) PO SCH (09:01)
[2019-09-28] MEDS: PANTOPRAZOLE 20 MG TABLET (FP) PO SCH ×2 (09:01→21:20)
[2019-09-28] MEDS: EZETIMIBE 10 MG TABLET (FP) PO SCH (09:07)
[2019-09-28] MEDS: HYDROXYCHLOROQUINE SO4 200 MG TABLET (FP) PO SCH ×2 (09:07→21:20)
[2019-09-28] MEDS: ERTAPENEM SODIUM 1 GM in SODIUM CHLORIDE 50 ML IVPB SCH (09:08)
[2019-09-28] MEDS: ACETAMINOPHEN 325 MG TABLET (FP) PO PRN (15:52)
--- NOTE | 2019-09-28 16:31 | PN ---
Progress Note (short form) - Note Progress Note: SUBJECTIVE: Feeling better but "still not 100". No abdominal discomfort. No further fevers or nausea. OBJECTIVE: Fever - resolved. Hemodynamically Stable Last Vital Signs Temp Pulse Resp BP Pulse Ox 99.4 F 66 18 164/93 96 09/28/19 15:03 09/28/19 15:03 09/28/19 15:03 09/28/19 15:03 09/28/19 09:00 Heart - S1, S2, RRR Lungs - clear to auscultation Abdomen - RLQ ileal conduit. Soft, Bowel Sounds normal. Extremities - mild edema, chronic venous stasis skin changes. Neuro - AAO x 3. Tone/Power normal all 4 extremities. Laboratory Results - last 24 hr 09/28/19 09/28/19 07:15 07:15 WBC 6.4 RBC 3.99 L Hgb 10.3 L Hct 31.8 L MCV 79.6 L MCH 25.7 MCHC 32.3 RDW 21.2 H Plt Count 179 MPV 6.2 L Sodium 137 Potassium 4.0 Chloride 107 Carbon Dioxide 19 L Anion Gap 11 BUN 27.2 H Creatinine 1.3 Est GFR (CKD-EPI)AfAm 59.31 Est GFR (CKD-EPI)NonAf 51.17 Random Glucose 110 H Calcium 9.3 Current Medications Generic Name Dose Route Start Last Admin Trade Name Freq PRN Reason Stop Dose Admin Acetaminophen 650 mg 09/25/19 15:45 09/28/19 15:52 Tylenol - PO 650 mg Q6H PRN Administration PAIN LEVEL 4 - 6 Acetaminophen 650 mg 09/26/19 16:08 Tylenol - PO Q4H PRN FEVER Allopurinol 100 mg 09/26/19 10:00 09/28/19 09:01 Zyloprim - PO 100 mg DAILY YAYA Administration Aripiprazole 2 mg 09/26/19 10:00 09/28/19 09:00 Abilify PO 2 mg DAILY YAYA Administration Docusate Sodium 100 mg 09/26/19 12:30 09/28/19 09:00 Colace - PO 100 mg DAILY YAYA Administration Ezetimibe 10 mg 09/26/19 10:00 09/28/19 09:07 Zetia - PO 10 mg DAILY YAYA Administration Escitalopram Oxalate 20 mg 09/26/19 10:00 09/28/19 09:01 Lexapro - PO 20 mg DAILY YAYA Administration Heparin Sodium (Porcine) 5,000 unit 09/25/19 08:45 09/28/19 13:08 Heparin - SQ 5,000 unit TID YAYA Administration Hydroxychloroquine Sulfate 200 mg 09/25/19 22:00 09/28/19 09:07 Plaquenil - PO 200 mg BID YAYA Administration Ertapenem 1 gm/ Sodium 50 mls @ 100 mls/hr 09/27/19 16:00 09/28/19 09:08 Chloride IVPB 100 mls/hr DAILY YAYA Administration Nebivolol 5 mg 09/26/19 10:00 09/28/19 09:01 Bystolic - PO 5 mg DAILY YAYA Administration Pantoprazole Sodium 20 mg 09/26/19 10:45 09/28/19 09:01 Protonix - PO 20 mg BID YAYA Administration Polyethylene Glycol 17 gm 09/26/19 12:30 09/28/19 09:01 Miralax (For Daily Use) - PO Not Given DAILY [facility] Prochlorperazine Edisylate 5 mg 09/26/19 10:37 Compazine Injection - IM Q4H PRN NAUSEA AND/OR VOMITING Venlafaxine HCl 75 mg 09/26/19 10:00 09/28/19 09:00 Effexor Xr - PO 75 mg DAILY YAYA Administration Home Medications Medication Instructions Recorded Allopurinol [Zyloprim -] 100 mg PO DAILY 09/25/19 Aripiprazole 2 mg DAILY 09/25/19 Escitalopram Oxalate [Lexapro -] 20 mg PO DAILY 09/25/19 Ezetimibe 10 mg PO DAILY 09/25/19 Hydroxychloroquine Sulfate 200 mg PO BID 09/25/19 [Plaquenil] Nebivolol HCl [Bystolic] 5 mg PO DAILY 09/25/19 Torsemide [Demadex -] 5 mg PO DAILY 09/25/19 Venlafaxine HCl ER [Effexor Xr -] 75 mg DAILY 09/25/19 ASSESSMENT AND PLAN: 79 year old male with history of HTN, Prostate cancer s/p RTx, 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 No headache/visual disturbance/focal limb weakness or numbness. No fits, faints, blackouts, seizures, head injury. Renal US - prominent renal pelvis, without significant hydronephrosis. 1. Sepsis secondary to UTI, possible pyelonephritis in patient s/p Cystectomy and Ileal conduit - Sepsis resolved. Leukocytosis resolved, fever resolved. Urine Cx and Blood Cx positive: Urine Cx - Citerobacter, Pseudomonas, Klebsiella, enterococcus Blood Cx - Citerobacter Was receiving Zosyn - changed to Ertapenem by ID 09/27 Renal US as above. Urology - conduit appears intact, no intervention required. request for PICC placed - will likely be done 09/29 with arrangments for out- patient IV Abx course, duration to be determined by ID. 2. HOLLY vs CKD - resolved. Renal US shows no significant obstruction Creatinine improving. Normally on Torsemide - held in favor of IV fluids, now stopped. Will monitor fluid status for resumption of Torsemide. Nephrology following 3. HTN - normally on Bystolic and Torsemide. Torsemide held. 4. HLD - continue Ezetimibe. 5. Depression - Continue Abilify, Lexapro, Effexor 6. RA - on Plaquenil. Continue. DVT Px - Heparin SQ Visit type - Emergency Visit Emergency Visit: Yes ED Registration Date: 09/25/19 Care time: The patient presented to the Emergency Department on the above date and was hospitalized for further evaluation of their emergent condition. - New Patient This patient is new to me today: No - Critical Care Critical Care patient: No - Discharge Referral Referred to [facility] No
--- NOTE | 2019-09-28 18:56 | PN ---
Progress Note, Physician History of Present Illness: Pt seen and examined at bedside. He is awake and alert. He denies shortness of breath. - Current Medication List Current Medications: Active Medications Acetaminophen (Tylenol -) 650 mg PO Q6H PRN PRN Reason: PAIN LEVEL 4 - 6 Last Admin: 09/28/19 15:52 Dose: 650 mg Acetaminophen (Tylenol -) 650 mg PO Q4H PRN PRN Reason: FEVER Allopurinol (Zyloprim -) 100 mg PO DAILY [facility] Last Admin: 09/28/19 09:01 Dose: 100 mg Aripiprazole (Abilify) 2 mg PO DAILY [facility] Last Admin: 09/28/19 09:00 Dose: 2 mg Docusate Sodium (Colace -) 100 mg PO DAILY [facility] Last Admin: 09/28/19 09:00 Dose: 100 mg Ezetimibe (Zetia -) 10 mg PO DAILY [facility] Last Admin: 09/28/19 09:07 Dose: 10 mg Escitalopram Oxalate (Lexapro -) 20 mg PO DAILY [facility] Last Admin: 09/28/19 09:01 Dose: 20 mg Heparin Sodium (Porcine) (Heparin -) 5,000 unit SQ TID [facility] Last Admin: 09/28/19 13:08 Dose: 5,000 unit Hydroxychloroquine Sulfate (Plaquenil -) 200 mg PO BID [facility] Last Admin: 09/28/19 09:07 Dose: 200 mg Ertapenem 1 gm/ Sodium (Chloride) 50 mls @ 100 mls/hr IVPB DAILY [facility] Last Admin: 09/28/19 09:08 Dose: 100 mls/hr Nebivolol (Bystolic -) 5 mg PO DAILY [facility] Last Admin: 09/28/19 09:01 Dose: 5 mg Pantoprazole Sodium (Protonix -) 20 mg PO BID [facility] Last Admin: 09/28/19 09:01 Dose: 20 mg Polyethylene Glycol (Miralax (For Daily Use) -) 17 gm PO DAILY [facility] Last Admin: 09/28/19 09:01 Dose: Not Given Prochlorperazine Edisylate (Compazine Injection -) 5 mg IM Q4H PRN PRN Reason: NAUSEA AND/OR VOMITING Venlafaxine HCl (Effexor Xr -) 75 mg PO DAILY [facility] Last Admin: 09/28/19 09:00 Dose: 75 mg - Objective Vital Signs: Vital Signs Temperature 99.4 F 09/28/19 15:03 Pulse Rate 66 09/28/19 15:03 Respiratory Rate 18 09/28/19 15:03 Blood Pressure 164/93 09/28/19 15:03 O2 Sat by Pulse Oximetry (%) 96 09/28/19 09:00 Constitutional: Yes: Calm Eyes: Yes: Conjunctiva Clear HENT: Yes: Atraumatic Neck: Yes: Supple Cardiovascular: Yes: S1, S2 Gastrointestinal: Yes: Soft Genitourinary: Yes: Other (ileal cnduit) Musculoskeletal: Yes: WNL Extremities: Yes: WNL Edema: Yes Edema: LLE: Trace, RLE: Trace Integumentary: Yes: WNL Neurological: Yes: Oriented Psychiatric: Yes: Oriented Labs: CBC, BMP 09/28/19 07:15 09/28/19 07:15 INR, PTT INR 1.21 (0.83-1.09) H 09/26/19 07:30 Problem List - Problems (1) CKD (chronic kidney disease) Code(s): N18.9 - CHRONIC KIDNEY DISEASE, UNSPECIFIED (2) HOLLY (acute kidney injury) Code(s): N17.9 - ACUTE KIDNEY FAILURE, UNSPECIFIED (3) UTI (urinary tract infection) Code(s): N39.0 - URINARY TRACT INFECTION, SITE NOT SPECIFIED Qualifiers: Urinary tract infection type: site unspecified Hematuria presence: with hematuria Qualified Code(s): N39.0 - Urinary tract infection, site not specified; R31.9 - Hematuria, unspecified Assessment/Plan Current Medications Generic Name Dose Route Start Last Admin Trade Name Freq PRN Reason Stop Dose Admin Acetaminophen 650 mg 09/25/19 15:45 09/28/19 15:52 Tylenol - PO 650 mg Q6H PRN Administration PAIN LEVEL 4 - 6 Acetaminophen 650 mg 09/26/19 16:08 Tylenol - PO Q4H PRN FEVER Allopurinol 100 mg 09/26/19 10:00 09/28/19 09:01 Zyloprim - PO 100 mg DAILY YAYA Administration Aripiprazole 2 mg 09/26/19 10:00 09/28/19 09:00 Abilify PO 2 mg DAILY YAYA Administration Docusate Sodium 100 mg 09/26/19 12:30 09/28/19 09:00 Colace - PO 100 mg DAILY YAYA Administration Ezetimibe 10 mg 09/26/19 10:00 09/28/19 09:07 Zetia - PO 10 mg DAILY [facility] Administration Escitalopram Oxalate 20 mg 09/26/19 10:00 09/28/19 09:01 Lexapro - PO 20 mg DAILY YAYA Administration Heparin Sodium (Porcine) 5,000 unit 09/25/19 08:45 09/28/19 13:08 Heparin - SQ 5,000 unit TID [facility] Administration Hydroxychloroquine Sulfate 200 mg 09/25/19 22:00 09/28/19 09:07 Plaquenil - PO 200 mg BID [facility] Administration Ertapenem 1 gm/ Sodium 50 mls @ 100 mls/hr 09/27/19 16:00 09/28/19 09:08 Chloride IVPB 100 mls/hr DAILY [facility] Administration Nebivolol 5 mg 09/26/19 10:00 09/28/19 09:01 Bystolic - PO 5 mg DAILY [facility] Administration Pantoprazole Sodium 20 mg 09/26/19 10:45 09/28/19 09:01 Protonix - PO 20 mg BID [facility] Administration Polyethylene Glycol 17 gm 09/26/19 12:30 09/28/19 09:01 Miralax (For Daily Use) - PO Not Given DAILY [facility] Prochlorperazine Edisylate 5 mg 09/26/19 10:37 Compazine Injection - IM Q4H PRN NAUSEA AND/OR VOMITING Venlafaxine HCl 75 mg 09/26/19 10:00 09/28/19 09:00 Effexor Xr - PO 75 mg DAILY [facility] Administration Impression 1. CKD 2. HOLLY 3. prostate ca 4. hx of ileal conduit 5. UTI 6. HTN 7. sepsis 8. bacteremia Plan - renal function has stabilized - can restart torsemide tomorrow - pt has been stable off of fluids - abx per medical team - avoid nsaids - repeat bmp in am
[2019-09-29] MEDS: HEPARIN NA (PORCINE) 5,000 UNITS/ML 1ML VIAL SQ SCH ×2 (05:04→14:02)
[2019-09-29 07:31] LABS: HEMATOCRIT 33.9 % (35.4-49); HEMOGLOBIN 11.1 GM/dL (11.7-16.9); MCH 26.4 pg (25.7-33.7); MCHC 32.7 g/dl (32.0-35.9); MEAN CELL VOLUME 80.5 fl (80-96); MEAN PLT VOLUME 6.3 fl (7.5-11.1); PLATELET COUNT 213 K/MM3 (134-434); RBC 4.21 M/mm3 (4.00-5.60); RDW 21.1 % (11.9-15.9); WHITE BLOOD COUNT 8.9 K/mm3 (4.0-10.0)
[2019-09-29 07:45] LABS: INR 1.03 (0.83-1.09); PROTHROMBIN TIME (PATIENT) 12.2 SEC (9.7-13.0)
[2019-09-29 07:47] LABS: ACTIVATED PTT 33.6 SECONDS (25.2-36.5)
[2019-09-29 07:54] LABS: BLOOD UREA NITROGEN 25.9 mg/dL (7-18); CALCIUM 9.4 mg/dL (8.5-10.1); CREATININE 1.3 mg/dL (0.55-1.3); POTASSIUM 4.3 mmol/L (3.5-5.1)
[2019-09-29] MEDS ORDERED: PT OWN MED DRAWER 7, Y5N ONE (09:45)
[2019-09-29] MEDS: PANTOPRAZOLE 20 MG TABLET (FP) PO SCH (09:53)
[2019-09-29] MEDS: NEBIVOLOL 5 MG TABLET (FP) PO SCH (09:53)
[2019-09-29] MEDS: VENLAFAXINE HCL 75 MG E.R. CAPSULES (FP) PO SCH (09:53)
[2019-09-29] MEDS: ARIPiprazole 2 MG TABLET PO SCH (09:53)
[2019-09-29] MEDS: DOCUSATE SODIUM 100 MG CAPSULE (FP) PO SCH (09:53)
[2019-09-29] MEDS: ESCITALOPRAM OXALATE 20 MG TABLET (FP) PO SCH (09:53)
[2019-09-29] MEDS: ALLOPURINOL 100 MG TABLET (FP) PO SCH (09:53)
[2019-09-29] MEDS: ERTAPENEM SODIUM 1 GM in SODIUM CHLORIDE 50 ML IVPB SCH (09:54)
[2019-09-29] MEDS: POLYETHYLENE GLYCOL 3350 119 GM BTL PO SCH (09:55)
[2019-09-29] MEDS: HYDROXYCHLOROQUINE SO4 200 MG TABLET (FP) PO SCH (09:55)
[2019-09-29] MEDS: EZETIMIBE 10 MG TABLET (FP) PO SCH (09:57)
[2019-09-29] MEDS ORDERED: TORSEMIDE 5 MG PO SCH (10:00)
[2019-09-29] MEDS ORDERED: TORSEMIDE 5 MG TABLET PO SCH (10:00)
--- NOTE | 2019-09-29 11:26 | PN ---
Teaching Attending Note Name of Resident: Carlos Babin ATTENDING PHYSICIAN STATEMENT I saw and evaluated the patient. I reviewed the resident's note and discussed the case with the resident. I agree with the resident's findings and plan as documented. SUBJECTIVE: Feeling better today. hiccups. No abdominal discomfort. No further fevers or nausea. OBJECTIVE: Fever - resolved. Hemodynamically Stable Last Vital Signs Temp Pulse Resp BP Pulse Ox 98 F 83 18 165/91 96 09/29/19 09:57 09/29/19 09:57 09/29/19 09:57 09/29/19 09:57 09/29/19 08:39 Heart - S1, S2, RRR Lungs - clear to auscultation Abdomen - RLQ ileal conduit. Soft, Bowel Sounds normal. Extremities - mild edema, chronic venous stasis skin changes. Neuro - AAO x 3. Tone/Power normal all 4 extremities. Laboratory Results - last 24 hr 09/29/19 09/29/19 09/29/19 06:35 06:35 06:35 WBC 8.9 RBC 4.21 Hgb 11.1 L Hct 33.9 L MCV 80.5 MCH 26.4 MCHC 32.7 RDW 21.1 H Plt Count 213 MPV 6.3 L PT with INR 12.20 INR 1.03 PTT (Actin FS) 33.6 Sodium 136 Potassium 4.3 Chloride 106 Carbon Dioxide 25 Anion Gap 5 L BUN 25.9 H Creatinine 1.3 Est GFR (CKD-EPI)AfAm 59.31 Est GFR (CKD-EPI)NonAf 51.17 Random Glucose 143 H Calcium 9.4 Current Medications Generic Name Dose Route Start Last Admin Trade Name Freq PRN Reason Stop Dose Admin Acetaminophen 650 mg 09/25/19 15:45 09/28/19 15:52 Tylenol - PO 650 mg Q6H PRN Administration PAIN LEVEL 4 - 6 Acetaminophen 650 mg 09/26/19 16:08 Tylenol - PO Q4H PRN FEVER Allopurinol 100 mg 09/26/19 10:00 09/29/19 09:53 Zyloprim - PO 100 mg DAILY YAYA Administration Aripiprazole 2 mg 09/26/19 10:00 09/29/19 09:53 Abilify PO 2 mg DAILY YAYA Administration Docusate Sodium 100 mg 09/26/19 12:30 09/29/19 09:53 Colace - PO 100 mg DAILY YAYA Administration Ezetimibe 10 mg 09/26/19 10:00 09/29/19 09:57 Zetia - PO 10 mg DAILY YAYA Administration Escitalopram Oxalate 20 mg 09/26/19 10:00 09/29/19 09:53 Lexapro - PO 20 mg DAILY YAYA Administration Heparin Sodium (Porcine) 5,000 unit 09/25/19 08:45 09/29/19 05:04 Heparin - SQ Not Given TID YAYA Hydroxychloroquine Sulfate 200 mg 09/25/19 22:00 09/29/19 09:55 Plaquenil - PO 200 mg BID YAYA Administration Ertapenem 1 gm/ Sodium 50 mls @ 100 mls/hr 09/27/19 16:00 09/29/19 09:54 Chloride IVPB 100 mls/hr DAILY YAYA Administration Nebivolol 5 mg 09/26/19 10:00 09/29/19 09:53 Bystolic - PO 5 mg DAILY YAYA Administration Pantoprazole Sodium 20 mg 09/26/19 10:45 09/29/19 09:53 Protonix - PO 20 mg BID YAYA Administration Polyethylene Glycol 17 gm 09/26/19 12:30 09/29/19 09:55 Miralax (For Daily Use) - PO Not Given DAILY [facility] Prochlorperazine Edisylate 5 mg 09/26/19 10:37 Compazine Injection - IM Q4H PRN NAUSEA AND/OR VOMITING Torsemide 5 mg 09/29/19 10:00 09/29/19 09:54 Demadex - PO 5 mg DAILY YAYA Administration Venlafaxine HCl 75 mg 09/26/19 10:00 09/29/19 09:53 Effexor Xr - PO 75 mg DAILY YAYA Administration Home Medications Medication Instructions Recorded Allopurinol [Zyloprim -] 100 mg PO DAILY 09/25/19 Aripiprazole 2 mg DAILY 09/25/19 Escitalopram Oxalate [Lexapro -] 20 mg PO DAILY 09/25/19 Ezetimibe 10 mg PO DAILY 09/25/19 Hydroxychloroquine Sulfate 200 mg PO BID 09/25/19 [Plaquenil] Nebivolol HCl [Bystolic] 5 mg PO DAILY 09/25/19 Torsemide [Demadex -] 5 mg PO DAILY 09/25/19 Venlafaxine HCl ER [Effexor Xr -] 75 mg DAILY 09/25/19 ASSESSMENT AND PLAN: 79 year old male with history of HTN, Prostate cancer s/p RTx, 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 No headache/visual disturbance/focal limb weakness or numbness. No fits, faints, blackouts, seizures, head injury. Renal US - prominent renal pelvis, without significant hydronephrosis. 1. Sepsis secondary to UTI, possible pyelonephritis in patient s/p Cystectomy and Ileal conduit - Sepsis resolved. Leukocytosis resolved, fever resolved. Urine Cx and Blood Cx positive: Urine Cx - Citerobacter, Pseudomonas, Klebsiella, enterococcus Blood Cx - Citerobacter Was receiving Zosyn - changed to Ertapenem by ID 09/27 Renal US as above. Urology - conduit appears intact, no intervention required. CT A/P requested by ID For PICC today with out-patient IV Abx course, duration to be determined by ID. Discharge pending results of CT A/P. 2. HOLLY vs CKD - resolved. Renal US shows no significant obstruction Creatinine improving. IV fluids stopped, Torsemide resumed. Nephrology following 3. HTN - normally on Bystolic and Torsemide (resumed) 4. HLD - continue Ezetimibe. 5. Depression - Continue Abilify, Lexapro, Effexor 6. RA - on Plaquenil. Continue. DVT Px - Heparin SQ
--- NOTE | 2019-09-29 13:45 | PN ---
Progress Note, Physician History of Present Illness: Pt seen and examined at bedside. He is awake and appears comfortable. He denies shortness of breath. - Current Medication List Current Medications: Active Medications Acetaminophen (Tylenol -) 650 mg PO Q6H PRN PRN Reason: PAIN LEVEL 4 - 6 Last Admin: 09/28/19 15:52 Dose: 650 mg Acetaminophen (Tylenol -) 650 mg PO Q4H PRN PRN Reason: FEVER Allopurinol (Zyloprim -) 100 mg PO DAILY [facility] Last Admin: 09/29/19 09:53 Dose: 100 mg Aripiprazole (Abilify) 2 mg PO DAILY [facility] Last Admin: 09/29/19 09:53 Dose: 2 mg Docusate Sodium (Colace -) 100 mg PO DAILY [facility] Last Admin: 09/29/19 09:53 Dose: 100 mg Ezetimibe (Zetia -) 10 mg PO DAILY [facility] Last Admin: 09/29/19 09:57 Dose: 10 mg Escitalopram Oxalate (Lexapro -) 20 mg PO DAILY [facility] Last Admin: 09/29/19 09:53 Dose: 20 mg Heparin Sodium (Porcine) (Heparin -) 5,000 unit SQ TID [facility] Last Admin: 09/29/19 05:04 Dose: Not Given Hydroxychloroquine Sulfate (Plaquenil -) 200 mg PO BID [facility] Last Admin: 09/29/19 09:55 Dose: 200 mg Ertapenem 1 gm/ Sodium (Chloride) 50 mls @ 100 mls/hr IVPB DAILY [facility] Last Admin: 09/29/19 09:54 Dose: 100 mls/hr Nebivolol (Bystolic -) 5 mg PO DAILY [facility] Last Admin: 09/29/19 09:53 Dose: 5 mg Pantoprazole Sodium (Protonix -) 20 mg PO BID [facility] Last Admin: 09/29/19 09:53 Dose: 20 mg Polyethylene Glycol (Miralax (For Daily Use) -) 17 gm PO DAILY [facility] Last Admin: 09/29/19 09:55 Dose: Not Given Prochlorperazine Edisylate (Compazine Injection -) 5 mg IM Q4H PRN PRN Reason: NAUSEA AND/OR VOMITING Torsemide (Demadex -) 5 mg PO DAILY [facility] Last Admin: 09/29/19 09:54 Dose: 5 mg Venlafaxine HCl (Effexor Xr -) 75 mg PO DAILY YAYA Last Admin: 09/29/19 09:53 Dose: 75 mg - Objective Vital Signs: Vital Signs Temperature 98 F 09/29/19 09:57 Pulse Rate 83 09/29/19 09:57 Respiratory Rate 18 09/29/19 09:57 Blood Pressure 165/91 09/29/19 09:57 O2 Sat by Pulse Oximetry (%) 96 09/29/19 08:39 Constitutional: Yes: Calm Eyes: Yes: Conjunctiva Clear HENT: Yes: Atraumatic Neck: Yes: Supple Cardiovascular: Yes: S1, S2 Respiratory: Yes: CTA Bilaterally Gastrointestinal: Yes: Normal Bowel Sounds, Soft Genitourinary: Yes: Other (ileal conduit) Musculoskeletal: Yes: Muscle Weakness Edema: No Neurological: Yes: Oriented Psychiatric: Yes: Oriented Labs: CBC, BMP 09/29/19 06:35 09/29/19 06:35 INR, PTT INR 1.03 (0.83-1.09) 09/29/19 06:35 Problem List - Problems (1) CKD (chronic kidney disease) Code(s): N18.9 - CHRONIC KIDNEY DISEASE, UNSPECIFIED (2) HOLLY (acute kidney injury) Code(s): N17.9 - ACUTE KIDNEY FAILURE, UNSPECIFIED (3) UTI (urinary tract infection) Code(s): N39.0 - URINARY TRACT INFECTION, SITE NOT SPECIFIED Qualifiers: Urinary tract infection type: site unspecified Hematuria presence: with hematuria Qualified Code(s): N39.0 - Urinary tract infection, site not specified; R31.9 - Hematuria, unspecified Assessment/Plan Current Medications Generic Name Dose Route Start Last Admin Trade Name Freq PRN Reason Stop Dose Admin Acetaminophen 650 mg 09/25/19 15:45 09/28/19 15:52 Tylenol - PO 650 mg Q6H PRN Administration PAIN LEVEL 4 - 6 Acetaminophen 650 mg 09/26/19 16:08 Tylenol - PO Q4H PRN FEVER Allopurinol 100 mg 09/26/19 10:00 09/29/19 09:53 Zyloprim - PO 100 mg DAILY YAYA Administration Aripiprazole 2 mg 09/26/19 10:00 09/29/19 09:53 Abilify PO 2 mg DAILY YAYA Administration Docusate Sodium 100 mg 09/26/19 12:30 09/29/19 09:53 Colace - PO 100 mg DAILY YAYA Administration Ezetimibe 10 mg 09/26/19 10:00 09/29/19 09:57 Zetia - PO 10 mg DAILY YAYA Administration Escitalopram Oxalate 20 mg 09/26/19 10:00 09/29/19 09:53 Lexapro - PO 20 mg DAILY YAYA Administration Heparin Sodium (Porcine) 5,000 unit 09/25/19 08:45 09/29/19 05:04 Heparin - SQ Not Given TID [facility] Hydroxychloroquine Sulfate 200 mg 09/25/19 22:00 09/29/19 09:55 Plaquenil - PO 200 mg BID YAYA Administration Ertapenem 1 gm/ Sodium 50 mls @ 100 mls/hr 09/27/19 16:00 09/29/19 09:54 Chloride IVPB 100 mls/hr DAILY YAYA Administration Nebivolol 5 mg 09/26/19 10:00 09/29/19 09:53 Bystolic - PO 5 mg DAILY YAYA Administration Pantoprazole Sodium 20 mg 09/26/19 10:45 09/29/19 09:53 Protonix - PO 20 mg BID YAYA Administration Polyethylene Glycol 17 gm 09/26/19 12:30 09/29/19 09:55 Miralax (For Daily Use) - PO Not Given DAILY [facility] Prochlorperazine Edisylate 5 mg 09/26/19 10:37 Compazine Injection - IM Q4H PRN NAUSEA AND/OR VOMITING Torsemide 5 mg 09/29/19 10:00 09/29/19 09:54 Demadex - PO 5 mg DAILY [facility] Administration Venlafaxine HCl 75 mg 09/26/19 10:00 09/29/19 09:53 Effexor Xr - PO 75 mg DAILY [facility] Administration Impression 1. CKD 2. HOLLY 3. prostate ca 4. hx of ileal conduit 5. UTI 6. HTN 7. sepsis 8. bacteremia Plan - renal function stable - diuretics resumed - pt will follow with Dr Brooks as outpt - abx per primary team - will follow PRN
[2019-09-29] MEDS: ACETAMINOPHEN 325 MG TABLET (FP) PO PRN (14:05)
--- NOTE | 2019-09-29 15:05 | DS ---
Physical Exam: SUBJECTIVE: Patient seen and examined at the bedside. Patient stated that he is feeling better and eager to go home. Stated that he had hiccups. Denied cp, sob , abd pain, n/v/c/d, fever, chills, numbness, tingling. OBJECTIVE: Vital Signs Period Temp Pulse Resp BP Sys/Barber Pulse Ox Last 24 Hr 97.5 F-98.7 F 60-83 18-18 153-188/77-91 96-96 PHYSICAL EXAM GENERAL: The patient is awake, alert, and fully oriented, in no acute distress. Anxious about current medical situation. Hiccups HEAD: Normal with no signs of trauma. EYES: PERRL, extraocular movements intact, sclera anicteric, conjunctiva clear. No ptosis. ENT: Oropharynx clear without exudates, moist mucous membranes. NECK: Trachea midline, full range of motion, supple. LUNGS: Breath sounds equal, clear to auscultation bilaterally, no wheezes, no crackles, no accessory muscle use. HEART: Regular rate and rhythm, S1, S2 without murmur, rub. ABDOMEN: Soft, mildly tender in the suprapubic region, nondistended, normoactive bowel sounds, no guarding, no rebound. Midline surgical scar. Illeal conduit present, no warmness, tenderness, or redness at the site. EXTREMITIES: 2+ pulses, warm, well-perfused, trace edema. NEUROLOGICAL: Cranial nerves II through XII grossly intact. Normal speech, gait not observed. PSYCH: Anxious. SKIN: Warm, dry, normal turgor, chronic venous stasis. LABS Laboratory Results - last 24 hr 09/29/19 09/29/19 09/29/19 06:35 06:35 06:35 WBC 8.9 RBC 4.21 Hgb 11.1 L Hct 33.9 L MCV 80.5 MCH 26.4 MCHC 32.7 RDW 21.1 H Plt Count 213 MPV 6.3 L PT with INR 12.20 INR 1.03 PTT (Actin FS) 33.6 Sodium 136 Potassium 4.3 Chloride 106 Carbon Dioxide 25 Anion Gap 5 L BUN 25.9 H Creatinine 1.3 Est GFR (CKD-EPI)AfAm 59.31 Est GFR (CKD-EPI)NonAf 51.17 Random Glucose 143 H Calcium 9.4 HOSPITAL COURSE: Carlos Marie is an 79 year old male with a past medical history of HTN, HLD, Prostate cancer s/p radiation treatment (now with illeal conduit), osteomyelitis of pelvis, depression, CKD who was admitted after presenting with weakness secondary to sepsis from bacteremia stemming from a urinary tract infection. Patient was admitted and started on IV antibiotics. Urine cultures grew Citerobacter farmeri, Pseudomonas, Klebsiella, enterococcus. Blood cultures grew multi-resistant Citerobacter farmeri. He was seen by ID and antibiotics switched to IV ertapenem which bacteria was sensitive to and will continue IV antibiotics outpatient for a total of 14 days. Patient was seen by urology who advised no surgical intervention at this time. Patient had PICC line placed for continued infusion of IV ertapenem. Patient had HOLLY with CRE 2.0 upon admission which improved to 1.3 with fluid administration. Patient was seen by nephrology who advised to adequately hydrate the patient and hold home torsemide until improvement of kidney function. Torsemide will be restarted upon discharge. Patient had Renal U/S performed which showed a prominent renal pelvis with no significant hydronephrosis or other acute pathology. Abd/pelvis CT was performed which showed no intraabdominal abscess or other acute pathology. On CT it was noted that the patient had an area of bony irregularity and sclerosis of the symphysis pubis as well as the right iliac bone, infectious or neoplastic process cannot be excluded. Patient was advised to follow up with his primary care provider and urologist for continued monitoring of these findings and will likely need referral for bone scan or PET scan to follow up these findings. Patient was spoke to about his results and the plan going forward and was in agreement with the plan and reiterated it. Patient's , Essie, was spoken to at length regarding the plan going forward with antibiotics, follow up for CT scan, and provider follow up and she acknowledged understanding and agreed to plan. Patient's urologist, Dr. Rayo Ann, was attempted to be contacted multiple times (contacted service and provider was paged, no returned phone call) about discussing the patient's admission and subsequent necessity to follow up for UTI and CT scan. Service number . All patient's records were faxed to Dr. Ann's office after patient had signed release of information form to . Patient was discharged in stable condition. Date of Admission:09/25/19 Date of Discharge: 09/29/19 Minutes to complete discharge: 35 Discharge Summary Problems reviewed: Yes Reason For Visit: UTI Current Active Problems CKD (chronic kidney disease) (Chronic) Status post ileal conduit (Chronic) Condition: Improved - Instructions Diet, Activity, Other Instructions: You were admitted for an infection in your blood that was coming from your urinary tract. You received antibiotics through the IV and had examination of your blood and urine for the bacteria causing the infection. The particular bacteria that you had growing in the urine and blood is requiring IV antibiotics which you will receive through a PICC line that was put in your arm. You were seen by a urologist (urinary system, bladder, kidney doctor) that stated that you do not need any surgery in light of this infection. You were seen by a tenterer (kidney doctor) who recommended that we give you fluids during this admission and treat your infection with antibiotics. You were seen by an infectious disease specialist who recommended that you continue IV antibiotics for your infection. You had a kidney ultrasound performed which did not show any pressure backed up in your urinary system or other disease process. You had a CT scan of your abdomen and pelvis which did not show any abscess (local pocket of infection) in your abdomen. There was evidence on your scan of hardening within your pelvic bone. We recommend that you follow up your primary care provider and Dr. Ann to exclude an infectious or cancerous process. MEDICATIONS START taking Ertapenem 1gm daily through the PICC line. You will complete a total of 14 days of antibiotics including doses you received while in the hospital. You will have an additional 10 doses of antibiotics outpatient. Continue taking all of you other home medications as prescribed. REFERRALS Please see your primary care physician, Dr. Andres Martinez within 1 week. Please see your urologist, Dr. Rayo Ann, within 1 week. Please see the infectious disease doctor, Dr. Mayra Adam, within 1 week. Please see the tenterer, Dr. Carlos Montana, within 1 week. SPECIAL INSTRUCTIONS You will be getting infusions of the antibiotic when you visit the hospital for daily infusions. Please go to the registration desk when you come in for your appointments and you will be directed where to go for your antibiotic infusions. You will get blood work (CBC, CMP) between your doses of antibiotics once a week. Your records from this admission are being sent to Dr. Ann which you have allowed us to do. If you have any more symptoms of fever, chills, chest pain, shortness of breath , discoloration of the urine, nausea, vomiting, or other general feelings of unwellness please call 911 or go to your nearest emergency room. Referrals: Carlos Montana MD [Staff Physician] - 1 Week Andres Martinez MD [Primary Care Provider] - 1 Week Mayra Adam MD [Staff Physician] - 1 Week Rayo Ann [Non Staff, Medical] - 1 Week Disposition: HOME - Home Medications Comprehensive Discharge Medication List: Ambulatory Orders Allopurinol [Zyloprim -] 100 mg PO DAILY 09/25/19 Aripiprazole 2 mg DAILY 09/25/19 Escitalopram Oxalate [Lexapro -] 20 mg PO DAILY 09/25/19 Ezetimibe 10 mg PO DAILY 09/25/19 Hydroxychloroquine Sulfate [Plaquenil] 200 mg PO BID 09/25/19 Nebivolol HCl [Bystolic] 5 mg PO DAILY 09/25/19 Torsemide [Demadex -] 5 mg PO DAILY 09/25/19 Venlafaxine HCl ER [Effexor Xr -] 75 mg DAILY 09/25/19 Problem List - Problems (1) CKD (chronic kidney disease) Code(s): N18.9 - CHRONIC KIDNEY DISEASE, UNSPECIFIED (3) HOLLY (acute kidney injury) Code(s): N17.9 - ACUTE KIDNEY FAILURE, UNSPECIFIED (4) UTI (urinary tract infection) Code(s): N39.0 - URINARY TRACT INFECTION, SITE NOT SPECIFIED Qualifiers: Urinary tract infection type: site unspecified Hematuria presence: with hematuria Qualified Code(s): N39.0 - Urinary tract infection, site not specified; R31.9 - Hematuria, unspecified (5) CAD (coronary artery disease) Code(s): I25.10 - ATHSCL HEART DISEASE OF [place] CORONARY ARTERY W/O ANG PCTRS (6) Diabetes mellitus Code(s): E11.9 - TYPE 2 DIABETES MELLITUS WITHOUT COMPLICATIONS (7) HTN (hypertension) Code(s): I10 - ESSENTIAL (PRIMARY) HYPERTENSION (8) Malignant neoplasm of prostate Code(s): C61 - MALIGNANT NEOPLASM OF PROSTATE (9) Leukocytosis Code(s): D72.829 - ELEVATED WHITE BLOOD CELL COUNT, UNSPECIFIED This patient is new to me today: No Emergency Visit: Yes ED Registration Date: 09/25/19 Care time: The patient presented to the Emergency Department on the above date and was hospitalized for further evaluation of their emergent condition. Critical Care patient: No - Discharge Referral Referred to [facility] Med P.C.: No
[2019-09-29 15:06] VITALS: BP 141/80; PULSE 69; TEMP 97.7
== END 2019-09-29 15:54 | disposition home or self-care (01) | DRG 872 ==
LOC: JER 04:21 → JERBED 07:21 → MERGE 07:21 → J7W 21:12
PROC: 02HV33Z Insertion of Infusion Device into Superior Vena Cava, Percutaneous Approach (ICD-10-PCS; principal; 2019-09-29)
PROC: B548ZZA Ultrasonography of Superior Vena Cava, Guidance (ICD-10-PCS; 2019-09-29)
DX: A41.9 Sepsis, unspecified organism (principal); N39.0 Urinary tract infection, site not specified; N17.9 Acute kidney failure, unspecified; C61 Malignant neoplasm of prostate; I12.9 Hypertensive chronic kidney disease with stage 1 through stage 4 chronic kidney disease, or unspecified chronic kidney disease; E11.22 Type 2 diabetes mellitus with diabetic chronic kidney disease; N18.3 Chronic kidney disease, stage 3 (moderate); F32.9 Major depressive disorder, single episode, unspecified; E78.5 Hyperlipidemia, unspecified; M06.9 Rheumatoid arthritis, unspecified
CPT/HCPCS: 36415; 36569; 71045-TC-FY; 74176-TC; 76775-TC; 77001-TC-FY; 80048; 80053; 81003; 82436; 82550; 82565; 83735; 84100; 84133; 84300; 84443; 84484; 85025; 85027; 85610; 85730; 87040; 87086; 87186; 87804; 93005; 93010; 99285-25; C1751; J0131; J1644; J7030

== ENCOUNTER 2019-09-30 08:29 | Day surgery (SDC) | payer OTHER, BC ==
[2019-09-30] MEDS ORDERED: ERTAPENEM SODIUM 1 GM in SODIUM CHLORIDE 50 ML IVPB ONE (10:00)
[2019-09-30 10:45] VITALS: BP 155/87; PULSE 58; TEMP 98
== END 2019-09-30 10:40 | disposition home or self-care (01) ==
LOC: JINFUSION 08:29 → J7W 08:30 → JINFUSION 10:40
PROVIDERS: ATTEND Internal Medicine
DX: N39.0 Urinary tract infection, site not specified (principal); B96.89 Other specified bacterial agents as the cause of diseases classified elsewhere
CPT/HCPCS: 96365

== ENCOUNTER 2019-10-01 08:45 | Day surgery (SDC) | payer OTHER, BC ==
[2019-10-01] MEDS ORDERED: ERTAPENEM SODIUM 1 GM in SODIUM CHLORIDE 100 ML IVPB ONE (10:00)
[2019-10-01 10:40] VITALS: TEMP 97.7
[2019-10-01 12:54] VITALS: BP 168/80; PULSE 55
== END 2019-10-01 13:03 | disposition home or self-care (01) ==
LOC: J7W 08:45 → JINFUSION 08:45
PROVIDERS: ATTEND Internal Medicine
DX: N39.0 Urinary tract infection, site not specified (principal); B96.89 Other specified bacterial agents as the cause of diseases classified elsewhere
CPT/HCPCS: 96365

== ENCOUNTER 2019-10-02 10:07 | Day surgery (SDC) | payer OTHER, BC ==
[~2019-10-02 10:07] MED LIST: ERTAPENEM SODIUM 1 GM in SODIUM CHLORIDE 50 ML IVPB ONE
[2019-10-02 10:37] LABS: HEMATOCRIT 36.8 % (35.4-49); HEMOGLOBIN 11.9 GM/dL (11.7-16.9); MCH 25.7 pg (25.7-33.7); MCHC 32.2 g/dl (32.0-35.9); MEAN CELL VOLUME 79.7 fl (80-96); PLATELET COUNT 405 K/MM3 (134-434); RBC 4.62 M/mm3 (4.00-5.60); RDW 20.9 % (11.9-15.9); WHITE BLOOD COUNT 11.1 K/mm3 (4.0-10.0)
[2019-10-02 11:01] VITALS: TEMP 98.3
[2019-10-02 11:27] LABS: ALBUMIN 3.3 g/dl (3.4-5.0); BILIRUBIN,TOTAL 0.2 mg/dL (0.2-1); BLOOD UREA NITROGEN 29.7 mg/dL (7-18); CALCIUM 9.5 mg/dL (8.5-10.1); CREATININE 1.5 mg/dL (0.55-1.3); POTASSIUM 4.4 mmol/L (3.5-5.1); TOT PROT 6.9 g/dl (6.4-8.2)
[2019-10-02 14:52] VITALS: BP 153/81; PULSE 73
== END 2019-10-02 11:35 | disposition home or self-care (01) ==
LOC: JINFUSION 10:07
PROVIDERS: ATTEND Internal Medicine
DX: N39.0 Urinary tract infection, site not specified (principal); B96.89 Other specified bacterial agents as the cause of diseases classified elsewhere
CPT/HCPCS: 36415; 80053; 85027; 96365

== ENCOUNTER 2019-10-03 10:28 | Day surgery (SDC) | payer OTHER, BC ==
[2019-10-03 12:47] VITALS: BP 126/76; PULSE 68; TEMP 97.9
== END 2019-10-03 11:50 | disposition home or self-care (01) ==
LOC: JINFUSION 10:28
PROVIDERS: ATTEND Internal Medicine
DX: N39.0 Urinary tract infection, site not specified (principal); B96.89 Other specified bacterial agents as the cause of diseases classified elsewhere
CPT/HCPCS: 96365

== ENCOUNTER 2019-10-04 10:36 | Day surgery (SDC) | payer OTHER, BC ==
[2019-10-04] MEDS ORDERED: ERTAPENEM SODIUM 1 GM in SODIUM CHLORIDE 50 ML IVPB ONE (10:45)
[2019-10-04] MEDS ORDERED: SODIUM CHLORIDE 100 ML IVPB ONE (10:48)
[2019-10-04] MEDS ORDERED: ERTAPENEM SODIUM 1 GM VIAL ONE (10:48)
[2019-10-04 12:43] VITALS: BP 136/68; PULSE 68; TEMP 98.6
== END 2019-10-04 12:02 | disposition home or self-care (01) ==
LOC: JINFUSION 10:36
PROVIDERS: ATTEND Internal Medicine
DX: N39.0 Urinary tract infection, site not specified (principal); B96.89 Other specified bacterial agents as the cause of diseases classified elsewhere
CPT/HCPCS: 96365

== ENCOUNTER 2019-10-05 10:35 | Day surgery (SDC) | payer OTHER, BC ==
[2019-10-05] MEDS ORDERED: ERTAPENEM SODIUM 1 GM VIAL ONE (10:55)
[2019-10-05 12:14] VITALS: BP 129/69; PULSE 63; TEMP 97.9
== END 2019-10-05 11:45 | disposition home or self-care (01) ==
LOC: JINFUSION 10:35
PROVIDERS: ATTEND Internal Medicine
DX: N39.0 Urinary tract infection, site not specified (principal); B96.89 Other specified bacterial agents as the cause of diseases classified elsewhere
CPT/HCPCS: 96365

== ENCOUNTER 2019-10-06 10:24 | Day surgery (SDC) | payer OTHER, BC ==
[2019-10-06 11:22] LABS: HEMATOCRIT 34.9 % (35.4-49); HEMOGLOBIN 11.3 GM/dL (11.7-16.9); MCH 25.7 pg (25.7-33.7); MCHC 32.3 g/dl (32.0-35.9); MEAN CELL VOLUME 79.5 fl (80-96); MEAN PLT VOLUME 5.9 fl (7.5-11.1); PLATELET COUNT 377 K/MM3 (134-434); RBC 4.39 M/mm3 (4.00-5.60); RDW 20.7 % (11.9-15.9); WHITE BLOOD COUNT 12.4 K/mm3 (4.0-10.0)
[2019-10-06 11:25] VITALS: PULSE 60; TEMP 97.9
[2019-10-06 11:54] VITALS: BP 123/65
[2019-10-06 11:57] LABS: ALBUMIN 3.2 g/dl (3.4-5.0); BILIRUBIN,TOTAL 0.2 mg/dL (0.2-1); CALCIUM 9.5 mg/dL (8.5-10.1); CREATININE 1.7 mg/dL (0.55-1.3); POTASSIUM 4.6 mmol/L (3.5-5.1); TOT PROT 6.7 g/dl (6.4-8.2)
== END 2019-10-06 12:00 | disposition home or self-care (01) ==
LOC: JINFUSION 10:24
PROVIDERS: ATTEND Internal Medicine
DX: N39.0 Urinary tract infection, site not specified (principal); B96.89 Other specified bacterial agents as the cause of diseases classified elsewhere
CPT/HCPCS: 36415; 80053; 85027; 96365

== ENCOUNTER 2019-10-07 10:00 | Day surgery (SDC) | payer OTHER, BC ==
[2019-10-07] MEDS ORDERED: ERTAPENEM SODIUM 1 GM in SODIUM CHLORIDE 50 ML IVPB ONE (10:15)
[2019-10-07 10:41] VITALS: TEMP 98.6
[2019-10-07 11:18] VITALS: BP 109/60; PULSE 66
== END 2019-10-07 11:18 | disposition home or self-care (01) ==
LOC: JINFUSION 10:00 → J7W 10:14 → JINFUSION 11:18
PROVIDERS: ATTEND Internal Medicine
DX: N39.0 Urinary tract infection, site not specified (principal); B96.89 Other specified bacterial agents as the cause of diseases classified elsewhere
CPT/HCPCS: 96365

== ENCOUNTER 2019-10-08 09:46 | Day surgery (SDC) | payer OTHER, BC ==
[2019-10-08] MEDS ORDERED: ERTAPENEM SODIUM 1 GM in SODIUM CHLORIDE 50 ML IVPB ONE (10:15)
[2019-10-08 11:59] VITALS: TEMP 98
[2019-10-08 12:01] VITALS: BP 116/77; PULSE 70
== END 2019-10-08 11:59 | disposition home or self-care (01) ==
LOC: JINFUSION 09:46 → J7W 09:47 → JINFUSION 11:59
PROVIDERS: ATTEND Internal Medicine
DX: N39.0 Urinary tract infection, site not specified (principal); B96.89 Other specified bacterial agents as the cause of diseases classified elsewhere
CPT/HCPCS: 96365

== ENCOUNTER 2019-10-09 10:40 | Day surgery (SDC) | payer OTHER, BC ==
[2019-10-09] MEDS ORDERED: ERTAPENEM SODIUM 1 GM VIAL ONE (10:53)
[2019-10-09] MEDS ORDERED: ERTAPENEM SODIUM 1 GM in SODIUM CHLORIDE 50 ML IVPB ONE (11:00)
[2019-10-09 11:57] VITALS: BP 132/69; PULSE 66; TEMP 98
== END 2019-10-09 12:15 | disposition home or self-care (01) ==
LOC: JINFUSION 10:40
PROVIDERS: ATTEND Internal Medicine
DX: N39.0 Urinary tract infection, site not specified (principal); B96.89 Other specified bacterial agents as the cause of diseases classified elsewhere
CPT/HCPCS: 96365

== ENCOUNTER 2019-11-16 16:25 | Inpatient (IN) | payer OTHER, BC ==
--- NOTE | 2019-11-16 16:53 | PDOC ---
Rapid Medical Evaluation Time Seen by Provider: 11/16/19 16:47 Medical Evaluation: Allergies Allergy/AdvReac Type Severity Reaction Status Date / Time Iodinated Contrast Media Allergy Intermediate Hives Verified 09/14/18 13:48 [Iodinated Contrast- Oral and IV Dye] iodine Allergy Rash Verified 09/14/18 13:48 Sulfa (Sulfonamide Allergy "KIDNEY Verified 09/14/18 13:48 Antibiotics) ISSUES" sulfacetamide AdvReac Severe Verified 09/25/19 05:40 [From Sulfamide] 11/16/19 16:48 I performed a brief in-person evaluation of this patient. 79-year-old male with HTN, prostate ca s/p RTX, ileal conduit, osteomyelitis of pelvis sent by PCP with 2 days malaise, chills, rigors, states temp was 92.1 at home. Denies pain. Pertinent physical exam findings: Alert, oriented, no distress. Abdomen soft, non-tender, non-distended. Urine appears cloudy. T 98.7 (took 1g Tylenol x 4 hrs ago). I have ordered the following: Sepsis panel Patient to proceed to the ED for further evaluation. Discharge Disposition - Diagnosis Chills (without fever) - Referrals - Patient Instructions - Post Discharge Activity
[2019-11-16] MEDS ORDERED: SODIUM CHLORIDE 1,000 ML IV STA (16:55)
[2019-11-16 17:52] LABS: BASO % 0.3 % (0-2.0); EOS % 0.2 % (0-4.5); HEMATOCRIT 36.1 % (35.4-49); HEMOGLOBIN 11.7 GM/dL (11.7-16.9); LYMPH % 5.1 % (8-40); MCHC 32.5 g/dl (32.0-35.9); MONO % 7.6 % (3.8-10.2); NEUT % 86.8 % (42.8-82.8); PLATELET COUNT 237 K/MM3 (134-434); RBC 4.52 M/mm3 (4.00-5.60); RDW 18.3 % (11.9-15.9); WHITE BLOOD COUNT 13.2 K/mm3 (4.0-10.0)
[2019-11-16 18:13] LABS: ALBUMIN 3.7 g/dl (3.4-5.0); BILIRUBIN,TOTAL 0.4 mg/dL (0.2-1); BLOOD UREA NITROGEN 50.8 mg/dL (7-18); CALCIUM 9.6 mg/dL (8.5-10.1); CREATININE 1.9 mg/dL (0.55-1.3); POTASSIUM 5.1 mmol/L (3.5-5.1)
--- NOTE | 2019-11-16 18:26 | PDOC ---
History of Present Illness - General Chief Complaint: SIRS, Suspected/Possible Stated Complaint: r/o:sepsis Time Seen by Provider: 11/16/19 16:47 - History of Present Illness Initial Comments: 11/16/19 18:29 Pt is an 79y/o male with HTN, HLD, Prostate cancer s/p radiation treatment (now with illeal conduit), osteomyelitis of pelvis, depression, CKD who presents with 1 day of chills, weakness, and cloudy urine. He was hospitalized in September for UTI and bacteremia and completed 2 weeks IV ertapenem for urine culture that grew Citerobacter farmeri, Pseudomonas, Klebsiella, enterococcus and blood culture grew multi-resistant Citerobacter farmeri. He currently denies abdominal pain, nausea, vomiting. urology: Tim nephrology: Rubén uro oncology: Ammon Past History - Past Medical History Allergies/Adverse Reactions: Allergies Allergy/AdvReac Type Severity Reaction Status Date / Time Iodinated Contrast Media Allergy Intermediate Hives Verified 09/14/18 13:48 [Iodinated Contrast- Oral and IV Dye] iodine Allergy Rash Verified 09/14/18 13:48 Sulfa (Sulfonamide Allergy "KIDNEY Verified 09/14/18 13:48 Antibiotics) ISSUES" sulfacetamide AdvReac Severe Verified 09/25/19 05:40 [From Sulfamide] Home Medications: Ambulatory Orders Allopurinol [Zyloprim -] 100 mg PO DAILY 09/25/19 Aripiprazole 2 mg DAILY 09/25/19 Escitalopram Oxalate [Lexapro -] 20 mg PO DAILY 09/25/19 Ezetimibe 10 mg PO DAILY 09/25/19 Hydroxychloroquine Sulfate [Plaquenil] 200 mg PO BID 09/25/19 Nebivolol HCl [Bystolic] 5 mg PO DAILY 09/25/19 Torsemide [Demadex -] 5 mg PO DAILY 09/25/19 Venlafaxine HCl ER [Effexor Xr -] 75 mg DAILY 09/25/19 Losartan Potassium 25 mg PO DAILY 10/04/19 Anemia: No Asthma: No Cancer: Yes (prostate) Cardiac Disorders: No CVA: No COPD: No CHF: No Dementia: No Diabetes: No GI Disorders: No Disorders: Yes (prostate ca) HTN: Yes Hypercholesterolemia: No Liver Disease: No Seizures: No Thyroid Disease: No - Surgical History Abdominal Surgery: No Appendectomy: Yes Cardiac Surgery: No Cholecystectomy: Yes Lung Surgery: No Neurologic Surgery: No Orthopedic Surgery: No - Immunization History Td Vaccination: Yes TDAP Vaccination: Yes Immunization Up to Date: Yes - Psycho Social/Smoking Cessation Hx Smoking Status: Yes Smoking History: Never smoked Have you smoked in the past 12 months: No Number of Cigarettes Smoked Daily: 0 If you are a former smoker, when did you quit?: 37 YRS AGO Information on smoking cessation initiated: No Hx Alcohol Use: No Drug/Substance Use Hx: No Substance Use Type: None Hx Substance Use Treatment: No Review of Systems - Review of Systems Constitutional: Yes: Chills. No: Fever Respiratory: No: Shortness of Breath Cardiac (ROS): No: Chest Pain ABD/GI: No: Diarrhea, Nausea, Vomiting : No: Hematuria Musculoskeletal: Yes: Back Pain (right lumbar) *Physical Exam - Vital Signs Last Vital Signs Temp Pulse Resp BP Pulse Ox 98.7 F 80 16 134/64 97 11/16/19 16:50 11/16/19 16:50 11/16/19 16:50 11/16/19 16:50 11/16/19 16:50 - Physical Exam General Appearance: Yes: Nourished, Appropriately Dressed. No: Apparent Distress HEENT: positive: EOMI, TONIO Neck: positive: Trachea midline Respiratory/Chest: positive: Lungs Clear Cardiovascular: positive: Regular Rhythm, Regular Rate. negative: Murmur Gastrointestinal/Abdominal: positive: Normal Bowel Sounds, Other (RLQ urostomy bag with yellowish urine). 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 intact, Fully Oriented, Alert, Normal Mood/ Affect ED Treatment Course - LABORATORY CBC & Chemistry Diagram: 11/16/19 17:11 11/16/19 17:11 - ADDITIONAL ORDERS Additional order review: Laboratory Results 11/16/19 11/16/19 11/16/19 17:11 17:11 17:11 WBC 13.2 H RBC 4.52 Hgb 11.7 Hct 36.1 MCV 80.0 MCH 26.0 MCHC 32.5 RDW 18.3 H Plt Count 237 D MPV 6.0 L Absolute Neuts (auto) 11.5 H Neutrophils % 86.8 H Lymphocytes % 5.1 L Monocytes % 7.6 Eosinophils % 0.2 D Basophils % 0.3 Nucleated RBC % 0 Sodium 134 L Potassium 5.1 Chloride 106 Carbon Dioxide 23 Anion Gap 6 L BUN 50.8 H Creatinine 1.9 H Est GFR (CKD-EPI)AfAm 37.48 Est GFR (CKD-EPI)NonAf 32.34 Random Glucose 184 H Lactic Acid 1.6 Calcium 9.6 Total Bilirubin 0.4 AST 13 L ALT 28 Alkaline Phosphatase 98 Total Protein 7.0 Albumin 3.7 11/16/19 17:11 RBC 4.52 MCV 80.0 MCHC 32.5 RDW 18.3 H MPV 6.0 L Neutrophils % 86.8 H Lymphocytes % 5.1 L Monocytes % 7.6 Eosinophils % 0.2 D Basophils % 0.3 Medical Decision Making - Medical Decision Making 11/16/19 18:42 Pt is an 79y/o male with HTN, HLD, Prostate cancer s/p radiation treatment (now with illeal conduit), osteomyelitis of pelvis, depression, CKD who presents with 1 day of chills, weakness, and cloudy urine. He was hospitalized in September for UTI and bacteremia and completed 2 weeks IV ertapenem. Pt has similar presentation as last time. Urine and blood cultures ordered. Leukocytosis 13.2. Cr elevated from baseline 1.9. 1L NS bolus given. R/O sepsis. Discharge - Discharge Information Problems reviewed: Yes Clinical Impression/Diagnosis: Chills (without fever) Condition: Stable - Follow up/Referral Referrals: Andres Martinez MD [Primary Care Provider] - - Patient Discharge Instructions - Post Discharge Activity
[2019-11-16 19:03] LABS: EPI CELLS 1.3 /HPF (0-5/HPF); HYALINE CASTS 13 /lpf (0-8); URINE APPEARANCE CLOUDY; URINE BACTERIA 1268.6 /hpf (NEGATIVE); URINE BILIRUBIN NEGATIVE (NEGATIVE); URINE COLOR YELLOW; URINE GLUCOSE (UA) NEGATIVE (NEGATIVE); URINE KETONE NEGATIVE (NEGATIVE); URINE LEUK ESTERASE 3+ (NEGATIVE); URINE NITRITE NEGATIVE (NEGATIVE); URINE PROTEIN 1+ (NEGATIVE); URINE RBC 21 /hpf (0-4); URINE UROBILINOGEN 0.2 mg/dL (0.2-1.0); URINE WBC 65 /hpf (0-5)
[2019-11-16] MEDS ORDERED: ACETAMINOPHEN 1000 MG/100 ML VIAL (NON FORMULARY) IVPB ONE (19:38)
[2019-11-16] MEDS ORDERED: MEROPENEM 1 GM in DEXTROSE 5%-WATER 100 ML IVPB ONE (19:42)
[2019-11-16] MEDS ORDERED: VANCOMYCIN 1 GM PREMIX - 1 GM/200 ML BAG IVPB ONE (19:42)
[2019-11-16] MEDS ORDERED: ACETAMINOPHEN INJECTION 100 ML IVPB ONE (19:44)
[2019-11-16] MEDS ORDERED: MEROPENEM 1 GM VIAL (RESTRICTED TO ID) IVPB ONE (19:46)
--- NOTE | 2019-11-16 20:03 | PDOC ---
Documentation entered by Johnny Orozco SCRIBE, acting as scribe for Soraya Wray DO. Soraya Wray DO: This documentation has been prepared by the Ernesto anguiano Daniel, SCRIBE, under my direction and personally reviewed by me in its entirety. I confirm that the documentation accurately reflects all work, treatment, procedures, and medical decision making performed by me. Attending Attestation - Resident Resident Name: Krystal Ferguson - ED Attending Attestation I have performed the following: I have examined & evaluated the patient, The case was reviewed & discussed with the resident, I agree w/resident's findings & plan, Exceptions are as noted - HPI HPI: 11/16/19 19:40 The patient is an 79 year old female with a past medical history of HTN, HLD, prostate cancer s/p radiation, osteomyelitis, depression, and CKD here today for evaluation of weakness and cloudy urine. The patient reports that he has had one day of cloudy urine, general weakness, and chills. He reports that he was hospitalized in 09/19 for a UTI. Patient denies headache, lightheadedness. Denies fever. Denies chest pain, shortness of breath. Denies nausea, vomiting, diarrhea, abdominal pain. Allergies: iodinated contrast media, iodine, sulfa, sulfacetamide PCP: Andres Martinez Urology: Carlos Daniel Nephrology: Carlos Montana - Physicial Exam PE: 11/16/19 19:40 Constitutional: Awake, alert, oriented. No acute distress. Head: Normocephalic. Atraumatic Eyes: PERRL. EOMI. Conjunctivae are not pale. ENT: Mucous membranes are moist and intact. Posterior pharynx without exudates or erythema. Uvula midline. Neck: Supple. Full ROM. No lymphadenopathy. Cardiovascular: Regular rate. Regular rhythm. S1, S2 regular. Distal pulses are 2+ and symmetric. Pulmonary/Chest: No evidence of respiratory distress. Clear to auscultation bilaterally No wheezing, rales or rhonchi. Abdominal: +urostomy bag right lower quadrant with cloudy yellow urine with sediment. Soft and non-distended. There is no tenderness. No rebound, guarding or rigidity. No organomegaly. No palpable masses. Good bowel sounds. Back: No CVA tenderness. Musculoskeletal: No edema. No cyanosis. No clubbing. Full range of motion in all extremities. No calf tenderness. Radial/pedal pulses are intact and 2+ bilaterally Skin: Skin is warm and dry. No petechiae. No purpura. Neurological: +general weakness. Alert and oriented to person, place, and time. Cranial nerves II-XII are grossly intact. Normal speech. No sensory deficits. Psychiatric: Good eye contact. Normal interaction, affect and behavior. - Medical Decision Making 11/16/19 20:00 a/p: 79yo male with hx of urostomy in with recurrent utis -pt follows with Dr. Merrick Montana, Dr. Martinez, Dr. Reddy -pt with weakness, rigors, chills and cloudy urine in the urostomy -pt rigoring during exam -pt took tylneol this am -concern for gram neg [place] infection -will send labs, cultures, ivf hydration, tylenol, ua, ucx -will most likely need abx 11/16/19 20:02 pt with elevated wbc, leatha, uti will start abx pt with kleb pneumo, pseudomonas, enteroccoccus, citrobacter uti in the past- will start merrem and vanco will admit to [facility] sent tylenol, ivf hydraiton running pt also with leatha 11/16/19 20:02 11/16/19 20:47 resident discussed the case with [facility] who accepts pt to service for uti and abx Heart Score/ECG Review - ECG Intrepretation Comment:: 11/16/19 20:04 sinus at 79, 1st degree av block incomplete RBBB, q waves inferior leads which are age indeterminate, t wave inversions III
--- NOTE | 2019-11-16 20:19 | PN ---
Teaching Attending Note Name of Resident: Carlos Babin ATTENDING PHYSICIAN STATEMENT I saw and evaluated the patient. I reviewed the resident's note and discussed the case with the resident. I agree with the resident's findings and plan as documented. SUBJECTIVE: Patient is an 79 year old woman with a PMH of Borderline DM, HTN, HLD, Prostate cancer (s/p radiation now with illeal conduit), Osteomyelitis of pelvis, Depression, and CKD here today for evaluation of weakness and cloudy urine. The patient reports that he has had one day of cloudy urine, general weakness, and chills. He reports that he was hospitalized on 09/19/2019 for a UTI and bacteremia. He completed 2 weeks IV ertapenem for urine culture that grew Citerobacter farmeri, Pseudomonas, Klebsiella, enterococcus and blood culture grew multi-resistant Citerobacter farmeri. Currently he denies headache, lightheadedness, fever, chest pain, shortness of breath, nausea, vomiting, diarrhea or abdominal pain. Denies alcohol, tobacco or illicit drug use. Has FH of colon cancer (father) and Non Hodgkin's Lymphoma (mother). No recent travels or sick contacts. OBJECTIVE: Alert Vital Signs Period Temp Pulse Resp BP Sys/Barber Pulse Ox Last 24 Hr 98.7 F 80 16 134/64 97 HEENT: No Jaundice, eye redness or discharge, PERRLA, EOMI. Normocephalic, atraumatic. External ears are normal and hearing is grossly intact. No nasal discharge. Neck: Supple, nontender. No palpable adenopathy or thyromegaly. No JVD Chest: Good effort. Clear to auscultation and percussion. Heart: Regular. No S3, rub or murmur Abdomen: Not distended, soft, nontender and no HSM. Ileal conduit site clean. No rebound or guarding. Normal bowel sounds. Ext: Peripheral pulses intact. No leg edema. Skin: Warm and dry. No petechiae, rash or ecchymosis. Neuro: Alert. Oriented x3. CN 2-12 grossly intact. Sensation grossly intact in all four extremities and DTR are symmetric. Psych: Appropriate mood and affect. Good insight. Current Medications Generic Name Dose Route Start Last Admin Trade Name Freq PRN Reason Stop Dose Admin Vancomycin HCl 1 gm in 200 mls @ 133.333 mls/hr 11/16/19 19:42 Vancomycin 1 Gm Premix - IVPB 11/16/19 21:11 ONCE ONE Home Medications Medication Instructions Recorded Allopurinol [Zyloprim -] 100 mg PO DAILY 09/25/19 Aripiprazole 2 mg DAILY 09/25/19 Escitalopram Oxalate [Lexapro -] 20 mg PO DAILY 09/25/19 Ezetimibe 10 mg PO DAILY 09/25/19 Hydroxychloroquine Sulfate 200 mg PO BID 09/25/19 [Plaquenil] Nebivolol HCl [Bystolic] 5 mg PO DAILY 09/25/19 Torsemide [Demadex -] 5 mg PO DAILY 09/25/19 Venlafaxine HCl ER [Effexor Xr -] 75 mg DAILY 09/25/19 Losartan Potassium 25 mg PO DAILY 10/04/19 Abnormal Lab Results 11/16/19 11/16/19 11/16/19 17:11 17:11 18:31 WBC 13.2 H RDW 18.3 H MPV 6.0 L Absolute Neuts (auto) 11.5 H Neutrophils % 86.8 H Lymphocytes % 5.1 L Sodium 134 L Anion Gap 6 L BUN 50.8 H Creatinine 1.9 H Random Glucose 184 H AST 13 L Urine Protein 1+ H Urine Blood 1+ H Ur Leukocyte Esterase 3+ H ASSESSMENT AND PLAN: 1. UTI - Based on prior urine C&S, will treat with IV Zosyn pending culture. Consult ID. CXR shows cardiomegaly with no acute infiltrate, pneumothorax or effusion. EKG shows NSR with Io AV block, IRBBB, PACs and inferior infarct of undetermined age. Will continue comprehensive care for all of patients comorbid conditions. 2. CKD with ?HOLLY - Though he has multiple risk factors for CKD, associated proteinuria would suggest diabetic nephropathy. Will refer to Opthalmology to rule out diabetic retinopathy. Etiology of superimposed HOLLY is unclear. Will get CPK, kidney sonogram, urine protein/creatinine ratio, PTH, phosphate, hydrate gently and monitor urine output. Consult nephrology and avoid nephrotoxic agents such as NSAIDS, aminoglycosides, contrast dyes and certain Alternative medicine products. 3. Obesity Counseled on the risks associated with obesity. Will provide patient all the necessary assistance, counseling and positive reinforcement to facilitate weight loss. Consult land surveying survey worker. 4. Hypertension - Will restart suitable outpatient antihypertensive drugs when clinically appropriate. Revise regimen to ensure [id number] excellent BP control and equal opportunity counselor patient on the injurious effects of uncontrolled hypertension. Nonpharmacologic measures to control hypertension like weight loss , salt restriction and exercise discussed. Importance of adherence to treatment regimen and attainment of normotension emphasized. 5. ?Borderline DM Patient's HbA1c has ranged from 6.5 to 6.9% since 01/14/2017 and he has had proteinuria since 04/08/2018 - suggesting that he does indeed have DM and would benefit from treatment with ?Metformin as well as a higher Losartan dose. Consult Endocrine. For now, we will implement sliding scale insulin regimen. Provide comprehensive diabetes care with patient teaching and counseling about the importance of adherence to prescribed diabetes regimen, euglycemia, eye care and foot care. 5. DVT prophylaxis - Heparin 5000u sq tid. 6. Advance directives - Full code
[2019-11-16] MEDS ORDERED: ACETAMINOPHEN 325 MG TABLET (FP) ONE (20:23)
--- NOTE | 2019-11-16 20:34 | PDOC ---
*Physical Exam - Vital Signs Last Vital Signs Temp Pulse Resp BP Pulse Ox 98.7 F 80 16 134/64 97 11/16/19 16:50 11/16/19 16:50 11/16/19 16:50 11/16/19 16:50 11/16/19 16:50 ED Treatment Course - LABORATORY CBC & Chemistry Diagram: 11/16/19 17:11 11/16/19 17:11 - ADDITIONAL ORDERS Additional order review: Laboratory Results 11/16/19 11/16/19 11/16/19 18:31 17:11 17:11 Sodium 134 L Potassium 5.1 Chloride 106 Carbon Dioxide 23 Anion Gap 6 L BUN 50.8 H Creatinine 1.9 H Est GFR (CKD-EPI)AfAm 37.48 Est GFR (CKD-EPI)NonAf 32.34 Random Glucose 184 H Lactic Acid 1.6 Calcium 9.6 Total Bilirubin 0.4 AST 13 L ALT 28 Alkaline Phosphatase 98 Total Protein 7.0 Albumin 3.7 Urine Color Yellow Urine Appearance Cloudy Urine pH 7.0 Ur Specific Bryant 1.012 Urine Protein 1+ H Urine Glucose (UA) Negative Urine Ketones Negative Urine Blood 1+ H Urine Nitrite Negative Urine Bilirubin Negative Urine Urobilinogen 0.2 Ur Leukocyte Esterase 3+ H Urine WBC (Auto) 65 Urine RBC (Auto) 21 Urine Casts (Auto) 13 U Epithel Cells (Auto) 1.3 Urine Bacteria (Auto) 1268.6 11/16/19 17:11 RBC 4.52 MCV 80.0 MCHC 32.5 RDW 18.3 H MPV 6.0 L Neutrophils % 86.8 H Lymphocytes % 5.1 L Monocytes % 7.6 Eosinophils % 0.2 D Basophils % 0.3 - Medications Given in the ED: ED Medications Discontinued Medications Generic Name Dose Route Start Last Admin Trade Name Freq PRN Reason Stop Dose Admin Acetaminophen 1,000 mg 11/16/19 19:38 11/16/19 19:50 Ofirmev Injection - IVPB 11/16/19 19:39 1,000 mg ONCE ONE Administration Sodium Chloride 1,000 mls @ 1,000 mls/hr 11/16/19 16:55 11/16/19 18:54 Normal Saline - IV 11/16/19 17:54 1,000 mls/hr ASDIR STA Administration Meropenem 1 gm/ Dextrose 100 mls @ 200 mls/hr 11/16/19 19:42 11/16/19 20:16 IVPB 11/16/19 20:11 200 mls/hr ONCE ONE Administration Medical Decision Making - Medical Decision Making 11/16/19 20:32 Signed out from AM team Pt is an 79y/o male with HTN, HLD, Prostate cancer s/p radiation treatment (now with illeal conduit), osteomyelitis of pelvis, depression, CKD who presents with 1 day of chills, weakness, and cloudy urine with concern for UTI. Hx of UTI in Nov requiring ertapenam Cr 1.9 with HOLLY UA with 3+ leuks and >1000 bacteria Will admit for holly and uti started merapenem and vanc admitted to [facility] med/surg Discharge - Discharge Information Problems reviewed: Yes Clinical Impression/Diagnosis: Chills (without fever), HOLLY (acute kidney injury) UTI (urinary tract infection) Qualifiers: Urinary tract infection type: site unspecified Hematuria presence: without hematuria Qualified Code(s): N39.0 - Urinary tract infection, site not specified Condition: Stable - Follow up/Referral Referrals: Andres Martinez MD [Primary Care Provider] - - Patient Discharge Instructions - Post Discharge Activity
[2019-11-16] MEDS ORDERED: VANCOMYCIN 1 GRAM (PRE-DOCKED) 1,000 MG/250 ML BAG IVPB ONE (20:36)
[2019-11-16] MEDS: SODIUM CHLORIDE 1,000 ML IV SCH (22:04)
[2019-11-16] MEDS: INSULIN SLIDING SCALE (NOVOLOG) 1 VIAL SQ SCH (23:50)
[2019-11-17] MEDS: HYDROXYCHLOROQUINE SO4 200 MG TABLET (FP) PO SCH ×3 (00:03→21:31)
[2019-11-17 01:17] VITALS: BMI 32.8
--- NOTE | 2019-11-17 01:53 | HP ---
CHIEF COMPLAINT: Urinary tract infection PCP: Dr. Andres Martinez HISTORY OF PRESENT ILLNESS: Carlos Marie is an 79 year old male with a past medical history of HTN, Prostate cancer s/p radiation treatment (now with illeal conduit), osteomyelitis of pelvis, depression, who presents with a 1 day history of chills , generalized weakness greater in the lower extremities, clouding urine, anorexia. Patient was recently admitted in September 2019 for UTI and was discharged on 2 weeks of IV ertapenem which he successfully completed. Had previously grown Citerobacter farmeri, Pseudomonas, Klebsiella, Enterococcus in the urine and blood culture grew multi-resistant Citerobacter farmeri. Noted that he was usually changing his urine bags every 2 days and keeping the area of the ileal conduit clean. He was in his usual state of health until 1 day prior he began to feel the noted symptoms. He stated that he had not changed his urine bag in 3 days. Also noted that he had not seen his urologist (Dr. Daniel) or uro-oncologist (Dr. Ann) since his recent admission. He had seen his spanish lecturer (Dr. Brooks) since his recent admission. He denied cp, sob, abd pain, n/v/c/d, dizziness, lightheadedness, headaches, falls, fevers, hematuria, CVA< back pain. Denied recent travel or sick contacts. 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 Allergies Iodinated Contrast Media [Iodinated Contrast- Oral and IV Dye] Allergy ( Intermediate, Verified 11/16/19 21:58) Hives iodine Allergy (Verified 11/16/19 21:58) Rash IVP DYE Sulfa (Sulfonamide Antibiotics) Allergy (Verified 11/16/19 21:58) "KIDNEY ISSUES" sulfacetamide [From Sulfamide] Adverse Reaction (Severe, Verified 11/16/19 21:58 ) HOME MEDICATIONS: Home Medications Medication Instructions Recorded Allopurinol [Zyloprim -] 100 mg PO DAILY 09/25/19 Aripiprazole 2 mg DAILY 09/25/19 Escitalopram Oxalate [Lexapro -] 20 mg PO DAILY 09/25/19 Ezetimibe 10 mg PO DAILY 09/25/19 Hydroxychloroquine Sulfate 200 mg PO BID 09/25/19 [Plaquenil] Nebivolol HCl [Bystolic] 5 mg PO DAILY 09/25/19 Torsemide [Demadex -] 12 mg PO DAILY 09/25/19 Venlafaxine HCl ER [Effexor Xr -] 75 mg DAILY 09/25/19 Losartan Potassium 25 mg PO DAILY 10/04/19 REVIEW OF SYSTEMS CONSTITUTIONAL: chills, generalized weakness, loss of appetite Absent: fever, diaphoresis, malaise, weight change HEENT: Absent: rhinorrhea, nasal congestion, throat pain, throat swelling, difficulty swallowing, visual changes CARDIOVASCULAR: Absent: chest pain, syncope, palpitations, irregular heart rate, lightheadedness , RESPIRATORY: Absent: cough, shortness of breath, dyspnea with exertion, orthopnea, wheezing, GASTROINTESTINAL: constipation Absent: abdominal pain, abdominal distension, nausea, vomiting, diarrhea, GENITOURINARY: Absent: dysuria, frequency, urgency, hesitancy, hematuria, flank pain, MUSCULOSKELETAL: Absent: myalgia, arthralgia, joint swelling, back pain, neck pain SKIN: Absent: rash, itching, pallor HEMATOLOGIC/IMMUNOLOGIC: Absent: easy bleeding, easy bruising, lymphadenopathy, frequent infections ENDOCRINE: Absent: unexplained weight gain, unexplained weight loss, heat intolerance, cold intolerance NEUROLOGIC: LE weakness bilaterally Absent: headache, dizziness, unsteady gait, seizure, mental status changes PSYCHIATRIC: Absent: anxiety, depression, suicidal or homicidal ideation, hallucinations. PHYSICAL EXAMINATION Vital Signs - 24 hr 11/16/19 11/16/19 11/16/19 16:50 20:19 21:30 Temperature 98.7 F 100.0 F H Pulse Rate 80 Pulse Rate [ 77 Right Radial] Respiratory 16 18 Rate Blood Pressure 134/64 Blood Pressure 122/63 [Left Arm] O2 Sat by Pulse 97 95 98 Oximetry (%) GENERAL: Awake, alert, and fully oriented, in no acute distress. HEAD: Normal with no signs of trauma. EYES: Pupils equal, round and reactive to light, extraocular movements intact, conjunctiva clear. EARS, NOSE, THROAT: Oropharynx clear without exudates. Moist mucous membranes. NECK: Normal range of motion, supple without lymphadenopathy, JVD. LUNGS: Breath sounds equal, clear to auscultation bilaterally. No wheezes, and no crackles. No accessory muscle use. HEART: Regular rate and rhythm, normal S1 and S2 without murmur, rub. ABDOMEN: Soft, nontender, not distended, normoactive bowel sounds, no guarding, no rebound, no masses. Urine bag from ileal conduit draining cloudy urine. No erythema around site, no tenderness. MUSCULOSKELETAL: Normal range of motion at all joints. No bony deformities or tenderness. No CVA tenderness. UPPER EXTREMITIES: 2+ pulses, warm, well-perfused. No cyanosis. No clubbing. No peripheral edema. LOWER EXTREMITIES: 2+ pulses, warm, well-perfused. No calf tenderness. No peripheral edema. NEUROLOGICAL: Cranial nerves II-XII intact. 4/5 muscle strength in the bilateral lower extremities. 5/5 upper extremities bilaterally. Sensation intact to gross touch throughout. PSYCHIATRIC: Cooperative. Good eye contact. Appropriate mood and affect. SKIN: Warm, dry, normal turgor, no rashes or lesions noted, normal capillary refill. Laboratory Results - last 24 hr 11/16/19 11/16/19 11/16/19 17:11 17:11 17:11 WBC 13.2 H RBC 4.52 Hgb 11.7 Hct 36.1 MCV 80.0 MCH 26.0 MCHC 32.5 RDW 18.3 H Plt Count 237 D MPV 6.0 L Absolute Neuts (auto) 11.5 H Neutrophils % 86.8 H Lymphocytes % 5.1 L Monocytes % 7.6 Eosinophils % 0.2 D Basophils % 0.3 Nucleated RBC % 0 Sodium 134 L Potassium 5.1 Chloride 106 Carbon Dioxide 23 Anion Gap 6 L BUN 50.8 H Creatinine 1.9 H Est GFR (CKD-EPI)AfAm 37.48 Est GFR (CKD-EPI)NonAf 32.34 POC Glucometer Random Glucose 184 H Lactic Acid 1.6 Calcium 9.6 Total Bilirubin 0.4 AST 13 L ALT 28 Alkaline Phosphatase 98 Total Protein 7.0 Albumin 3.7 Urine Color Urine Appearance Urine pH Ur Specific Waddell Urine Protein Urine Glucose (UA) Urine Ketones Urine Blood Urine Nitrite Urine Bilirubin Urine Urobilinogen Ur Leukocyte Esterase Urine WBC (Auto) Urine RBC (Auto) Urine Casts (Auto) U Epithel Cells (Auto) Urine Bacteria (Auto) 11/16/19 11/16/19 18:31 22:31 WBC RBC Hgb Hct MCV MCH MCHC RDW Plt Count MPV Absolute Neuts (auto) Neutrophils % Lymphocytes % Monocytes % Eosinophils % Basophils % Nucleated RBC % Sodium Potassium Chloride Carbon Dioxide Anion Gap BUN Creatinine Est GFR (CKD-EPI)AfAm Est GFR (CKD-EPI)NonAf POC Glucometer 144 Random Glucose Lactic Acid Calcium Total Bilirubin AST ALT Alkaline Phosphatase Total Protein Albumin Urine Color Yellow Urine Appearance Cloudy Urine pH 7.0 Ur Specific [place] 1.012 Urine Protein 1+ H Urine Glucose (UA) Negative Urine Ketones Negative Urine Blood 1+ H Urine Nitrite Negative Urine Bilirubin Negative Urine Urobilinogen 0.2 Ur Leukocyte Esterase 3+ H Urine WBC (Auto) 65 Urine RBC (Auto) 21 Urine Casts (Auto) 13 U Epithel Cells (Auto) 1.3 Urine Bacteria (Auto) 1268.6 EKG--> sinus with 1st degree AV block and PAC, incomplete RBBB, age indeterminate inferior infarct, no ST segment changes, QTc 421 essentially unchanged since previous EKG in Sep 2019 ASSESSMENT/PLAN: Carlos Marie is an 79 year old male with a past medical history of HTN, Prostate cancer s/p radiation treatment (now with illeal conduit), osteomyelitis of pelvis, depression admitted for UTI. UTI - with multiple history of UTI, will need adequate follow up with urology to determine best course of action in setting of high risk of infection with ileal conduit - patient also with history of elevated blood sugars and A1c not with DM treatment, likely causing infections - UA with noted signs of infection - urology consulted - ID consulted - Zosyn renally dosed - given Vancomycin in ED - random vanco level in the morning and redose as per levels in setting of HOLLY on CKD - monitor I+Os - urine and blood cultures pending HOLLY on CKD - likely in setting of HTN and hyperglycemia - baseline CRE 1.3-1.5 - NS at 50cc/hr - CPK levels - urine prot/CRE ratio - kidney/bladder U/S - I+Os Elevated glucose - has had elevated A1c and BS in the past suggesting DM diagnosis - BGM ACHS - ISS - endocrine consulted - 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 outpatient HTN - continue home nebivilol - will need med rec for MUKUL inhibitor Depression - continue Effexor and Abilify DVT PPx - heparin 5000 units subq tid FEN - NS at 50cc/hr - continue to monitor electrolytes and replete as necessary, hyponatremia noted and receiving fluids - Diabetic/sodium controlled diet Dispo - admit to med-surg Family Medical History Family Hx Cancer: Mother (Non-Hodgkin's lymphoma) Family Hx Gastrointestinal Disorder: Father (colon CA) Visit type - Emergency Visit Emergency Visit: Yes ED Registration Date: 11/16/19 Care time: The patient presented to the Emergency Department on the above date and was hospitalized for further evaluation of their emergent condition. - New Patient This patient is new to me today: Yes Date on this admission: 11/17/19 - Critical Care Critical Care patient: No
[2019-11-17] MEDS ORDERED: FAMOTIDINE 20 MG TABLET PO ONE (02:16)
[2019-11-17] MEDS ORDERED: PIPERACILLIN/TAZOB 2.25 GM 2.25 GM in DEXTROSE 5%-WATER - 50 ML IVPB SCH ×2 (03:00→09:00)
[2019-11-17] MEDS ORDERED: PIPERACILLIN/TAZOB 3.375 GM 3.375 GM in DEXTROSE 5%-WATER - 50 ML IVPB SCH (03:00)
[2019-11-17] MEDS: HEPARIN NA (PORCINE) 5,000 UNITS/ML 1ML VIAL SQ SCH ×3 (05:56→21:31)
[2019-11-17] MEDS: INSULIN SLIDING SCALE (NOVOLOG) 1 VIAL SQ SCH ×4 (06:03→21:34)
[2019-11-17 07:52] LABS: BASO % 0.4 % (0-2.0); EOS % 0.3 % (0-4.5); HEMATOCRIT 31.8 % (35.4-49); HEMOGLOBIN 10.4 GM/dL (11.7-16.9); MCH 26.1 pg (25.7-33.7); MCHC 32.9 g/dl (32.0-35.9); MEAN CELL VOLUME 79.4 fl (80-96); MONO % 10.4 % (3.8-10.2); NEUT % 78.9 % (42.8-82.8); PLATELET COUNT 206 K/MM3 (134-434)
[2019-11-17 08:10] LABS: BLOOD UREA NITROGEN 43.7 mg/dL (7-18); CALCIUM 8.5 mg/dL (8.5-10.1); CREATININE 1.5 mg/dL (0.55-1.3); MAGNESIUM 1.7 mg/dL (1.8-2.4); PHOSPHOROUS 2.7 mg/dL (2.5-4.9); POTASSIUM 4.9 mmol/L (3.5-5.1)
[2019-11-17] MEDS ORDERED: PT OWN MED DRAWER 7, Y5N ONE ×2 (09:04→11:29)
[2019-11-17] MEDS ORDERED: PIPERACILLIN/TAZOBACTAM 2.25 GM VIAL IVPB ONE (09:05)
[2019-11-17] MEDS ORDERED: DEXTROSE 5%-WATER - 50 ML IVPB ONE ×2 (09:05→16:36)
--- NOTE | 2019-11-17 09:11 | CONSULT ---
Consult Consult Specialty:: Endocrinology Referred by:: Carlos Babin Reason for Consultation:: Hyperglycemia - History of Present Illness Chief Complaint: weakness History of Present Illness: This is an 79 year old male with history of HTN, Prostate cancer s/p radiation treatment (now with illeal conduit), osteomyelitis of pelvis, depression, T2DM for about 10 years on Tradjenta who presents with a 1 day history of chills, generalized weakness greater in the lower extremities, clouding urine, anorexia. Patient was recently admitted in September 2019 for UTI and was discharged on 2 weeks of IV ertapenem which he successfully completed. Pt referred for management of hyperglycemia. FS at home 140s. Pt says his last A1c was around 6.7 and attributes current hyperglycemia to not taking Tradjenta for about a month. He denied cp, sob, abd pain, n/v/c/d, dizziness, lightheadedness , headaches, falls, fevers, hematuria, CVA< back pain. Denied recent travel or sick contacts. - History Source History Provided By: Patient - Past Medical History Cardio/Vascular: Yes: CAD, HTN Renal/: Yes: Cancer, Other Endocrine: Yes: Diabetes Mellitus - Alcohol/Substance Use Hx Alcohol Use: No - Smoking History Smoking history: Never smoked Have you smoked in the past 12 months: No Aproximately how many cigarettes per day: 0 If you are a former smoker, when did you quit?: 37 YRS AGO Home Medications - Allergies Allergies/Adverse Reactions: Allergies Allergy/AdvReac Type Severity Reaction Status Date / Time Iodinated Contrast Media Allergy Intermediate Hives Verified 11/16/19 21:58 [Iodinated Contrast- Oral and IV Dye] iodine Allergy Rash Verified 11/16/19 21:58 Sulfa (Sulfonamide Allergy "KIDNEY Verified 11/16/19 21:58 Antibiotics) ISSUES" sulfacetamide AdvReac Severe Verified 11/16/19 21:58 [From Sulfamide] - Home Medications Home Medications: Ambulatory Orders Allopurinol [Zyloprim -] 100 mg PO DAILY 09/25/19 Aripiprazole 2 mg DAILY 09/25/19 Escitalopram Oxalate [Lexapro -] 20 mg PO DAILY 09/25/19 Ezetimibe 10 mg PO DAILY 09/25/19 Hydroxychloroquine Sulfate [Plaquenil] 200 mg PO BID 09/25/19 Nebivolol HCl [Bystolic] 5 mg PO DAILY 09/25/19 Torsemide [Demadex -] 12 mg PO DAILY 09/25/19 Venlafaxine HCl ER [Effexor Xr -] 75 mg DAILY 09/25/19 Losartan Potassium 25 mg PO DAILY 10/04/19 Review of Systems - Review of Systems Constitutional: reports: Weakness Eyes: reports: No Symptoms HENT: reports: No Symptoms Neck: reports: No Symptoms Cardiovascular: reports: No Symptoms Respiratory: reports: No Symptoms Gastrointestinal: reports: No Symptoms Genitourinary: reports: Frequency Musculoskeletal: reports: No Symptoms Neurological: reports: No Symptoms Physical Exam Vital Signs: Vital Signs Temperature 99.6 F 11/17/19 06:14 Pulse Rate 87 11/17/19 06:14 Respiratory Rate 11/17/19 06:14 Blood Pressure 145/68 11/17/19 06:14 O2 Sat by Pulse Oximetry (%) 98 11/16/19 21:30 Constitutional: Yes: No Distress, Calm Eyes: Yes: Conjunctiva Clear, EOM Intact HENT: Yes: Atraumatic, Normocephalic Neck: Yes: Supple, Trachea Midline Cardiovascular: Yes: Regular Rate and Rhythm Respiratory: Yes: Regular, CTA Bilaterally Gastrointestinal: Yes: Normal Bowel Sounds, Soft Musculoskeletal: Yes: WNL Extremities: Yes: WNL Edema: No Neurological: Yes: Alert, Oriented Labs: CBC, BMP 11/17/19 07:20 11/17/19 07:20 Assessment/Plan AP: UTI HOLLY HTN T2DM Diet exercise discussed Diabetes education done. BGM Novolog coverage Start Januvia 25mg Qd while in the hospital. Pt can take Tradjenta once he is discharged home Refuses Nutrition consult. Abx Please recall if necessary
[2019-11-17] MEDS: ALLOPURINOL 100 MG TABLET (FP) PO SCH (09:41)
[2019-11-17] MEDS: VENLAFAXINE HCL 75 MG E.R. CAPSULES PO SCH (09:42)
[2019-11-17] MEDS: NEBIVOLOL 5 MG TABLET (FP) PO SCH (09:42)
[2019-11-17] MEDS: ARIPiprazole 2 MG TABLET PO SCH (09:42)
[2019-11-17] MEDS: ESCITALOPRAM OXALATE 20 MG TABLET PO SCH (09:42)
[2019-11-17] MEDS ORDERED: NEBIVOLOL 10 MG TABLET (FP) PO SCH (10:00)
--- NOTE | 2019-11-17 10:46 | PN ---
Progress Note (short form) - Note Progress Note: ID CONSULT DICTATED UTI R/O SEPSIS SECONDARY TO UTI S/P ILEAL CONDUIT CKD AWAIT C/S CONTINUE EMPIRIC ZOSYN
[2019-11-17] MEDS: PIPERACILLIN/TAZOB 2.25 GM 2.25 GM in DEXTROSE 5%-WATER - 50 ML IVPB SCH (10:57)
[2019-11-17] MEDS ORDERED: INSULIN (NOVOLOG) ASPART 100 UNITS/ML 10ML VIAL ONE (11:29)
[2019-11-17] MEDS: EZETIMIBE 10 MG TABLET (FP) PO SCH (11:55)
--- NOTE | 2019-11-17 12:14 | CONS ---
INFECTIOUS DISEASE CONSULTATION DATE OF CONSULTATION: 11/17/2019 HISTORY: The patient is an 79-year-old male with a history of prostate cancer status post radiation therapy, history of urinary bladder cystectomy with ileal conduit July 2019, now evaluated for possible urosepsis. He was admitted to the hospital on November 16, 2019, with a 2-day history of generalized malaise, shaking chills. He had presented to the emergency room where urine in the collection bag was noted to be cloudy. He was also noted to have a low-grade fever and an elevated white blood cell count. Cultures were obtained. He was empirically treated with Zosyn. At the present time, he is awake and alert. He reports feeling better. He denies any recurrent rigors or chills. He has no complaints of abdominal or pelvic pain. No recurrent fever. 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 ALLERGIES: IODINE and SULFA. MEDICATIONS: Include Tylenol, allopurinol, Abilify, Zetia, Pepcid, hydroxychloroquine. SOCIAL HISTORY: Negative for tobacco or alcohol. He is retired. SYSTEMS REVIEW: Neurologic: No loss of consciousness, seizure activity, focal weakness. Cardiac: Negative chest pain or palpitations. Respiratory: Negative cough or sputum production. Gastrointestinal: Negative vomiting or diarrhea. Genitourinary: As per HPI. LABORATORY DATA: White count on admission 13.2, presently 12.0, 78 neutrophils, 10 lymphocytes, 10 monocytes, hematocrit 31.8, platelet count 206, creatinine 1.5. Urinalysis, 65 white cells. Cultures pending. Urine culture from September 2019, positive for citrobacter. Blood culture also positive for citrobacter, sensitive to Zosyn. PHYSICAL EXAMINATION: General: He is awake and alert. He is not acutely toxic appearing. Vital Signs: Temperature 99.6, maximum temperature 100, blood pressure 145/68, pulse 87 regular, respirations 20 per minute. HEENT: Sclerae anicteric. Heart: Sounds S1, S2. Lungs: Clear. Abdomen: Soft. No tenderness elicited. There is an ileal conduit present, and the collection bag is clear. Extremities: Negative for edema. Negative Homans sign. IMPRESSION: 1. Urinary tract infection, rule out sepsis secondary to urinary tract infection. 2. Status post ileal conduit. 3. Chronic kidney disease. 4. History of prostate cancer. 5. History of pubic bone osteomyelitis. PLAN: Await sepsis workup. Continue empiric antibiotic coverage with Zosyn. Further recommendations pending culture results. Urology follow up. Thank you for the kind referral. ARIANA REDDY M.D. [id number]
[2019-11-17] MEDS ORDERED: DOCUSATE NA 100 MG/10 ML UNIT-DOSE CUPS PO PRN (12:41)
[2019-11-17] MEDS ORDERED: POLYETHYLENE GLYCOL 3350 119 GM BTL PO ONE (12:42)
[2019-11-17] MEDS: SIMETHICONE 80 MG TAB.CHEW (FP) PO PRN ×3 (12:56→21:31)
--- NOTE | 2019-11-17 13:47 | EKG ---
Test Reason : Blood Pressure : / mmHG Vent. 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
--- NOTE | 2019-11-17 14:11 | PN ---
Physical Exam: 79 M h/o T2DM, HTN, HLD, Prostate cancer (s/p radiation now with illeal conduit) , Osteomyelitis of pelvis, Depression, and CKD admitted for symptomatic UTI. Patient endorses fever and chills now much improved, no fevers overnight, WBC count trending down. Sitting up in chair, tolerating PO, feeling better. GA comfortable, AAxo3, speaking in full sentences, sitting in chair eating breakfast HEENT: NC/AT, EOMI, neck supple, MMM, no JVD Chest: Good effort. Clear to auscultation b/l. Heart: S1, S2+, RRR, no m/r/g Abdomen: Not distended, soft, nontender and no HSM. Ileal conduit site clean. No rebound or guarding. Normal bowel sounds. Ext: Peripheral pulses intact. No leg edema. Skin: Warm and dry. No petechiae, rash or ecchymosis. Neuro: Alert. Oriented x3. CN 2-12 grossly intact. Sensation grossly intact in all four extremities and DTR are symmetric. Psych: Appropriate mood and affect. Good insight. Vital Signs - 24 hr 11/16/19 11/16/19 11/16/19 16:50 20:19 21:00 Temperature 98.7 F Pulse Rate 80 Pulse Rate [ Right Radial] Respiratory 16 18 Rate Blood Pressure 134/64 Blood Pressure [Left Arm] O2 Sat by Pulse 97 95 98 Oximetry (%) 11/16/19 11/17/19 11/17/19 21:30 00:00 06:14 Temperature 100.0 F H 97.6 F 99.6 F Pulse Rate 82 87 Pulse Rate [ 77 Right Radial] Respiratory 18 20 20 Rate Blood Pressure 156/91 145/68 Blood Pressure 122/63 [Left Arm] O2 Sat by Pulse 98 Oximetry (%) 11/17/19 11/17/19 11/17/19 09:00 10:00 13:59 Temperature 99.8 F H 98.5 F Pulse Rate 83 67 Pulse Rate [ Right Radial] Respiratory 20 20 Rate Blood Pressure 130/77 127/67 Blood Pressure [Left Arm] O2 Sat by Pulse 95 Oximetry (%) Laboratory Results - last 24 hr 11/16/19 11/16/19 11/16/19 17:11 17:11 17:11 WBC 13.2 H RBC 4.52 Hgb 11.7 Hct 36.1 MCV 80.0 MCH 26.0 MCHC 32.5 RDW 18.3 H Plt Count 237 D MPV 6.0 L Absolute Neuts (auto) 11.5 H Neutrophils % 86.8 H Lymphocytes % 5.1 L Monocytes % 7.6 Eosinophils % 0.2 D Basophils % 0.3 Nucleated RBC % 0 Sodium 134 L Potassium 5.1 Chloride 106 Carbon Dioxide 23 Anion Gap 6 L BUN 50.8 H Creatinine 1.9 H Est GFR (CKD-EPI)AfAm 37.48 Est GFR (CKD-EPI)NonAf 32.34 POC Glucometer Random Glucose 184 H Hemoglobin A1c % Lactic Acid 1.6 Calcium 9.6 Phosphorus Magnesium Total Bilirubin 0.4 AST 13 L ALT 28 Alkaline Phosphatase 98 Creatine Kinase Total Protein 7.0 Albumin 3.7 Urine Color Urine Appearance Urine pH Ur Specific Lang[place] Urine Protein Urine Glucose (UA) Urine Ketones Urine Blood Urine Nitrite Urine Bilirubin Urine Urobilinogen Ur Leukocyte Esterase Urine WBC (Auto) Urine RBC (Auto) Urine Casts (Auto) U Epithel Cells (Auto) Urine Bacteria (Auto) U Random Total Protein Urine Creatinine Protein/Creatinin Ratio Random Vancomycin 11/16/19 11/16/19 11/17/19 18:31 22:31 04:45 WBC RBC Hgb Hct MCV MCH MCHC RDW Plt Count MPV Absolute Neuts (auto) Neutrophils % Lymphocytes % Monocytes % Eosinophils % Basophils % Nucleated RBC % Sodium Potassium Chloride Carbon Dioxide Anion Gap BUN Creatinine Est GFR (CKD-EPI)AfAm Est GFR (CKD-EPI)NonAf POC Glucometer 144 Random Glucose Hemoglobin A1c % Lactic Acid Calcium Phosphorus Magnesium Total Bilirubin AST ALT Alkaline Phosphatase Creatine Kinase Total Protein Albumin Urine Color Yellow Urine Appearance Cloudy Urine pH 7.0 Ur Specific Lang[place] 1.012 Urine Protein 1+ H Urine Glucose (UA) Negative Urine Ketones Negative Urine Blood 1+ H Urine Nitrite Negative Urine Bilirubin Negative Urine Urobilinogen 0.2 Ur Leukocyte Esterase 3+ H Urine WBC (Auto) 65 Urine RBC (Auto) 21 Urine Casts (Auto) 13 U Epithel Cells (Auto) 1.3 Urine Bacteria (Auto) 1268.6 U Random Total Protein 42.8 H Urine Creatinine 48.0 Protein/Creatinin Ratio 0.9 Random Vancomycin 11/17/19 11/17/19 11/17/19 05:53 06:00 07:20 WBC 12.0 H RBC 4.00 Hgb 10.4 L Hct 31.8 L MCV 79.4 L MCH 26.1 MCHC 32.9 RDW 18.0 H Plt Count 206 MPV 6.0 L Absolute Neuts (auto) 9.4 H Neutrophils % 78.9 Lymphocytes % 10.0 D Monocytes % 10.4 H Eosinophils % 0.3 Basophils % 0.4 Nucleated RBC % 0 Sodium Potassium Chloride Carbon Dioxide Anion Gap BUN Creatinine Est GFR (CKD-EPI)AfAm Est GFR (CKD-EPI)NonAf POC Glucometer 144 Random Glucose Hemoglobin A1c % Lactic Acid Calcium Phosphorus Magnesium Total Bilirubin AST ALT Alkaline Phosphatase Creatine Kinase Total Protein Albumin Urine Color Urine Appearance Urine pH Ur Specific [place] Urine Protein Urine Glucose (UA) Urine Ketones Urine Blood Urine Nitrite Urine Bilirubin Urine Urobilinogen Ur Leukocyte Esterase Urine WBC (Auto) Urine RBC (Auto) Urine Casts (Auto) U Epithel Cells (Auto) Urine Bacteria (Auto) U Random Total Protein Urine Creatinine Protein/Creatinin Ratio Random Vancomycin 9.6 L 11/17/19 11/17/19 11/17/19 07:20 07:20 11:54 WBC RBC Hgb Hct MCV MCH MCHC RDW Plt Count MPV Absolute Neuts (auto) Neutrophils % Lymphocytes % Monocytes % Eosinophils % Basophils % Nucleated RBC % Sodium 136 Potassium 4.9 Chloride 109 H Carbon Dioxide 19 L Anion Gap 7 L BUN 43.7 H Creatinine 1.5 H Est GFR (CKD-EPI)AfAm 49.89 Est GFR (CKD-EPI)NonAf 43.04 POC Glucometer 96 Random Glucose 137 H Hemoglobin A1c % 6.8 H Lactic Acid Calcium 8.5 Phosphorus 2.7 Magnesium 1.7 L Total Bilirubin AST ALT Alkaline Phosphatase Creatine Kinase 21 L Total Protein Albumin Urine Color Urine Appearance Urine pH Ur Specific [place] Urine Protein Urine Glucose (UA) Urine Ketones Urine Blood Urine Nitrite Urine Bilirubin Urine Urobilinogen Ur Leukocyte Esterase Urine WBC (Auto) Urine RBC (Auto) Urine Casts (Auto) U Epithel Cells (Auto) Urine Bacteria (Auto) U Random Total Protein Urine Creatinine Protein/Creatinin Ratio Random Vancomycin Current Medications Generic Name Dose Route Start Last Admin Trade Name Freq PRN Reason Stop Dose Admin Allopurinol 100 mg 11/17/19 10:00 11/17/19 09:41 Zyloprim - PO 100 mg DAILY YAYA Administration Aripiprazole 2 mg 11/17/19 10:00 11/17/19 09:42 Abilify PO 2 mg DAILY YAYA Administration Docusate Sodium 100 mg 11/17/19 12:41 Colace Liquid - PO DAILY PRN CONSTIPATION Ezetimibe 10 mg 11/17/19 10:00 11/17/19 11:55 Zetia - PO 10 mg DAILY YAYA Administration Escitalopram Oxalate 20 mg 11/17/19 10:00 11/17/19 09:42 Lexapro - PO 20 mg DAILY YAYA Administration Heparin Sodium (Porcine) 5,000 unit 11/17/19 06:00 11/17/19 13:41 Heparin - SQ 5,000 unit TID YAYA Administration Hydroxychloroquine Sulfate 200 mg 11/16/19 22:00 11/17/19 09:42 Plaquenil - PO 200 mg BID YAYA Administration Sodium Chloride 1,000 mls @ 50 mls/hr 11/16/19 21:30 11/16/19 22:04 Normal Saline - IV 11/17/19 21:30 50 mls/hr ASDIR YAYA Administration Piperacillin Sod/Tazobactam 50 mls @ 100 mls/hr 11/17/19 18:00 Sod 3.375 gm/ Dextrose IVPB Q8H-IV [facility] Protocol Insulin Aspart 1 vial 11/16/19 22:00 11/17/19 11:55 Novolog Vial Sliding Scale - SQ Not Given ACHS [facility] Protocol Nebivolol 5 mg 11/17/19 10:00 11/17/19 09:42 Bystolic - PO 5 mg DAILY YAYA Administration Senna 1 tab 11/17/19 22:00 Senna - PO HS [facility] Simethicone 80 mg 11/17/19 12:42 11/17/19 12:56 Mylicon - PO 80 mg QID PRN Administration DYSPEPSIA Venlafaxine HCl 75 mg 11/17/19 10:00 11/17/19 09:42 Effexor Xr - PO 75 mg DAILY YAYA Administration A/P: 79 M h/o prostate ca s/p radiation w/ ileal conduit, newly diagnosed T2Dm, HTN, HLD, CKD admitted for UTI, recurrent UTi in history, now improved symptoms after 1 day of abx. UTI Cont. Zosyn, give bowel regimen (patient endorses constipation) to avoid urinary retention/stagnant urine No signs of sepsis, WBC trending down, VSS, Afebrile Follow urine cx ID consult: Dr Izaguirre Newly diagnosed T2DM A1c 6.8% Endo evaluation to establish care certified travel counselor on diet, exercise, weight loss, will likely need Metformin/Januvia as outpatient Recurrent UTI's w/ ileal conduit Urology evaluation aggressive bowel regimen HTn cont. BP meds HLD cont. Statin DVT ppx: Heparin SC Visit type - Emergency Visit Emergency Visit: Yes ED Registration Date: 11/16/19 Care time: The patient presented to the Emergency Department on the above date and was hospitalized for further evaluation of their emergent condition. - New Patient This patient is new to me today: Yes Date on this admission: 11/17/19 - Critical Care Critical Care patient: No - Discharge Referral Referred to [facility] Med P.C.: No
[2019-11-17] MEDS ORDERED: PIPERACILLIN/TAZOBACTAM 3.375 GM VIAL IVPB ONE (16:35)
[2019-11-17] MEDS: PIPERACILLIN/TAZOB 3.375 GM 3.375 GM in DEXTROSE 5%-WATER - 50 ML IVPB SCH (17:38)
[2019-11-17] MEDS: SODIUM CHLORIDE 1,000 ML IV SCH (21:30)
[2019-11-17] MEDS: SENNOSIDES 8.6MG TABLET (FP) PO SCH (21:31)
[2019-11-18] MEDS ORDERED: DEXTROSE 5%-WATER - 50 ML IVPB ONE ×3 (01:23→16:12)
[2019-11-18] MEDS ORDERED: PIPERACILLIN/TAZOBACTAM 3.375 GM VIAL IVPB ONE ×3 (01:23→16:12)
[2019-11-18] MEDS: PIPERACILLIN/TAZOB 3.375 GM 3.375 GM in DEXTROSE 5%-WATER - 50 ML IVPB SCH ×3 (01:33→17:03)
[2019-11-18] MEDS: HEPARIN NA (PORCINE) 5,000 UNITS/ML 1ML VIAL SQ SCH ×3 (06:09→21:36)
[2019-11-18] MEDS: INSULIN SLIDING SCALE (NOVOLOG) 1 VIAL SQ SCH ×4 (06:14→21:59)
[2019-11-18] MEDS: ALLOPURINOL 100 MG TABLET (FP) PO SCH ×2 (09:39→09:49)
[2019-11-18] MEDS: HYDROXYCHLOROQUINE SO4 200 MG TABLET (FP) PO SCH ×2 (09:39→21:36)
[2019-11-18] MEDS: NEBIVOLOL 5 MG TABLET (FP) PO SCH (09:39)
[2019-11-18] MEDS: ARIPiprazole 2 MG TABLET PO SCH (09:39)
[2019-11-18] MEDS: VENLAFAXINE HCL 75 MG E.R. CAPSULES PO SCH (09:39)
[2019-11-18] MEDS: EZETIMIBE 10 MG TABLET (FP) PO SCH (09:39)
[2019-11-18] MEDS: ESCITALOPRAM OXALATE 20 MG TABLET PO SCH (09:46)
--- NOTE | 2019-11-18 17:10 | PN ---
Physical Exam: 79 M h/o T2DM, HTN, HLD, Prostate cancer (s/p radiation now with illeal conduit) , Osteomyelitis of pelvis, Depression, and CKD admitted for symptomatic UTI. Patient feels well, urine cx growing lactose ferm. gram neg. likely E. coli, no fevers overnight, awaiting urology evaluation. VSS. GA comfortable, AAxo3, speaking in full sentences, sitting in chair eating lunch HEENT: NC/AT, EOMI, neck supple, MMM, no JVD Chest: Good effort. Clear to auscultation b/l. Heart: S1, S2+, RRR, no m/r/g Abdomen: Not distended, soft, nontender and no HSM. Ileal conduit site clean. No rebound or guarding. Normal bowel sounds. Ext: Peripheral pulses intact. No leg edema. Skin: Warm and dry. No petechiae, rash or ecchymosis. Neuro: Alert. Oriented x3. CN 2-12 grossly intact. Sensation grossly intact in all four extremities and DTR are symmetric. Psych: Appropriate mood and affect. Good insight. Vital Signs - 24 hr 11/17/19 11/17/19 11/17/19 18:38 21:00 21:06 Temperature 98.8 F 98.3 F Pulse Rate 69 61 Respiratory 18 17 17 Rate Blood Pressure 139/71 116/66 O2 Sat by Pulse 98 Oximetry (%) 11/18/19 11/18/19 11/18/19 06:00 09:00 14:21 Temperature 98.3 F 98.7 F Pulse Rate 60 61 Respiratory 18 18 18 Rate Blood Pressure 144/82 133/61 O2 Sat by Pulse 96 Oximetry (%) Microbiology 11/16/19 18:31 Urine - Urine Suprapubic Urine Culture - Preliminary Lactose Fermenting Neg Bacilli 11/16/19 17:11 Blood - Peripheral Venous Blood Culture - Preliminary NO GROWTH OBTAINED AFTER 24 HOURS, INCUBATION TO CONTINUE FOR 4 DAYS. 11/16/19 17:11 Blood - Peripheral Venous Blood Culture - Preliminary NO GROWTH OBTAINED AFTER 24 HOURS, INCUBATION TO CONTINUE FOR 4 DAYS. A/P: 79 M h/o prostate ca s/p radiation w/ ileal conduit, newly diagnosed T2Dm, HTN, HLD, CKD admitted for UTI, recurrent UTi in history, now improved symptoms. UTI Cont. Zosyn in view of MDRO in the past (last cx in 09/2019) No signs of sepsis, WBC trending down, VSS, Afebrile Follow urine cx and sensitivities ID consult: Dr Izaguirre Newly diagnosed T2DM A1c 6.8% Appreciate Endo recommendation elder counselor on diet, exercise, weight loss, will likely need Metformin/Januvia as outpatient Recurrent UTI's w/ ileal conduit will need Urology evaluation to evaluate ileal conduit due to multiple UTIs aggressive bowel regimen HTn cont. BP meds HLD cont. Statin DVT ppx: Heparin SC Visit type - Emergency Visit Emergency Visit: Yes ED Registration Date: 11/16/19 Care time: The patient presented to the Emergency Department on the above date and was hospitalized for further evaluation of their emergent condition. - New Patient This patient is new to me today: No - Critical Care Critical Care patient: No - Discharge Referral Referred to [facility] Med P.C.: No
--- NOTE | 2019-11-18 18:32 | PN ---
Progress Note, Physician History of Present Illness: AWAKE IN BED FEELING BETTER NO COMPLAINTS NON-TOXIC APPEARING AFEBRILE URINE C/S GNR - Current Medication List Current Medications: Active Medications Allopurinol (Zyloprim -) 100 mg PO DAILY [facility] Last Admin: 11/18/19 09:49 Dose: Not Given Aripiprazole (Abilify) 2 mg PO DAILY [facility] Last Admin: 11/18/19 09:39 Dose: 2 mg Docusate Sodium (Colace Liquid -) 100 mg PO DAILY PRN PRN Reason: CONSTIPATION Ezetimibe (Zetia -) 10 mg PO DAILY [facility] Last Admin: 11/18/19 09:39 Dose: 10 mg Escitalopram Oxalate (Lexapro -) 20 mg PO DAILY [facility] Last Admin: 11/18/19 09:46 Dose: 20 mg Heparin Sodium (Porcine) (Heparin -) 5,000 unit SQ TID [facility] Last Admin: 11/18/19 13:20 Dose: 5,000 unit Hydroxychloroquine Sulfate (Plaquenil -) 200 mg PO BID [facility] Last Admin: 11/18/19 09:39 Dose: 200 mg Piperacillin Sod/Tazobactam (Sod 3.375 gm/ Dextrose) 50 mls @ 100 mls/hr IVPB Q8H-IV [facility]; Protocol Last Admin: 11/18/19 17:03 Dose: 100 mls/hr Insulin Aspart (Novolog Vial Sliding Scale -) 1 vial SQ ACHS [facility]; Protocol Last Admin: 11/18/19 16:47 Dose: Not Given Nebivolol (Bystolic -) 5 mg PO DAILY [facility] Last Admin: 11/18/19 09:39 Dose: 5 mg Senna (Senna -) 1 tab PO HS [facility] Last Admin: 11/17/19 21:31 Dose: 1 tab Simethicone (Mylicon -) 80 mg PO QID PRN PRN Reason: DYSPEPSIA Last Admin: 11/17/19 21:31 Dose: 80 mg Sitagliptin Phosphate (Januvia -) 25 mg PO DAILY@0700 [facility] Last Admin: 11/18/19 06:09 Dose: 25 mg Venlafaxine HCl (Effexor Xr -) 75 mg PO DAILY [facility] Last Admin: 11/18/19 09:39 Dose: 75 mg - Objective Vital Signs: Vital Signs Temperature 98.7 F 11/18/19 14:21 Pulse Rate 61 01/18/20 14:21 Respiratory Rate 18 11/18/19 14:21 Blood Pressure 133/61 11/18/19 14:21 O2 Sat by Pulse Oximetry (%) 96 11/18/19 09:00 Constitutional: Yes: No Distress Eyes: Yes: Conjunctiva Clear Cardiovascular: Yes: Regular Rate and Rhythm, S1, S2 Respiratory: Yes: CTA Bilaterally Gastrointestinal: Yes: Normal Bowel Sounds, Soft Genitourinary: Yes: Other (+ ILEOSTOMY) Edema: No Labs: CBC, BMP 11/17/19 07:20 11/17/19 07:20 Assessment/Plan RECURRENT UTI S/P ILEOSTOMY CKD AWAIT C/S CONTINUE ZOSYN
--- NOTE | 2019-11-18 19:23 | CON.NEP ---
Consult - Past Medical History Cardio/Vascular: Yes: CAD, HTN Renal/: Yes: Cancer, Other Endocrine: Yes: Diabetes Mellitus - Alcohol/Substance Use Hx Alcohol Use: No - Smoking History Smoking history: Never smoked Have you smoked in the past 12 months: No Aproximately how many cigarettes per day: 0 If you are a former smoker, when did you quit?: 37 YRS AGO Home Medications - Allergies Allergies/Adverse Reactions: Allergies Allergy/AdvReac Type Severity Reaction Status Date / Time Iodinated Contrast Media Allergy Intermediate Hives Verified 11/16/19 21:58 [Iodinated Contrast- Oral and IV Dye] iodine Allergy Rash Verified 11/16/19 21:58 Sulfa (Sulfonamide Allergy "KIDNEY Verified 11/16/19 21:58 Antibiotics) ISSUES" sulfacetamide AdvReac Severe Verified 11/16/19 21:58 [From Sulfamide] - Home Medications Home Medications: Ambulatory Orders Allopurinol [Zyloprim -] 100 mg PO DAILY 09/25/19 Aripiprazole 2 mg DAILY 09/25/19 Escitalopram Oxalate [Lexapro -] 20 mg PO DAILY 09/25/19 Ezetimibe 10 mg PO DAILY 09/25/19 Hydroxychloroquine Sulfate [Plaquenil] 200 mg PO BID 09/25/19 Nebivolol HCl [Bystolic] 5 mg PO DAILY 09/25/19 Torsemide [Demadex -] 12 mg PO DAILY 09/25/19 Venlafaxine HCl ER [Effexor Xr -] 75 mg DAILY 09/25/19 Losartan Potassium 25 mg PO DAILY 10/04/19 Nephrology Consult - Height Height: 5 ft 5 in - Weight Weight: 197 lb - BMI Body Mass Index (BMI): 32.8 - Lab Results CBC,BMP: CBC, BMP 11/17/19 07:20 11/17/19 07:20 Anion Gap: Anion Gap Anion Gap 7 MMOL/L (8-16) L 11/17/19 07:20 - Physical Examination Vital Signs: Vital Signs Temperature 98.0 F 11/18/19 18:39 Pulse Rate 62 11/18/19 18:39 Respiratory Rate 18 11/18/19 18:39 Blood Pressure 143/72 11/18/19 18:39 O2 Sat by Pulse Oximetry (%) 96 11/18/19 09:00 Assessment/Plan leatha prerenal and acute infection The patient is an 79 year old female with a past medical history of HTN, HLD, prostate cancer s/p radiation, osteomyelitis, depression, and CKD weakness and cloudy urine x one day of cloudy urine, general weakness, and chills. was hospitalized in 09/19 for a UTI. Follow labs tomorrow continue hydration efforts
[2019-11-18] MEDS ORDERED: INSULIN (NOVOLOG) ASPART 100 UNITS/ML 10ML VIAL ONE (20:46)
[2019-11-18] MEDS: SIMETHICONE 80 MG TAB.CHEW (FP) PO PRN (20:49)
[2019-11-18] MEDS: SENNOSIDES 8.6MG TABLET (FP) PO SCH (21:59)
[2019-11-19] MEDS ORDERED: PIPERACILLIN/TAZOBACTAM 3.375 GM VIAL IVPB ONE ×3 (01:07→17:31)
[2019-11-19] MEDS ORDERED: DEXTROSE 5%-WATER - 50 ML IVPB ONE ×3 (01:08→17:32)
[2019-11-19] MEDS: PIPERACILLIN/TAZOB 3.375 GM 3.375 GM in DEXTROSE 5%-WATER - 50 ML IVPB SCH ×3 (01:37→17:52)
[2019-11-19] MEDS: INSULIN SLIDING SCALE (NOVOLOG) 1 VIAL SQ SCH ×4 (06:39→21:53)
[2019-11-19] MEDS: HEPARIN NA (PORCINE) 5,000 UNITS/ML 1ML VIAL SQ SCH ×3 (06:41→21:53)
[2019-11-19 08:56] LABS: BASO % 0.6 % (0-2.0); EOS % 4.7 % (0-4.5); HEMATOCRIT 30.9 % (35.4-49); HEMOGLOBIN 10.1 GM/dL (11.7-16.9); LYMPH % 28.2 % (8-40); MCH 25.8 pg (25.7-33.7); MCHC 32.6 g/dl (32.0-35.9); MEAN CELL VOLUME 79.1 fl (80-96); MONO % 11.9 % (3.8-10.2); NEUT % 54.6 % (42.8-82.8); PLATELET COUNT 203 K/MM3 (134-434); RBC 3.91 M/mm3 (4.00-5.60); RDW 17.3 % (11.9-15.9); WHITE BLOOD COUNT 5.7 K/mm3 (4.0-10.0)
[2019-11-19 08:57] LABS: MEAN PLT VOLUME 5.8 fl (7.5-11.1)
[2019-11-19 09:24] LABS: ALBUMIN 2.8 g/dl (3.4-5.0); BILIRUBIN,TOTAL 0.4 mg/dL (0.2-1); BLOOD UREA NITROGEN 34.5 mg/dL (7-18); CREATININE 1.3 mg/dL (0.55-1.3); POTASSIUM 4.4 mmol/L (3.5-5.1); TOT PROT 5.8 g/dl (6.4-8.2)
[2019-11-19] MEDS: HYDROXYCHLOROQUINE SO4 200 MG TABLET (FP) PO SCH ×2 (10:04→21:54)
[2019-11-19] MEDS: EZETIMIBE 10 MG TABLET (FP) PO SCH (10:04)
[2019-11-19] MEDS: ALLOPURINOL 100 MG TABLET (FP) PO SCH ×2 (10:04→10:15)
[2019-11-19] MEDS: ESCITALOPRAM OXALATE 20 MG TABLET PO SCH (10:04)
[2019-11-19] MEDS: VENLAFAXINE HCL 75 MG E.R. CAPSULES PO SCH (10:05)
[2019-11-19] MEDS: NEBIVOLOL 5 MG TABLET (FP) PO SCH (10:05)
[2019-11-19] MEDS: ARIPiprazole 2 MG TABLET PO SCH (10:05)
--- NOTE | 2019-11-19 15:02 | PN ---
Physical Exam: 79 M h/o T2DM, HTN, HLD, Prostate cancer (s/p radiation now with illeal conduit) , Osteomyelitis of pelvis, Depression, and CKD admitted for symptomatic UTI. Patient feels well, urine cx growing MDRO Citrobacter, sensitive to Zosyn but will likely need IV abx to complete course. Otherwise no fevers, no complaints. Feeling better. GA comfortable, AAxo3, speaking in full sentences, Sitting up in stretcher HEENT: NC/AT, EOMI, neck supple, MMM, no JVD Chest: Good effort. Clear to auscultation b/l. Heart: S1, S2+, RRR, no m/r/g Abdomen: Not distended, soft, nontender and no HSM. Ileal conduit site clean. No rebound or guarding. Normal bowel sounds. Ext: Peripheral pulses intact. No leg edema. Skin: Warm and dry. No petechiae, rash or ecchymosis. Neuro: Alert. Oriented x3. CN 2-12 grossly intact. Sensation grossly intact in all four extremities and DTR are symmetric. Psych: Appropriate mood and affect. Good insight. Vital Signs (72 hours) 11/16/19 11/16/19 11/16/19 16:50 20:19 21:00 Temperature 98.7 F Pulse Rate 80 Pulse Rate [ Right Radial] Respiratory 16 18 Rate Blood Pressure 134/64 Blood Pressure [Left Arm] O2 Sat by Pulse 97 95 98 Oximetry (%) 11/16/19 11/17/19 11/17/19 21:30 00:00 06:14 Temperature 100.0 F H 97.6 F 99.6 F Pulse Rate 82 87 Pulse Rate [ 77 Right Radial] Respiratory 18 20 20 Rate Blood Pressure 156/91 145/68 Blood Pressure 122/63 [Left Arm] O2 Sat by Pulse 98 Oximetry (%) 11/17/19 11/17/19 11/17/19 09:00 10:00 13:59 Temperature 99.8 F H 98.5 F Pulse Rate 83 67 Pulse Rate [ Right Radial] Respiratory 20 20 Rate Blood Pressure 130/77 127/67 Blood Pressure [Left Arm] O2 Sat by Pulse 95 Oximetry (%) 11/17/19 11/17/19 11/17/19 18:38 21:00 21:06 Temperature 98.8 F 98.3 F Pulse Rate 69 61 Pulse Rate [ Right Radial] Respiratory 18 17 17 Rate Blood Pressure 139/71 116/66 Blood Pressure [Left Arm] O2 Sat by Pulse 98 Oximetry (%) 11/18/19 11/18/19 11/18/19 06:00 09:00 14:21 Temperature 98.3 F 98.7 F Pulse Rate 60 61 Pulse Rate [ Right Radial] Respiratory 18 18 18 Rate Blood Pressure 144/82 133/61 Blood Pressure [Left Arm] O2 Sat by Pulse 96 Oximetry (%) 11/18/19 11/18/19 11/18/19 18:05 18:39 21:00 Temperature 97.8 F 98.0 F Pulse Rate 71 62 Pulse Rate [ Right Radial] Respiratory 19 18 18 Rate Blood Pressure 146/79 143/72 Blood Pressure [Left Arm] O2 Sat by Pulse 99 Oximetry (%) 11/19/19 11/19/19 11/19/19 00:00 06:00 09:00 Temperature 98 F 97.4 F L Pulse Rate 59 L 55 L Pulse Rate [ Right Radial] Respiratory 18 18 Rate Blood Pressure 150/81 146/84 Blood Pressure [Left Arm] O2 Sat by Pulse 97 Oximetry (%) Microbiology 11/16/19 18:31 Urine - Urine Suprapubic Urine Culture - Preliminary Citrobacter Farmeri Lactose Fermenting Neg Bacilli Non Lactose Fermenting Gnb 11/16/19 17:11 Blood - Peripheral Venous Blood Culture - Preliminary NO GROWTH OBTAINED AFTER 48 HOURS, INCUBATION TO CONTINUE FOR 3 DAYS. 11/16/19 17:11 Blood - Peripheral Venous Blood Culture - Preliminary NO GROWTH OBTAINED AFTER 48 HOURS, INCUBATION TO CONTINUE FOR 3 DAYS. Laboratory Results - last 24 hr 11/18/19 11/18/19 11/19/19 16:42 20:53 06:05 WBC RBC Hgb Hct MCV MCH MCHC RDW Plt Count MPV Absolute Neuts (auto) Neutrophils % Lymphocytes % Monocytes % Eosinophils % Basophils % Nucleated RBC % Sodium Potassium Chloride Carbon Dioxide Anion Gap BUN Creatinine Est GFR (CKD-EPI)AfAm Est GFR (CKD-EPI)NonAf POC Glucometer 113 135 105 Random Glucose Calcium Total Bilirubin AST ALT Alkaline Phosphatase Total Protein Albumin 11/19/19 11/19/19 11/19/19 07:00 07:00 10:35 WBC 5.7 RBC 3.91 L Hgb 10.1 L Hct 30.9 L MCV 79.1 L MCH 25.8 MCHC 32.6 RDW 17.3 H Plt Count 203 MPV 5.8 L Absolute Neuts (auto) 3.1 Neutrophils % 54.6 D Lymphocytes % 28.2 D Monocytes % 11.9 H Eosinophils % 4.7 H D Basophils % 0.6 Nucleated RBC % 0 Sodium 136 Potassium 4.4 Chloride 109 H Carbon Dioxide 22 Anion Gap 5 L BUN 34.5 H Creatinine 1.3 Est GFR (CKD-EPI)AfAm 59.31 Est GFR (CKD-EPI)NonAf 51.17 POC Glucometer 127 Random Glucose 103 Calcium 9.0 Total Bilirubin 0.4 AST 18 ALT 27 Alkaline Phosphatase 70 Total Protein 5.8 L Albumin 2.8 L Current Medications Generic Name Dose Route Start Last Admin Trade Name Freq PRN Reason Stop Dose Admin Allopurinol 100 mg 11/17/19 10:00 11/19/19 10:15 Zyloprim - PO Not Given DAILY YAYA Aripiprazole 2 mg 11/17/19 10:00 11/19/19 10:05 Abilify PO 2 mg DAILY YAYA Administration Docusate Sodium 100 mg 11/17/19 12:41 Colace Liquid - PO DAILY PRN CONSTIPATION Ezetimibe 10 mg 11/17/19 10:00 11/19/19 10:04 Zetia - PO 10 mg DAILY [facility]AYA Administration Escitalopram Oxalate 20 mg 11/17/19 10:00 11/19/19 10:04 Lexapro - PO 20 mg DAILY [facility]A Administration Heparin Sodium (Porcine) 5,000 unit 11/17/19 06:00 11/19/19 14:20 Heparin - SQ 5,000 unit TID YAYA Administration Hydroxychloroquine Sulfate 200 mg 11/16/19 22:00 11/19/19 10:04 Plaquenil - PO 200 mg BID YAYA Administration Piperacillin Sod/Tazobactam 50 mls @ 100 mls/hr 11/17/19 18:00 11/19/19 10:04 Sod 3.375 gm/ Dextrose IVPB 100 mls/hr Q8H-IV [facility]A Administration Protocol Insulin Aspart 1 vial 11/16/19 22:00 11/19/19 10:37 Novolog Vial Sliding Scale - SQ Not Given ACHS [facility] Protocol Nebivolol 5 mg 11/17/19 10:00 11/19/19 10:05 Bystolic - PO 5 mg DAILY [facility]A Administration Senna 1 tab 11/17/19 22:00 11/18/19 21:59 Senna - PO Not Given HS YAYA Simethicone 80 mg 11/17/19 12:42 11/18/19 20:49 Mylicon - PO 80 mg QID PRN Administration DYSPEPSIA Sitagliptin Phosphate 25 mg 11/18/19 07:00 11/19/19 06:41 Januvia - PO 25 mg DAILY@0700 YAYA Administration Venlafaxine HCl 75 mg 11/17/19 10:00 11/19/19 10:05 Effexor Xr - PO 75 mg DAILY YAYA Administration A/P: 79 M h/o prostate ca s/p radiation w/ ileal conduit, newly diagnosed T2Dm, HTN, HLD, CKD admitted for UTI, recurrent UTi in history, now improved symptoms. UTI Cont. Zosyn in view of MDRO Citrobacter growing on urine cx No signs of sepsis, WBC trending down, VSS, Afebrile Will likely need to finish abx course with IV abx ID consult: Dr Izaguirre Newly diagnosed T2DM A1c 6.8% Appreciate Endo recommendation halfway house counselor on diet, exercise, weight loss, will likely need Metformin/Januvia as outpatient Recurrent UTI's w/ ileal conduit will need Urology evaluation to evaluate ileal conduit due to multiple UTIs aggressive bowel regimen HTn cont. BP meds HLD cont. Statin DVT ppx: Heparin SC Visit type - Emergency Visit Emergency Visit: Yes ED Registration Date: 11/16/19 Care time: The patient presented to the Emergency Department on the above date and was hospitalized for further evaluation of their emergent condition. - New Patient This patient is new to me today: No - Critical Care Critical Care patient: No - Discharge Referral Referred to [facility] Med P.C.: No
[2019-11-19] MEDS: LOSARTAN POTASSIUM 25 MG TABLET PO SCH (15:39)
--- NOTE | 2019-11-19 20:46 | PN ---
Progress Note (short form) - Note Progress Note: problems leatha prerenal and acute infection HTN, HLD, prostate cancer s/p radiation, osteomyelitis, depression, and CKD Current Medications Allopurinol (Zyloprim -) 100 mg PO DAILY [facility] Last Admin: 11/19/19 10:15 Dose: Not Given Aripiprazole (Abilify) 2 mg PO DAILY [facility] Last Admin: 11/19/19 10:05 Dose: 2 mg Docusate Sodium (Colace Liquid -) 100 mg PO DAILY PRN PRN Reason: CONSTIPATION Ezetimibe (Zetia -) 10 mg PO DAILY [facility] Last Admin: 11/19/19 10:04 Dose: 10 mg Escitalopram Oxalate (Lexapro -) 20 mg PO DAILY [facility] Last Admin: 11/19/19 10:04 Dose: 20 mg Heparin Sodium (Porcine) (Heparin -) 5,000 unit SQ TID [facility] Last Admin: 11/19/19 14:20 Dose: 5,000 unit Hydroxychloroquine Sulfate (Plaquenil -) 200 mg PO BID [facility] Last Admin: 11/19/19 10:04 Dose: 200 mg Piperacillin Sod/Tazobactam (Sod 3.375 gm/ Dextrose) 50 mls @ 100 mls/hr IVPB Q8H-IV [facility]; Protocol Last Admin: 11/19/19 17:52 Dose: 100 mls/hr Insulin Aspart (Novolog Vial Sliding Scale -) 1 vial SQ ACHS [facility]; Protocol Last Admin: 11/19/19 17:29 Dose: Not Given Losartan Potassium (Cozaar -) 25 mg PO DAILY [facility] Last Admin: 11/19/19 15:39 Dose: 25 mg Nebivolol (Bystolic -) 5 mg PO DAILY [facility] Last Admin: 11/19/19 10:05 Dose: 5 mg Senna (Senna -) 1 tab PO HS [facility] Last Admin: 11/18/19 21:59 Dose: Not Given Simethicone (Mylicon -) 80 mg PO QID PRN PRN Reason: DYSPEPSIA Last Admin: 11/18/19 20:49 Dose: 80 mg Sitagliptin Phosphate (Januvia -) 25 mg PO DAILY@0700 [facility] Last Admin: 11/19/19 06:41 Dose: 25 mg Venlafaxine HCl (Effexor Xr -) 75 mg PO DAILY [facility] Last Admin: 11/19/19 10:05 Dose: 75 mg Last Vital Signs Temp Pulse Resp BP Pulse Ox 97.4 F L 67 20 154/89 97 11/19/19 18:00 11/19/19 18:00 11/19/19 18:00 11/19/19 18:00 11/19/19 09:00 awake in nad Lungs clear heart reg Abd soft nontender ext no edema CBC, BMP 11/19/19 07:00 11/19/19 07:00 IMP- leatha on ckd renal function is improving Plan- continue to monitor labs
[2019-11-19] MEDS: SENNOSIDES 8.6MG TABLET (FP) PO SCH (21:54)
[2019-11-19] MEDS: SIMETHICONE 80 MG TAB.CHEW (FP) PO PRN (23:10)
[2019-11-20] MEDS ORDERED: DEXTROSE 5%-WATER - 50 ML IVPB ONE ×2 (01:26→09:56)
[2019-11-20] MEDS ORDERED: PIPERACILLIN/TAZOBACTAM 3.375 GM VIAL IVPB ONE ×2 (01:26→09:56)
[2019-11-20] MEDS: PIPERACILLIN/TAZOB 3.375 GM 3.375 GM in DEXTROSE 5%-WATER - 50 ML IVPB SCH ×2 (02:21→09:59)
[2019-11-20] MEDS: HEPARIN NA (PORCINE) 5,000 UNITS/ML 1ML VIAL SQ SCH ×2 (06:31→14:55)
[2019-11-20] MEDS: INSULIN SLIDING SCALE (NOVOLOG) 1 VIAL SQ SCH ×3 (06:31→17:25)
[2019-11-20 09:02] LABS: BASO % 0.6 % (0-2.0); EOS % 4.8 % (0-4.5); HEMATOCRIT 30.8 % (35.4-49); LYMPH % 27.5 % (8-40); MCH 25.8 pg (25.7-33.7); MCHC 32.6 g/dl (32.0-35.9); MEAN CELL VOLUME 79.3 fl (80-96); MEAN PLT VOLUME 6.1 fl (7.5-11.1); MONO % 10.3 % (3.8-10.2); NEUT % 56.8 % (42.8-82.8); PLATELET COUNT 226 K/MM3 (134-434); RBC 3.89 M/mm3 (4.00-5.60); RDW 17.5 % (11.9-15.9); WHITE BLOOD COUNT 5.7 K/mm3 (4.0-10.0)
[2019-11-20 09:27] LABS: BLOOD UREA NITROGEN 31.9 mg/dL (7-18); CALCIUM 9.4 mg/dL (8.5-10.1); CREATININE 1.4 mg/dL (0.55-1.3); POTASSIUM 4.4 mmol/L (3.5-5.1)
[2019-11-20] MEDS: ALLOPURINOL 100 MG TABLET (FP) PO SCH (10:00)
[2019-11-20] MEDS: LOSARTAN POTASSIUM 25 MG TABLET PO SCH (10:00)
[2019-11-20] MEDS: HYDROXYCHLOROQUINE SO4 200 MG TABLET (FP) PO SCH (10:00)
[2019-11-20] MEDS: ESCITALOPRAM OXALATE 20 MG TABLET PO SCH (10:00)
[2019-11-20] MEDS: EZETIMIBE 10 MG TABLET (FP) PO SCH (10:00)
[2019-11-20] MEDS: NEBIVOLOL 5 MG TABLET (FP) PO SCH (10:01)
[2019-11-20] MEDS: ARIPiprazole 2 MG TABLET PO SCH (10:01)
[2019-11-20] MEDS: VENLAFAXINE HCL 75 MG E.R. CAPSULES PO SCH (10:01)
--- NOTE | 2019-11-20 14:58 | PN ---
Progress Note, Physician History of Present Illness: AWAKE IN BED FEELING BETTER NO COMPLAINTS NON-TOXIC APPEARING AFEBRILE URINE C/S mixed organisms - Current Medication List Current Medications: Active Medications Allopurinol (Zyloprim -) 100 mg PO DAILY [facility] Last Admin: 11/20/19 10:00 Dose: 100 mg Aripiprazole (Abilify) 2 mg PO DAILY [facility] Last Admin: 11/20/19 10:01 Dose: 2 mg Docusate Sodium (Colace Liquid -) 100 mg PO DAILY PRN PRN Reason: CONSTIPATION Last Admin: 11/20/19 10:02 Dose: 100 mg Ezetimibe (Zetia -) 10 mg PO DAILY [facility] Last Admin: 11/20/19 10:00 Dose: 10 mg Escitalopram Oxalate (Lexapro -) 20 mg PO DAILY [facility] Last Admin: 11/20/19 10:00 Dose: 20 mg Heparin Sodium (Porcine) (Heparin -) 5,000 unit SQ TID [facility] Last Admin: 11/20/19 14:55 Dose: Not Given Hydroxychloroquine Sulfate (Plaquenil -) 200 mg PO BID [facility] Last Admin: 11/20/19 10:00 Dose: 200 mg Piperacillin Sod/Tazobactam (Sod 3.375 gm/ Dextrose) 50 mls @ 100 mls/hr IVPB Q8H-IV [facility]; Protocol Last Admin: 11/20/19 09:59 Dose: 100 mls/hr Insulin Aspart (Novolog Vial Sliding Scale -) 1 vial SQ ACHS [facility]; Protocol Last Admin: 11/20/19 11:20 Dose: Not Given Losartan Potassium (Cozaar -) 25 mg PO DAILY [facility] Last Admin: 11/20/19 10:00 Dose: 25 mg Nebivolol (Bystolic -) 5 mg PO DAILY [facility] Last Admin: 11/20/19 10:01 Dose: 5 mg Senna (Senna -) 1 tab PO HS [facility] Last Admin: 11/19/19 21:54 Dose: 1 tab Simethicone (Mylicon -) 80 mg PO QID PRN PRN Reason: DYSPEPSIA Last Admin: 11/19/19 23:10 Dose: 80 mg Sitagliptin Phosphate (Januvia -) 25 mg PO DAILY@0700 [facility] Last Admin: 11/20/19 06:31 Dose: 25 mg Venlafaxine HCl (Effexor Xr -) 75 mg PO DAILY [facility] Last Admin: 11/20/19 10:01 Dose: 75 mg - Objective Vital Signs: Vital Signs Temperature 98.3 F 11/20/19 10:00 Pulse Rate 61 11/20/19 10:00 Respiratory Rate 18 11/20/19 10:00 Blood Pressure 142/76 11/20/19 10:00 O2 Sat by Pulse Oximetry (%) 97 11/20/19 09:00 Constitutional: Yes: No Distress Eyes: Yes: Conjunctiva Clear Cardiovascular: Yes: Regular Rate and Rhythm, S1, S2 Respiratory: Yes: CTA Bilaterally Gastrointestinal: Yes: Normal Bowel Sounds, Soft. No: Tenderness Genitourinary: Yes: Other (+ ileostomy urine clear) Labs: CBC, BMP 11/20/19 07:45 11/20/19 07:45 Assessment/Plan RECURRENT UTI S/P ILEOSTOMY CKD DAY#5 ZOSYN SWITCH TO BACTRIM DS PO ONCE DAILY X 5D OUTPATIENT UROLOGY FOLLOWUP
[2019-11-20] MEDS ORDERED: SULFAMETHOXAZOLE/TRIMETHOPRIM 800MG/160MG D.S. TABLET PO SCH (15:00)
--- NOTE | 2019-11-20 15:48 | PN ---
Progress Note, Physician History of Present Illness: Pt seen and examined at bedside. He denies fevers or chills. He denies shortness of breath. - Current Medication List Current Medications: Active Medications Allopurinol (Zyloprim -) 100 mg PO DAILY [facility] Last Admin: 11/20/19 10:00 Dose: 100 mg Aripiprazole (Abilify) 2 mg PO DAILY [facility] Last Admin: 11/20/19 10:01 Dose: 2 mg Docusate Sodium (Colace Liquid -) 100 mg PO DAILY PRN PRN Reason: CONSTIPATION Last Admin: 11/20/19 10:02 Dose: 100 mg Ezetimibe (Zetia -) 10 mg PO DAILY [facility] Last Admin: 11/20/19 10:00 Dose: 10 mg Escitalopram Oxalate (Lexapro -) 20 mg PO DAILY [facility] Last Admin: 11/20/19 10:00 Dose: 20 mg Heparin Sodium (Porcine) (Heparin -) 5,000 unit SQ TID [facility] Last Admin: 11/20/19 14:55 Dose: Not Given Hydroxychloroquine Sulfate (Plaquenil -) 200 mg PO BID [facility] Last Admin: 11/20/19 10:00 Dose: 200 mg Insulin Aspart (Novolog Vial Sliding Scale -) 1 vial SQ [facility]; Protocol Last Admin: 11/20/19 11:20 Dose: Not Given Losartan Potassium (Cozaar -) 25 mg PO DAILY [facility] Last Admin: 11/20/19 10:00 Dose: 25 mg Nebivolol (Bystolic -) 5 mg PO DAILY [facility] Last Admin: 11/20/19 10:01 Dose: 5 mg Senna (Senna -) 1 tab PO HS [facility] Last Admin: 11/19/19 21:54 Dose: 1 tab Simethicone (Mylicon -) 80 mg PO QID PRN PRN Reason: DYSPEPSIA Last Admin: 11/19/19 23:10 Dose: 80 mg Sitagliptin Phosphate (Januvia -) 25 mg PO DAILY@0700 [facility] Last Admin: 11/20/19 06:31 Dose: 25 mg Trimethoprim/Sulfamethoxazole (Bactrim Ds -) 1 each PO DAILY [facility] Last Admin: 11/20/19 15:14 Dose: 1 each Venlafaxine HCl (Effexor Xr -) 75 mg PO DAILY [facility] Last Admin: 11/20/19 10:01 Dose: 75 mg - Objective Vital Signs: Vital Signs Temperature 98.3 F 11/20/19 10:00 Pulse Rate 61 11/20/19 10:00 Respiratory Rate 18 11/20/19 10:00 Blood Pressure 142/76 11/20/19 10:00 O2 Sat by Pulse Oximetry (%) 97 11/20/19 09:00 Constitutional: Yes: Calm Eyes: Yes: Conjunctiva Clear HENT: Yes: Atraumatic Neck: Yes: Supple Cardiovascular: Yes: S1, S2 Respiratory: Yes: CTA Bilaterally Gastrointestinal: Yes: Normal Bowel Sounds, Soft Genitourinary: Yes: Geronimo Present, Other (ileal conduit) Musculoskeletal: Yes: WNL Edema: Yes Edema: LLE: Trace, RLE: Trace Neurological: Yes: Oriented Psychiatric: Yes: Oriented Labs: CBC, BMP 11/20/19 07:45 11/20/19 07:45 Assessment/Plan Current Medications Generic Name Dose Route Start Last Admin Trade Name Freq PRN Reason Stop Dose Admin Allopurinol 100 mg 11/17/19 10:00 11/20/19 10:00 Zyloprim - PO 100 mg DAILY [facility] Administration Aripiprazole 2 mg 11/17/19 10:00 11/20/19 10:01 Abilify PO 2 mg DAILY [facility] Administration Docusate Sodium 100 mg 11/17/19 12:41 11/20/19 10:02 Colace Liquid - PO 100 mg DAILY PRN Administration CONSTIPATION Ezetimibe 10 mg 11/17/19 10:00 11/20/19 10:00 Zetia - PO 10 mg DAILY [facility] Administration Escitalopram Oxalate 20 mg 11/17/19 10:00 11/20/19 10:00 Lexapro - PO 20 mg DAILY [facility] Administration Heparin Sodium (Porcine) 5,000 unit 11/17/19 06:00 11/20/19 14:55 Heparin - SQ Not Given TID [facility] Hydroxychloroquine Sulfate 200 mg 11/16/19 22:00 11/20/19 10:00 Plaquenil - PO 200 mg BID [facility] Administration Insulin Aspart 1 vial 11/16/19 22:00 11/20/19 11:20 Novolog Vial Sliding Scale - SQ Not Given ACHS [facility] Protocol Losartan Potassium 25 mg 11/19/19 15:03 11/20/19 10:00 Cozaar - PO 25 mg DAILY [facility] Administration Nebivolol 5 mg 11/17/19 10:00 11/20/19 10:01 Bystolic - PO 5 mg DAILY [facility] Administration Senna 1 tab 11/17/19 22:00 11/19/19 21:54 Senna - PO 1 tab HS [facility] Administration Simethicone 80 mg 11/17/19 12:42 11/19/19 23:10 Mylicon - PO 80 mg QID PRN Administration DYSPEPSIA Sitagliptin Phosphate 25 mg 11/18/19 07:00 11/20/19 06:31 Januvia - PO 25 mg DAILY@0700 [facility] Administration Trimethoprim/Sulfamethoxazole 1 each 11/20/19 15:00 11/20/19 15:14 Bactrim Ds - PO 1 each DAILY [facility] Administration Venlafaxine HCl 75 mg 11/17/19 10:00 11/20/19 10:01 Effexor Xr - PO 75 mg DAILY [facility] Administration Impression 1. CKD 2. htn 3. prostate ca 4. hx of ileal conduit 5. UTI Plan - monitor renal function - abx per ID - avoid nsaids - he will get his bmp drawn as outpt - pt will follow with Dr Brooks as outpt
[2019-11-20 16:26] VITALS: BP 148/86; PULSE 57; TEMP 97.9
[2019-11-20] MEDS: SIMETHICONE 80 MG TAB.CHEW (FP) PO PRN (17:52)
--- NOTE | 2019-11-20 19:53 | DS ---
Physical Exam: 79 M h/o T2DM, HTN, HLD, Prostate cancer (s/p radiation now with illeal conduit) , Osteomyelitis of pelvis, Depression, and CKD admitted for symptomatic UTI. Urine cx growing MDRO Citrobacter/pseudomonas, sensitive to Zosyn and eventually transitioned to PO Bactrim as per ID recommendations. Patient's CRE slowly improved now at baseline, patient ready for discharge with follow up this week with Dr. Montana (renal) and urology follow up in [facility]. [place] comfortable, AAxo3, speaking in full sentences, sitting in chair HEENT: NC/AT, EOMI, neck supple, MMM, no JVD Chest: Good effort. Clear to auscultation b/l. Heart: S1, S2+, RRR, no m/r/g Abdomen: Not distended, soft, nontender and no HSM. Ileal conduit site clean. No rebound or guarding. Normal bowel sounds. Ext: Peripheral pulses intact. No leg edema. Skin: Warm and dry. No petechiae, rash or ecchymosis. Neuro: Alert. Oriented x3. CN 2-12 grossly intact. Sensation grossly intact in all four extremities and DTR are symmetric. Psych: Appropriate mood and affect. Good insight. Vital Signs - 24 hr 11/19/19 11/19/19 11/20/19 21:00 22:00 06:00 Temperature 97.5 F L 97.7 F Pulse Rate 70 57 L Respiratory 20 18 18 Rate Blood Pressure 139/79 151/89 O2 Sat by Pulse 99 Oximetry (%) 11/20/19 11/20/19 11/20/19 09:00 10:00 14:00 Temperature 98.3 F 97.9 F Pulse Rate 61 57 L Respiratory 18 18 Rate Blood Pressure 142/76 148/86 O2 Sat by Pulse 97 Oximetry (%) Microbiology 11/16/19 17:11 Blood - Peripheral Venous Blood Culture - Preliminary NO GROWTH OBTAINED AFTER 96 HOURS, INCUBATION TO CONTINUE FOR 1 DAYS. 11/16/19 17:11 Blood - Peripheral Venous Blood Culture - Preliminary NO GROWTH OBTAINED AFTER 96 HOURS, INCUBATION TO CONTINUE FOR 1 DAYS. 11/16/19 18:31 Urine - Urine Suprapubic Urine Culture - Final Citrobacter Farmeri Klebsiella Pneumoniae Pseudomonas Aeruginosa Laboratory Tests 01/16/20 01/16/20 01/16/20 17:11 17:11 17:11 WBC 13.2 H RBC 4.52 Hgb 11.7 Hct 36.1 MCV 80.0 MCH 26.0 MCHC 32.5 RDW 18.3 H Plt Count 237 D MPV 6.0 L Absolute Neuts (auto) 11.5 H Neutrophils % 86.8 H Lymphocytes % 5.1 L Monocytes % 7.6 Eosinophils % 0.2 D Basophils % 0.3 Nucleated RBC % 0 Sodium 134 L Potassium 5.1 Chloride 106 Carbon Dioxide 23 Anion Gap 6 L BUN 50.8 H Creatinine 1.9 H Est GFR (CKD-EPI)AfAm 37.48 Est GFR (CKD-EPI)NonAf 32.34 POC Glucometer Random Glucose 184 H Hemoglobin A1c % Lactic Acid 1.6 Calcium 9.6 Phosphorus Magnesium Total Bilirubin 0.4 AST 13 L ALT 28 Alkaline Phosphatase 98 Creatine Kinase Total Protein 7.0 Albumin 3.7 Urine Color Urine Appearance Urine pH Ur Specific [place] Urine Protein Urine Glucose (UA) Urine Ketones Urine Blood Urine Nitrite Urine Bilirubin Urine Urobilinogen Ur Leukocyte Esterase Urine WBC (Auto) Urine RBC (Auto) Urine Casts (Auto) U Epithel Cells (Auto) Urine Bacteria (Auto) U Random Total Protein Urine Creatinine Protein/Creatinin Ratio Random Vancomycin 11/16/19 11/16/19 11/17/19 18:31 22:31 04:45 WBC RBC Hgb Hct MCV MCH MCHC RDW Plt Count MPV Absolute Neuts (auto) Neutrophils % Lymphocytes % Monocytes % Eosinophils % Basophils % Nucleated RBC % Sodium Potassium Chloride Carbon Dioxide Anion Gap BUN Creatinine Est GFR (CKD-EPI)AfAm Est GFR (CKD-EPI)NonAf POC Glucometer 144 Random Glucose Hemoglobin A1c % Lactic Acid Calcium Phosphorus Magnesium Total Bilirubin AST ALT Alkaline Phosphatase Creatine Kinase Total Protein Albumin Urine Color Yellow Urine Appearance Cloudy Urine pH 7.0 Ur Specific [place] 1.012 Urine Protein 1+ H Urine Glucose (UA) Negative Urine Ketones Negative Urine Blood 1+ H Urine Nitrite Negative Urine Bilirubin Negative Urine Urobilinogen 0.2 Ur Leukocyte Esterase 3+ H Urine WBC (Auto) 65 Urine RBC (Auto) 21 Urine Casts (Auto) 13 U Epithel Cells (Auto) 1.3 Urine Bacteria (Auto) 1268.6 U Random Total Protein 42.8 H Urine Creatinine 48.0 Protein/Creatinin Ratio 0.9 Random Vancomycin 11/17/19 11/17/1911/17/20 05:53 06:00 07:20 WBC 12.0 H RBC 4.00 Hgb 10.4 L Hct 31.8 L MCV 79.4 L MCH 26.1 MCHC 32.9 RDW 18.0 H Plt Count 206 MPV 6.0 L Absolute Neuts (auto) 9.4 H Neutrophils % 78.9 Lymphocytes % 10.0 D Monocytes % 10.4 H Eosinophils % 0.3 Basophils % 0.4 Nucleated RBC % 0 Sodium Potassium Chloride Carbon Dioxide Anion Gap BUN Creatinine Est GFR (CKD-EPI)AfAm Est GFR (CKD-EPI)NonAf POC Glucometer 144 Random Glucose Hemoglobin A1c % Lactic Acid Calcium Phosphorus Magnesium Total Bilirubin AST ALT Alkaline Phosphatase Creatine Kinase Total Protein Albumin Urine Color Urine Appearance Urine pH Ur Specific [place] Urine Protein Urine Glucose (UA) Urine Ketones Urine Blood Urine Nitrite Urine Bilirubin Urine Urobilinogen Ur Leukocyte Esterase Urine WBC (Auto) Urine RBC (Auto) Urine Casts (Auto) U Epithel Cells (Auto) Urine Bacteria (Auto) U Random Total Protein Urine Creatinine Protein/Creatinin Ratio Random Vancomycin 9.6 L 11/17/19 11/17/19 11/17/19 07:20 07:20 11:54 WBC RBC Hgb Hct MCV MCH MCHC RDW Plt Count MPV Absolute Neuts (auto) Neutrophils % Lymphocytes % Monocytes % Eosinophils % Basophils % Nucleated RBC % Sodium 136 Potassium 4.9 Chloride 109 H Carbon Dioxide 19 L Anion Gap 7 L BUN 43.7 H Creatinine 1.5 H Est GFR (CKD-EPI)AfAm 49.89 Est GFR (CKD-EPI)NonAf 43.04 POC Glucometer 96 Random Glucose 137 H Hemoglobin A1c % 6.8 H Lactic Acid Calcium 8.5 Phosphorus 2.7 Magnesium 1.7 L Total Bilirubin AST ALT Alkaline Phosphatase Creatine Kinase 21 L Total Protein Albumin Urine Color Urine Appearance Urine pH Ur Specific [place] Urine Protein Urine Glucose (UA) Urine Ketones Urine Blood Urine Nitrite Urine Bilirubin Urine Urobilinogen Ur Leukocyte Esterase Urine WBC (Auto) Urine RBC (Auto) Urine Casts (Auto) U Epithel Cells (Auto) Urine Bacteria (Auto) U Random Total Protein Urine Creatinine Protein/Creatinin Ratio Random Vancomycin 11/17/19 11/17/19 11/17/19 16:41 21:32 21:35 WBC RBC Hgb Hct MCV MCH MCHC RDW Plt Count MPV Absolute Neuts (auto) Neutrophils % Lymphocytes % Monocytes % Eosinophils % Basophils % Nucleated RBC % Sodium Potassium Chloride Carbon Dioxide Anion Gap BUN Creatinine Est GFR (CKD-EPI)AfAm Est GFR (CKD-EPI)NonAf POC Glucometer 94 97 Random Glucose Hemoglobin A1c % Lactic Acid 0.8 Calcium Phosphorus Magnesium Total Bilirubin AST ALT Alkaline Phosphatase Creatine Kinase Total Protein Albumin Urine Color Urine Appearance Urine pH Ur Specific [place] Urine Protein Urine Glucose (UA) Urine Ketones Urine Blood Urine Nitrite Urine Bilirubin Urine Urobilinogen Ur Leukocyte Esterase Urine WBC (Auto) Urine RBC (Auto) Urine Casts (Auto) U Epithel Cells (Auto) Urine Bacteria (Auto) U Random Total Protein Urine Creatinine Protein/Creatinin Ratio Random Vancomycin 11/18/19 11/18/19 11/18/19 06:12 11:49 16:42 WBC RBC Hgb Hct MCV MCH MCHC RDW Plt Count MPV Absolute Neuts (auto) Neutrophils % Lymphocytes % Monocytes % Eosinophils % Basophils % Nucleated RBC % Sodium Potassium Chloride Carbon Dioxide Anion Gap BUN Creatinine Est GFR (CKD-EPI)AfAm Est GFR (CKD-EPI)NonAf POC Glucometer 110 129 113 Random Glucose Hemoglobin A1c % Lactic Acid Calcium Phosphorus Magnesium Total Bilirubin AST ALT Alkaline Phosphatase Creatine Kinase Total Protein Albumin Urine Color Urine Appearance Urine pH Ur Specific [place] Urine Protein Urine Glucose (UA) Urine Ketones Urine Blood Urine Nitrite Urine Bilirubin Urine Urobilinogen Ur Leukocyte Esterase Urine WBC (Auto) Urine RBC (Auto) Urine Casts (Auto) U Epithel Cells (Auto) Urine Bacteria (Auto) U Random Total Protein Urine Creatinine Protein/Creatinin Ratio Random Vancomycin 11/18/19 11/19/19 11/19/19 20:53 06:05 07:00 WBC 5.7 RBC 3.91 L Hgb 10.1 L Hct 30.9 L MCV 79.1 L MCH 25.8 MCHC 32.6 RDW 17.3 H Plt Count 203 MPV 5.8 L Absolute Neuts (auto) 3.1 Neutrophils % 54.6 D Lymphocytes % 28.2 D Monocytes % 11.9 H Eosinophils % 4.7 H D Basophils % 0.6 Nucleated RBC % 0 Sodium Potassium Chloride Carbon Dioxide Anion Gap BUN Creatinine Est GFR (CKD-EPI)AfAm Est GFR (CKD-EPI)NonAf POC Glucometer 135 105 Random Glucose Hemoglobin A1c % Lactic Acid Calcium Phosphorus Magnesium Total Bilirubin AST ALT Alkaline Phosphatase Creatine Kinase Total Protein Albumin Urine Color Urine Appearance Urine pH Ur Specific [place] Urine Protein Urine Glucose (UA) Urine Ketones Urine Blood Urine Nitrite Urine Bilirubin Urine Urobilinogen Ur Leukocyte Esterase Urine WBC (Auto) Urine RBC (Auto) Urine Casts (Auto) U Epithel Cells (Auto) Urine Bacteria (Auto) U Random Total Protein Urine Creatinine Protein/Creatinin Ratio Random Vancomycin 11/19/19 11/19/19 11/19/19 07:00 10:35 17:28 WBC RBC Hgb Hct MCV MCH MCHC RDW Plt Count MPV Absolute Neuts (auto) Neutrophils % Lymphocytes % Monocytes % Eosinophils % Basophils % Nucleated RBC % Sodium 136 Potassium 4.4 Chloride 109 H Carbon Dioxide 22 Anion Gap 5 L BUN 34.5 H Creatinine 1.3 Est GFR (CKD-EPI)AfAm 59.31 Est GFR (CKD-EPI)NonAf 51.17 POC Glucometer 127 120 Random Glucose 103 Hemoglobin A1c % Lactic Acid Calcium 9.0 Phosphorus Magnesium Total Bilirubin 0.4 AST 18 ALT 27 Alkaline Phosphatase 70 Creatine Kinase Total Protein 5.8 L Albumin 2.8 L Urine Color Urine Appearance Urine pH Ur Specific [place] Urine Protein Urine Glucose (UA) Urine Ketones Urine Blood Urine Nitrite Urine Bilirubin Urine Urobilinogen Ur Leukocyte Esterase Urine WBC (Auto) Urine RBC (Auto) Urine Casts (Auto) U Epithel Cells (Auto) Urine Bacteria (Auto) U Random Total Protein Urine Creatinine Protein/Creatinin Ratio Random Vancomycin 11/19/19 11/20/19 11/20/19 21:19 06:12 07:45 WBC 5.7 RBC 3.89 L Hgb 10.0 L Hct 30.8 L MCV 79.3 L MCH 25.8 MCHC 32.6 RDW 17.5 H Plt Count 226 MPV 6.1 L Absolute Neuts (auto) 3.3 Neutrophils % 56.8 Lymphocytes % 27.5 Monocytes % 10.3 H Eosinophils % 4.8 H Basophils % 0.6 Nucleated RBC % 0 Sodium Potassium Chloride Carbon Dioxide Anion Gap BUN Creatinine Est GFR (CKD-EPI)AfAm Est GFR (CKD-EPI)NonAf POC Glucometer 115 98 Random Glucose Hemoglobin A1c % Lactic Acid Calcium Phosphorus Magnesium Total Bilirubin AST ALT Alkaline Phosphatase Creatine Kinase Total Protein Albumin Urine Color Urine Appearance Urine pH Ur Specific [place] Urine Protein Urine Glucose (UA) Urine Ketones Urine Blood Urine Nitrite Urine Bilirubin Urine Urobilinogen Ur Leukocyte Esterase Urine WBC (Auto) Urine RBC (Auto) Urine Casts (Auto) U Epithel Cells (Auto) Urine Bacteria (Auto) U Random Total Protein Urine Creatinine Protein/Creatinin Ratio Random Vancomycin 11/20/19 11/20/19 11/20/19 07:45 11:19 16:44 WBC RBC Hgb Hct MCV MCH MCHC RDW Plt Count MPV Absolute Neuts (auto) Neutrophils % Lymphocytes % Monocytes % Eosinophils % Basophils % Nucleated RBC % Sodium 138 Potassium 4.4 Chloride 108 H Carbon Dioxide 25 Anion Gap 5 L BUN 31.9 H Creatinine 1.4 H Est GFR (CKD-EPI)AfAm 54.22 Est GFR (CKD-EPI)NonAf 46.79 POC Glucometer 98 110 Random Glucose 98 Hemoglobin A1c % Lactic Acid Calcium 9.4 Phosphorus Magnesium Total Bilirubin AST ALT Alkaline Phosphatase Creatine Kinase Total Protein Albumin Urine Color Urine Appearance Urine pH Ur Specific [place] Urine Protein Urine Glucose (UA) Urine Ketones Urine Blood Urine Nitrite Urine Bilirubin Urine Urobilinogen Ur Leukocyte Esterase Urine WBC (Auto) Urine RBC (Auto) Urine Casts (Auto) U Epithel Cells (Auto) Urine Bacteria (Auto) U Random Total Protein Urine Creatinine Protein/Creatinin Ratio Random Vancomycin Home Medications Medication Instructions Recorded Allopurinol [Zyloprim -] 100 mg PO DAILY 09/25/19 Aripiprazole 2 mg DAILY 09/25/19 Escitalopram Oxalate [Lexapro -] 20 mg PO DAILY 09/25/19 Ezetimibe 10 mg PO DAILY 09/25/19 Hydroxychloroquine Sulfate 200 mg PO BID 09/25/19 [Plaquenil] Nebivolol HCl [Bystolic] 5 mg PO DAILY 09/25/19 Torsemide [Demadex -] 12 mg PO DAILY 09/25/19 Venlafaxine HCl ER [Effexor Xr -] 75 mg DAILY 09/25/19 Famotidine 20 mg PO DAILY 11/18/19 Sulfamethoxazole/Trimethoprim 1 tab PO DAILY 5 Days #5 tablet 11/20/19 [Bactrim Ds -] UTI Received 5 days of IV Zosyn, to be discharged with 5 days of Bactrim 1 DS tab daily Will need follow up BMP this week with Dr. Montana to check renal function, spoke with Dr. Izaguirre OK to give PO Bactrim due to remote ?history of intolerance , Dr. izaguirre verified with patient that he does not have overt Sulfa-allergy but rather was told to avoid Bactrim due to transient rise in CRE when taking it, so OK to give Bactrim tablets. Patient has follow up this week for BMP with Dr. Montana (renal). ID consult: Dr Izaguirre Renal consult: Dr. Montana T2DM A1c 6.8% as per Endo recommendations patient to start Tradjenta 5mg daily as outpatient patient refused nutrition consult as inpatient counseled on diet, exercise, weight loss follow with PCP doctor 1 week Recurrent UTI's w/ ileal conduit see UTI recs outpatient follow up with Urologist HTn Continue home BP meds HLD Continue home meds Bipolar depression Continue psych meds Disposition: Patient to be discharged home with follow up appointment with Dr. Montana on Wednesday for repeat blood work, follow up with PCP 1 week, and follow up with Urology clinic 1 week. Discharge medications: Bactrim 1 DS tab daily x5 days Tradjenta 5mg daily Continue all other home medications. Minutes to complete discharge: 30 Discharge Summary Problems reviewed: Yes Reason For Visit: URINARY TRACT INFECTION, ACUTE KIDNEY INJURY Condition: Fair - Instructions Diet, Activity, Other Instructions: You were admitted to the hospital and treated for a urinary tract infection. Dr. Izaguirre recommended finishing your antibiotic course with 5 days of Bactrim which has been sent to your pharmacy. Please stop taking Losartan during this time until you follow up with Dr. Wren and told otherwise. You may resume your regular diet, exercise and medication regimen as tolerated. Please follow up with Dr. Montana on Wednesday for blood check. If you feel fever, chills, abdominal pain, chest pain, shortness of breath, dizziness, syncope, nausea, blood in urine or stool, vomiting or diarrhea please go to your nearest emergency room. Referrals: Antoni Izaguirre MD [Staff Physician] - Carlos Montana MD [Staff Physician] - Andres Martinez MD [Primary Care Provider] - Disposition: HOME - Home Medications Comprehensive Discharge Medication List: Ambulatory Orders Allopurinol [Zyloprim -] 100 mg PO DAILY 09/25/19 Aripiprazole 2 mg DAILY 09/25/19 Escitalopram Oxalate [Lexapro -] 20 mg PO DAILY 09/25/19 Ezetimibe 10 mg PO DAILY 09/25/19 Hydroxychloroquine Sulfate [Plaquenil] 200 mg PO BID 09/25/19 Nebivolol HCl [Bystolic] 5 mg PO DAILY 09/25/19 Torsemide [Demadex -] 12 mg PO DAILY 09/25/19 Venlafaxine HCl ER [Effexor Xr -] 75 mg DAILY 09/25/19 Famotidine 20 mg PO DAILY 11/18/19 Sulfamethoxazole/Trimethoprim [Bactrim Ds -] 1 tab PO DAILY 5 Days #5 tablet This patient is new to me today: No Emergency Visit: Yes ED Registration Date: 11/16/19 Care time: The patient presented to the Emergency Department on the above date and was hospitalized for further evaluation of their emergent condition. Critical Care patient: No - Discharge Referral Referred to [facility] Med [facility] No
== END 2019-11-20 18:38 | disposition home or self-care (01) | DRG 690 ==
LOC: JER 16:25 → JERBED 20:19 → J7W 23:45 → J5S 11-18 19:03
PROVIDERS: ADMIT Internal Medicine
DX: N39.0 Urinary tract infection, site not specified (principal); N17.9 Acute kidney failure, unspecified; E87.1 Hypo-osmolality and hyponatremia; I12.9 Hypertensive chronic kidney disease with stage 1 through stage 4 chronic kidney disease, or unspecified chronic kidney disease; E78.5 Hyperlipidemia, unspecified; N18.9 Chronic kidney disease, unspecified; I44.0 Atrioventricular block, first degree; I45.10 Unspecified right bundle-branch block; Z85.46 Personal history of malignant neoplasm of prostate; I51.7 Cardiomegaly; E66.9 Obesity, unspecified; E11.22 Type 2 diabetes mellitus with diabetic chronic kidney disease; F31.9 Bipolar disorder, unspecified; Z68.32 Body mass index [BMI] 32.0-32.9, adult
CPT/HCPCS: 36415; 71045-TC-FY; 76775-TC; 76856-TC; 80048; 80053; 81003; 82550; 82570; 82962; 83036; 83605; 83735; 84100; 84156; 85025; 87040; 87086; 87186; 93005; 93010; 97116-GP; 97162-GP; 99284-25; G0480; J0131; J1644; J7030

== ENCOUNTER 2021-02-19 14:55 | Inpatient (IN) | payer OTHER, BC ==
[2021-02-19 16:48] LABS: BASO % 0.8 % (0-2.0); EOS % 2.6 % (0-4.5); HEMATOCRIT 43.1 % (35.4-49); LYMPH % 13.5 % (8-40); MCH 29.7 pg (25.7-33.7); MCHC 34.7 g/dl (32.0-35.9); MEAN CELL VOLUME 85.5 fl (80-96); MEAN PLT VOLUME 5.9 fl (7.5-11.1); MONO % 11.4 % (3.8-10.2); NEUT % 71.7 % (42.8-82.8); PLATELET COUNT 229 K/MM3 (134-434); RBC 5.04 M/mm3 (4.00-5.60); WHITE BLOOD COUNT 10.5 K/mm3 (4.0-10.8)
[2021-02-19 17:08] LABS: ALBUMIN 3.9 g/dl (3.4-5.0); BILIRUBIN,TOTAL 0.5 mg/dl (0.2-1); CREATININE 2.1 mg/dl (0.55-1.3); TOT PROT 6.6 g/dl (6.4-8.2)
[2021-02-19] MEDS ORDERED: PIPERACILLIN/TAZOB 4.5 GM 4.5 GM in DEXTROSE 5%-WATER 100 ML IVPB ONE (17:26)
[2021-02-19] MEDS ORDERED: PIPERACILLIN/TAZOBACTAM 4.5 GM VIAL IVPB ONE (18:11)
[2021-02-19] MEDS: SODIUM CHLORIDE 1,000 ML IV SCH (18:18)
[2021-02-19] MEDS: INSULIN SLIDING SCALE (NOVOLOG) 1 VIAL SQ SCH (18:18)
[2021-02-19] MEDS ORDERED: MEROPENEM 1 GM VIAL (RESTRICTED TO ID) IVPB ONE (20:20)
[2021-02-19] MEDS ORDERED: DEXTROSE 5%-WATER 100 ML IVPB ONE (20:20)
[2021-02-19] MEDS: MEROPENEM 1 GM in DEXTROSE 5%-WATER 100 ML IVPB SCH (20:30)
[2021-02-19] MEDS: FAMOTIDINE 10 MG TABLET PO SCH (20:31)
[2021-02-19] MEDS ORDERED: PIPERACILLIN/TAZOB 2.25 GM 2.25 GM in DEXTROSE 5%-WATER - 50 ML IVPB SCH (21:00)
[2021-02-19] MEDS: ATORVASTATIN CA 10 MG TABLET (FP) PO SCH (21:06)
[2021-02-19] MEDS: HEPARIN NA (PORCINE) 5,000 UNITS/ML 1ML VIAL SQ SCH (21:06)
[2021-02-19 23:27] VITALS: BMI 31.9
[2021-02-20] MEDS: MEROPENEM 1 GM in DEXTROSE 5%-WATER 100 ML IVPB SCH ×2 (02:17→09:42)
[2021-02-20] MEDS ORDERED: PIPERACILLIN/TAZOB 2.25 GM 2.25 GM in DEXTROSE 5%-WATER - 50 ML IVPB SCH (03:00)
[2021-02-20] MEDS ORDERED: DEXTROSE 5%-WATER 100 ML IVPB ONE ×3 (03:13→20:55)
[2021-02-20] MEDS ORDERED: MEROPENEM 1 GM VIAL (RESTRICTED TO ID) IVPB ONE ×2 (03:13→07:26)
[2021-02-20] MEDS: INSULIN SLIDING SCALE (NOVOLOG) 1 VIAL SQ SCH ×3 (06:05→16:57)
[2021-02-20 07:51] LABS: BASO % 0.7 % (0-2.0); EOS % 3.9 % (0-4.5); HEMATOCRIT 41.4 % (35.4-49); HEMOGLOBIN 14.2 GM/dl (11.7-16.9); LYMPH % 15.3 % (8-40); MCH 29.3 pg (25.7-33.7); MCHC 34.2 g/dl (32.0-35.9); MEAN CELL VOLUME 85.6 fl (80-96); MONO % 11.7 % (3.8-10.2); NEUT % 68.4 % (42.8-82.8); PLATELET COUNT 215 K/MM3 (134-434); RBC 4.84 M/mm3 (4.00-5.60); RDW 13.3 % (11.9-15.9); WHITE BLOOD COUNT 7.9 K/mm3 (4.0-10.8)
[2021-02-20 07:54] LABS: MEAN PLT VOLUME 5.7 fl (7.5-11.1)
[2021-02-20 07:55] LABS: ALBUMIN 3.4 g/dl (3.4-5.0); BILIRUBIN,TOTAL 0.7 mg/dl (0.2-1); TOT PROT 6.1 g/dl (6.4-8.2)
[2021-02-20] MEDS: ESCITALOPRAM OXALATE 20 MG TABLET PO SCH (09:42)
[2021-02-20] MEDS: HEPARIN NA (PORCINE) 5,000 UNITS/ML 1ML VIAL SQ SCH ×2 (09:42→21:15)
[2021-02-20] MEDS: NEBIVOLOL 10 MG TABLET (FP) PO SCH (09:42)
[2021-02-20] MEDS: ARIPiprazole 2 MG TABLET PO SCH (09:42)
[2021-02-20] MEDS ORDERED: EZETIMIBE 10 MG TABLET (FP) PO SCH (10:00)
[2021-02-20] MEDS ORDERED: TORSEMIDE 10 MG TABLET PO SCH (10:00)
[2021-02-20] MEDS ORDERED: NEBIVOLOL 5 MG TABLET (FP) PO SCH (10:00)
[2021-02-20] MEDS ORDERED: MEROPENEM 1 GM in DEXTROSE 5%-WATER 100 ML IVPB SCH (18:00)
[2021-02-20] MEDS ORDERED: MEROPENEM 500 MG VIAL (RESTRICTED TO ID) IVPB ONE (20:54)
[2021-02-20] MEDS: SODIUM CHLORIDE 1,000 ML IV SCH (21:15)
[2021-02-20] MEDS: ATORVASTATIN CA 10 MG TABLET (FP) PO SCH (21:15)
[2021-02-20] MEDS: FAMOTIDINE 10 MG TABLET PO SCH (21:15)
[2021-02-20] MEDS: MEROPENEM 500 MG in DEXTROSE 5%-WATER 100 ML IVPB SCH (21:15)
[2021-02-21] MEDS: INSULIN SLIDING SCALE (NOVOLOG) 1 VIAL SQ SCH ×2 (06:16→12:07)
[2021-02-21] MEDS ORDERED: DEXTROSE 5%-WATER 100 ML IVPB ONE (07:51)
[2021-02-21] MEDS ORDERED: MEROPENEM 500 MG VIAL (RESTRICTED TO ID) IVPB ONE (07:51)
[2021-02-21 08:12] LABS: ALBUMIN 3.2 g/dl (3.4-5.0); BILIRUBIN,TOTAL 0.5 mg/dl (0.2-1); CREATININE 1.7 mg/dl (0.55-1.3); EOS % 4.7 % (0-4.5); HEMATOCRIT 42.1 % (35.4-49); LYMPH % 19.7 % (8-40); MCH 28.6 pg (25.7-33.7); MCHC 33.2 g/dl (32.0-35.9); MEAN CELL VOLUME 86.2 fl (80-96); MEAN PLT VOLUME 5.9 fl (7.5-11.1); MONO % 12.5 % (3.8-10.2); NEUT % 62.1 % (42.8-82.8); PLATELET COUNT 205 K/MM3 (134-434); RBC 4.88 M/mm3 (4.00-5.60); RDW 13.1 % (11.9-15.9); TOT PROT 5.7 g/dl (6.4-8.2); WHITE BLOOD COUNT 6.6 K/mm3 (4.0-10.8)
[2021-02-21 08:57] VITALS: BP 158/64; PULSE 61; TEMP 98.1
[2021-02-21] MEDS: HEPARIN NA (PORCINE) 5,000 UNITS/ML 1ML VIAL SQ SCH (09:06)
[2021-02-21] MEDS: ESCITALOPRAM OXALATE 20 MG TABLET PO SCH (09:07)
[2021-02-21] MEDS: MEROPENEM 500 MG in DEXTROSE 5%-WATER 100 ML IVPB SCH (09:07)
[2021-02-21] MEDS: NEBIVOLOL 10 MG TABLET (FP) PO SCH (09:07)
[2021-02-21] MEDS: ARIPiprazole 2 MG TABLET PO SCH (09:07)
== END 2021-02-21 14:30 | disposition home or self-care (01) | DRG 699 ==
LOC: FER 14:55 → FM/S 19:45
PROVIDERS: ADMIT Internal Medicine; ATTEND Nurse Practitioner Acute Care
DX: T83.598A Infection and inflammatory reaction due to other prosthetic device, implant and graft in urinary system, initial encounter (principal); N17.9 Acute kidney failure, unspecified; N39.0 Urinary tract infection, site not specified; E78.5 Hyperlipidemia, unspecified; F32.9 Major depressive disorder, single episode, unspecified; G47.33 Obstructive sleep apnea (adult) (pediatric); C61 Malignant neoplasm of prostate; B96.1 Klebsiella pneumoniae [K. pneumoniae] as the cause of diseases classified elsewhere; B95.2 Enterococcus as the cause of diseases classified elsewhere; R31.9 Hematuria, unspecified; I25.10 Atherosclerotic heart disease of native coronary artery without angina pectoris; I12.9 Hypertensive chronic kidney disease with stage 1 through stage 4 chronic kidney disease, or unspecified chronic kidney disease; E11.22 Type 2 diabetes mellitus with diabetic chronic kidney disease; N18.9 Chronic kidney disease, unspecified; R53.1 Weakness; Y83.8 Other surgical procedures as the cause of abnormal reaction of the patient, or of later complication, without mention of misadventure at the time of the procedure
CPT/HCPCS: 36415; 80048; 80053; 81003; 81015; 82436; 82962; 83036; 83605; 83735; 84133; 84300; 85025; 87040; 87086; 87186; 93005; 97116-GP; 97162-GP; 99285-25; C9803; J1644; U0003; U0005

== ENCOUNTER 2021-04-19 22:48 | Inpatient (IN) | payer OTHER, BC ==
[2021-04-19] MEDS ORDERED: SODIUM CHLORIDE 2,585 ML IV ONE (22:59)
[2021-04-19] MEDS ORDERED: MEROPENEM 1 GM in DEXTROSE 5%-WATER 100 ML IVPB ONE (23:16)
[2021-04-19] MEDS ORDERED: ACETAMINOPHEN 1000 MG/100 ML VIAL (NON FORMULARY) IVPB ONE (23:17)
[2021-04-19] MEDS ORDERED: ACETAMINOPHEN INJECTION 100 ML IVPB ONE (23:30)
[2021-04-19 23:36] LABS: BASO % 0.4 % (0-2.0); EOS % 0.3 % (0-4.5); HEMATOCRIT 41.8 % (35.4-49); HEMOGLOBIN 14.1 GM/dL (11.7-16.9); LYMPH % 7.9 % (8-40); MCH 28.1 pg (25.7-33.7); MCHC 33.8 g/dl (32.0-35.9); MEAN CELL VOLUME 83.2 fl (80-96); MEAN PLT VOLUME 5.7 fl (7.5-11.1); MONO % 11.3 % (3.8-10.2); NEUT % 80.1 % (42.8-82.8); PLATELET COUNT 211 10^3/uL (134-434); RBC 5.02 M/mm3 (4.00-5.60); RDW 14.5 % (11.9-15.9); WHITE BLOOD COUNT 17.2 K/mm3 (4.0-10.0)
[2021-04-19 23:41] LABS: INR 1.23 (0.83-1.09)
[2021-04-19 23:44] LABS: ACTIVATED PTT 26.8 SECONDS (25.2-36.5)
[2021-04-19 23:45] LABS: EPI CELLS 8 /uL (0-25.1); HYALINE CASTS 8 /uL (0-3.1); PH,URINE 7.5 (5.0-8.0); URINE APPEARANCE CLOUDY; URINE BACTERIA >9,000 /uL (0-1359); URINE BILIRUBIN NEGATIVE (NEGATIVE); URINE COLOR YELLOW; URINE GLUCOSE (UA) NEGATIVE (NEGATIVE); URINE KETONE NEGATIVE (NEGATIVE); URINE LEUK ESTERASE 3+ (NEGATIVE); URINE NITRITE NEGATIVE (NEGATIVE); URINE PROTEIN 2+ (NEGATIVE); URINE RBC 308 /uL (0-23.9); URINE WBC 875 /uL (0-25.8)
[2021-04-19 23:57] LABS: CALCIUM 9.5 mg/dL (8.5-10.1)
[2021-04-19 23:58] LABS: ALBUMIN 3.6 g/dl (3.4-5.0)
[2021-04-20 00:01] LABS: CREATININE 1.9 mg/dL (0.55-1.3)
[2021-04-20 00:02] LABS: TOT PROT 6.8 g/dl (6.4-8.2)
[2021-04-20] MEDS ORDERED: MEROPENEM 1 GM in DEXTROSE 5%-WATER 100 ML IVPB ONE (00:45)
[2021-04-20] MEDS ORDERED: LINEZOLID 600 MG PREMIX BAG 600 MG/300 ML BAG IVPB ONE (02:49)
[2021-04-20] MEDS: SODIUM CHLORIDE 1,000 ML IV SCH ×2 (02:59→16:10)
[2021-04-20 04:22] VITALS: BMI 32.9
[2021-04-20] MEDS: HEPARIN NA (PORCINE) 5,000 UNITS/ML 1ML VIAL SQ SCH ×3 (06:32→21:44)
[2021-04-20] MEDS: INSULIN SLIDING SCALE (NOVOLOG) 1 VIAL SQ SCH ×4 (06:32→21:44)
[2021-04-20] MEDS ORDERED: INSULIN (NOVOLOG) ASPART 100 UNITS/ML 10ML VIAL ONE ×3 (06:37→20:56)
[2021-04-20 09:25] LABS: BASO % 0.4 % (0-2.0); EOS % 0.6 % (0-4.5); HEMATOCRIT 41.2 % (35.4-49); HEMOGLOBIN 13.7 GM/dL (11.7-16.9); LYMPH % 8.9 % (8-40); MCH 28.4 pg (25.7-33.7); MCHC 33.2 g/dl (32.0-35.9); MEAN CELL VOLUME 85.3 fl (80-96); MONO % 10.7 % (3.8-10.2); NEUT % 79.4 % (42.8-82.8); PLATELET COUNT 168 10^3/uL (134-434); RBC 4.82 M/mm3 (4.00-5.60); RDW 14.1 % (11.9-15.9)
[2021-04-20 09:53] LABS: BLOOD UREA NITROGEN 39.1 mg/dL (7-18); CALCIUM 8.8 mg/dL (8.5-10.1)
[2021-04-20] MEDS ORDERED: MEROPENEM 1 GM in DEXTROSE 5%-WATER 100 ML IVPB SCH (10:00)
[2021-04-20 10:01] LABS: CREATININE 1.6 mg/dL (0.55-1.3)
[2021-04-20 10:02] LABS: PHOSPHOROUS 2.1 mg/dL (2.5-4.9)
[2021-04-20 10:03] LABS: BILIRUBIN,TOTAL 0.6 mg/dL (0.2-1); TOT PROT 5.8 g/dl (6.4-8.2)
[2021-04-20] MEDS ORDERED: PT OWN MED DRAWER 7, Y5N ONE (10:10)
[2021-04-20] MEDS ORDERED: MEROPENEM 1 GM VIAL (RESTRICTED TO ID) IVPB ONE (10:11)
[2021-04-20] MEDS ORDERED: DEXTROSE 5%-WATER 100 ML IVPB ONE ×2 (10:11→17:04)
[2021-04-20] MEDS: TORSEMIDE 10 MG TABLET PO SCH (10:40)
[2021-04-20] MEDS: EZETIMIBE 10 MG TABLET (FP) PO SCH (10:41)
[2021-04-20] MEDS: NEBIVOLOL 5 MG TABLET (FP) PO SCH (10:41)
[2021-04-20] MEDS: LISINOPRIL 5 MG TABLET PO SCH (10:41)
[2021-04-20] MEDS ORDERED: FAMOTIDINE 10 MG TABLET PO SCH (11:45)
[2021-04-20] MEDS ORDERED: ESCITALOPRAM OXALATE 10 MG TABLET ONE (13:41)
[2021-04-20] MEDS: ACETAMINOPHEN 325 MG TABLET (FP) PO PRN (13:49)
[2021-04-20] MEDS: FAMOTIDINE 10 MG TABLET PO SCH (13:51)
[2021-04-20] MEDS: ESCITALOPRAM OXALATE 20 MG TABLET PO SCH (13:51)
[2021-04-20] MEDS ORDERED: MEROPENEM 500 MG VIAL (RESTRICTED TO ID) IVPB ONE (17:04)
[2021-04-20] MEDS: MEROPENEM 500 MG in DEXTROSE 5%-WATER 100 ML IVPB SCH (17:42)
[2021-04-20] MEDS: ATORVASTATIN CA 10 MG TABLET (FP) PO SCH (21:44)
[2021-04-21] MEDS ORDERED: MEROPENEM 500 MG VIAL (RESTRICTED TO ID) IVPB ONE ×3 (01:18→16:20)
[2021-04-21] MEDS ORDERED: DEXTROSE 5%-WATER 100 ML IVPB ONE ×3 (01:18→16:20)
[2021-04-21] MEDS: MEROPENEM 500 MG in DEXTROSE 5%-WATER 100 ML IVPB SCH ×3 (01:24→17:44)
[2021-04-21] MEDS: HEPARIN NA (PORCINE) 5,000 UNITS/ML 1ML VIAL SQ SCH ×3 (06:02→21:08)
[2021-04-21] MEDS: INSULIN SLIDING SCALE (NOVOLOG) 1 VIAL SQ SCH ×4 (06:06→21:19)
[2021-04-21] MEDS: SODIUM CHLORIDE 1,000 ML IV SCH ×2 (06:06→21:26)
[2021-04-21] MEDS: ACETAMINOPHEN 325 MG TABLET (FP) PO PRN ×2 (07:48→16:55)
[2021-04-21 09:07] LABS: BASO % 0.5 % (0-2.0); EOS % 1.9 % (0-4.5); HEMATOCRIT 39.5 % (35.4-49); HEMOGLOBIN 13.1 GM/dL (11.7-16.9); LYMPH % 13.8 % (8-40); MCHC 33.3 g/dl (32.0-35.9); MEAN CELL VOLUME 84.1 fl (80-96); MONO % 12.1 % (3.8-10.2); NEUT % 71.7 % (42.8-82.8); PLATELET COUNT 172 10^3/uL (134-434); RDW 14.7 % (11.9-15.9); WHITE BLOOD COUNT 7.9 K/mm3 (4.0-10.0)
[2021-04-21 09:10] LABS: MEAN PLT VOLUME 5.7 fl (7.5-11.1)
[2021-04-21 09:32] LABS: CALCIUM 8.9 mg/dL (8.5-10.1)
[2021-04-21 09:33] LABS: ALBUMIN 2.9 g/dl (3.4-5.0); BLOOD UREA NITROGEN 40.2 mg/dL (7-18)
[2021-04-21 09:36] LABS: CREATININE 1.5 mg/dL (0.55-1.3)
[2021-04-21 09:38] LABS: BILIRUBIN,TOTAL 0.8 mg/dL (0.2-1); TOT PROT 5.8 g/dl (6.4-8.2)
[2021-04-21] MEDS ORDERED: ESCITALOPRAM OXALATE 10 MG TABLET ONE (10:01)
[2021-04-21] MEDS ORDERED: PT OWN MED DRAWER 7, Y5N ONE (10:02)
[2021-04-21] MEDS: EZETIMIBE 10 MG TABLET (FP) PO SCH (10:19)
[2021-04-21] MEDS: ESCITALOPRAM OXALATE 20 MG TABLET PO SCH (10:19)
[2021-04-21] MEDS: LISINOPRIL 5 MG TABLET PO SCH (10:19)
[2021-04-21] MEDS: FAMOTIDINE 10 MG TABLET PO SCH (10:19)
[2021-04-21] MEDS: NEBIVOLOL 5 MG TABLET (FP) PO SCH (10:19)
[2021-04-21] MEDS ORDERED: INSULIN (NOVOLOG) ASPART 100 UNITS/ML 10ML VIAL ONE ×2 (11:55→20:42)
[2021-04-21] MEDS: ATORVASTATIN CA 10 MG TABLET (FP) PO SCH (21:14)
[2021-04-22] MEDS ORDERED: MEROPENEM 500 MG VIAL (RESTRICTED TO ID) IVPB ONE ×3 (01:38→16:44)
[2021-04-22] MEDS ORDERED: DEXTROSE 5%-WATER 100 ML IVPB ONE ×3 (01:39→16:44)
[2021-04-22] MEDS: MEROPENEM 500 MG in DEXTROSE 5%-WATER 100 ML IVPB SCH ×3 (01:45→17:00)
[2021-04-22] MEDS: SODIUM CHLORIDE 1,000 ML IV SCH (04:52)
[2021-04-22] MEDS: HEPARIN NA (PORCINE) 5,000 UNITS/ML 1ML VIAL SQ SCH ×3 (05:49→21:39)
[2021-04-22] MEDS: INSULIN SLIDING SCALE (NOVOLOG) 1 VIAL SQ SCH ×4 (06:00→21:39)
[2021-04-22 08:51] LABS: BASO % 0.6 % (0-2.0); EOS % 2.8 % (0-4.5); HEMATOCRIT 39.3 % (35.4-49); HEMOGLOBIN 13.1 GM/dL (11.7-16.9); LYMPH % 17.2 % (8-40); MCHC 33.4 g/dl (32.0-35.9); MEAN CELL VOLUME 83.8 fl (80-96); MONO % 11.2 % (3.8-10.2); NEUT % 68.2 % (42.8-82.8); PLATELET COUNT 181 10^3/uL (134-434); RBC 4.68 M/mm3 (4.00-5.60); RDW 14.4 % (11.9-15.9); WHITE BLOOD COUNT 7.1 K/mm3 (4.0-10.0)
[2021-04-22 08:56] LABS: MEAN PLT VOLUME 5.6 fl (7.5-11.1)
[2021-04-22 09:20] LABS: CALCIUM 8.7 mg/dL (8.5-10.1)
[2021-04-22 09:21] LABS: ALBUMIN 2.8 g/dl (3.4-5.0); BLOOD UREA NITROGEN 29.4 mg/dL (7-18)
[2021-04-22 09:22] LABS: MAGNESIUM 1.8 mg/dL (1.8-2.4)
[2021-04-22 09:24] LABS: CREATININE 1.2 mg/dL (0.55-1.3)
[2021-04-22 09:26] LABS: BILIRUBIN,TOTAL 0.5 mg/dL (0.2-1); TOT PROT 5.8 g/dl (6.4-8.2)
[2021-04-22] MEDS ORDERED: ESCITALOPRAM OXALATE 10 MG TABLET ONE (10:39)
[2021-04-22] MEDS ORDERED: PT OWN MED DRAWER 7, Y5N ONE (10:40)
[2021-04-22] MEDS: TORSEMIDE 10 MG TABLET PO SCH (10:47)
[2021-04-22] MEDS: EZETIMIBE 10 MG TABLET (FP) PO SCH (10:47)
[2021-04-22] MEDS: ACETAMINOPHEN 325 MG TABLET (FP) PO PRN ×2 (10:47→20:03)
[2021-04-22] MEDS: LISINOPRIL 5 MG TABLET PO SCH (10:48)
[2021-04-22] MEDS: NEBIVOLOL 5 MG TABLET (FP) PO SCH (10:48)
[2021-04-22] MEDS: ESCITALOPRAM OXALATE 20 MG TABLET PO SCH (10:48)
[2021-04-22] MEDS: FAMOTIDINE 10 MG TABLET PO SCH (10:48)
[2021-04-22] MEDS ORDERED: FAMOTIDINE 20 MG TABLET PO ONE (19:41)
[2021-04-22] MEDS ORDERED: INSULIN (NOVOLOG) ASPART 100 UNITS/ML 10ML VIAL ONE (21:13)
[2021-04-22] MEDS: ATORVASTATIN CA 10 MG TABLET (FP) PO SCH (21:39)
[2021-04-22] MEDS: NAPH,MB-DB/K PH,MBDB POWDER PACKET PO SCH (21:39)
[2021-04-23] MEDS ORDERED: MEROPENEM 500 MG VIAL (RESTRICTED TO ID) IVPB ONE ×3 (01:01→17:32)
[2021-04-23] MEDS ORDERED: DEXTROSE 5%-WATER 100 ML IVPB ONE ×3 (01:02→17:32)
[2021-04-23] MEDS: MEROPENEM 500 MG in DEXTROSE 5%-WATER 100 ML IVPB SCH ×3 (01:30→17:47)
[2021-04-23] MEDS: HEPARIN NA (PORCINE) 5,000 UNITS/ML 1ML VIAL SQ SCH ×3 (06:03→21:06)
[2021-04-23] MEDS: INSULIN SLIDING SCALE (NOVOLOG) 1 VIAL SQ SCH ×4 (06:03→22:31)
[2021-04-23 08:31] LABS: BASO % 0.5 % (0-2.0); EOS % 3.1 % (0-4.5); HEMATOCRIT 39.4 % (35.4-49); HEMOGLOBIN 13.3 GM/dL (11.7-16.9); MCH 28.3 pg (25.7-33.7); MCHC 33.8 g/dl (32.0-35.9); MEAN CELL VOLUME 83.8 fl (80-96); MONO % 10.5 % (3.8-10.2); NEUT % 66.9 % (42.8-82.8); PLATELET COUNT 181 10^3/uL (134-434); RBC 4.71 M/mm3 (4.00-5.60); RDW 14.2 % (11.9-15.9); WHITE BLOOD COUNT 7.6 K/mm3 (4.0-10.0)
[2021-04-23 08:51] LABS: MEAN PLT VOLUME 5.8 fl (7.5-11.1)
[2021-04-23 09:04] LABS: ALBUMIN 3.2 g/dl (3.4-5.0)
[2021-04-23 09:05] LABS: BLOOD UREA NITROGEN 36.1 mg/dL (7-18); CALCIUM 9.4 mg/dL (8.5-10.1); MAGNESIUM 1.7 mg/dL (1.8-2.4)
[2021-04-23 09:06] LABS: BILIRUBIN,TOTAL 0.4 mg/dL (0.2-1)
[2021-04-23 09:09] LABS: CREATININE 1.3 mg/dL (0.55-1.3)
[2021-04-23 09:10] LABS: TOT PROT 5.9 g/dl (6.4-8.2)
[2021-04-23] MEDS ORDERED: ESCITALOPRAM OXALATE 10 MG TABLET ONE (09:31)
[2021-04-23] MEDS ORDERED: PT OWN MED DRAWER 7, Y5N ONE (09:32)
[2021-04-23] MEDS: ACETAMINOPHEN 325 MG TABLET (FP) PO PRN (09:43)
[2021-04-23] MEDS: NAPH,MB-DB/K PH,MBDB POWDER PACKET PO SCH ×2 (09:43→21:06)
[2021-04-23] MEDS: LISINOPRIL 5 MG TABLET PO SCH (09:44)
[2021-04-23] MEDS: EZETIMIBE 10 MG TABLET (FP) PO SCH (09:44)
[2021-04-23] MEDS: NEBIVOLOL 5 MG TABLET (FP) PO SCH (09:44)
[2021-04-23] MEDS: ESCITALOPRAM OXALATE 20 MG TABLET PO SCH (09:44)
[2021-04-23] MEDS: TORSEMIDE 10 MG TABLET PO SCH (09:44)
[2021-04-23] MEDS: FAMOTIDINE 10 MG TABLET PO SCH (09:45)
[2021-04-23] MEDS ORDERED: INSULIN (NOVOLOG) ASPART 100 UNITS/ML 10ML VIAL ONE (17:32)
[2021-04-23] MEDS ORDERED: FAMOTIDINE 20 MG TABLET PO ONE (20:06)
[2021-04-23] MEDS: ATORVASTATIN CA 10 MG TABLET (FP) PO SCH (21:06)
[2021-04-23] MEDS ORDERED: ONDANSETRON 4 MG/2 ML VIAL IVPUSH ONE (22:08)
[2021-04-24] MEDS ORDERED: MEROPENEM 500 MG VIAL (RESTRICTED TO ID) IVPB ONE ×3 (00:44→16:59)
[2021-04-24] MEDS ORDERED: DEXTROSE 5%-WATER 100 ML IVPB ONE ×3 (00:44→16:59)
[2021-04-24] MEDS: MEROPENEM 500 MG in DEXTROSE 5%-WATER 100 ML IVPB SCH ×3 (01:51→17:36)
[2021-04-24] MEDS ORDERED: ONDANSETRON 4 MG/2 ML VIAL IVPUSH ONE (02:33)
[2021-04-24] MEDS ORDERED: SIMETHICONE 80 MG TAB.CHEW (FP) PO PRN (05:12)
[2021-04-24] MEDS: HEPARIN NA (PORCINE) 5,000 UNITS/ML 1ML VIAL SQ SCH ×3 (05:35→21:36)
[2021-04-24] MEDS: INSULIN SLIDING SCALE (NOVOLOG) 1 VIAL SQ SCH ×4 (06:56→21:41)
[2021-04-24] MEDS ORDERED: ESCITALOPRAM OXALATE 10 MG TABLET ONE (09:01)
[2021-04-24] MEDS ORDERED: PT OWN MED DRAWER 7, Y5N ONE (09:02)
[2021-04-24 09:04] LABS: BASO % 0.7 % (0-2.0); EOS % 2.5 % (0-4.5); HEMOGLOBIN 13.6 GM/dL (11.7-16.9); MCH 28.5 pg (25.7-33.7); MCHC 34.7 g/dl (32.0-35.9); MEAN CELL VOLUME 82.1 fl (80-96); MONO % 10.5 % (3.8-10.2); NEUT % 66.3 % (42.8-82.8); PLATELET COUNT 219 10^3/uL (134-434); RBC 4.75 M/mm3 (4.00-5.60); RDW 14.3 % (11.9-15.9); WHITE BLOOD COUNT 9.9 K/mm3 (4.0-10.0)
[2021-04-24] MEDS: NAPH,MB-DB/K PH,MBDB POWDER PACKET PO SCH (09:09)
[2021-04-24] MEDS: NEBIVOLOL 5 MG TABLET (FP) PO SCH (09:09)
[2021-04-24] MEDS: EZETIMIBE 10 MG TABLET (FP) PO SCH (09:10)
[2021-04-24] MEDS: LISINOPRIL 5 MG TABLET PO SCH (09:10)
[2021-04-24] MEDS: ESCITALOPRAM OXALATE 20 MG TABLET PO SCH (09:10)
[2021-04-24] MEDS: FAMOTIDINE 10 MG TABLET PO SCH (09:10)
[2021-04-24] MEDS: TORSEMIDE 10 MG TABLET PO SCH (09:10)
[2021-04-24] MEDS: MULTIVITAMINS (DAILY MVI) TABLET (FP) PO SCH (09:10)
[2021-04-24 09:12] LABS: MEAN PLT VOLUME 5.4 fl (7.5-11.1)
[2021-04-24 09:24] LABS: ALBUMIN 2.9 g/dl (3.4-5.0); CALCIUM 8.9 mg/dL (8.5-10.1)
[2021-04-24 09:26] LABS: CREATININE 1.3 mg/dL (0.55-1.3); MAGNESIUM 1.9 mg/dL (1.8-2.4)
[2021-04-24 09:28] LABS: BILIRUBIN,TOTAL 0.4 mg/dL (0.2-1); TOT PROT 5.9 g/dl (6.4-8.2)
[2021-04-24 12:16] LABS: BLOOD UREA NITROGEN 68.3 mg/dL (7-18)
[2021-04-24] MEDS: POLYETHYLENE GLYCOL (HEALTHYLAX) 3350 17 GM PACKET PO SCH (14:11)
[2021-04-24] MEDS: ATORVASTATIN CA 10 MG TABLET (FP) PO SCH (21:36)
[2021-04-25] MEDS ORDERED: DEXTROSE 5%-WATER 100 ML IVPB ONE ×2 (00:59→09:10)
[2021-04-25] MEDS ORDERED: MEROPENEM 500 MG VIAL (RESTRICTED TO ID) IVPB ONE ×2 (00:59→09:10)
[2021-04-25] MEDS: MEROPENEM 500 MG in DEXTROSE 5%-WATER 100 ML IVPB SCH ×2 (01:05→09:14)
[2021-04-25 05:50] VITALS: TEMP 97.8
[2021-04-25] MEDS: HEPARIN NA (PORCINE) 5,000 UNITS/ML 1ML VIAL SQ SCH ×2 (06:22→14:13)
[2021-04-25] MEDS: INSULIN SLIDING SCALE (NOVOLOG) 1 VIAL SQ SCH ×2 (06:22→11:52)
[2021-04-25] MEDS ORDERED: PT OWN MED DRAWER 7, Y5N ONE (09:11)
[2021-04-25] MEDS ORDERED: ESCITALOPRAM OXALATE 10 MG TABLET ONE (09:11)
[2021-04-25] MEDS: EZETIMIBE 10 MG TABLET (FP) PO SCH (09:16)
[2021-04-25] MEDS: FAMOTIDINE 10 MG TABLET PO SCH (09:16)
[2021-04-25] MEDS: MULTIVITAMINS (DAILY MVI) TABLET (FP) PO SCH (09:16)
[2021-04-25] MEDS: LISINOPRIL 5 MG TABLET PO SCH (09:16)
[2021-04-25] MEDS: NEBIVOLOL 5 MG TABLET (FP) PO SCH (09:16)
[2021-04-25] MEDS: ACETAMINOPHEN 325 MG TABLET (FP) PO PRN (09:16)
[2021-04-25] MEDS: ESCITALOPRAM OXALATE 20 MG TABLET PO SCH (09:17)
[2021-04-25] MEDS: TORSEMIDE 10 MG TABLET PO SCH (09:17)
[2021-04-25] MEDS: POLYETHYLENE GLYCOL (HEALTHYLAX) 3350 17 GM PACKET PO SCH (09:29)
[2021-04-25] MEDS ORDERED: ARIPiprazole 2 MG TABLET PO SCH (10:00)
[2021-04-25] MEDS ORDERED: LACTOBACILLUS ACIDOPHILUS 1 TABLET PO ONE (10:47)
[2021-04-25] MEDS ORDERED: FAMOTIDINE 20 MG TABLET PO ONE (10:47)
[2021-04-25 11:48] LABS: BASO % 0.4 % (0-2.0); EOS % 2.4 % (0-4.5); HEMATOCRIT 39.7 % (35.4-49); HEMOGLOBIN 13.3 GM/dL (11.7-16.9); LYMPH % 12.6 % (8-40); MCH 27.8 pg (25.7-33.7); MCHC 33.4 g/dl (32.0-35.9); MEAN CELL VOLUME 83.3 fl (80-96); MONO % 7.9 % (3.8-10.2); NEUT % 76.7 % (42.8-82.8); PLATELET COUNT 260 10^3/uL (134-434); RBC 4.77 M/mm3 (4.00-5.60); RDW 14.4 % (11.9-15.9); WHITE BLOOD COUNT 13.4 K/mm3 (4.0-10.0)
[2021-04-25 11:50] LABS: MEAN PLT VOLUME 5.7 fl (7.5-11.1)
[2021-04-25 11:58] LABS: CALCIUM 9.2 mg/dL (8.5-10.1)
[2021-04-25 11:59] LABS: ALBUMIN 3.2 g/dl (3.4-5.0); BLOOD UREA NITROGEN 67.6 mg/dL (7-18); MAGNESIUM 1.8 mg/dL (1.8-2.4)
[2021-04-25 12:03] LABS: BILIRUBIN,TOTAL 0.5 mg/dL (0.2-1)
[2021-04-25 12:05] LABS: TOT PROT 6.3 g/dl (6.4-8.2)
[2021-04-25 12:09] LABS: CREATININE 1.6 mg/dL (0.55-1.3)
[2021-04-25] MEDS ORDERED: ERTAPENEM SODIUM 1 GM in SODIUM CHLORIDE 50 ML IVPB SCH (14:00)
[2021-04-25 14:28] VITALS: BP 104/57; PULSE 66
== END 2021-04-25 16:50 | disposition home or self-care (01) | DRG 698 ==
LOC: JER 22:48 → JERBED 04-20 00:37 → J6S 04-20 03:51
PROVIDERS: ADMIT Internal Medicine; ATTEND Nurse Practitioner Family
PROC: 05HY33Z Insertion of Infusion Device into Upper Vein, Percutaneous Approach (ICD-10-PCS; principal; 2021-04-25)
DX: T83.598A Infection and inflammatory reaction due to other prosthetic device, implant and graft in urinary system, initial encounter (principal); A41.50 Gram-negative sepsis, unspecified; G93.41 Metabolic encephalopathy; Z16.12 Extended spectrum beta lactamase (ESBL) resistance; E87.1 Hypo-osmolality and hyponatremia; N17.9 Acute kidney failure, unspecified; E11.22 Type 2 diabetes mellitus with diabetic chronic kidney disease; I12.9 Hypertensive chronic kidney disease with stage 1 through stage 4 chronic kidney disease, or unspecified chronic kidney disease; B96.29 Other Escherichia coli [E. coli] as the cause of diseases classified elsewhere; N18.9 Chronic kidney disease, unspecified; E16.2 Hypoglycemia, unspecified; E66.9 Obesity, unspecified; Z68.32 Body mass index [BMI] 32.0-32.9, adult; R11.2 Nausea with vomiting, unspecified; F32.9 Major depressive disorder, single episode, unspecified; Z79.4 Long term (current) use of insulin; Z87.891 Personal history of nicotine dependence
CPT/HCPCS: 36415; 36569; 71045-TC-FY; 74019-TC-FY; 74176-TC; 77001-TC-FY; 80053; 81003; 82550; 82962; 83605; 83735; 84100; 84484; 85025; 85610; 85730; 87040; 87086; 87186; 93005; 93010; 97116-GP; 97162-GP; 99285-25; C1751; C9803; J0131; J1644; U0003; U0005

== ENCOUNTER 2021-04-26 11:05 | Day surgery (SDC) | payer OTHER, BC ==
[2021-04-26 11:21] VITALS: BP 119/76; PULSE 79; TEMP 98
[2021-04-26] MEDS ORDERED: ERTAPENEM SODIUM 1 GM VIAL ONE (11:21)
[2021-04-26] MEDS ORDERED: SODIUM CHLORIDE 50 ML IVPB ONE (11:21)
[2021-04-26] MEDS ORDERED: ERTAPENEM SODIUM 1 GM in SODIUM CHLORIDE 50 ML IVPB ONE (11:30)
== END 2021-04-26 12:15 | disposition home or self-care (01) ==
LOC: JINFUSION 11:05 → J7W 11:06 → JINFUSION 12:15
PROVIDERS: ATTEND Internal Medicine
DX: A41.50 Gram-negative sepsis, unspecified (principal); B96.29 Other Escherichia coli [E. coli] as the cause of diseases classified elsewhere; E11.22 Type 2 diabetes mellitus with diabetic chronic kidney disease; N18.9 Chronic kidney disease, unspecified
CPT/HCPCS: 96365

== ENCOUNTER 2021-04-27 09:36 | Day surgery (SDC) | payer OTHER, BC ==
[2021-04-27] MEDS ORDERED: ERTAPENEM SODIUM 1 GM VIAL ONE (09:39)
[2021-04-27] MEDS ORDERED: SODIUM CHLORIDE 50 ML IVPB ONE (09:39)
[2021-04-27 17:27] VITALS: BP 124/75; PULSE 77; TEMP 97.9
== END 2021-04-27 10:40 | disposition home or self-care (01) ==
LOC: JINFUSION 09:36 → J7W 09:37 → JINFUSION 10:40
PROVIDERS: ATTEND Internal Medicine
DX: A41.50 Gram-negative sepsis, unspecified (principal); B96.29 Other Escherichia coli [E. coli] as the cause of diseases classified elsewhere; E11.22 Type 2 diabetes mellitus with diabetic chronic kidney disease; N18.9 Chronic kidney disease, unspecified
CPT/HCPCS: 96365

== ENCOUNTER 2021-04-28 10:55 | Day surgery (SDC) | payer OTHER, BC ==
[2021-04-28] MEDS ORDERED: SODIUM CHLORIDE 50 ML IVPB ONE (11:17)
[2021-04-28] MEDS ORDERED: ERTAPENEM SODIUM 1 GM VIAL ONE (11:17)
[2021-04-28 11:40] LABS: HEMATOCRIT 38.3 % (35.4-49); HEMOGLOBIN 12.9 GM/dL (11.7-16.9); MCH 28.3 pg (25.7-33.7); MCHC 33.8 g/dl (32.0-35.9); MEAN CELL VOLUME 83.6 fl (80-96); MEAN PLT VOLUME 5.5 fl (7.5-11.1); PLATELET COUNT 342 10^3/uL (134-434); RBC 4.58 M/mm3 (4.00-5.60); RDW 14.1 % (11.9-15.9)
[2021-04-28 11:59] LABS: CALCIUM 9.8 mg/dL (8.5-10.1)
[2021-04-28 12:00] LABS: ALBUMIN 3.7 g/dl (3.4-5.0); BLOOD UREA NITROGEN 76.4 mg/dL (7-18)
[2021-04-28 12:03] LABS: CREATININE 2.1 mg/dL (0.55-1.3)
[2021-04-28 12:04] LABS: BILIRUBIN,TOTAL 0.4 mg/dL (0.2-1)
[2021-04-28 12:07] VITALS: BP 122/76; PULSE 92; TEMP 98.5
== END 2021-04-28 12:09 | disposition home or self-care (01) ==
LOC: JINFUSION 10:55 → J7W 10:56 → JINFUSION 12:09
PROVIDERS: ATTEND Internal Medicine
DX: A41.50 Gram-negative sepsis, unspecified (principal); B96.29 Other Escherichia coli [E. coli] as the cause of diseases classified elsewhere; E11.22 Type 2 diabetes mellitus with diabetic chronic kidney disease; N18.9 Chronic kidney disease, unspecified
CPT/HCPCS: 36415; 80053; 85027; 86140; 96365

== ENCOUNTER 2021-04-29 10:47 | Day surgery (SDC) | payer OTHER, BC ==
[2021-04-29] MEDS ORDERED: ERTAPENEM SODIUM 1 GM VIAL ONE (11:14)
[2021-04-29] MEDS ORDERED: SODIUM CHLORIDE 50 ML IVPB ONE (11:14)
[2021-04-29 12:02] VITALS: TEMP 98
[2021-04-29 12:16] VITALS: BP 130/86; PULSE 87
== END 2021-04-29 12:56 | disposition home or self-care (01) ==
LOC: JINFUSION 10:47 → J7W 10:48 → JINFUSION 12:56
PROVIDERS: ATTEND Internal Medicine
DX: A41.50 Gram-negative sepsis, unspecified (principal); B96.29 Other Escherichia coli [E. coli] as the cause of diseases classified elsewhere; E11.22 Type 2 diabetes mellitus with diabetic chronic kidney disease; N18.9 Chronic kidney disease, unspecified
CPT/HCPCS: 96365

== ENCOUNTER 2021-04-30 10:40 | Day surgery (SDC) | payer OTHER, BC ==
[2021-04-30] MEDS ORDERED: ERTAPENEM SODIUM 1 GM VIAL ONE (10:42)
[2021-04-30] MEDS ORDERED: SODIUM CHLORIDE 50 ML IVPB ONE (10:43)
[2021-04-30 10:59] VITALS: TEMP 97.8
[2021-04-30 12:05] VITALS: BP 131/67; PULSE 72
== END 2021-04-30 12:06 | disposition home or self-care (01) ==
LOC: JINFUSION 10:40 → J7W 10:40 → JINFUSION 12:06
PROVIDERS: ATTEND Internal Medicine
DX: A41.50 Gram-negative sepsis, unspecified (principal); B96.29 Other Escherichia coli [E. coli] as the cause of diseases classified elsewhere; E11.22 Type 2 diabetes mellitus with diabetic chronic kidney disease; N18.9 Chronic kidney disease, unspecified
CPT/HCPCS: 96365

== ENCOUNTER 2021-05-01 10:43 | Day surgery (SDC) | payer OTHER, BC ==
[2021-05-01] MEDS ORDERED: ERTAPENEM SODIUM 1 GM VIAL ONE (10:47)
[2021-05-01] MEDS ORDERED: SODIUM CHLORIDE 50 ML IVPB ONE (10:47)
[2021-05-01 11:01] VITALS: TEMP 97.7
[2021-05-01 12:12] VITALS: BP 137/77; PULSE 71
[2021-05-01 13:20] LABS: HEMATOCRIT 38.4 % (35.4-49); HEMOGLOBIN 12.8 GM/dL (11.7-16.9); MCHC 33.2 g/dl (32.0-35.9); MEAN CELL VOLUME 84.2 fl (80-96); PLATELET COUNT 361 10^3/uL (134-434); RBC 4.57 M/mm3 (4.00-5.60); RDW 14.7 % (11.9-15.9)
[2021-05-01 13:22] LABS: MEAN PLT VOLUME 5.6 fl (7.5-11.1)
[2021-05-01 13:34] LABS: CALCIUM 9.3 mg/dL (8.5-10.1)
[2021-05-01 13:35] LABS: BLOOD UREA NITROGEN 70.4 mg/dL (7-18)
[2021-05-01 13:38] LABS: CREATININE 1.9 mg/dL (0.55-1.3)
== END 2021-05-01 12:51 | disposition home or self-care (01) ==
LOC: JINFUSION 10:43 → J7W 10:44 → JINFUSION 12:51
PROVIDERS: ATTEND Internal Medicine
DX: A41.50 Gram-negative sepsis, unspecified (principal); N39.0 Urinary tract infection, site not specified; B96.29 Other Escherichia coli [E. coli] as the cause of diseases classified elsewhere; E11.22 Type 2 diabetes mellitus with diabetic chronic kidney disease; N18.9 Chronic kidney disease, unspecified
CPT/HCPCS: 36415; 80048; 85027; 96365

== ENCOUNTER 2021-05-02 11:20 | Day surgery (SDC) | payer OTHER, BC ==
[2021-05-02] MEDS ORDERED: ERTAPENEM SODIUM 1 GM VIAL ONE (11:37)
[2021-05-02] MEDS ORDERED: SODIUM CHLORIDE 50 ML IVPB ONE (11:38)
[2021-05-02] MEDS ORDERED: PT OWN MED DRAWER 7, Y5N ONE (11:55)
[2021-05-02 13:29] VITALS: BP 122/87
== END 2021-05-02 14:55 | disposition home or self-care (01) ==
LOC: JINFUSION 11:20 → J7W 11:21 → JINFUSION 14:55
PROVIDERS: ATTEND Internal Medicine
DX: A41.50 Gram-negative sepsis, unspecified (principal); N39.0 Urinary tract infection, site not specified; B96.29 Other Escherichia coli [E. coli] as the cause of diseases classified elsewhere; E11.22 Type 2 diabetes mellitus with diabetic chronic kidney disease; N18.9 Chronic kidney disease, unspecified
CPT/HCPCS: 96365

== ENCOUNTER 2021-06-18 21:24 | Inpatient (IN) | payer OTHER, BC ==
[2021-06-18] MEDS ORDERED: SODIUM CHLORIDE 1,000 ML IV STA (21:42)
[2021-06-18 22:31] LABS: HEMOGLOBIN 13.1 GM/dl (11.7-16.9); MCH 27.9 pg (25.7-33.7); RBC 4.69 M/mm3 (4.00-5.60)
[2021-06-18 22:37] LABS: HEMATOCRIT 39.8 % (35.4-49); MCHC 32.9 g/dl (32.0-35.9); MEAN CELL VOLUME 84.8 fl (80-96); PLATELET COUNT 265 10^3/uL (134-434); RDW 13.3 % (11.9-15.9); WHITE BLOOD COUNT 13.4 K/mm3 (4.0-10.8)
[2021-06-18 22:40] LABS: MEAN PLT VOLUME 5.7 fl (7.5-11.1)
[2021-06-18 22:43] LABS: ALBUMIN 3.8 g/dl (3.4-5.0); BILIRUBIN,TOTAL 0.7 mg/dl (0.2-1); CREATININE 1.7 mg/dl (0.55-1.3); TOT PROT 6.6 g/dl (6.4-8.2)
[2021-06-18 23:11] LABS: PLATELET ESTIMATE ADEQUATE
[2021-06-19] MEDS ORDERED: MEROPENEM 500 MG in DEXTROSE 5%-WATER 100 ML IVPB ONE (01:08)
[2021-06-19] MEDS ORDERED: DEXTROSE 5%-WATER 100 ML IVPB ONE ×3 (01:49→16:56)
[2021-06-19] MEDS ORDERED: MEROPENEM 500 MG VIAL (RESTRICTED TO ID) IVPB ONE (01:49)
[2021-06-19] MEDS ORDERED: SODIUM CHLORIDE 1,000 ML IV SCH (02:45)
[2021-06-19 02:53] VITALS: BMI 31.4
[2021-06-19 07:27] LABS: BASO % 0.2 % (0-2.0); EOS % 0.8 % (0-4.5); HEMATOCRIT 35.5 % (35.4-49); HEMOGLOBIN 11.7 GM/dl (11.7-16.9); LYMPH % 9.1 % (8-40); MCH 27.7 pg (25.7-33.7); MCHC 32.9 g/dl (32.0-35.9); MEAN CELL VOLUME 84.3 fl (80-96); MONO % 11.5 % (3.8-10.2); NEUT % 78.4 % (42.8-82.8); PLATELET COUNT 218 10^3/uL (134-434); RBC 4.21 M/mm3 (4.00-5.60); RDW 13.2 % (11.9-15.9); WHITE BLOOD COUNT 10.3 K/mm3 (4.0-10.8)
[2021-06-19 07:31] LABS: MEAN PLT VOLUME 5.5 fl (7.5-11.1)
[2021-06-19 07:40] LABS: ALBUMIN 3.4 g/dl (3.4-5.0); BILIRUBIN,TOTAL 0.8 mg/dl (0.2-1); CALCIUM 8.7 mg/dl (8.5-10); CREATININE 1.5 mg/dl (0.55-1.3); TOT PROT 5.9 g/dl (6.4-8.2)
[2021-06-19] MEDS ORDERED: FAMOTIDINE PO SCH (10:00)
[2021-06-19] MEDS ORDERED: MEROPENEM 1 GM VIAL (RESTRICTED TO ID) IVPB ONE ×2 (10:24→16:56)
[2021-06-19] MEDS: MEROPENEM 1 GM in DEXTROSE 5%-WATER 100 ML IVPB SCH ×2 (11:14→17:06)
[2021-06-19] MEDS: NEBIVOLOL 5 MG TABLET (FP) PO SCH (11:16)
[2021-06-19] MEDS: ESCITALOPRAM OXALATE 20 MG TABLET PO SCH (11:16)
[2021-06-19] MEDS: VENLAFAXINE HCL 75 MG E.R. CAPSULES PO SCH (11:17)
[2021-06-19] MEDS: EZETIMIBE 10 MG TABLET (FP) PO SCH (11:17)
[2021-06-19] MEDS: LISINOPRIL 5 MG TABLET PO SCH (11:17)
[2021-06-19] MEDS: ARIPiprazole 2 MG TABLET PO SCH (11:17)
[2021-06-19] MEDS: FAMOTIDINE 20 MG TABLET PO SCH (11:19)
[2021-06-19] MEDS: INSULIN SLIDING SCALE (NOVOLOG) 1 VIAL SQ SCH ×3 (11:27→21:57)
[2021-06-19] MEDS: ACETAMINOPHEN 325 MG TABLET (FP) PO PRN ×2 (12:23→21:52)
[2021-06-19] MEDS: ENOXAPARIN NA (PORCINE) 40 MG/0.4 ML DISP.SYRIN SQ SCH (17:06)
[2021-06-19] MEDS: ATORVASTATIN CA 10 MG TABLET (FP) PO SCH (21:51)
[2021-06-20] MEDS ORDERED: DEXTROSE 5%-WATER 100 ML IVPB ONE ×4 (00:26→17:13)
[2021-06-20] MEDS: MEROPENEM 1 GM in DEXTROSE 5%-WATER 100 ML IVPB SCH ×3 (02:14→17:22)
[2021-06-20] MEDS: INSULIN SLIDING SCALE (NOVOLOG) 1 VIAL SQ SCH ×4 (06:27→21:19)
[2021-06-20 07:36] LABS: BASO % 0.8 % (0-2.0); EOS % 2.6 % (0-4.5); HEMATOCRIT 37.7 % (35.4-49); HEMOGLOBIN 12.4 GM/dl (11.7-16.9); LYMPH % 14.9 % (8-40); MCHC 32.8 g/dl (32.0-35.9); MEAN CELL VOLUME 85.3 fl (80-96); MONO % 15.4 % (3.8-10.2); NEUT % 66.3 % (42.8-82.8); PLATELET COUNT 230 10^3/uL (134-434); RBC 4.42 M/mm3 (4.00-5.60); RDW 13.1 % (11.9-15.9); WHITE BLOOD COUNT 6.8 K/mm3 (4.0-10.8)
[2021-06-20 07:39] LABS: MEAN PLT VOLUME 5.1 fl (7.5-11.1)
[2021-06-20 07:53] LABS: ALBUMIN 3.1 g/dl (3.4-5.0); BILIRUBIN,TOTAL 0.6 mg/dl (0.2-1); CREATININE 1.5 mg/dl (0.55-1.3); MAGNESIUM 1.8 mg/dL (1.8-2.4); TOT PROT 5.9 g/dl (6.4-8.2)
[2021-06-20] MEDS ORDERED: MEROPENEM 1 GM VIAL (RESTRICTED TO ID) IVPB ONE ×3 (08:37→17:13)
[2021-06-20] MEDS: EZETIMIBE 10 MG TABLET (FP) PO SCH (09:18)
[2021-06-20] MEDS: FAMOTIDINE 20 MG TABLET PO SCH (09:18)
[2021-06-20] MEDS: NEBIVOLOL 5 MG TABLET (FP) PO SCH (09:18)
[2021-06-20] MEDS: ENOXAPARIN NA (PORCINE) 40 MG/0.4 ML DISP.SYRIN SQ SCH (09:18)
[2021-06-20] MEDS: ARIPiprazole 2 MG TABLET PO SCH (09:18)
[2021-06-20] MEDS: LISINOPRIL 5 MG TABLET PO SCH (09:19)
[2021-06-20] MEDS: VENLAFAXINE HCL 75 MG E.R. CAPSULES PO SCH (09:19)
[2021-06-20] MEDS: ESCITALOPRAM OXALATE 20 MG TABLET PO SCH (09:22)
[2021-06-20] MEDS: ACETAMINOPHEN 325 MG TABLET (FP) PO PRN ×2 (11:25→20:38)
[2021-06-20] MEDS ORDERED: TORSEMIDE 10 MG TABLET PO SCH (11:45)
[2021-06-20] MEDS ORDERED: TORSEMIDE 20 MG TABLET (FP) PO SCH (11:50)
[2021-06-20] MEDS: ATORVASTATIN CA 10 MG TABLET (FP) PO SCH (21:19)
[2021-06-20] MEDS: POLYETHYLENE GLYCOL (HEALTHYLAX) 3350 17 GM PACKET PO PRN (21:44)
[2021-06-21] MEDS ORDERED: MEROPENEM 1 GM VIAL (RESTRICTED TO ID) IVPB ONE ×4 (00:26→23:21)
[2021-06-21] MEDS ORDERED: DEXTROSE 5%-WATER 100 ML IVPB ONE ×4 (00:26→23:21)
[2021-06-21] MEDS: MEROPENEM 1 GM in DEXTROSE 5%-WATER 100 ML IVPB SCH ×3 (02:09→18:08)
[2021-06-21] MEDS: INSULIN SLIDING SCALE (NOVOLOG) 1 VIAL SQ SCH ×4 (06:45→21:08)
[2021-06-21 08:24] LABS: BASO % 0.7 % (0-2.0); EOS % 4.5 % (0-4.5); HEMATOCRIT 39.2 % (35.4-49); HEMOGLOBIN 12.8 GM/dl (11.7-16.9); LYMPH % 16.7 % (8-40); MCH 27.9 pg (25.7-33.7); MCHC 32.7 g/dl (32.0-35.9); MEAN CELL VOLUME 85.1 fl (80-96); MONO % 12.7 % (3.8-10.2); NEUT % 65.4 % (42.8-82.8); PLATELET COUNT 242 10^3/uL (134-434); RBC 4.61 M/mm3 (4.00-5.60); RDW 13.3 % (11.9-15.9); WHITE BLOOD COUNT 6.4 K/mm3 (4.0-10.8)
[2021-06-21 08:29] LABS: MEAN PLT VOLUME 5.6 fl (7.5-11.1)
[2021-06-21 08:44] LABS: ALBUMIN 3.4 g/dl (3.4-5.0); BILIRUBIN,TOTAL 0.5 mg/dl (0.2-1); CALCIUM 9.2 mg/dl (8.5-10); CREATININE 1.4 mg/dl (0.55-1.3); MAGNESIUM 1.8 mg/dL (1.8-2.4); TOT PROT 6.1 g/dl (6.4-8.2)
[2021-06-21] MEDS: ESCITALOPRAM OXALATE 20 MG TABLET PO SCH (09:20)
[2021-06-21] MEDS: VENLAFAXINE HCL 75 MG E.R. CAPSULES PO SCH (09:20)
[2021-06-21] MEDS: LISINOPRIL 5 MG TABLET PO SCH (09:20)
[2021-06-21] MEDS: EZETIMIBE 10 MG TABLET (FP) PO SCH (09:20)
[2021-06-21] MEDS: TORSEMIDE 20 MG TABLET (FP) PO SCH (09:20)
[2021-06-21] MEDS: NEBIVOLOL 5 MG TABLET (FP) PO SCH (09:20)
[2021-06-21] MEDS: ARIPiprazole 2 MG TABLET PO SCH (09:21)
[2021-06-21] MEDS: FAMOTIDINE 20 MG TABLET PO SCH (09:21)
[2021-06-21] MEDS: ENOXAPARIN NA (PORCINE) 40 MG/0.4 ML DISP.SYRIN SQ SCH (09:21)
[2021-06-21] MEDS: POLYETHYLENE GLYCOL (HEALTHYLAX) 3350 17 GM PACKET PO PRN (18:08)
[2021-06-21] MEDS: ACETAMINOPHEN 325 MG TABLET (FP) PO PRN (19:29)
[2021-06-21] MEDS: ATORVASTATIN CA 10 MG TABLET (FP) PO SCH (21:08)
[2021-06-22] MEDS: MEROPENEM 1 GM in DEXTROSE 5%-WATER 100 ML IVPB SCH ×3 (01:58→18:24)
[2021-06-22] MEDS: INSULIN SLIDING SCALE (NOVOLOG) 1 VIAL SQ SCH ×4 (06:05→21:22)
[2021-06-22 09:16] LABS: CALCIUM 9.2 mg/dl (8.5-10); CREATININE 1.5 mg/dl (0.55-1.3)
[2021-06-22] MEDS ORDERED: MEROPENEM 1 GM VIAL (RESTRICTED TO ID) IVPB ONE ×3 (09:19→23:40)
[2021-06-22] MEDS ORDERED: DEXTROSE 5%-WATER 100 ML IVPB ONE ×3 (09:19→23:40)
[2021-06-22] MEDS: LISINOPRIL 5 MG TABLET PO SCH (09:27)
[2021-06-22] MEDS: FAMOTIDINE 20 MG TABLET PO SCH (09:28)
[2021-06-22] MEDS: ESCITALOPRAM OXALATE 20 MG TABLET PO SCH (09:28)
[2021-06-22] MEDS: VENLAFAXINE HCL 75 MG E.R. CAPSULES PO SCH (09:28)
[2021-06-22] MEDS: ENOXAPARIN NA (PORCINE) 40 MG/0.4 ML DISP.SYRIN SQ SCH (09:28)
[2021-06-22] MEDS: TORSEMIDE 20 MG TABLET (FP) PO SCH (09:28)
[2021-06-22] MEDS: ARIPiprazole 2 MG TABLET PO SCH (09:28)
[2021-06-22] MEDS: NEBIVOLOL 5 MG TABLET (FP) PO SCH (09:28)
[2021-06-22] MEDS: EZETIMIBE 10 MG TABLET (FP) PO SCH (09:28)
[2021-06-22] MEDS ORDERED: LACTOBACILLUS ACIDOPHILUS 1 TABLET PO SCH (11:15)
[2021-06-22] MEDS: ATORVASTATIN CA 10 MG TABLET (FP) PO SCH (21:22)
[2021-06-22] MEDS: ACETAMINOPHEN 325 MG TABLET (FP) PO PRN (21:28)
[2021-06-23] MEDS: MEROPENEM 1 GM in DEXTROSE 5%-WATER 100 ML IVPB SCH ×3 (01:27→17:01)
[2021-06-23] MEDS: INSULIN SLIDING SCALE (NOVOLOG) 1 VIAL SQ SCH ×3 (06:35→17:01)
[2021-06-23 07:51] LABS: CALCIUM 9.6 mg/dl (8.5-10); CREATININE 1.7 mg/dl (0.55-1.3)
[2021-06-23 07:56] LABS: BASO % 1.3 % (0-2.0); EOS % 6.7 % (0-4.5); HEMATOCRIT 38.2 % (35.4-49); HEMOGLOBIN 12.9 GM/dl (11.7-16.9); MCH 28.6 pg (25.7-33.7); MCHC 33.6 g/dl (32.0-35.9); PLATELET COUNT 277 10^3/uL (134-434); RDW 12.7 % (11.9-15.9); WHITE BLOOD COUNT 8.4 K/mm3 (4.0-10.8)
[2021-06-23 07:58] LABS: MEAN PLT VOLUME 5.8 fl (7.5-11.1)
[2021-06-23] MEDS ORDERED: MEROPENEM 1 GM VIAL (RESTRICTED TO ID) IVPB ONE ×2 (09:36→16:52)
[2021-06-23] MEDS ORDERED: DEXTROSE 5%-WATER 100 ML IVPB ONE ×2 (09:36→16:52)
[2021-06-23] MEDS ORDERED: REFRIGERATED ANITBIOTICS ONE (09:38)
[2021-06-23] MEDS: EZETIMIBE 10 MG TABLET (FP) PO SCH (09:42)
[2021-06-23] MEDS: NEBIVOLOL 5 MG TABLET (FP) PO SCH (09:43)
[2021-06-23] MEDS: VENLAFAXINE HCL 75 MG E.R. CAPSULES PO SCH (09:43)
[2021-06-23] MEDS: LISINOPRIL 5 MG TABLET PO SCH (09:43)
[2021-06-23] MEDS: FAMOTIDINE 20 MG TABLET PO SCH (09:45)
[2021-06-23] MEDS: ESCITALOPRAM OXALATE 20 MG TABLET PO SCH (09:45)
[2021-06-23] MEDS: ARIPiprazole 2 MG TABLET PO SCH (09:47)
[2021-06-23] MEDS: ENOXAPARIN NA (PORCINE) 40 MG/0.4 ML DISP.SYRIN SQ SCH (09:47)
[2021-06-23] MEDS: TORSEMIDE 20 MG TABLET (FP) PO SCH (09:55)
[2021-06-23 10:00] VITALS: BP 147/61; PULSE 63; TEMP 98.3
[2021-06-23] MEDS: ACETAMINOPHEN 325 MG TABLET (FP) PO PRN (10:55)
== END 2021-06-23 18:52 | disposition home or self-care (01) | DRG 698 ==
LOC: FER 21:24 → FM/S 06-19 01:19
PROVIDERS: ADMIT Internal Medicine; ATTEND Nurse Practitioner Acute Care
DX: T83.518A Infection and inflammatory reaction due to other urinary catheter, initial encounter (principal); G93.41 Metabolic encephalopathy; E87.1 Hypo-osmolality and hyponatremia; N39.0 Urinary tract infection, site not specified; Z16.12 Extended spectrum beta lactamase (ESBL) resistance; B96.20 Unspecified Escherichia coli [E. coli] as the cause of diseases classified elsewhere; E78.5 Hyperlipidemia, unspecified; F32.9 Major depressive disorder, single episode, unspecified; E78.00 Pure hypercholesterolemia, unspecified; D72.829 Elevated white blood cell count, unspecified; I12.9 Hypertensive chronic kidney disease with stage 1 through stage 4 chronic kidney disease, or unspecified chronic kidney disease; R50.9 Fever, unspecified; N18.30 Chronic kidney disease, stage 3 unspecified; E11.22 Type 2 diabetes mellitus with diabetic chronic kidney disease; I25.10 Atherosclerotic heart disease of native coronary artery without angina pectoris; G47.30 Sleep apnea, unspecified; K21.9 Gastro-esophageal reflux disease without esophagitis; Z87.442 Personal history of urinary calculi; Z85.46 Personal history of malignant neoplasm of prostate
CPT/HCPCS: 36415; 71045-TC-FY; 80048; 80053; 80061; 81003; 81015; 82550; 82962; 83036; 83605; 83735; 85025; 87040; 87086; 87186; 93005; 97116-GP; 97162-GP; 99285-25; C9803; U0003; U0005

== ENCOUNTER 2021-08-16 14:46 | Emergency (ER) | payer OTHER, BC ==
[2021-08-16 15:02] VITALS: BP 180/100; PULSE 65; TEMP 98.9; BMI 30.7
[2021-08-16 17:08] LABS: ALBUMIN 3.7 g/dl (3.4-5.0); BILIRUBIN,TOTAL 0.5 mg/dl (0.2-1); CALCIUM 9.2 mg/dl (8.5-10); CREATININE 1.6 mg/dl (0.55-1.3); TOT PROT 6.3 g/dl (6.4-8.2)
[2021-08-16 17:09] LABS: HEMOGLOBIN 13.1 GM/dL (11.7-16.9); MCH 27.3 pg (25.7-33.7); PLATELET COUNT 209 10^3/uL (134-434)
[2021-08-16 17:11] LABS: BASO % 0.4 % (0-2.0); EOS % 3.6 % (0-4.5); HEMATOCRIT 39.4 % (35.4-49); LYMPH % 20.5 % (8-40); MCHC 33.3 g/dl (32.0-35.9); MEAN CELL VOLUME 81.8 fl (80-96); MONO % 8.1 % (3.8-10.2); NEUT % 67.4 % (42.8-82.8); RBC 4.81 M/mm3 (4.00-5.60); RDW 14.7 % (11.9-15.9); WHITE BLOOD COUNT 8.8 K/mm3 (4.0-10.0)
[2021-08-16 17:20] LABS: EPITHELIAL CELLS FEW /hpf
[2021-08-16] MEDS ORDERED: DOXYCYCLINE HYCLATE 100 MG CAPSULE PO ONE (17:26)
[2021-08-16] MEDS ORDERED: DOXYCYCLINE HYCLATE 100 MG TABLET PO ONE (17:41)
== END 2021-08-16 17:50 | disposition home or self-care (01) ==
LOC: FER 14:46
DX: N39.0 Urinary tract infection, site not specified (principal)
CPT/HCPCS: 36415; 80053; 81003; 81015; 85025; 87086; 87186; 99283-25

== ENCOUNTER 2021-09-07 18:22 | Inpatient (IN) | payer OTHER, BC ==
[2021-09-07] MEDS ORDERED: PIPERACILLIN/TAZOB 3.375 GM 3.375 GM in DEXTROSE 5%-WATER - 50 ML IVPB ONE (19:50)
[2021-09-07 20:03] LABS: BASO % 3.1 % (0-2.0); EOS % 0.7 % (0-4.5); HEMATOCRIT 42.7 % (35.4-49); HEMOGLOBIN 14.1 GM/dl (11.7-16.9); LYMPH % 7.2 % (8-40); MCH 27.6 pg (25.7-33.7); MCHC 33.1 g/dl (32.0-35.9); MEAN CELL VOLUME 83.3 fl (80-96); MEAN PLT VOLUME 5.8 fl (7.5-11.1); MONO % 4.5 % (3.8-10.2); NEUT % 84.5 % (42.8-82.8); PLATELET COUNT 252 10^3/uL (134-434); RBC 5.13 M/mm3 (4.00-5.60); RDW 14.2 % (11.9-15.9)
[2021-09-07] MEDS ORDERED: PIPERACILLIN/TAZOBACTAM 3.375 GM VIAL IVPB ONE (20:05)
[2021-09-07 20:28] LABS: EPITHELIAL CELLS FEW /hpf
[2021-09-07 20:29] LABS: ALBUMIN 3.9 g/dl (3.4-5.0); BILIRUBIN,TOTAL 1.1 mg/dl (0.2-1); CALCIUM 9.2 mg/dl (8.5-10); CREATININE 1.9 mg/dl (0.55-1.3); TOT PROT 6.8 g/dl (6.4-8.2)
[2021-09-07] MEDS ORDERED: SODIUM CHLORIDE 0.9% 500 ML INFUS.BAG IV ONE (20:40)
[2021-09-07] MEDS ORDERED: ACETAMINOPHEN 1000 MG/100 ML VIAL IVPB ONE (20:46)
[2021-09-07] MEDS ORDERED: ACETAMINOPHEN INJECTION 100 ML IVPB ONE (20:47)
[2021-09-07 22:57] VITALS: BMI 29.3
[2021-09-07] MEDS: SODIUM CHLORIDE 1,000 ML IV SCH (23:15)
[2021-09-08] MEDS: ACETAMINOPHEN 325 MG TABLET (FP) PO PRN ×2 (05:33→14:33)
[2021-09-08 08:28] LABS: ALBUMIN 3.2 g/dl (3.4-5.0); BILIRUBIN,TOTAL 0.9 mg/dl (0.2-1); CALCIUM 8.4 mg/dl (8.5-10); CREATININE 1.9 mg/dl (0.55-1.3); TOT PROT 5.7 g/dl (6.4-8.2)
[2021-09-08] MEDS ORDERED: DEXTROSE 5%-WATER - 50 ML IVPB ONE (08:42)
[2021-09-08] MEDS ORDERED: PIPERACILLIN/TAZOBACTAM 2.25 GM VIAL IVPB ONE (08:42)
[2021-09-08 08:43] LABS: BASO % 1.5 % (0-2.0); EOS % 0.8 % (0-4.5); HEMATOCRIT 39.1 % (35.4-49); HEMOGLOBIN 12.6 GM/dl (11.7-16.9); LYMPH % 4.7 % (8-40); MCH 26.5 pg (25.7-33.7); MCHC 32.2 g/dl (32.0-35.9); MEAN CELL VOLUME 82.4 fl (80-96); MEAN PLT VOLUME 5.9 fl (7.5-11.1); MONO % 11.8 % (3.8-10.2); NEUT % 81.2 % (42.8-82.8); PLATELET COUNT 210 10^3/uL (134-434); RBC 4.75 M/mm3 (4.00-5.60); RDW 14.1 % (11.9-15.9); WHITE BLOOD COUNT 12.2 K/mm3 (4.0-10.8)
[2021-09-08] MEDS ORDERED: PIPERACILLIN/TAZOB 2.25 GM 2.25 GM in DEXTROSE 5%-WATER - 50 ML IVPB SCH (09:00)
[2021-09-08] MEDS ORDERED: MEROPENEM 500 MG in DEXTROSE 5%-WATER 100 ML IVPB SCH ×2 (10:00→12:30)
[2021-09-08] MEDS: HEPARIN NA (PORCINE) 5,000 UNITS/ML 1ML VIAL SQ SCH ×2 (10:06→21:13)
[2021-09-08] MEDS: NEBIVOLOL 5 MG TABLET (FP) PO SCH (10:06)
[2021-09-08] MEDS: ESCITALOPRAM OXALATE 20 MG TABLET PO SCH (10:07)
[2021-09-08] MEDS: EZETIMIBE 10 MG TABLET (FP) PO SCH (10:07)
[2021-09-08] MEDS: VENLAFAXINE HCL 75 MG E.R. CAPSULES PO SCH (10:07)
[2021-09-08] MEDS: ARIPiprazole 2 MG TABLET PO SCH (10:07)
[2021-09-08] MEDS ORDERED: MEROPENEM 500 MG VIAL (RESTRICTED TO ID) IVPB ONE ×3 (12:05→20:10)
[2021-09-08] MEDS ORDERED: DEXTROSE 5%-WATER 100 ML IVPB ONE (12:05)
[2021-09-08] MEDS ORDERED: MEROPENEM 500 MG in SODIUM CHLORIDE 100 ML IVPB SCH (13:53)
[2021-09-08] MEDS: INSULIN (NOVOLOG) ASPART 100 UNITS/ML 10ML VIAL SQ SCH ×2 (16:25→22:53)
[2021-09-08] MEDS ORDERED: SODIUM CHLORIDE 100 ML IVPB ONE ×2 (16:56→20:10)
[2021-09-08] MEDS: MEROPENEM 500 MG in SODIUM CHLORIDE 100 ML IVPB SCH (20:13)
[2021-09-08] MEDS: SODIUM CHLORIDE 1,000 ML IV SCH (21:09)
[2021-09-08] MEDS: ATORVASTATIN CA 10 MG TABLET (FP) PO SCH (21:13)
[2021-09-09] MEDS ORDERED: MEROPENEM 500 MG VIAL (RESTRICTED TO ID) IVPB ONE ×3 (05:44→21:11)
[2021-09-09] MEDS ORDERED: SODIUM CHLORIDE 100 ML IVPB ONE ×3 (05:44→21:11)
[2021-09-09] MEDS: MEROPENEM 500 MG in SODIUM CHLORIDE 100 ML IVPB SCH ×3 (05:48→21:26)
[2021-09-09] MEDS: ACETAMINOPHEN 325 MG TABLET (FP) PO PRN ×2 (05:56→15:46)
[2021-09-09] MEDS: INSULIN SLIDING SCALE (NOVOLOG) 1 VIAL SQ SCH ×4 (06:01→22:13)
[2021-09-09] MEDS: INSULIN (NOVOLOG) ASPART 100 UNITS/ML 10ML VIAL SQ SCH (06:01)
[2021-09-09 08:28] LABS: BASO % 2.7 % (0-2.0); EOS % 2.1 % (0-4.5); HEMATOCRIT 38.8 % (35.4-49); HEMOGLOBIN 12.6 GM/dl (11.7-16.9); LYMPH % 8.2 % (8-40); MCHC 32.4 g/dl (32.0-35.9); MEAN CELL VOLUME 83.3 fl (80-96); MEAN PLT VOLUME 5.9 fl (7.5-11.1); MONO % 15.4 % (3.8-10.2); NEUT % 71.6 % (42.8-82.8); PLATELET COUNT 214 10^3/uL (134-434); RBC 4.66 M/mm3 (4.00-5.60); RDW 14.3 % (11.9-15.9); WHITE BLOOD COUNT 8.2 K/mm3 (4.0-10.8)
[2021-09-09 08:47] LABS: BILIRUBIN,TOTAL 0.8 mg/dl (0.2-1); CALCIUM 8.4 mg/dl (8.5-10); CREATININE 1.6 mg/dl (0.55-1.3); MAGNESIUM 1.6 mg/dL (1.8-2.4); TOT PROT 5.7 g/dl (6.4-8.2)
[2021-09-09] MEDS: ARIPiprazole 2 MG TABLET PO SCH (09:03)
[2021-09-09] MEDS: NEBIVOLOL 5 MG TABLET (FP) PO SCH (09:04)
[2021-09-09] MEDS: VENLAFAXINE HCL 75 MG E.R. CAPSULES PO SCH (09:04)
[2021-09-09] MEDS: EZETIMIBE 10 MG TABLET (FP) PO SCH (09:04)
[2021-09-09] MEDS: ESCITALOPRAM OXALATE 20 MG TABLET PO SCH (09:05)
[2021-09-09] MEDS: HEPARIN NA (PORCINE) 5,000 UNITS/ML 1ML VIAL SQ SCH ×2 (09:05→21:26)
[2021-09-09] MEDS ORDERED: MAGNESIUM SULF 50% (8.12 MEQ/2 ML-1 GM VIAL) IVPB ONE (10:05)
[2021-09-09] MEDS ORDERED: MAGNESIUM SULFATE IN WATER 2 GM/50 ML IVPB IVPB ONE (10:15)
[2021-09-09] MEDS ORDERED: MAGNESIUM OXIDE 400 MG TABLET (FP) PO ONE ×2 (12:30→12:45)
[2021-09-09] MEDS ORDERED: LISINOPRIL 5 MG TABLET PO ONE (13:45)
[2021-09-09] MEDS: PANTOPRAZOLE 40 MG TABLET PO SCH (16:06)
[2021-09-09] MEDS: ATORVASTATIN CA 10 MG TABLET (FP) PO SCH (22:04)
[2021-09-10] MEDS ORDERED: SODIUM CHLORIDE 100 ML IVPB ONE ×2 (04:24→12:56)
[2021-09-10] MEDS ORDERED: MEROPENEM 500 MG VIAL (RESTRICTED TO ID) IVPB ONE ×2 (04:24→12:56)
[2021-09-10] MEDS: MEROPENEM 500 MG in SODIUM CHLORIDE 100 ML IVPB SCH ×3 (04:35→21:51)
[2021-09-10] MEDS: INSULIN SLIDING SCALE (NOVOLOG) 1 VIAL SQ SCH ×3 (06:13→16:42)
[2021-09-10 08:45] LABS: BASO % 0.5 % (0-2.0); EOS % 2.5 % (0-4.5); HEMATOCRIT 38.3 % (35.4-49); HEMOGLOBIN 12.9 GM/dl (11.7-16.9); MCH 27.9 pg (25.7-33.7); MCHC 33.7 g/dl (32.0-35.9); MEAN CELL VOLUME 82.8 fl (80-96); MONO % 12.2 % (3.8-10.2); NEUT % 69.8 % (42.8-82.8); PLATELET COUNT 227 10^3/uL (134-434); RBC 4.63 M/mm3 (4.00-5.60)
[2021-09-10 08:50] LABS: ALBUMIN 2.9 g/dl (3.4-5.0); BILIRUBIN,TOTAL 0.6 mg/dl (0.2-1); CALCIUM 9.1 mg/dl (8.5-10); CREATININE 1.4 mg/dl (0.55-1.3); MEAN PLT VOLUME 5.7 fl (7.5-11.1); TOT PROT 5.6 g/dl (6.4-8.2)
[2021-09-10] MEDS: VENLAFAXINE HCL 75 MG E.R. CAPSULES PO SCH (10:02)
[2021-09-10] MEDS: ESCITALOPRAM OXALATE 20 MG TABLET PO SCH (10:02)
[2021-09-10] MEDS: PANTOPRAZOLE 40 MG TABLET PO SCH (10:02)
[2021-09-10] MEDS: NEBIVOLOL 5 MG TABLET (FP) PO SCH (10:02)
[2021-09-10] MEDS: EZETIMIBE 10 MG TABLET (FP) PO SCH (10:02)
[2021-09-10] MEDS: TORSEMIDE 20 MG TABLET (FP) PO SCH (10:03)
[2021-09-10] MEDS: HEPARIN NA (PORCINE) 5,000 UNITS/ML 1ML VIAL SQ SCH ×2 (10:03→21:30)
[2021-09-10] MEDS: LISINOPRIL 5 MG TABLET PO SCH (10:03)
[2021-09-10] MEDS: ARIPiprazole 2 MG TABLET PO SCH (10:03)
[2021-09-10] MEDS: ACETAMINOPHEN 325 MG TABLET (FP) PO PRN (14:06)
[2021-09-10] MEDS: ATORVASTATIN CA 10 MG TABLET (FP) PO SCH (21:30)
[2021-09-11] MEDS: MEROPENEM 500 MG in SODIUM CHLORIDE 100 ML IVPB SCH ×3 (05:55→20:43)
[2021-09-11] MEDS: ACETAMINOPHEN 325 MG TABLET (FP) PO PRN ×3 (06:04→20:43)
[2021-09-11] MEDS: INSULIN SLIDING SCALE (NOVOLOG) 1 VIAL SQ SCH ×5 (06:05→21:29)
[2021-09-11] MEDS: ESCITALOPRAM OXALATE 20 MG TABLET PO SCH (09:50)
[2021-09-11] MEDS: VENLAFAXINE HCL 75 MG E.R. CAPSULES PO SCH (09:50)
[2021-09-11] MEDS: TORSEMIDE 20 MG TABLET (FP) PO SCH (09:50)
[2021-09-11] MEDS: NEBIVOLOL 5 MG TABLET (FP) PO SCH (09:51)
[2021-09-11] MEDS: ARIPiprazole 2 MG TABLET PO SCH (09:51)
[2021-09-11] MEDS: PANTOPRAZOLE 40 MG TABLET PO SCH (09:51)
[2021-09-11] MEDS: HEPARIN NA (PORCINE) 5,000 UNITS/ML 1ML VIAL SQ SCH ×2 (09:52→21:26)
[2021-09-11] MEDS: EZETIMIBE 10 MG TABLET (FP) PO SCH (09:52)
[2021-09-11] MEDS: LISINOPRIL 5 MG TABLET PO SCH (09:52)
[2021-09-11 10:08] LABS: CALCIUM 9.5 mg/dl (8.5-10); CREATININE 1.6 mg/dl (0.55-1.3)
[2021-09-11 10:48] LABS: BASO % 0.9 % (0-2.0); EOS % 1.4 % (0-4.5); HEMATOCRIT 39.6 % (35.4-49); HEMOGLOBIN 13.4 GM/dl (11.7-16.9); LYMPH % 11.2 % (8-40); MCH 27.9 pg (25.7-33.7); MCHC 33.8 g/dl (32.0-35.9); MEAN CELL VOLUME 82.5 fl (80-96); MONO % 11.3 % (3.8-10.2); NEUT % 75.2 % (42.8-82.8); PLATELET COUNT 243 10^3/uL (134-434); RDW 13.9 % (11.9-15.9); WHITE BLOOD COUNT 8.1 K/mm3 (4.0-10.8)
[2021-09-11 10:49] LABS: MEAN PLT VOLUME 5.4 fl (7.5-11.1)
[2021-09-11 10:58] LABS: BILIRUBIN,TOTAL 0.8 mg/dl (0.2-1); CALCIUM 9.5 mg/dl (8.5-10); CREATININE 1.4 mg/dl (0.55-1.3); MAGNESIUM 1.7 mg/dL (1.8-2.4); TOT PROT 5.9 g/dl (6.4-8.2); URIC ACID 9.8 mg/dl (2.6-7.2)
[2021-09-11] MEDS ORDERED: COLCHICINE 0.6 MG TAB PO ONE (11:45)
[2021-09-11] MEDS ORDERED: MAGNESIUM OXIDE 400 MG TABLET (FP) PO ONE (11:45)
[2021-09-11] MEDS ORDERED: COLCHICINE 0.6 MG CAP PO ONE (12:45)
[2021-09-11] MEDS ORDERED: MEROPENEM 500 MG VIAL (RESTRICTED TO ID) IVPB ONE ×2 (14:04→20:29)
[2021-09-11] MEDS ORDERED: SODIUM CHLORIDE 100 ML IVPB ONE ×2 (14:05→20:29)
[2021-09-11] MEDS: ATORVASTATIN CA 10 MG TABLET (FP) PO SCH (21:26)
[2021-09-12] MEDS ORDERED: SODIUM CHLORIDE 100 ML IVPB ONE ×3 (05:06→21:35)
[2021-09-12] MEDS ORDERED: MEROPENEM 500 MG VIAL (RESTRICTED TO ID) IVPB ONE ×3 (05:06→21:34)
[2021-09-12] MEDS: MEROPENEM 500 MG in SODIUM CHLORIDE 100 ML IVPB SCH ×3 (05:23→21:37)
[2021-09-12] MEDS: ACETAMINOPHEN 325 MG TABLET (FP) PO PRN (05:44)
[2021-09-12] MEDS: INSULIN SLIDING SCALE (NOVOLOG) 1 VIAL SQ SCH ×4 (06:55→21:38)
[2021-09-12] MEDS: HEPARIN NA (PORCINE) 5,000 UNITS/ML 1ML VIAL SQ SCH ×2 (09:44→21:37)
[2021-09-12] MEDS: TORSEMIDE 20 MG TABLET (FP) PO SCH (09:45)
[2021-09-12] MEDS: PANTOPRAZOLE 40 MG TABLET PO SCH (09:45)
[2021-09-12] MEDS: ESCITALOPRAM OXALATE 20 MG TABLET PO SCH (09:46)
[2021-09-12] MEDS: EZETIMIBE 10 MG TABLET (FP) PO SCH (09:46)
[2021-09-12] MEDS: VENLAFAXINE HCL 75 MG E.R. CAPSULES PO SCH (09:46)
[2021-09-12] MEDS: ARIPiprazole 2 MG TABLET PO SCH (09:46)
[2021-09-12] MEDS: NEBIVOLOL 5 MG TABLET (FP) PO SCH (09:46)
[2021-09-12] MEDS: LISINOPRIL 5 MG TABLET PO SCH (09:46)
[2021-09-12] MEDS ORDERED: COLCHICINE 0.6 MG CAPSULE PO SCH (10:15)
[2021-09-12] MEDS: ATORVASTATIN CA 10 MG TABLET (FP) PO SCH (21:37)
[2021-09-13] MEDS ORDERED: MEROPENEM 500 MG VIAL (RESTRICTED TO ID) IVPB ONE ×3 (05:33→20:54)
[2021-09-13] MEDS ORDERED: SODIUM CHLORIDE 100 ML IVPB ONE ×3 (05:34→20:54)
[2021-09-13] MEDS: MEROPENEM 500 MG in SODIUM CHLORIDE 100 ML IVPB SCH ×3 (06:06→21:27)
[2021-09-13] MEDS: INSULIN SLIDING SCALE (NOVOLOG) 1 VIAL SQ SCH ×4 (06:37→21:28)
[2021-09-13 08:21] LABS: ALBUMIN 2.8 g/dl (3.4-5.0); BILIRUBIN,TOTAL 0.7 mg/dl (0.2-1); CREATININE 1.7 mg/dl (0.55-1.3); MAGNESIUM 1.7 mg/dL (1.8-2.4); TOT PROT 5.9 g/dl (6.4-8.2)
[2021-09-13] MEDS ORDERED: PT OWN MED DRAWER 7, Y5N ONE (08:42)
[2021-09-13] MEDS: TORSEMIDE 20 MG TABLET (FP) PO SCH (09:27)
[2021-09-13] MEDS: HEPARIN NA (PORCINE) 5,000 UNITS/ML 1ML VIAL SQ SCH ×2 (09:27→21:27)
[2021-09-13] MEDS: ESCITALOPRAM OXALATE 20 MG TABLET PO SCH (09:28)
[2021-09-13] MEDS: VENLAFAXINE HCL 75 MG E.R. CAPSULES PO SCH (09:28)
[2021-09-13] MEDS: ARIPiprazole 2 MG TABLET PO SCH (09:28)
[2021-09-13] MEDS: predniSONE 20 MG TABLET (UD) PO SCH (09:28)
[2021-09-13] MEDS: NEBIVOLOL 5 MG TABLET (FP) PO SCH (09:28)
[2021-09-13] MEDS: EZETIMIBE 10 MG TABLET (FP) PO SCH (09:28)
[2021-09-13] MEDS: PANTOPRAZOLE 40 MG TABLET PO SCH (09:28)
[2021-09-13] MEDS: LISINOPRIL 5 MG TABLET PO SCH (09:28)
[2021-09-13] MEDS: MAGNESIUM OXIDE 400 MG TABLET (FP) PO SCH ×2 (09:39→21:27)
[2021-09-13] MEDS ORDERED: POTASSIUM CHLORIDE TABS 20 MEQ TABLET.ER (FP) PO SCH (10:00)
[2021-09-13 10:10] LABS: BASO % 0.8 % (0-2.0); EOS % 4.1 % (0-4.5); HEMATOCRIT 38.6 % (35.4-49); LYMPH % 21.9 % (8-40); MCH 27.3 pg (25.7-33.7); MCHC 33.8 g/dl (32.0-35.9); MEAN CELL VOLUME 80.7 fl (80-96); MEAN PLT VOLUME 5.9 fl (7.5-11.1); MONO % 9.7 % (3.8-10.2); NEUT % 63.5 % (42.8-82.8); PLATELET COUNT 267 10^3/uL (134-434); RBC 4.78 M/mm3 (4.00-5.60); RDW 15.3 % (11.9-15.9); WHITE BLOOD COUNT 7.5 K/mm3 (4.0-10.0)
[2021-09-13] MEDS: ATORVASTATIN CA 10 MG TABLET (FP) PO SCH (21:27)
[2021-09-14] MEDS ORDERED: MEROPENEM 500 MG VIAL (RESTRICTED TO ID) IVPB ONE ×3 (05:57→21:14)
[2021-09-14] MEDS ORDERED: SODIUM CHLORIDE 100 ML IVPB ONE ×3 (05:57→21:14)
[2021-09-14] MEDS: MEROPENEM 500 MG in SODIUM CHLORIDE 100 ML IVPB SCH ×3 (05:58→21:23)
[2021-09-14] MEDS: INSULIN SLIDING SCALE (NOVOLOG) 1 VIAL SQ SCH ×4 (06:48→21:28)
[2021-09-14 09:08] LABS: BASO % 2.3 % (0-2.0); MCH 26.6 pg (25.7-33.7)
[2021-09-14 09:20] LABS: HEMATOCRIT 39.6 % (35.4-49); HEMOGLOBIN 12.9 GM/dl (11.7-16.9); LYMPH % 5.4 % (8-40); MCHC 32.5 g/dl (32.0-35.9); MEAN CELL VOLUME 81.8 fl (80-96); MONO % 5.9 % (3.8-10.2); NEUT % 86.4 % (42.8-82.8); PLATELET COUNT 424 10^3/uL (134-434); RBC 4.84 M/mm3 (4.00-5.60); RDW 13.9 % (11.9-15.9); WHITE BLOOD COUNT 11.1 K/mm3 (4.0-10.8)
[2021-09-14 09:23] LABS: ALBUMIN 2.9 g/dl (3.4-5.0); BILIRUBIN,TOTAL 0.5 mg/dl (0.2-1); CALCIUM 9.3 mg/dl (8.5-10); CREATININE 1.7 mg/dl (0.55-1.3); MAGNESIUM 1.7 mg/dL (1.8-2.4); MEAN PLT VOLUME 5.7 fl (7.5-11.1); TOT PROT 6.1 g/dl (6.4-8.2)
[2021-09-14] MEDS: MAGNESIUM OXIDE 400 MG TABLET (FP) PO SCH ×2 (09:46→21:23)
[2021-09-14] MEDS: NEBIVOLOL 5 MG TABLET (FP) PO SCH (09:46)
[2021-09-14] MEDS: PANTOPRAZOLE 40 MG TABLET PO SCH (09:46)
[2021-09-14] MEDS: VENLAFAXINE HCL 75 MG E.R. CAPSULES PO SCH (09:46)
[2021-09-14] MEDS: LISINOPRIL 5 MG TABLET PO SCH (09:46)
[2021-09-14] MEDS: ESCITALOPRAM OXALATE 20 MG TABLET PO SCH (09:46)
[2021-09-14] MEDS: EZETIMIBE 10 MG TABLET (FP) PO SCH (09:46)
[2021-09-14] MEDS: TORSEMIDE 20 MG TABLET (FP) PO SCH (09:46)
[2021-09-14] MEDS: ARIPiprazole 2 MG TABLET PO SCH (09:46)
[2021-09-14] MEDS: predniSONE 20 MG TABLET (UD) PO SCH (09:46)
[2021-09-14] MEDS: HEPARIN NA (PORCINE) 5,000 UNITS/ML 1ML VIAL SQ SCH ×2 (09:47→21:23)
[2021-09-14] MEDS ORDERED: FAMOTIDINE 10 MG TABLET PO ONE (20:50)
[2021-09-14] MEDS: ATORVASTATIN CA 10 MG TABLET (FP) PO SCH (21:23)
[2021-09-14] MEDS: MAG HYDROX/AL HYDROX/SIMETH 30 ML UNIT-DOSE CUP PO SCH (21:24)
[2021-09-15] MEDS: MEROPENEM 500 MG in SODIUM CHLORIDE 100 ML IVPB SCH (05:54)
[2021-09-15] MEDS: INSULIN SLIDING SCALE (NOVOLOG) 1 VIAL SQ SCH ×2 (06:40→12:59)
[2021-09-15 08:20] LABS: CALCIUM 9.2 mg/dl (8.5-10); CREATININE 1.6 mg/dl (0.55-1.3)
[2021-09-15 08:43] LABS: HEMATOCRIT 35.6 % (35.4-49); MCH 27.8 pg (25.7-33.7); MCHC 33.7 g/dl (32.0-35.9); MEAN CELL VOLUME 82.4 fl (80-96); PLATELET COUNT 393 10^3/uL (134-434); RBC 4.32 M/mm3 (4.00-5.60); RDW 13.8 % (11.9-15.9); WHITE BLOOD COUNT 11.4 K/mm3 (4.0-10.8)
[2021-09-15 08:52] LABS: MEAN PLT VOLUME 5.6 fl (7.5-11.1)
[2021-09-15 08:59] VITALS: BP 146/66; PULSE 55; TEMP 98.4
[2021-09-15] MEDS: VENLAFAXINE HCL 75 MG E.R. CAPSULES PO SCH (09:51)
[2021-09-15] MEDS: MAG HYDROX/AL HYDROX/SIMETH 30 ML UNIT-DOSE CUP PO SCH (09:51)
[2021-09-15] MEDS: ARIPiprazole 2 MG TABLET PO SCH (09:52)
[2021-09-15] MEDS: LISINOPRIL 5 MG TABLET PO SCH (09:52)
[2021-09-15] MEDS: PANTOPRAZOLE 40 MG TABLET PO SCH (09:52)
[2021-09-15] MEDS: NEBIVOLOL 5 MG TABLET (FP) PO SCH (09:52)
[2021-09-15] MEDS: EZETIMIBE 10 MG TABLET (FP) PO SCH (09:52)
[2021-09-15] MEDS: TORSEMIDE 20 MG TABLET (FP) PO SCH (09:52)
[2021-09-15] MEDS: ESCITALOPRAM OXALATE 20 MG TABLET PO SCH (09:53)
[2021-09-15] MEDS: MAGNESIUM OXIDE 400 MG TABLET (FP) PO SCH (09:53)
[2021-09-15] MEDS ORDERED: predniSONE 10 MG TABLET (UD) PO SCH (10:00)
[2021-09-15 11:42] LABS: PLATELET ESTIMATE ADEQUATE
== END 2021-09-15 12:59 | disposition home or self-care (01) | DRG 698 ==
LOC: FER 18:22 → FM/S 22:09
PROVIDERS: ADMIT Internal Medicine; ATTEND Nurse Practitioner Acute Care
DX: T83.598A Infection and inflammatory reaction due to other prosthetic device, implant and graft in urinary system, initial encounter (principal); A41.52 Sepsis due to Pseudomonas; N17.9 Acute kidney failure, unspecified; E87.1 Hypo-osmolality and hyponatremia; N39.0 Urinary tract infection, site not specified; I25.10 Atherosclerotic heart disease of native coronary artery without angina pectoris; I10 Essential (primary) hypertension; E78.5 Hyperlipidemia, unspecified; F32.A Depression, unspecified; G47.30 Sleep apnea, unspecified; M10.9 Gout, unspecified; D72.829 Elevated white blood cell count, unspecified; K21.9 Gastro-esophageal reflux disease without esophagitis; I12.9 Hypertensive chronic kidney disease with stage 1 through stage 4 chronic kidney disease, or unspecified chronic kidney disease; E11.22 Type 2 diabetes mellitus with diabetic chronic kidney disease; N18.9 Chronic kidney disease, unspecified; Y83.8 Other surgical procedures as the cause of abnormal reaction of the patient, or of later complication, without mention of misadventure at the time of the procedure; Z85.46 Personal history of malignant neoplasm of prostate
CPT/HCPCS: 36415; 71045-TC-FY; 73562-TC-LT-FY; 73562-TC-RT-FY; 80048; 80053; 81003; 81015; 82550; 82962; 83605; 83735; 84484; 84550; 85025; 87040; 87086; 87186; 93005; 97116-GP; 97162-GP; 99285-25; C9803; J0131; J1644; U0003; U0005

== ENCOUNTER 2021-09-24 19:31 | Inpatient (IN) | payer OTHER, BC ==
[2021-09-24 20:35] LABS: BASO % 3.9 % (0-2.0); EOS % 0.3 % (0-4.5); HEMATOCRIT 46.5 % (35.4-49); HEMOGLOBIN 15.7 GM/dl (11.7-16.9); LYMPH % 8.4 % (8-40); MCH 28.2 pg (25.7-33.7); MCHC 33.8 g/dl (32.0-35.9); MEAN CELL VOLUME 83.4 fl (80-96); MEAN PLT VOLUME 6.3 fl (7.5-11.1); MONO % 7.5 % (3.8-10.2); NEUT % 79.9 % (42.8-82.8); PLATELET COUNT 377 10^3/uL (134-434); RBC 5.57 M/mm3 (4.00-5.60); RDW 14.4 % (11.9-15.9)
[2021-09-24 20:50] LABS: CALCIUM 9.6 mg/dl (8.5-10); CREATININE 2.3 mg/dl (0.55-1.3); TOT PROT 6.9 g/dl (6.4-8.2)
[2021-09-24] MEDS ORDERED: PIPERACILLIN/TAZOB 3.375 GM 3.375 GM in DEXTROSE 5%-WATER - 50 ML IVPB ONE (21:13)
[2021-09-24] MEDS ORDERED: PIPERACILLIN/TAZOBACTAM 3.375 GM VIAL IVPB ONE (21:24)
[2021-09-24] MEDS ORDERED: SODIUM CHLORIDE 1,000 ML IV ONE (21:37)
[2021-09-25] MEDS ORDERED: DEXTROSE 5%-WATER 100 ML IVPB ONE ×3 (05:12→16:33)
[2021-09-25] MEDS: MEROPENEM 1 GM in DEXTROSE 5%-WATER 100 ML IVPB SCH ×2 (06:06→10:01)
[2021-09-25] MEDS: SODIUM CHLORIDE 1,000 ML IV SCH ×2 (06:06→17:29)
[2021-09-25] MEDS: HEPARIN NA (PORCINE) 5,000 UNITS/ML 1ML VIAL SQ SCH ×3 (06:06→22:28)
[2021-09-25] MEDS: INSULIN SLIDING SCALE (NOVOLOG) 1 VIAL SQ SCH ×4 (06:15→22:29)
[2021-09-25 08:55] LABS: INR 1.14 (0.82-1.09); PROTHROMBIN TIME (PATIENT) 12.7 SEC (10.2-13.0)
[2021-09-25 09:17] LABS: BASO % 4.9 % (0-2.0); EOS % 0.9 % (0-4.5); HEMOGLOBIN 13.6 GM/dl (11.7-16.9); LYMPH % 16.1 % (8-40); MCHC 32.4 g/dl (32.0-35.9); MEAN CELL VOLUME 83.2 fl (80-96); MEAN PLT VOLUME 6.4 fl (7.5-11.1); MONO % 8.7 % (3.8-10.2); NEUT % 69.4 % (42.8-82.8); PLATELET COUNT 319 10^3/uL (134-434); RBC 5.05 M/mm3 (4.00-5.60); RDW 14.6 % (11.9-15.9)
[2021-09-25] MEDS ORDERED: MEROPENEM 1 GM VIAL (RESTRICTED TO ID) IVPB ONE (09:31)
[2021-09-25 09:33] LABS: MAGNESIUM 2.2 mg/dL (1.8-2.4); PHOSPHOROUS 3.8 mg/dl (2.5-4.9)
[2021-09-25 09:47] LABS: ALBUMIN 3.4 g/dl (3.4-5.0); BILIRUBIN,TOTAL 0.8 mg/dl (0.2-1); CALCIUM 9.1 mg/dl (8.5-10); CREATININE 2.2 mg/dl (0.55-1.3); TOT PROT 5.9 g/dl (6.4-8.2)
[2021-09-25] MEDS ORDERED: FAMOTIDINE 20 MG TABLET PO SCH (10:00)
[2021-09-25] MEDS: ARIPiprazole 2 MG TABLET PO SCH (10:00)
[2021-09-25] MEDS: EZETIMIBE 10 MG TABLET (FP) PO SCH (10:00)
[2021-09-25] MEDS: NEBIVOLOL 5 MG TABLET (FP) PO SCH (10:00)
[2021-09-25] MEDS ORDERED: ESCITALOPRAM OXALATE 20 MG TABLET PO SCH (10:00)
[2021-09-25] MEDS ORDERED: ASPIRIN 325 MG ENTERIC COATED TABLET (FP) PO ONE (10:11)
[2021-09-25] MEDS: VENLAFAXINE HCL 37.5 MG E.R. CAPSULE PO SCH (11:59)
[2021-09-25] MEDS ORDERED: MEROPENEM 500 MG VIAL (RESTRICTED TO ID) IVPB ONE (16:33)
[2021-09-25] MEDS: MEROPENEM 500 MG in DEXTROSE 5%-WATER 100 ML IVPB SCH (17:29)
[2021-09-25] MEDS: ATORVASTATIN CA 10 MG TABLET (FP) PO SCH (22:28)
[2021-09-26] MEDS ORDERED: MEROPENEM 500 MG VIAL (RESTRICTED TO ID) IVPB ONE ×3 (00:51→18:02)
[2021-09-26] MEDS ORDERED: DEXTROSE 5%-WATER 100 ML IVPB ONE ×3 (00:52→18:02)
[2021-09-26] MEDS: MEROPENEM 500 MG in DEXTROSE 5%-WATER 100 ML IVPB SCH ×3 (02:00→18:17)
[2021-09-26] MEDS ORDERED: MEROPENEM 1 GM in DEXTROSE 5%-WATER 100 ML IVPB SCH (02:00)
[2021-09-26] MEDS: INSULIN SLIDING SCALE (NOVOLOG) 1 VIAL SQ SCH ×4 (06:11→21:55)
[2021-09-26] MEDS: SODIUM CHLORIDE 1,000 ML IV SCH (06:25)
[2021-09-26] MEDS: HEPARIN NA (PORCINE) 5,000 UNITS/ML 1ML VIAL SQ SCH ×3 (06:26→21:50)
[2021-09-26] MEDS ORDERED: PT OWN MED DRAWER 7, Y5N ONE ×2 (08:59→18:02)
[2021-09-26] MEDS: ARIPiprazole 2 MG TABLET PO SCH (09:51)
[2021-09-26] MEDS: NEBIVOLOL 5 MG TABLET (FP) PO SCH (09:51)
[2021-09-26] MEDS: FAMOTIDINE 20 MG TABLET PO SCH (09:51)
[2021-09-26] MEDS: EZETIMIBE 10 MG TABLET (FP) PO SCH (09:51)
[2021-09-26] MEDS: ASPIRIN COATED 81 MG TABLET.EC PO SCH (09:51)
[2021-09-26 15:22] LABS: ALBUMIN 2.9 g/dl (3.4-5.0); BILIRUBIN,TOTAL 0.4 mg/dL (0.2-1); BLOOD UREA NITROGEN 50.1 mg/dL (7-18); CALCIUM 8.8 mg/dL (8.5-10.1); CREATININE 1.5 mg/dL (0.55-1.3); TOT PROT 5.5 g/dl (6.4-8.2)
[2021-09-26] MEDS ORDERED: DOCUSATE SODIUM 100 MG CAPSULE (FP) PO PRN (21:42)
[2021-09-26] MEDS ORDERED: POLYETHYLENE GLYCOL (HEALTHYLAX) 3350 17 GM PACKET PO PRN ×2 (21:42→22:05)
[2021-09-26] MEDS ORDERED: POLYETHYLENE GLYCOL (HEALTHYLAX) 3350 17 GM PACKET PO SCH (21:45)
[2021-09-26] MEDS ORDERED: DOCUSATE SODIUM 100 MG CAPSULE (FP) PO SCH (21:45)
[2021-09-26] MEDS: ATORVASTATIN CA 10 MG TABLET (FP) PO SCH (21:50)
[2021-09-27] MEDS ORDERED: MELATONIN 5 MG TABLETS PO ONE (01:11)
[2021-09-27] MEDS ORDERED: DEXTROSE 5%-WATER 100 ML IVPB ONE ×3 (01:15→16:04)
[2021-09-27] MEDS ORDERED: MEROPENEM 500 MG VIAL (RESTRICTED TO ID) IVPB ONE ×3 (01:15→16:04)
[2021-09-27] MEDS: MEROPENEM 500 MG in DEXTROSE 5%-WATER 100 ML IVPB SCH ×3 (01:18→17:10)
[2021-09-27] MEDS: SODIUM CHLORIDE 1,000 ML IV SCH (03:45)
[2021-09-27] MEDS ORDERED: ACETAMINOPHEN 325 MG TABLET (FP) PO ONE (03:46)
[2021-09-27] MEDS: INSULIN SLIDING SCALE (NOVOLOG) 1 VIAL SQ SCH ×4 (06:28→22:20)
[2021-09-27] MEDS: HEPARIN NA (PORCINE) 5,000 UNITS/ML 1ML VIAL SQ SCH ×3 (06:29→22:22)
[2021-09-27] MEDS: FAMOTIDINE 20 MG TABLET PO SCH (10:59)
[2021-09-27] MEDS: NEBIVOLOL 5 MG TABLET (FP) PO SCH (10:59)
[2021-09-27] MEDS: SENNOSIDES 8.6MG TABLET (FP) PO SCH ×2 (10:59→22:31)
[2021-09-27] MEDS: ASPIRIN COATED 81 MG TABLET.EC PO SCH (10:59)
[2021-09-27] MEDS: EZETIMIBE 10 MG TABLET (FP) PO SCH (10:59)
[2021-09-27] MEDS ORDERED: PT OWN MED DRAWER 7, Y5N ONE (11:04)
[2021-09-27] MEDS: ARIPiprazole 2 MG TABLET PO SCH (11:07)
[2021-09-27] MEDS: VENLAFAXINE HCL 37.5 MG E.R. CAPSULE PO SCH (11:07)
[2021-09-27 12:00] LABS: BASO % 0.5 % (0-2.0); EOS % 2.9 % (0-4.5); HEMATOCRIT 37.8 % (35.4-49); HEMOGLOBIN 12.8 GM/dL (11.7-16.9); LYMPH % 15.4 % (8-40); MCH 27.8 pg (25.7-33.7); MCHC 33.8 g/dl (32.0-35.9); MEAN CELL VOLUME 82.2 fl (80-96); MONO % 7.7 % (3.8-10.2); NEUT % 73.5 % (42.8-82.8); PLATELET COUNT 228 10^3/uL (134-434); RBC 4.59 M/mm3 (4.00-5.60); RDW 15.5 % (11.9-15.9); WHITE BLOOD COUNT 9.8 K/mm3 (4.0-10.0)
[2021-09-27 12:22] LABS: ALBUMIN 2.8 g/dl (3.4-5.0); BLOOD UREA NITROGEN 36.4 mg/dL (7-18); MAGNESIUM 2.1 mg/dL (1.8-2.4)
[2021-09-27 12:24] LABS: CALCIUM 8.6 mg/dL (8.5-10.1)
[2021-09-27 12:25] LABS: CREATININE 1.3 mg/dL (0.55-1.3); PHOSPHOROUS 2.2 mg/dL (2.5-4.9)
[2021-09-27 12:27] LABS: BILIRUBIN,TOTAL 0.3 mg/dL (0.2-1); TOT PROT 5.4 g/dl (6.4-8.2)
[2021-09-27 12:41] LABS: URIC ACID 8.7 mg/dL (2.6-7.2)
[2021-09-27 12:56] VITALS: BMI 30.2
[2021-09-27] MEDS ORDERED: NAPH,MB-DB/K PH,MBDB POWDER PACKET PO ONE (19:53)
[2021-09-27] MEDS: ATORVASTATIN CA 10 MG TABLET (FP) PO SCH (22:20)
[2021-09-28] MEDS: MEROPENEM 500 MG in DEXTROSE 5%-WATER 100 ML IVPB SCH ×3 (02:30→17:42)
[2021-09-28] MEDS ORDERED: DEXTROSE 5%-WATER 100 ML IVPB ONE ×3 (02:31→17:12)
[2021-09-28] MEDS ORDERED: MEROPENEM 500 MG VIAL (RESTRICTED TO ID) IVPB ONE ×3 (02:31→17:12)
[2021-09-28] MEDS: INSULIN SLIDING SCALE (NOVOLOG) 1 VIAL SQ SCH ×4 (06:12→21:47)
[2021-09-28] MEDS: HEPARIN NA (PORCINE) 5,000 UNITS/ML 1ML VIAL SQ SCH ×3 (06:12→21:46)
[2021-09-28 06:49] LABS: BASO % 0.5 % (0-2.0); EOS % 2.7 % (0-4.5); HEMATOCRIT 38.5 % (35.4-49); HEMOGLOBIN 12.7 GM/dL (11.7-16.9); LYMPH % 20.9 % (8-40); MCH 27.6 pg (25.7-33.7); MCHC 33.1 g/dl (32.0-35.9); MEAN CELL VOLUME 83.3 fl (80-96); MEAN PLT VOLUME 6.2 fl (7.5-11.1); MONO % 6.6 % (3.8-10.2); NEUT % 69.3 % (42.8-82.8); PLATELET COUNT 195 10^3/uL (134-434); RBC 4.62 M/mm3 (4.00-5.60); RDW 15.2 % (11.9-15.9); WHITE BLOOD COUNT 9.5 K/mm3 (4.0-10.0)
[2021-09-28 07:04] LABS: CALCIUM 8.8 mg/dL (8.5-10.1)
[2021-09-28 07:05] LABS: BLOOD UREA NITROGEN 26.9 mg/dL (7-18)
[2021-09-28 07:08] LABS: CREATININE 1.3 mg/dL (0.55-1.3); PHOSPHOROUS 2.5 mg/dL (2.5-4.9)
[2021-09-28] MEDS ORDERED: PT OWN MED DRAWER 7, Y5N ONE (08:46)
[2021-09-28] MEDS: NEBIVOLOL 5 MG TABLET (FP) PO SCH (09:53)
[2021-09-28] MEDS: FAMOTIDINE 20 MG TABLET PO SCH (09:53)
[2021-09-28] MEDS: ASPIRIN COATED 81 MG TABLET.EC PO SCH (09:53)
[2021-09-28] MEDS: ARIPiprazole 2 MG TABLET PO SCH (09:53)
[2021-09-28] MEDS: EZETIMIBE 10 MG TABLET (FP) PO SCH (09:53)
[2021-09-28] MEDS: LISINOPRIL 5 MG TABLET PO SCH (12:05)
[2021-09-28] MEDS: ATORVASTATIN CA 10 MG TABLET (FP) PO SCH (21:47)
[2021-09-28] MEDS: SENNOSIDES 8.6MG TABLET (FP) PO SCH (21:50)
[2021-09-28] MEDS ORDERED: ACETAMINOPHEN 325 MG TABLET (FP) PO PRN (21:56)
[2021-09-29] MEDS ORDERED: MEROPENEM 500 MG VIAL (RESTRICTED TO ID) IVPB ONE ×3 (00:53→17:31)
[2021-09-29] MEDS ORDERED: DEXTROSE 5%-WATER 100 ML IVPB ONE ×3 (00:53→17:31)
[2021-09-29] MEDS: MEROPENEM 500 MG in DEXTROSE 5%-WATER 100 ML IVPB SCH ×3 (01:27→19:08)
[2021-09-29] MEDS: INSULIN SLIDING SCALE (NOVOLOG) 1 VIAL SQ SCH ×4 (06:00→21:16)
[2021-09-29] MEDS: HEPARIN NA (PORCINE) 5,000 UNITS/ML 1ML VIAL SQ SCH ×3 (06:00→21:09)
[2021-09-29] MEDS: NEBIVOLOL 5 MG TABLET (FP) PO SCH ×2 (08:17→12:22)
[2021-09-29] MEDS: LISINOPRIL 5 MG TABLET PO SCH ×2 (08:17→12:22)
[2021-09-29 10:15] LABS: BLOOD UREA NITROGEN 26.9 mg/dL (7-18); MAGNESIUM 2.1 mg/dL (1.8-2.4)
[2021-09-29 10:18] LABS: CREATININE 1.3 mg/dL (0.55-1.3); PHOSPHOROUS 2.3 mg/dL (2.5-4.9)
[2021-09-29] MEDS ORDERED: REGADENOSON 0.4 MG/5 ML PRE-FILLED SYRINGE IVPUSH ONE ×2 (10:34→11:00)
[2021-09-29] MEDS: FAMOTIDINE 20 MG TABLET PO SCH (12:21)
[2021-09-29] MEDS: ARIPiprazole 2 MG TABLET PO SCH (12:21)
[2021-09-29] MEDS: ASPIRIN COATED 81 MG TABLET.EC PO SCH (12:21)
[2021-09-29] MEDS: VENLAFAXINE HCL 37.5 MG E.R. CAPSULE PO SCH (12:21)
[2021-09-29] MEDS: EZETIMIBE 10 MG TABLET (FP) PO SCH (12:21)
[2021-09-29] MEDS: ATORVASTATIN CA 10 MG TABLET (FP) PO SCH (21:09)
[2021-09-29] MEDS: SENNOSIDES 8.6MG TABLET (FP) PO SCH (21:11)
[2021-09-30] MEDS ORDERED: MEROPENEM 500 MG VIAL (RESTRICTED TO ID) IVPB ONE ×2 (00:44→09:12)
[2021-09-30] MEDS ORDERED: DEXTROSE 5%-WATER 100 ML IVPB ONE ×2 (00:45→09:13)
[2021-09-30] MEDS: MEROPENEM 500 MG in DEXTROSE 5%-WATER 100 ML IVPB SCH ×2 (01:43→09:44)
[2021-09-30] MEDS: HEPARIN NA (PORCINE) 5,000 UNITS/ML 1ML VIAL SQ SCH (05:58)
[2021-09-30] MEDS: INSULIN SLIDING SCALE (NOVOLOG) 1 VIAL SQ SCH ×2 (06:02→11:50)
[2021-09-30 07:36] LABS: BASO % 0.4 % (0-2.0); HEMATOCRIT 38.7 % (35.4-49); HEMOGLOBIN 12.8 GM/dL (11.7-16.9); LYMPH % 20.7 % (8-40); MCH 27.4 pg (25.7-33.7); MCHC 33.1 g/dl (32.0-35.9); MEAN CELL VOLUME 82.9 fl (80-96); MEAN PLT VOLUME 6.2 fl (7.5-11.1); MONO % 6.8 % (3.8-10.2); NEUT % 69.1 % (42.8-82.8); PLATELET COUNT 181 10^3/uL (134-434); RBC 4.67 M/mm3 (4.00-5.60); RDW 15.5 % (11.9-15.9); WHITE BLOOD COUNT 8.3 K/mm3 (4.0-10.0)
[2021-09-30 08:51] VITALS: BP 150/89; PULSE 72; TEMP 97.7
[2021-09-30] MEDS ORDERED: PT OWN MED DRAWER 7, Y5N ONE (09:14)
[2021-09-30] MEDS: ARIPiprazole 2 MG TABLET PO SCH (09:43)
[2021-09-30] MEDS: ASPIRIN COATED 81 MG TABLET.EC PO SCH (09:43)
[2021-09-30] MEDS: FAMOTIDINE 20 MG TABLET PO SCH (09:43)
[2021-09-30] MEDS: NEBIVOLOL 5 MG TABLET (FP) PO SCH (09:43)
[2021-09-30] MEDS: EZETIMIBE 10 MG TABLET (FP) PO SCH (09:43)
[2021-09-30] MEDS: LISINOPRIL 5 MG TABLET PO SCH (09:43)
[2021-09-30] MEDS ORDERED: TORSEMIDE 20 MG TABLET (FP) PO SCH (10:00)
== END 2021-09-30 12:06 | disposition home or self-care (01) | DRG 699 ==
LOC: FER 19:31 → FM/S 23:58 → J4W 09-25 14:28
PROVIDERS: ADMIT Internal Medicine; ATTEND Internal Medicine
DX: T83.518A Infection and inflammatory reaction due to other urinary catheter, initial encounter (principal); N39.0 Urinary tract infection, site not specified; N17.9 Acute kidney failure, unspecified; I12.0 Hypertensive chronic kidney disease with stage 5 chronic kidney disease or end stage renal disease; Z16.12 Extended spectrum beta lactamase (ESBL) resistance; E87.1 Hypo-osmolality and hyponatremia; N18.9 Chronic kidney disease, unspecified; Y83.9 Surgical procedure, unspecified as the cause of abnormal reaction of the patient, or of later complication, without mention of misadventure at the time of the procedure; D72.829 Elevated white blood cell count, unspecified; R55 Syncope and collapse; E78.5 Hyperlipidemia, unspecified; E11.9 Type 2 diabetes mellitus without complications; F32.A Depression, unspecified; K21.9 Gastro-esophageal reflux disease without esophagitis
CPT/HCPCS: 36415; 71045-TC-FY; 78452-TC; 80048; 80053; 80061; 81003; 81015; 82550; 82962; 83735; 84100; 84443; 84484; 84550; 85025; 85610; 85730; 87040; 87086; 87186; 93005; 93010; 93017; 93306-TC; 97116-GP; 97161-GP; 99285-25; A9502; C9803; J1644; J2785; U0003; U0005

== ENCOUNTER 2022-07-20 09:23 | Inpatient (IN) | payer OTHER, BC ==
[2022-07-20] MEDS ORDERED: PIPERACILLIN/TAZOB 3.375 GM 3.375 GM in DEXTROSE 5%-WATER - 50 ML IVPB ONE (10:57)
[2022-07-20] MEDS ORDERED: PIPERACILLIN/TAZOB 2.25 GM 2.25 GM in DEXTROSE 5%-WATER - 50 ML IVPB ONE (11:21)
[2022-07-20] MEDS ORDERED: PIPERACILLIN/TAZOB 2.25 GM 2.25 GM/50 ML BAG IVPB ONE (11:28)
[2022-07-20 11:35] LABS: EPI CELLS 10 /uL (0-25.1); HYALINE CASTS 3 /uL (0-3.1); URINE APPEARANCE CLOUDY; URINE BACTERIA >9,000 /uL (0-1359); URINE BILIRUBIN NEGATIVE (NEGATIVE); URINE COLOR YELLOW; URINE GLUCOSE (UA) NEGATIVE (NEGATIVE); URINE KETONE NEGATIVE (NEGATIVE); URINE LEUK ESTERASE 3+ (NEGATIVE); URINE NITRITE NEGATIVE (NEGATIVE); URINE PROTEIN 1+ (NEGATIVE); URINE RBC 108 /uL (0-23.9); URINE UROBILINOGEN 0.2 mg/dL (0.2-1.0); URINE WBC 740 /uL (0-25.8)
[2022-07-20 11:39] LABS: BASO % 0.3 % (0-2.0); HEMATOCRIT 47.1 % (35.4-49); HEMOGLOBIN 16.1 GM/dL (11.7-16.9); LYMPH % 9.9 % (8-40); MCH 29.2 pg (25.7-33.7); MCHC 34.2 g/dl (32.0-35.9); MEAN CELL VOLUME 85.3 fl (80-96); MONO % 5.3 % (3.8-10.2); NEUT % 83.5 % (42.8-82.8); PLATELET COUNT 269 10^3/uL (134-434); RBC 5.53 M/mm3 (4.00-5.60); WHITE BLOOD COUNT 13.3 K/mm3 (4.0-10.0)
[2022-07-20 11:40] LABS: MEAN PLT VOLUME 5.8 fl (7.5-11.1)
[2022-07-20 11:46] LABS: CHLORIDE 100 mmol/L (98-107); SODIUM 135 mmol/L (136-145)
[2022-07-20 11:48] LABS: ALBUMIN 4.3 g/dl (3.4-5.0); ANION GAP 10 MMOL/L (8-16); BLOOD UREA NITROGEN 78.1 mg/dL (7-18); CALCIUM 10.1 mg/dL (8.5-10.1); CO2 25 mmol/L (21-32); GLUCOSE,RANDOM 160 mg/dL (74-106)
[2022-07-20 11:51] LABS: CREATININE 2.3 mg/dL (0.55-1.3); SGOT/AST 23 U/L (15-37)
[2022-07-20 11:52] LABS: SGPT/ALT 28 U/L (13-61)
[2022-07-20 11:53] LABS: BILIRUBIN,TOTAL 0.6 mg/dL (0.2-1); TOT PROT 7.4 g/dl (6.4-8.2)
[2022-07-20 11:54] LABS: ALK PHOS 102 U/L (45-117)
[2022-07-20] MEDS ORDERED: LIDOCAINE HCL 1%, 10 MG/ML (50 mL VIAL) SQ ONE (13:00)
[2022-07-20] MEDS ORDERED: LIDOCAINE HCL 1%, 10 MG/ML (20ML VIAL) ONE (13:08)
[2022-07-20] MEDS ORDERED: POTASSIUM CHLORIDE TABS 20 MEQ TABLET.ER (FP) PO ONE ×2 (13:28→13:48)
[2022-07-20] MEDS ORDERED: HEPARIN NA (PORCINE) 5,000 UNITS/ML 1ML VIAL SQ SCH (14:00)
[2022-07-20] MEDS ORDERED: ACETAMINOPHEN 325 MG TABLET (FP) PO PRN (14:56)
[2022-07-20] MEDS ORDERED: ONDANSETRON 4 MG/2 ML VIAL IVPUSH PRN (14:57)
[2022-07-20] MEDS ORDERED: MEROPENEM 1 GM in DEXTROSE 5%-WATER 100 ML IVPB SCH ×2 (15:15→15:30)
[2022-07-20] MEDS ORDERED: LACTATED RINGERS SOLUTION 1,000 ML/1,000 ML INFUS.BAG IV SCH (15:30)
[2022-07-20] MEDS ORDERED: MEROPENEM 1 GM VIAL (RESTRICTED TO ID) IVPB ONE (15:45)
[2022-07-20] MEDS ORDERED: ACETAMINOPHEN 325 MG TABLET (FP) ONE (16:45)
[2022-07-21] MEDS ORDERED: MEROPENEM 500 MG VIAL (RESTRICTED TO ID) IVPB ONE (00:19)
[2022-07-21] MEDS: MEROPENEM 500 MG in DEXTROSE 5%-WATER 100 ML IVPB SCH ×3 (00:20→18:39)
[2022-07-21] MEDS ORDERED: MELATONIN 5 MG TABLETS ONE (00:43)
[2022-07-21] MEDS: MELATONIN 5 MG TABLETS PO PRN ×2 (01:12→21:39)
[2022-07-21 06:42] LABS: BASO % 0.5 % (0-2.0); EOS % 2.6 % (0-4.5); HEMATOCRIT 42.9 % (35.4-49); HEMOGLOBIN 14.4 GM/dL (11.7-16.9); LYMPH % 15.1 % (8-40); MCH 28.6 pg (25.7-33.7); MCHC 33.6 g/dl (32.0-35.9); MEAN PLT VOLUME 6.1 fl (7.5-11.1); MONO % 9.3 % (3.8-10.2); NEUT % 72.5 % (42.8-82.8); PLATELET COUNT 260 10^3/uL (134-434); RBC 5.05 M/mm3 (4.00-5.60); RDW 15.1 % (11.9-15.9); WHITE BLOOD COUNT 10.6 K/mm3 (4.0-10.0)
[2022-07-21 06:59] LABS: ALBUMIN 3.4 g/dl (3.4-5.0); BLOOD UREA NITROGEN 75.5 mg/dL (7-18); CALCIUM 9.1 mg/dL (8.5-10.1); MAGNESIUM 2.1 mg/dL (1.8-2.4)
[2022-07-21 07:02] LABS: PHOSPHOROUS 3.2 mg/dL (2.5-4.9)
[2022-07-21 07:04] LABS: BILIRUBIN,TOTAL 0.4 mg/dL (0.2-1); TOT PROT 6.3 g/dl (6.4-8.2)
[2022-07-21 08:10] VITALS: BMI 27.9
[2022-07-21] MEDS ORDERED: MINERAL OIL ENEMA 133 ML ENEMA RC ONE (14:04)
[2022-07-21] MEDS: POLYETHYLENE GLYCOL (HEALTHYLAX) 3350 17 GM PACKET PO SCH (15:21)
[2022-07-21] MEDS ORDERED: NEBIVOLOL 5 MG TABLET (FP) PO SCH (16:45)
[2022-07-21] MEDS: NEBIVOLOL 10 MG TABLET (FP) PO SCH (17:33)
[2022-07-21] MEDS: VENLAFAXINE HCL 75 MG E.R. CAPSULES PO SCH (17:33)
[2022-07-21] MEDS: ASPIRIN COATED 81 MG TABLET.EC PO SCH (17:33)
[2022-07-21] MEDS ORDERED: ATORVASTATIN CA 10 MG TABLET (FP) PO SCH (22:00)
[2022-07-22] MEDS ORDERED: MEROPENEM 500 MG VIAL (RESTRICTED TO ID) IVPB ONE (05:49)
[2022-07-22] MEDS: TORSEMIDE 20 MG TABLET (FP) PO SCH ×2 (06:19→15:27)
[2022-07-22] MEDS: MEROPENEM 500 MG in DEXTROSE 5%-WATER 100 ML IVPB SCH ×2 (06:19→19:18)
[2022-07-22 07:32] LABS: HEMOGLOBIN 13.8 GM/dL (11.7-16.9); MCH 28.9 pg (25.7-33.7); MCHC 33.6 g/dl (32.0-35.9); MEAN CELL VOLUME 86.2 fl (80-96); MEAN PLT VOLUME 6.1 fl (7.5-11.1); PLATELET COUNT 249 10^3/uL (134-434); RBC 4.76 M/mm3 (4.00-5.60); RDW 15.1 % (11.9-15.9); WHITE BLOOD COUNT 9.2 K/mm3 (4.0-10.0)
[2022-07-22 07:57] LABS: CALCIUM 9.4 mg/dL (8.5-10.1)
[2022-07-22 07:58] LABS: ALBUMIN 3.3 g/dl (3.4-5.0); BLOOD UREA NITROGEN 63.3 mg/dL (7-18); MAGNESIUM 2.3 mg/dL (1.8-2.4)
[2022-07-22 08:01] LABS: CREATININE 1.5 mg/dL (0.55-1.3)
[2022-07-22 08:02] LABS: BILIRUBIN,TOTAL 0.4 mg/dL (0.2-1); TOT PROT 5.9 g/dl (6.4-8.2)
[2022-07-22] MEDS: NEBIVOLOL 10 MG TABLET (FP) PO SCH (10:13)
[2022-07-22] MEDS: VENLAFAXINE HCL 75 MG E.R. CAPSULES PO SCH (10:13)
[2022-07-22] MEDS: POLYETHYLENE GLYCOL (HEALTHYLAX) 3350 17 GM PACKET PO SCH (10:13)
[2022-07-22] MEDS: ASPIRIN COATED 81 MG TABLET.EC PO SCH (10:13)
[2022-07-22 15:03] VITALS: RESP 20
[2022-07-22 18:16] VITALS: BP 139/81; PULSE 65; TEMP 98
== END 2022-07-22 21:27 | disposition home or self-care (01) | DRG 699 ==
LOC: JER 09:23 → JERBED 13:36 → OBSVTOIN 14:54 → J4W 07-21 07:34
PROVIDERS: ADMIT Internal Medicine
DX: T83.518A Infection and inflammatory reaction due to other urinary catheter, initial encounter (principal); E87.1 Hypo-osmolality and hyponatremia; N39.0 Urinary tract infection, site not specified; N17.9 Acute kidney failure, unspecified; I24.8 Other forms of acute ischemic heart disease; I50.30 Unspecified diastolic (congestive) heart failure; I13.0 Hypertensive heart and chronic kidney disease with heart failure and stage 1 through stage 4 chronic kidney disease, or unspecified chronic kidney disease; N18.9 Chronic kidney disease, unspecified; E11.22 Type 2 diabetes mellitus with diabetic chronic kidney disease; S01.01XA Laceration without foreign body of scalp, initial encounter; K21.9 Gastro-esophageal reflux disease without esophagitis; W19.XXXA Unspecified fall, initial encounter; Y93.9 Activity, unspecified; Y92.89 Other specified places as the place of occurrence of the external cause; Y99.9 Unspecified external cause status; E87.6 Hypokalemia; Y83.9 Surgical procedure, unspecified as the cause of abnormal reaction of the patient, or of later complication, without mention of misadventure at the time of the procedure
CPT/HCPCS: 36415; 70450-TC; 71045-TC-FY; 72125-TC; 80053; 80061; 81003; 82550; 83735; 84100; 84484; 85025; 85027; 87040; 87086; 87186; 93005; 93010; 93306-TC; 93880-TC; 97116-GP; 97161-GP; 99285-25; C9803-CS; G0378; U0003; U0005

== ENCOUNTER 2022-08-10 13:42 | Inpatient (IN) | payer OTHER, BC ==
[2022-08-10 14:37] LABS: HEMATOCRIT 45.4 % (35.4-49); HEMOGLOBIN 16.1 G/dL (11.7-16.9); MCH 30.4 pg (25.7-33.7); MCHC 35.4 g/dl (32.0-35.9); MEAN CELL VOLUME 85.9 fl (80-96); MEAN PLT VOLUME 6.1 fl (7.5-11.1); PLATELET COUNT 176.8 10^3/uL (134-434); RBC 5.28 10^6/uL (4.00-5.60); RDW 14.2 % (11.9-15.9); WHITE BLOOD COUNT 11.4 10^3/uL (4.0-10.8)
[2022-08-10 14:43] LABS: ALBUMIN 3.9 g/dl (3.4-5.0); BILIRUBIN,TOTAL 0.7 mg/dl (0.2-1); CALCIUM 10.2 mg/dl (8.5-10); TOT PROT 6.9 g/dl (6.4-8.2)
[2022-08-10 14:47] LABS: EPITHELIAL CELLS RARE /hpf
[2022-08-10 15:04] LABS: PLATELET ESTIMATE ADEQUATE
[2022-08-10] MEDS ORDERED: ERTAPENEM SODIUM 1 GM in SODIUM CHLORIDE 50 ML IVPB ONE (16:43)
[2022-08-10] MEDS ORDERED: ERTAPENEM SODIUM 1 GM VIAL ONE (16:51)
[2022-08-11 02:59] VITALS: BMI 28.4
[2022-08-11] MEDS ORDERED: ALBUTEROL SO4 HFA INHALER IH PRN (03:22)
[2022-08-11] MEDS: HEPARIN NA (PORCINE) 5,000 UNITS/ML 1ML VIAL SQ SCH ×3 (06:03→21:33)
[2022-08-11] MEDS: MEROPENEM 1 GM in DEXTROSE 5%-WATER 100 ML IVPB SCH ×2 (06:03→10:07)
[2022-08-11 08:19] LABS: BASO % 0.4 % (0-2.0); EOS % 1.5 % (0-4.5); HEMATOCRIT 39.2 % (35.4-49); HEMOGLOBIN 13.5 GM/dL (11.7-16.9); LYMPH % 12.9 % (8-40); MCH 29.3 pg (25.7-33.7); MCHC 34.3 g/dl (32.0-35.9); MEAN CELL VOLUME 85.4 fl (80-96); MONO % 13.5 % (3.8-10.2); NEUT % 71.7 % (42.8-82.8); PLATELET COUNT 192 10^3/uL (134-434); RBC 4.59 M/mm3 (4.00-5.60); RDW 14.2 % (11.9-15.9); WHITE BLOOD COUNT 8.5 K/mm3 (4.0-10.0)
[2022-08-11 08:40] LABS: MEAN PLT VOLUME 5.8 fl (7.5-11.1)
[2022-08-11 08:41] LABS: CREATININE 1.5 mg/dL (0.55-1.3)
[2022-08-11 08:42] LABS: TOT PROT 5.7 g/dl (6.4-8.2)
[2022-08-11 08:43] LABS: BILIRUBIN,TOTAL 0.4 mg/dL (0.2-1)
[2022-08-11] MEDS: NEBIVOLOL 5 MG TABLET (FP) PO SCH (10:07)
[2022-08-11] MEDS: TORSEMIDE 20 MG TABLET (FP) PO SCH (10:07)
[2022-08-11] MEDS: LISINOPRIL 5 MG TABLET PO SCH (10:07)
[2022-08-11] MEDS: ARIPiprazole 2 MG TABLET PO SCH (10:08)
[2022-08-11] MEDS: VENLAFAXINE HCL 75 MG E.R. CAPSULES PO SCH (10:08)
[2022-08-11] MEDS ORDERED: BENZOCAINE/MENTH/CETYLPYRD CL 1 EACH LOZENGE MM PRN (11:47)
[2022-08-11] MEDS ORDERED: DEXAMETHASONE SOD PHOSPHATE 10 MG/1 ML VIAL IVPUSH SCH ×3 (12:00→14:02)
[2022-08-11] MEDS ORDERED: REMDESIVIR 200 MG in SODIUM CHLORIDE 250 ML IVPB ONE ×2 (12:30→12:46)
[2022-08-11] MEDS: DEXAMETHASONE SOD PHOSPHATE 10 MG/1 ML VIAL IVPUSH SCH (14:34)
[2022-08-11] MEDS: MEROPENEM 500 MG in DEXTROSE 5%-WATER 100 ML IVPB SCH (17:21)
[2022-08-12] MEDS: MELATONIN 5 MG TABLETS PO SCH ×2 (00:31→21:50)
[2022-08-12] MEDS: ACETAMINOPHEN 500 MG TABLET (FP) PO PRN (00:32)
[2022-08-12] MEDS: MEROPENEM 500 MG in DEXTROSE 5%-WATER 100 ML IVPB SCH ×3 (00:59→17:53)
[2022-08-12] MEDS: HEPARIN NA (PORCINE) 5,000 UNITS/ML 1ML VIAL SQ SCH ×3 (06:22→21:50)
[2022-08-12] MEDS: TORSEMIDE 20 MG TABLET (FP) PO SCH (10:18)
[2022-08-12] MEDS: LISINOPRIL 5 MG TABLET PO SCH (10:19)
[2022-08-12] MEDS: NEBIVOLOL 5 MG TABLET (FP) PO SCH (10:19)
[2022-08-12] MEDS: DEXAMETHASONE SOD PHOSPHATE 10 MG/1 ML VIAL IVPUSH SCH (10:20)
[2022-08-12] MEDS: ARIPiprazole 2 MG TABLET PO SCH (10:20)
[2022-08-12] MEDS: VENLAFAXINE HCL 75 MG E.R. CAPSULES PO SCH (10:20)
[2022-08-12 12:57] LABS: BASO % 0.2 % (0-2.0); EOS % 0.1 % (0-4.5); HEMATOCRIT 39.8 % (35.4-49); HEMOGLOBIN 13.5 GM/dL (11.7-16.9); MEAN CELL VOLUME 85.3 fl (80-96); MONO % 4.8 % (3.8-10.2); NEUT % 82.9 % (42.8-82.8); PLATELET COUNT 237 10^3/uL (134-434); RBC 4.67 M/mm3 (4.00-5.60); RDW 14.6 % (11.9-15.9); WHITE BLOOD COUNT 7.5 K/mm3 (4.0-10.0)
[2022-08-12 12:58] LABS: MEAN PLT VOLUME 5.7 fl (7.5-11.1)
[2022-08-12 13:18] LABS: CALCIUM 9.4 mg/dL (8.5-10.1)
[2022-08-12 13:19] LABS: BLOOD UREA NITROGEN 42.8 mg/dL (7-18)
[2022-08-12 13:22] LABS: CREATININE 1.4 mg/dL (0.55-1.3)
[2022-08-12 13:24] LABS: BILIRUBIN,TOTAL 0.3 mg/dL (0.2-1); TOT PROT 6.1 g/dl (6.4-8.2)
[2022-08-12] MEDS: REMDESIVIR 100 MG in SODIUM CHLORIDE 250 ML IVPB SCH (13:49)
[2022-08-13] MEDS: MEROPENEM 500 MG in DEXTROSE 5%-WATER 100 ML IVPB SCH ×3 (01:22→17:28)
[2022-08-13] MEDS: HEPARIN NA (PORCINE) 5,000 UNITS/ML 1ML VIAL SQ SCH ×3 (05:38→21:11)
[2022-08-13 08:01] LABS: BASO % 0.1 % (0-2.0); EOS % 0.2 % (0-4.5); HEMATOCRIT 38.4 % (35.4-49); HEMOGLOBIN 12.8 GM/dL (11.7-16.9); LYMPH % 15.4 % (8-40); MCH 28.2 pg (25.7-33.7); MCHC 33.3 g/dl (32.0-35.9); MEAN CELL VOLUME 84.5 fl (80-96); MONO % 9.5 % (3.8-10.2); NEUT % 74.8 % (42.8-82.8); PLATELET COUNT 276 10^3/uL (134-434); RBC 4.55 M/mm3 (4.00-5.60); WHITE BLOOD COUNT 9.2 K/mm3 (4.0-10.0)
[2022-08-13 08:12] LABS: CALCIUM 9.8 mg/dL (8.5-10.1)
[2022-08-13 08:13] LABS: ALBUMIN 2.9 g/dl (3.4-5.0); BLOOD UREA NITROGEN 52.8 mg/dL (7-18)
[2022-08-13 08:16] LABS: CREATININE 1.3 mg/dL (0.55-1.3)
[2022-08-13 08:18] LABS: BILIRUBIN,TOTAL 0.2 mg/dL (0.2-1); TOT PROT 5.6 g/dl (6.4-8.2)
[2022-08-13] MEDS: LISINOPRIL 5 MG TABLET PO SCH (10:46)
[2022-08-13] MEDS: NEBIVOLOL 5 MG TABLET (FP) PO SCH (10:46)
[2022-08-13] MEDS: TORSEMIDE 20 MG TABLET (FP) PO SCH (10:46)
[2022-08-13] MEDS: VENLAFAXINE HCL 75 MG E.R. CAPSULES PO SCH (10:47)
[2022-08-13] MEDS: DEXAMETHASONE SOD PHOSPHATE 10 MG/1 ML VIAL IVPUSH SCH (10:47)
[2022-08-13] MEDS: REMDESIVIR 100 MG in SODIUM CHLORIDE 250 ML IVPB SCH (10:47)
[2022-08-13] MEDS: ARIPiprazole 2 MG TABLET PO SCH (10:48)
[2022-08-13] MEDS: MELATONIN 5 MG TABLETS PO SCH (21:11)
[2022-08-13] MEDS ORDERED: FAMOTIDINE 20 MG TABLET PO ONE (23:15)
[2022-08-14] MEDS: MEROPENEM 500 MG in DEXTROSE 5%-WATER 100 ML IVPB SCH ×3 (01:29→17:13)
[2022-08-14] MEDS: HEPARIN NA (PORCINE) 5,000 UNITS/ML 1ML VIAL SQ SCH ×3 (05:58→21:26)
[2022-08-14 08:23] LABS: BASO % 0.2 % (0-2.0); EOS % 0.1 % (0-4.5); HEMATOCRIT 39.1 % (35.4-49); HEMOGLOBIN 13.2 GM/dL (11.7-16.9); LYMPH % 17.8 % (8-40); MCH 28.3 pg (25.7-33.7); MCHC 33.8 g/dl (32.0-35.9); MEAN CELL VOLUME 83.8 fl (80-96); MEAN PLT VOLUME 6.2 fl (7.5-11.1); MONO % 8.7 % (3.8-10.2); NEUT % 73.2 % (42.8-82.8); PLATELET COUNT 308 10^3/uL (134-434); RBC 4.67 M/mm3 (4.00-5.60); RDW 14.2 % (11.9-15.9); WHITE BLOOD COUNT 10.7 K/mm3 (4.0-10.0)
[2022-08-14 08:39] LABS: CALCIUM 9.5 mg/dL (8.5-10.1)
[2022-08-14 08:41] LABS: BLOOD UREA NITROGEN 59.2 mg/dL (7-18)
[2022-08-14 08:43] LABS: CREATININE 1.2 mg/dL (0.55-1.3)
[2022-08-14 08:44] LABS: BILIRUBIN,TOTAL 0.4 mg/dL (0.2-1)
[2022-08-14] MEDS ORDERED: POLYETHYLENE GLYCOL (HEALTHYLAX) 3350 17 GM PACKET PO SCH (10:00)
[2022-08-14] MEDS: REMDESIVIR 100 MG in SODIUM CHLORIDE 250 ML IVPB SCH (10:53)
[2022-08-14] MEDS: DOCUSATE SODIUM 100 MG CAPSULE (FP) PO SCH ×2 (10:53→21:43)
[2022-08-14] MEDS: TORSEMIDE 20 MG TABLET (FP) PO SCH (10:54)
[2022-08-14] MEDS: DEXAMETHASONE SOD PHOSPHATE 10 MG/1 ML VIAL IVPUSH SCH (10:54)
[2022-08-14] MEDS: NEBIVOLOL 5 MG TABLET (FP) PO SCH (10:54)
[2022-08-14] MEDS: LISINOPRIL 5 MG TABLET PO SCH (10:54)
[2022-08-14] MEDS: VENLAFAXINE HCL 75 MG E.R. CAPSULES PO SCH (10:59)
[2022-08-14] MEDS: ARIPiprazole 2 MG TABLET PO SCH (10:59)
[2022-08-14] MEDS: ACETAMINOPHEN 500 MG TABLET (FP) PO PRN ×2 (15:18→21:26)
[2022-08-14] MEDS: MELATONIN 5 MG TABLETS PO SCH (21:26)
[2022-08-14] MEDS ORDERED: FAMOTIDINE 20 MG TABLET PO ONE (21:40)
[2022-08-15] MEDS: MEROPENEM 500 MG in DEXTROSE 5%-WATER 100 ML IVPB SCH ×3 (01:10→18:19)
[2022-08-15] MEDS: HEPARIN NA (PORCINE) 5,000 UNITS/ML 1ML VIAL SQ SCH ×3 (05:27→21:09)
[2022-08-15] MEDS: REMDESIVIR 100 MG in SODIUM CHLORIDE 250 ML IVPB SCH (10:07)
[2022-08-15] MEDS: TORSEMIDE 20 MG TABLET (FP) PO SCH (10:08)
[2022-08-15] MEDS: NEBIVOLOL 5 MG TABLET (FP) PO SCH (10:08)
[2022-08-15] MEDS: DOCUSATE SODIUM 100 MG CAPSULE (FP) PO SCH ×2 (10:08→21:09)
[2022-08-15] MEDS: VENLAFAXINE HCL 75 MG E.R. CAPSULES PO SCH (10:08)
[2022-08-15] MEDS: LISINOPRIL 5 MG TABLET PO SCH (10:08)
[2022-08-15] MEDS: ARIPiprazole 2 MG TABLET PO SCH (10:09)
[2022-08-15] MEDS: DEXAMETHASONE SOD PHOSPHATE 10 MG/1 ML VIAL IVPUSH SCH (10:10)
[2022-08-15 10:30] LABS: HEMATOCRIT 43.1 % (35.4-49); HEMOGLOBIN 14.3 GM/dL (11.7-16.9); MCH 28.1 pg (25.7-33.7); MCHC 33.2 g/dl (32.0-35.9); MEAN CELL VOLUME 84.8 fl (80-96); MEAN PLT VOLUME 6.2 fl (7.5-11.1); PLATELET COUNT 360 10^3/uL (134-434); RBC 5.08 M/mm3 (4.00-5.60); RDW 14.3 % (11.9-15.9); WHITE BLOOD COUNT 12.2 K/mm3 (4.0-10.0)
[2022-08-15 11:06] LABS: ALBUMIN 3.3 g/dl (3.4-5.0); BLOOD UREA NITROGEN 58.7 mg/dL (7-18)
[2022-08-15 11:08] LABS: CALCIUM 9.7 mg/dL (8.5-10.1)
[2022-08-15 11:09] LABS: CREATININE 1.3 mg/dL (0.55-1.3); MAGNESIUM 2.1 mg/dL (1.8-2.4)
[2022-08-15 11:10] LABS: BILIRUBIN,TOTAL 0.5 mg/dL (0.2-1)
[2022-08-15 11:11] LABS: TOT PROT 6.4 g/dl (6.4-8.2)
[2022-08-15 11:15] LABS: ANISOCYTOSIS 0; HELMET CELLS 0; HOWELL-JOLLY BODIES 0; MACROCYTOSIS 0; OVALOCYTE 0; ROULEAU 0; SICKELED CELLS 0; TARGET CELLS 0; TEAR DROP CELLS 0; TOXIC GRANULATION 0
[2022-08-15] MEDS: FAMOTIDINE 10 MG TABLET PO SCH ×2 (14:52→21:09)
[2022-08-15] MEDS: MELATONIN 5 MG TABLETS PO SCH (21:10)
[2022-08-16] MEDS: MAG HYDROX/AL HYDROX/SIMETH 30 ML UNIT-DOSE CUP PO PRN ×2 (00:01→20:18)
[2022-08-16] MEDS: MEROPENEM 500 MG in DEXTROSE 5%-WATER 100 ML IVPB SCH ×3 (01:07→18:28)
[2022-08-16] MEDS: HEPARIN NA (PORCINE) 5,000 UNITS/ML 1ML VIAL SQ SCH ×3 (06:06→21:48)
[2022-08-16 08:43] VITALS: RESP 18
[2022-08-16 09:15] LABS: HEMATOCRIT 44.7 % (35.4-49); HEMOGLOBIN 14.9 GM/dL (11.7-16.9); MCHC 33.2 g/dl (32.0-35.9); MEAN CELL VOLUME 84.4 fl (80-96); MEAN PLT VOLUME 6.2 fl (7.5-11.1); PLATELET COUNT 370 10^3/uL (134-434); RDW 14.2 % (11.9-15.9); WHITE BLOOD COUNT 11.7 K/mm3 (4.0-10.0)
[2022-08-16 09:28] LABS: BLOOD UREA NITROGEN 68.2 mg/dL (7-18); CALCIUM 9.5 mg/dL (8.5-10.1); MAGNESIUM 2.2 mg/dL (1.8-2.4)
[2022-08-16 09:30] LABS: ALBUMIN 3.4 g/dl (3.4-5.0)
[2022-08-16 09:31] LABS: CREATININE 1.7 mg/dL (0.55-1.3)
[2022-08-16 09:32] LABS: BILIRUBIN,TOTAL 0.5 mg/dL (0.2-1)
[2022-08-16 09:33] LABS: TOT PROT 6.2 g/dl (6.4-8.2)
[2022-08-16 10:03] LABS: ANISOCYTOSIS 0; HELMET CELLS 0; HOWELL-JOLLY BODIES 0; MACROCYTOSIS 0; OVALOCYTE 0; ROULEAU 0; SICKELED CELLS 0; TARGET CELLS 0; TEAR DROP CELLS 0; TOXIC GRANULATION 0
[2022-08-16] MEDS: DEXAMETHASONE SOD PHOSPHATE 10 MG/1 ML VIAL IVPUSH SCH (10:17)
[2022-08-16] MEDS: TORSEMIDE 20 MG TABLET (FP) PO SCH (10:22)
[2022-08-16] MEDS: ARIPiprazole 2 MG TABLET PO SCH (10:22)
[2022-08-16] MEDS: VENLAFAXINE HCL 75 MG E.R. CAPSULES PO SCH (10:22)
[2022-08-16] MEDS: NEBIVOLOL 5 MG TABLET (FP) PO SCH (10:22)
[2022-08-16] MEDS: FAMOTIDINE 10 MG TABLET PO SCH ×2 (10:22→21:48)
[2022-08-16] MEDS: LISINOPRIL 5 MG TABLET PO SCH (10:22)
[2022-08-16] MEDS: DOCUSATE SODIUM 100 MG CAPSULE (FP) PO SCH ×2 (10:22→21:48)
[2022-08-16] MEDS: MELATONIN 5 MG TABLETS PO SCH (21:48)
[2022-08-17] MEDS: HEPARIN NA (PORCINE) 5,000 UNITS/ML 1ML VIAL SQ SCH ×3 (06:26→21:00)
[2022-08-17] MEDS: NEBIVOLOL 5 MG TABLET (FP) PO SCH (10:24)
[2022-08-17] MEDS: DOCUSATE SODIUM 100 MG CAPSULE (FP) PO SCH (10:24)
[2022-08-17] MEDS: VENLAFAXINE HCL 75 MG E.R. CAPSULES PO SCH (10:24)
[2022-08-17] MEDS: TORSEMIDE 20 MG TABLET (FP) PO SCH (10:24)
[2022-08-17] MEDS: FAMOTIDINE 10 MG TABLET PO SCH (10:24)
[2022-08-17] MEDS: LISINOPRIL 5 MG TABLET PO SCH (10:24)
[2022-08-17] MEDS: ARIPiprazole 2 MG TABLET PO SCH (10:24)
[2022-08-17] MEDS: DEXAMETHASONE SOD PHOSPHATE 10 MG/1 ML VIAL IVPUSH SCH (10:33)
[2022-08-17] MEDS ORDERED: SULFAMETHOXAZOLE/TRIMETHOPRIM 800MG/160MG D.S. TABLET PO ONE (13:34)
[2022-08-17] MEDS: MELATONIN 5 MG TABLETS PO SCH (21:00)
[2022-08-17] MEDS: MAG HYDROX/AL HYDROX/SIMETH 30 ML UNIT-DOSE CUP PO PRN (21:00)
[2022-08-18] MEDS: HEPARIN NA (PORCINE) 5,000 UNITS/ML 1ML VIAL SQ SCH (06:23)
[2022-08-18 06:29] VITALS: BP 144/80; PULSE 53; TEMP 98
[2022-08-18 08:31] LABS: HEMATOCRIT 44.1 % (35.4-49); HEMOGLOBIN 14.5 GM/dL (11.7-16.9); MCH 28.2 pg (25.7-33.7); MEAN CELL VOLUME 85.4 fl (80-96); MEAN PLT VOLUME 6.4 fl (7.5-11.1); PLATELET COUNT 380 10^3/uL (134-434); RBC 5.16 M/mm3 (4.00-5.60); RDW 14.6 % (11.9-15.9)
[2022-08-18 09:00] LABS: ALBUMIN 3.6 g/dl (3.4-5.0); CALCIUM 9.9 mg/dL (8.5-10.1)
[2022-08-18 09:01] LABS: BLOOD UREA NITROGEN 85.4 mg/dL (7-18); MAGNESIUM 2.4 mg/dL (1.8-2.4)
[2022-08-18 09:03] LABS: CREATININE 1.8 mg/dL (0.55-1.3)
[2022-08-18 09:05] LABS: BILIRUBIN,TOTAL 0.4 mg/dL (0.2-1); TOT PROT 6.4 g/dl (6.4-8.2)
[2022-08-18] MEDS ORDERED: SULFAMETHOXAZOLE/TRIMETHOPRIM 800MG/160MG D.S. TABLET PO ONE (09:45)
[2022-08-18 09:49] LABS: ANISOCYTOSIS 0; HELMET CELLS 0; HOWELL-JOLLY BODIES 0; MACROCYTOSIS 0; OVALOCYTE 0; ROULEAU 0; SICKELED CELLS 0; TARGET CELLS 0; TEAR DROP CELLS 0; TOXIC GRANULATION 0
[2022-08-18] MEDS ORDERED: PANTOPRAZOLE 40 MG TABLET PO SCH (10:00)
[2022-08-18] MEDS ORDERED: DEXAMETHASONE 0.5 MG TABLET PO SCH (10:00)
[2022-08-18] MEDS ORDERED: DEXAMETHASONE 2 MG, DEXAMETHASONE 4 MG PO SCH (10:00)
[2022-08-18] MEDS: LISINOPRIL 5 MG TABLET PO SCH (10:25)
[2022-08-18] MEDS: TORSEMIDE 20 MG TABLET (FP) PO SCH (10:25)
[2022-08-18] MEDS: NEBIVOLOL 5 MG TABLET (FP) PO SCH (10:25)
[2022-08-18] MEDS: VENLAFAXINE HCL 75 MG E.R. CAPSULES PO SCH (10:25)
== END 2022-08-18 13:37 | disposition home or self-care (01) | DRG 178 ==
LOC: FER 13:42 → J4S 08-11 02:00
PROVIDERS: ADMIT Internal Medicine; ATTEND Nurse Practitioner Family
PROC: XW033E5 Introduction of Remdesivir Anti-infective into Peripheral Vein, Percutaneous Approach, New Technology Group 5 (ICD-10-PCS; principal; 2022-08-10)
DX: U07.1 COVID-19 (principal); E87.1 Hypo-osmolality and hyponatremia; N17.9 Acute kidney failure, unspecified; N39.0 Urinary tract infection, site not specified; E11.9 Type 2 diabetes mellitus without complications; F32.A Depression, unspecified; Z85.46 Personal history of malignant neoplasm of prostate; Z93.6 Other artificial openings of urinary tract status; I13.10 Hypertensive heart and chronic kidney disease without heart failure, with stage 1 through stage 4 chronic kidney disease, or unspecified chronic kidney disease; N18.9 Chronic kidney disease, unspecified; K21.9 Gastro-esophageal reflux disease without esophagitis; R74.01 Elevation of levels of liver transaminase levels; E87.6 Hypokalemia; K76.0 Fatty (change of) liver, not elsewhere classified; B96.89 Other specified bacterial agents as the cause of diseases classified elsewhere
CPT/HCPCS: 0241U-QW; 36415; 71046-TC-FY; 76705-TC; 76775-TC; 80053; 81003; 81015; 82550; 83036; 83735; 84443; 85025; 85027; 85379; 86140; 87040; 87086; 87186; 93005; 97116-GP; 97162-GP; 99285-25; C9399; J1100; J1644

== ENCOUNTER 2022-09-08 23:47 | Inpatient (IN) | payer OTHER, BC ==
[2022-09-09 00:43] LABS: VENOUS BASE EXCESS -2.8 mmol/L (-2-2); VENOUS O2 SATURATION 53.7 % (70-80); VENOUS PCO2 44.7 mmHg (38-52); VENOUS PH 7.333 (7.310-7.410)
[2022-09-09 00:46] LABS: BASO % 0.4 % (0-2.0); EOS % 1.3 % (0-4.5); HEMOGLOBIN 13.6 GM/dL (11.7-16.9); LYMPH % 8.4 % (8-40); MCHC 34.1 g/dl (32.0-35.9); MEAN CELL VOLUME 85.2 fl (80-96); MONO % 3.9 % (3.8-10.2); PLATELET COUNT 268 10^3/uL (134-434); RDW 14.7 % (11.9-15.9)
[2022-09-09 00:47] LABS: MEAN PLT VOLUME 5.3 fl (7.5-11.1)
[2022-09-09 01:06] LABS: ALBUMIN 3.3 g/dl (3.4-5.0); CALCIUM 9.7 mg/dL (8.5-10.1)
[2022-09-09 01:07] LABS: BLOOD UREA NITROGEN 37.6 mg/dL (7-18)
[2022-09-09 01:09] LABS: CREATININE 1.7 mg/dL (0.55-1.3)
[2022-09-09 01:10] LABS: BILIRUBIN,TOTAL 0.4 mg/dL (0.2-1)
[2022-09-09 01:11] LABS: TOT PROT 6.4 g/dl (6.4-8.2)
[2022-09-09] MEDS ORDERED: ONDANSETRON 4 MG/2 ML VIAL IVPUSH ONE (03:17)
[2022-09-09] MEDS ORDERED: ONDANSETRON 4 MG/2 ML VIAL ONE (03:23)
[2022-09-09] MEDS ORDERED: LIDOCAINE HCL 2% JELLY 11 ML TP ONE (04:06)
[2022-09-09] MEDS ORDERED: TRIMETHOBENZAMIDE HCL 200MG/2ML INJ IM PRN (05:40)
[2022-09-09 07:58] LABS: BASO % 0.4 % (0-2.0); EOS % 0.5 % (0-4.5); HEMOGLOBIN 14.6 GM/dL (11.7-16.9); MCH 29.4 pg (25.7-33.7); MCHC 34.7 g/dl (32.0-35.9); MEAN CELL VOLUME 84.7 fl (80-96); MEAN PLT VOLUME 5.5 fl (7.5-11.1); MONO % 5.6 % (3.8-10.2); NEUT % 79.5 % (42.8-82.8); PLATELET COUNT 322 10^3/uL (134-434); RBC 4.96 M/mm3 (4.00-5.60); RDW 14.7 % (11.9-15.9); WHITE BLOOD COUNT 9.8 K/mm3 (4.0-10.0)
[2022-09-09 08:01] LABS: ALBUMIN 3.6 g/dl (3.4-5.0); BLOOD UREA NITROGEN 35.8 mg/dL (7-18); MAGNESIUM 1.7 mg/dL (1.8-2.4)
[2022-09-09 08:04] LABS: CREATININE 1.5 mg/dL (0.55-1.3); PHOSPHOROUS 3.4 mg/dL (2.5-4.9)
[2022-09-09] MEDS ORDERED: GABAPENTIN 100 MG CAPSULE ONE (08:04)
[2022-09-09 08:05] LABS: EPI CELLS 6 /uL (0-25.1); HYALINE CASTS 4 /uL (0-3.1); PH,URINE 6.5 (5.0-8.0); URINE APPEARANCE CLOUDY; URINE BACTERIA 7682 /uL (0-1359); URINE BILIRUBIN NEGATIVE (NEGATIVE); URINE COLOR YELLOW; URINE GLUCOSE (UA) NEGATIVE (NEGATIVE); URINE KETONE NEGATIVE (NEGATIVE); URINE LEUK ESTERASE 2+ (NEGATIVE); URINE NITRITE NEGATIVE (NEGATIVE); URINE PROTEIN 2+ (NEGATIVE); URINE RBC 50 /uL (0-23.9); URINE UROBILINOGEN 0.2 mg/dL (0.2-1.0); URINE WBC 327 /uL (0-25.8)
[2022-09-09 08:05] LABS: BILIRUBIN,TOTAL 0.5 mg/dL (0.2-1); TOT PROT 6.7 g/dl (6.4-8.2)
[2022-09-09] MEDS ORDERED: HEPARIN NA (PORCINE) 5,000 UNITS/ML 1ML VIAL ONE (08:05)
[2022-09-09] MEDS ORDERED: MAGNESIUM 2GM/50ML STERILE WATER IVPB IVPB ONE (08:30)
[2022-09-09] MEDS: HEPARIN NA (PORCINE) 5,000 UNITS/ML 1ML VIAL SQ SCH ×4 (08:32→21:31)
[2022-09-09] MEDS: INSULIN SLIDING SCALE (NOVOLOG) 1 VIAL SQ SCH ×2 (08:33→17:25)
[2022-09-09] MEDS ORDERED: MAGNESIUM SULFATE IN WATER 2 GM/50 ML IVPB IVPB ONE (08:35)
[2022-09-09] MEDS: GABAPENTIN 100 MG CAPSULE PO SCH ×4 (08:48→21:48)
[2022-09-09] MEDS ORDERED: PATIENT'S OWN MEDICATION (NON-FORMULARY) (Famotidine [Pepcid] 40 MG Tablet) PO SCH (10:00)
[2022-09-09] MEDS ORDERED: TORSEMIDE 20 MG TABLET (FP) PO SCH (10:00)
[2022-09-09] MEDS: PANTOPRAZOLE SODIUM 40 MG VIAL IVPUSH SCH (13:14)
[2022-09-09] MEDS: DEXTROSE 5%-0.45% SALINE 1,000 ML IV SCH (13:15)
[2022-09-09] MEDS: VENLAFAXINE HCL 75 MG E.R. CAPSULES PO SCH (13:15)
[2022-09-09] MEDS: ASPIRIN COATED 81 MG TABLET.EC PO SCH (13:15)
[2022-09-09] MEDS: amLODIPine BESYLATE 5 MG TABLET (FP) PO SCH (13:16)
[2022-09-09] MEDS ORDERED: SODIUM CHLORIDE 1,000 ML IV SCH (14:15)
[2022-09-09] MEDS: ACETAMINOPHEN 1000 MG/100 ML BAG IVPB PRN (18:09)
[2022-09-09] MEDS: ROSUVASTATIN CA 10 MG TABLET PO SCH (21:31)
[2022-09-10] MEDS: DEXTROSE 5%-0.45% SALINE 1,000 ML IV SCH ×2 (01:40→13:58)
[2022-09-10] MEDS ORDERED: INSULIN (NOVOLOG) ASPART 100 UNITS/ML 10ML VIAL ONE (05:58)
[2022-09-10] MEDS: GABAPENTIN 100 MG CAPSULE PO SCH ×4 (06:22→21:54)
[2022-09-10] MEDS: HEPARIN NA (PORCINE) 5,000 UNITS/ML 1ML VIAL SQ SCH ×3 (06:22→21:46)
[2022-09-10] MEDS: INSULIN SLIDING SCALE (NOVOLOG) 1 VIAL SQ SCH ×2 (06:34→16:57)
[2022-09-10] MEDS: ACETAMINOPHEN 1000 MG/100 ML BAG IVPB PRN (08:56)
[2022-09-10] MEDS: amLODIPine BESYLATE 5 MG TABLET (FP) PO SCH (09:50)
[2022-09-10] MEDS: PANTOPRAZOLE SODIUM 40 MG VIAL IVPUSH SCH (09:50)
[2022-09-10] MEDS: VENLAFAXINE HCL 75 MG E.R. CAPSULES PO SCH (09:50)
[2022-09-10 13:14] LABS: BASO % 0.4 % (0-2.0); HEMATOCRIT 39.2 % (35.4-49); HEMOGLOBIN 13.5 GM/dL (11.7-16.9); LYMPH % 14.1 % (8-40); MCH 29.2 pg (25.7-33.7); MCHC 34.5 g/dl (32.0-35.9); MEAN CELL VOLUME 84.7 fl (80-96); MONO % 10.7 % (3.8-10.2); NEUT % 73.8 % (42.8-82.8); PLATELET COUNT 278 10^3/uL (134-434); RBC 4.63 M/mm3 (4.00-5.60); RDW 14.9 % (11.9-15.9); WHITE BLOOD COUNT 9.1 K/mm3 (4.0-10.0)
[2022-09-10 13:21] LABS: MEAN PLT VOLUME 5.5 fl (7.5-11.1)
[2022-09-10 13:46] LABS: CALCIUM 9.4 mg/dL (8.5-10.1)
[2022-09-10 13:50] LABS: CREATININE 1.2 mg/dL (0.55-1.3)
[2022-09-10 13:53] LABS: MAGNESIUM 2.1 mg/dL (1.8-2.4)
[2022-09-10] MEDS: ASPIRIN COATED 81 MG TABLET.EC PO SCH (14:14)
[2022-09-10 14:23] VITALS: BMI 27.9
[2022-09-10] MEDS: ROSUVASTATIN CA 10 MG TABLET PO SCH (21:46)
[2022-09-11] MEDS: GABAPENTIN 100 MG CAPSULE PO SCH ×3 (06:47→22:04)
[2022-09-11] MEDS: HEPARIN NA (PORCINE) 5,000 UNITS/ML 1ML VIAL SQ SCH ×3 (06:47→22:04)
[2022-09-11] MEDS: INSULIN SLIDING SCALE (NOVOLOG) 1 VIAL SQ SCH ×2 (06:59→16:36)
[2022-09-11 09:52] LABS: BASO % 0.5 % (0-2.0); EOS % 3.4 % (0-4.5); HEMATOCRIT 37.1 % (35.4-49); HEMOGLOBIN 12.7 GM/dL (11.7-16.9); MCH 29.2 pg (25.7-33.7); MCHC 34.4 g/dl (32.0-35.9); NEUT % 67.1 % (42.8-82.8); PLATELET COUNT 228 10^3/uL (134-434); RBC 4.37 M/mm3 (4.00-5.60); RDW 14.7 % (11.9-15.9); WHITE BLOOD COUNT 6.8 K/mm3 (4.0-10.0)
[2022-09-11 09:57] LABS: MEAN PLT VOLUME 5.2 fl (7.5-11.1)
[2022-09-11 10:21] LABS: BLOOD UREA NITROGEN 20.4 mg/dL (7-18); CALCIUM 9.1 mg/dL (8.5-10.1)
[2022-09-11 10:24] LABS: CREATININE 1.2 mg/dL (0.55-1.3)
[2022-09-11] MEDS: VENLAFAXINE HCL 75 MG E.R. CAPSULES PO SCH (10:47)
[2022-09-11] MEDS: PANTOPRAZOLE SODIUM 40 MG VIAL IVPUSH SCH (10:48)
[2022-09-11] MEDS: ASPIRIN COATED 81 MG TABLET.EC PO SCH (10:48)
[2022-09-11] MEDS: amLODIPine BESYLATE 5 MG TABLET (FP) PO SCH (10:48)
[2022-09-11] MEDS: DEXTROSE 5%-0.45% SALINE 1,000 ML IV SCH (13:00)
[2022-09-11] MEDS ORDERED: ACETAMINOPHEN 325 MG TABLET (FP) PO PRN (14:55)
[2022-09-11] MEDS: DOCUSATE SODIUM 100 MG CAPSULE (FP) PO SCH ×2 (19:10→22:04)
[2022-09-11] MEDS: ROSUVASTATIN CA 10 MG TABLET PO SCH (22:04)
[2022-09-12] MEDS: HEPARIN NA (PORCINE) 5,000 UNITS/ML 1ML VIAL SQ SCH ×2 (07:09→14:58)
[2022-09-12] MEDS: GABAPENTIN 100 MG CAPSULE PO SCH ×2 (07:10→14:57)
[2022-09-12] MEDS: INSULIN SLIDING SCALE (NOVOLOG) 1 VIAL SQ SCH (07:11)
[2022-09-12] MEDS ORDERED: POLYETHYLENE GLYCOL (HEALTHYLAX) 3350 17 GM PACKET PO SCH (10:00)
[2022-09-12] MEDS: VENLAFAXINE HCL 75 MG E.R. CAPSULES PO SCH (10:02)
[2022-09-12] MEDS: DOCUSATE SODIUM 100 MG CAPSULE (FP) PO SCH (10:02)
[2022-09-12] MEDS: amLODIPine BESYLATE 5 MG TABLET (FP) PO SCH (10:02)
[2022-09-12] MEDS: PANTOPRAZOLE SODIUM 40 MG VIAL IVPUSH SCH (10:03)
[2022-09-12] MEDS: ASPIRIN COATED 81 MG TABLET.EC PO SCH (10:03)
[2022-09-12 13:48] VITALS: RESP 18
[2022-09-12 13:49] VITALS: BP 147/84; PULSE 93; TEMP 98.1
== END 2022-09-12 15:39 | disposition home or self-care (01) | DRG 388 ==
LOC: JER 23:47 → JERBED 09-09 04:10 → J8W 09-09 10:44
PROVIDERS: ADMIT Family Medicine; ATTEND Internal Medicine
PROC: 0DH67UZ Insertion of Feeding Device into Stomach, Via Natural or Artificial Opening (ICD-10-PCS; principal; 2022-09-09)
DX: K56.609 Unspecified intestinal obstruction, unspecified as to partial versus complete obstruction (principal); U07.1 COVID-19; I10 Essential (primary) hypertension; R14.0 Abdominal distension (gaseous); N18.9 Chronic kidney disease, unspecified; Z93.6 Other artificial openings of urinary tract status; K21.9 Gastro-esophageal reflux disease without esophagitis; I12.9 Hypertensive chronic kidney disease with stage 1 through stage 4 chronic kidney disease, or unspecified chronic kidney disease
CPT/HCPCS: 0241U-QW; 36415; 71045-TC-FY; 74019-TC-FY; 74176-TC; 80048; 80053; 81003; 82010; 82803; 82962; 83605; 83690; 83735; 84100; 85025; 93005; 93010; 97116-GP; 97161-GP; 99285-25; J1644

== ENCOUNTER 2022-10-26 11:30 | Inpatient (IN) | payer OTHER, BC ==
[2022-10-26 13:53] LABS: BASO % 0.3 % (0-2.0); HEMATOCRIT 45.1 % (35.4-49); HEMOGLOBIN 14.9 GM/dL (11.7-16.9); LYMPH % 5.6 % (8-40); MCH 27.4 pg (25.7-33.7); MCHC 32.9 g/dl (32.0-35.9); MEAN CELL VOLUME 83.3 fl (80-96); MEAN PLT VOLUME 5.9 fl (7.5-11.1); MONO % 7.6 % (3.8-10.2); NEUT % 86.5 % (42.8-82.8); PLATELET COUNT 237 10^3/uL (134-434); RBC 5.42 M/mm3 (4.00-5.60); RDW 14.7 % (11.9-15.9); WHITE BLOOD COUNT 12.4 K/mm3 (4.0-10.0)
[2022-10-26 14:02] LABS: INR 1.29 (0.83-1.09); PROTHROMBIN TIME (PATIENT) 14.9 SEC (9.7-13.0)
[2022-10-26 14:05] LABS: ACTIVATED PTT 28.4 SECONDS (25.2-36.5)
[2022-10-26 14:42] LABS: ALBUMIN 3.5 g/dl (3.4-5.0); BLOOD UREA NITROGEN 44.6 mg/dL (7-18); CALCIUM 9.8 mg/dL (8.5-10.1); MAGNESIUM 1.7 mg/dL (1.8-2.4)
[2022-10-26 14:47] LABS: BILIRUBIN,TOTAL 0.7 mg/dL (0.2-1)
[2022-10-26 14:52] LABS: EPI CELLS 4 /uL (0-25.1); HYALINE CASTS 2 /uL (0-3.1); PH,URINE 6.5 (5.0-8.0); URINE APPEARANCE TURBID; URINE BACTERIA >9,000 /uL (0-1359); URINE BILIRUBIN NEGATIVE (NEGATIVE); URINE COLOR YELLOW; URINE GLUCOSE (UA) NEGATIVE (NEGATIVE); URINE KETONE NEGATIVE (NEGATIVE); URINE LEUK ESTERASE 3+ (NEGATIVE); URINE NITRITE NEGATIVE (NEGATIVE); URINE PROTEIN 2+ (NEGATIVE); URINE RBC 66 /uL (0-23.9); URINE UROBILINOGEN 0.2 mg/dL (0.2-1.0); URINE WBC 3429 /uL (0-25.8)
[2022-10-26 14:52] LABS: CREATININE 1.7 mg/dL (0.55-1.3)
[2022-10-26] MEDS ORDERED: CEFTRIAXONE 1 GM in DEXTROSE 5%-WATER - 100 ML IVPB ONE (14:55)
[2022-10-26] MEDS ORDERED: CEFTRIAXONE 1 GM/50 ML BAG ONE (15:26)
[2022-10-26] MEDS ORDERED: ACETAMINOPHEN 325 MG TABLET (FP) PO PRN (16:28)
[2022-10-26] MEDS ORDERED: GABAPENTIN 100 MG CAPSULE ONE (16:31)
[2022-10-26] MEDS: GABAPENTIN 100 MG CAPSULE PO SCH (16:32)
[2022-10-27] MEDS ORDERED: DOCUSATE SODIUM 100 MG CAPSULE (FP) PO ONE (00:34)
[2022-10-27] MEDS ORDERED: GABAPENTIN 100 MG CAPSULE ONE (00:34)
[2022-10-27] MEDS ORDERED: ROSUVASTATIN CA 20 MG TABLET ONE (00:34)
[2022-10-27] MEDS ORDERED: HEPARIN NA (PORCINE) 5,000 UNITS/ML 1ML VIAL ONE (00:34)
[2022-10-27] MEDS: GABAPENTIN 100 MG CAPSULE PO SCH ×4 (00:37→23:43)
[2022-10-27] MEDS: HEPARIN NA (PORCINE) 5,000 UNITS/ML 1ML VIAL SQ SCH ×3 (00:50→21:13)
[2022-10-27] MEDS: DOCUSATE SODIUM 100 MG CAPSULE (FP) PO SCH ×3 (00:50→21:13)
[2022-10-27] MEDS: ROSUVASTATIN CA 10 MG TABLET PO SCH ×2 (00:50→21:13)
[2022-10-27 05:32] VITALS: BMI 28.2
[2022-10-27] MEDS ORDERED: glipiZIDE-XL 2.5 MG TAB.ER.24 PO SCH (07:00)
[2022-10-27 08:13] LABS: BASO % 0.2 % (0-2.0); EOS % 0.1 % (0-4.5); HEMATOCRIT 43.4 % (35.4-49); HEMOGLOBIN 14.2 GM/dL (11.7-16.9); LYMPH % 9.4 % (8-40); MCH 27.2 pg (25.7-33.7); MCHC 32.8 g/dl (32.0-35.9); MONO % 12.9 % (3.8-10.2); NEUT % 77.4 % (42.8-82.8); PLATELET COUNT 194 10^3/uL (134-434); RBC 5.23 M/mm3 (4.00-5.60); RDW 14.8 % (11.9-15.9); WHITE BLOOD COUNT 11.8 K/mm3 (4.0-10.0)
[2022-10-27 08:18] LABS: MEAN PLT VOLUME 5.5 fl (7.5-11.1)
[2022-10-27 08:35] LABS: CALCIUM 9.9 mg/dL (8.5-10.1)
[2022-10-27 08:36] LABS: ALBUMIN 3.2 g/dl (3.4-5.0); BLOOD UREA NITROGEN 41.3 mg/dL (7-18)
[2022-10-27 08:38] LABS: BILIRUBIN,TOTAL 0.6 mg/dL (0.2-1); TOT PROT 6.4 g/dl (6.4-8.2)
[2022-10-27 08:39] LABS: CREATININE 1.4 mg/dL (0.55-1.3)
[2022-10-27] MEDS: ASPIRIN COATED 81 MG TABLET.EC PO SCH (09:34)
[2022-10-27] MEDS: EZETIMIBE 10 MG TABLET (FP) PO SCH (09:34)
[2022-10-27] MEDS: TORSEMIDE 20 MG TABLET (FP) PO SCH (09:34)
[2022-10-27] MEDS: amLODIPine BESYLATE 5 MG TABLET (FP) PO SCH (09:34)
[2022-10-27] MEDS: VENLAFAXINE HCL 75 MG E.R. CAPSULES PO SCH (09:36)
[2022-10-27] MEDS: FAMOTIDINE 40 MG TABLET PO SCH (09:37)
[2022-10-27] MEDS ORDERED: CEFTRIAXONE 1 GM in DEXTROSE 5%-WATER - 50 ML IVPB SCH (10:00)
[2022-10-27] MEDS ORDERED: SODIUM CHLORIDE 1,000 ML IV SCH (11:15)
[2022-10-27] MEDS: INSULIN SLIDING SCALE (NOVOLOG) 1 VIAL SQ SCH ×3 (11:43→21:20)
[2022-10-27] MEDS: SENNOSIDES 8.6MG TABLET (FP) PO SCH ×2 (13:30→21:13)
[2022-10-27] MEDS: NEBIVOLOL 5 MG TABLET (FP) PO SCH (15:00)
[2022-10-27] MEDS: MEROPENEM 500 MG in DEXTROSE 5%-WATER 100 ML IVPB SCH ×2 (15:02→17:29)
[2022-10-27] MEDS: buPROPion HCL 75 MG TABLET PO SCH ×2 (15:13→23:10)
[2022-10-28] MEDS: MEROPENEM 500 MG in DEXTROSE 5%-WATER 100 ML IVPB SCH ×3 (01:10→17:57)
[2022-10-28] MEDS: INSULIN SLIDING SCALE (NOVOLOG) 1 VIAL SQ SCH ×4 (05:59→22:05)
[2022-10-28] MEDS: GABAPENTIN 100 MG CAPSULE PO SCH ×2 (08:09→16:31)
[2022-10-28 09:13] LABS: HEMATOCRIT 39.6 % (35.4-49); HEMOGLOBIN 13.1 GM/dL (11.7-16.9); MCH 27.4 pg (25.7-33.7); MEAN PLT VOLUME 5.7 fl (7.5-11.1); PLATELET COUNT 194 10^3/uL (134-434); RBC 4.77 M/mm3 (4.00-5.60); RDW 14.6 % (11.9-15.9); WHITE BLOOD COUNT 8.2 K/mm3 (4.0-10.0)
[2022-10-28] MEDS: FAMOTIDINE 40 MG TABLET PO SCH (09:55)
[2022-10-28] MEDS: buPROPion HCL 75 MG TABLET PO SCH ×2 (09:55→22:42)
[2022-10-28] MEDS: ASPIRIN COATED 81 MG TABLET.EC PO SCH (09:55)
[2022-10-28] MEDS: VENLAFAXINE HCL 75 MG E.R. CAPSULES PO SCH (09:55)
[2022-10-28] MEDS: DOCUSATE SODIUM 100 MG CAPSULE (FP) PO SCH ×2 (09:55→22:05)
[2022-10-28] MEDS: SENNOSIDES 8.6MG TABLET (FP) PO SCH ×2 (09:56→22:05)
[2022-10-28] MEDS: TORSEMIDE 20 MG TABLET (FP) PO SCH (09:56)
[2022-10-28] MEDS: amLODIPine BESYLATE 5 MG TABLET (FP) PO SCH (09:56)
[2022-10-28] MEDS: EZETIMIBE 10 MG TABLET (FP) PO SCH (09:56)
[2022-10-28] MEDS: HEPARIN NA (PORCINE) 5,000 UNITS/ML 1ML VIAL SQ SCH ×2 (09:58→22:05)
[2022-10-28] MEDS: NEBIVOLOL 5 MG TABLET (FP) PO SCH (09:58)
[2022-10-28 10:08] LABS: ALBUMIN 2.7 g/dl (3.4-5.0); BLOOD UREA NITROGEN 44.6 mg/dL (7-18); CALCIUM 9.5 mg/dL (8.5-10.1)
[2022-10-28 10:10] LABS: CREATININE 1.5 mg/dL (0.55-1.3)
[2022-10-28] MEDS ORDERED: POTASSIUM CHLORIDE TABS 20 MEQ TABLET.ER (FP) PO ONE (10:11)
[2022-10-28 10:13] LABS: BILIRUBIN,TOTAL 1.1 mg/dL (0.2-1)
[2022-10-28 10:15] LABS: TOT PROT 5.8 g/dl (6.4-8.2)
[2022-10-28] MEDS: LACTOBACILLUS ACIDOPHILUS 1 TABLET PO SCH (22:04)
[2022-10-28] MEDS: ROSUVASTATIN CA 10 MG TABLET PO SCH (22:05)
[2022-10-29] MEDS: GABAPENTIN 100 MG CAPSULE PO SCH ×3 (00:31→17:15)
[2022-10-29] MEDS: MEROPENEM 500 MG in DEXTROSE 5%-WATER 100 ML IVPB SCH ×3 (01:20→17:17)
[2022-10-29] MEDS: INSULIN SLIDING SCALE (NOVOLOG) 1 VIAL SQ SCH ×3 (07:33→17:15)
[2022-10-29] MEDS: NEBIVOLOL 5 MG TABLET (FP) PO SCH (10:08)
[2022-10-29] MEDS: EZETIMIBE 10 MG TABLET (FP) PO SCH (10:08)
[2022-10-29] MEDS: ASPIRIN COATED 81 MG TABLET.EC PO SCH (10:08)
[2022-10-29] MEDS: SENNOSIDES 8.6MG TABLET (FP) PO SCH ×2 (10:08→21:46)
[2022-10-29] MEDS: FAMOTIDINE 40 MG TABLET PO SCH (10:08)
[2022-10-29] MEDS: DOCUSATE SODIUM 100 MG CAPSULE (FP) PO SCH ×2 (10:09→21:46)
[2022-10-29] MEDS: amLODIPine BESYLATE 5 MG TABLET (FP) PO SCH (10:09)
[2022-10-29] MEDS: buPROPion HCL 75 MG TABLET PO SCH ×2 (10:09→21:47)
[2022-10-29] MEDS: VENLAFAXINE HCL 75 MG E.R. CAPSULES PO SCH (10:09)
[2022-10-29] MEDS: TORSEMIDE 20 MG TABLET (FP) PO SCH (10:09)
[2022-10-29] MEDS: HEPARIN NA (PORCINE) 5,000 UNITS/ML 1ML VIAL SQ SCH ×2 (10:10→21:45)
[2022-10-29 12:40] LABS: HEMATOCRIT 43.2 % (35.4-49); HEMOGLOBIN 14.3 GM/dL (11.7-16.9); MCH 27.2 pg (25.7-33.7); MEAN CELL VOLUME 82.4 fl (80-96); PLATELET COUNT 260 10^3/uL (134-434); RBC 5.24 M/mm3 (4.00-5.60); RDW 14.6 % (11.9-15.9); WHITE BLOOD COUNT 8.6 K/mm3 (4.0-10.0)
[2022-10-29 12:41] LABS: MEAN PLT VOLUME 5.7 fl (7.5-11.1)
[2022-10-29 13:02] LABS: CALCIUM 9.9 mg/dL (8.5-10.1)
[2022-10-29 13:04] LABS: ALBUMIN 3.1 g/dl (3.4-5.0); BLOOD UREA NITROGEN 47.2 mg/dL (7-18); MAGNESIUM 1.9 mg/dL (1.8-2.4)
[2022-10-29 13:06] LABS: CREATININE 1.6 mg/dL (0.55-1.3); PHOSPHOROUS 3.2 mg/dL (2.5-4.9)
[2022-10-29 13:07] LABS: BILIRUBIN,TOTAL 0.3 mg/dL (0.2-1); TOT PROT 6.7 g/dl (6.4-8.2)
[2022-10-29] MEDS: LACTOBACILLUS ACIDOPHILUS 1 TABLET PO SCH (21:45)
[2022-10-29] MEDS: ROSUVASTATIN CA 10 MG TABLET PO SCH (21:46)
[2022-10-30] MEDS: INSULIN SLIDING SCALE (NOVOLOG) 1 VIAL SQ SCH ×5 (02:45→22:52)
[2022-10-30] MEDS: MEROPENEM 500 MG in DEXTROSE 5%-WATER 100 ML IVPB SCH ×4 (02:58→18:26)
[2022-10-30] MEDS: GABAPENTIN 100 MG CAPSULE PO SCH ×3 (03:06→16:16)
[2022-10-30] MEDS: SENNOSIDES 8.6MG TABLET (FP) PO SCH ×2 (09:27→22:49)
[2022-10-30] MEDS: buPROPion HCL 75 MG TABLET PO SCH ×2 (09:27→22:50)
[2022-10-30] MEDS: FAMOTIDINE 40 MG TABLET PO SCH (09:27)
[2022-10-30] MEDS: NEBIVOLOL 5 MG TABLET (FP) PO SCH (09:27)
[2022-10-30] MEDS: DOCUSATE SODIUM 100 MG CAPSULE (FP) PO SCH ×2 (09:28→22:48)
[2022-10-30] MEDS: ASPIRIN COATED 81 MG TABLET.EC PO SCH (09:28)
[2022-10-30] MEDS: HEPARIN NA (PORCINE) 5,000 UNITS/ML 1ML VIAL SQ SCH ×2 (09:28→22:50)
[2022-10-30] MEDS: amLODIPine BESYLATE 5 MG TABLET (FP) PO SCH (09:28)
[2022-10-30] MEDS: VENLAFAXINE HCL 75 MG E.R. CAPSULES PO SCH (09:28)
[2022-10-30] MEDS: EZETIMIBE 10 MG TABLET (FP) PO SCH (09:28)
[2022-10-30 13:01] LABS: HEMATOCRIT 41.7 % (35.4-49); HEMOGLOBIN 13.6 GM/dL (11.7-16.9); MCH 26.9 pg (25.7-33.7); MCHC 32.6 g/dl (32.0-35.9); MEAN CELL VOLUME 82.5 fl (80-96); PLATELET COUNT 258 10^3/uL (134-434); RBC 5.05 M/mm3 (4.00-5.60); RDW 14.3 % (11.9-15.9); WHITE BLOOD COUNT 7.5 K/mm3 (4.0-10.0)
[2022-10-30 13:19] LABS: CALCIUM 9.7 mg/dL (8.5-10.1)
[2022-10-30 13:20] LABS: ALBUMIN 2.9 g/dl (3.4-5.0); BLOOD UREA NITROGEN 52.3 mg/dL (7-18)
[2022-10-30 13:23] LABS: CREATININE 1.7 mg/dL (0.55-1.3)
[2022-10-30 13:25] LABS: BILIRUBIN,TOTAL 0.3 mg/dL (0.2-1); TOT PROT 6.1 g/dl (6.4-8.2)
[2022-10-30] MEDS ORDERED: SODIUM CHLORIDE 0.45% 1,000 ML IV SCH (15:45)
[2022-10-30] MEDS ORDERED: ACETAMINOPHEN 325 MG TABLET (FP) PO PRN (17:54)
[2022-10-30] MEDS: ROSUVASTATIN CA 10 MG TABLET PO SCH (22:49)
[2022-10-30] MEDS: LACTOBACILLUS ACIDOPHILUS 1 TABLET PO SCH (22:49)
[2022-10-31] MEDS: GABAPENTIN 100 MG CAPSULE PO SCH ×3 (01:33→17:58)
[2022-10-31] MEDS: MEROPENEM 500 MG in DEXTROSE 5%-WATER 100 ML IVPB SCH ×3 (02:39→18:26)
[2022-10-31] MEDS: INSULIN SLIDING SCALE (NOVOLOG) 1 VIAL SQ SCH ×4 (08:16→23:23)
[2022-10-31 09:23] LABS: HEMATOCRIT 38.9 % (35.4-49); HEMOGLOBIN 12.9 GM/dL (11.7-16.9); MCH 27.5 pg (25.7-33.7); MCHC 33.1 g/dl (32.0-35.9); MEAN CELL VOLUME 83.1 fl (80-96); PLATELET COUNT 271 10^3/uL (134-434); RBC 4.69 M/mm3 (4.00-5.60); RDW 14.5 % (11.9-15.9); WHITE BLOOD COUNT 8.7 K/mm3 (4.0-10.0)
[2022-10-31 09:53] LABS: CREATININE 1.6 mg/dL (0.55-1.3)
[2022-10-31 09:55] LABS: ALBUMIN 2.8 g/dl (3.4-5.0); BILIRUBIN,TOTAL 0.4 mg/dL (0.2-1); CALCIUM 9.6 mg/dL (8.5-10.1); TOT PROT 5.9 g/dl (6.4-8.2)
[2022-10-31] MEDS: DOCUSATE SODIUM 100 MG CAPSULE (FP) PO SCH ×2 (10:22→23:21)
[2022-10-31] MEDS: ASPIRIN COATED 81 MG TABLET.EC PO SCH (10:22)
[2022-10-31] MEDS: SENNOSIDES 8.6MG TABLET (FP) PO SCH ×2 (10:22→23:22)
[2022-10-31] MEDS: FAMOTIDINE 40 MG TABLET PO SCH (10:22)
[2022-10-31] MEDS: VENLAFAXINE HCL 75 MG E.R. CAPSULES PO SCH (10:22)
[2022-10-31] MEDS: EZETIMIBE 10 MG TABLET (FP) PO SCH (10:22)
[2022-10-31] MEDS: HEPARIN NA (PORCINE) 5,000 UNITS/ML 1ML VIAL SQ SCH ×2 (10:23→23:23)
[2022-10-31] MEDS: amLODIPine BESYLATE 5 MG TABLET (FP) PO SCH (10:23)
[2022-10-31] MEDS: NEBIVOLOL 5 MG TABLET (FP) PO SCH (10:42)
[2022-10-31] MEDS: buPROPion HCL 75 MG TABLET PO SCH ×2 (10:42→23:25)
[2022-10-31] MEDS: LACTOBACILLUS ACIDOPHILUS 1 TABLET PO SCH (23:22)
[2022-10-31] MEDS: ROSUVASTATIN CA 10 MG TABLET PO SCH (23:23)
[2022-11-01] MEDS: GABAPENTIN 100 MG CAPSULE PO SCH ×4 (00:03→23:49)
[2022-11-01] MEDS: MEROPENEM 500 MG in DEXTROSE 5%-WATER 100 ML IVPB SCH ×3 (02:55→17:42)
[2022-11-01] MEDS: INSULIN SLIDING SCALE (NOVOLOG) 1 VIAL SQ SCH ×4 (07:22→23:14)
[2022-11-01 10:41] LABS: BLOOD UREA NITROGEN 47.7 mg/dL (7-18); CALCIUM 9.9 mg/dL (8.5-10.1)
[2022-11-01 10:45] LABS: CREATININE 1.6 mg/dL (0.55-1.3)
[2022-11-01] MEDS: NEBIVOLOL 5 MG TABLET (FP) PO SCH (10:51)
[2022-11-01] MEDS: buPROPion HCL 75 MG TABLET PO SCH ×2 (10:51→23:14)
[2022-11-01] MEDS: EZETIMIBE 10 MG TABLET (FP) PO SCH (10:52)
[2022-11-01] MEDS: HEPARIN NA (PORCINE) 5,000 UNITS/ML 1ML VIAL SQ SCH ×2 (10:52→23:13)
[2022-11-01] MEDS: ASPIRIN COATED 81 MG TABLET.EC PO SCH (10:52)
[2022-11-01] MEDS: VENLAFAXINE HCL 75 MG E.R. CAPSULES PO SCH (10:52)
[2022-11-01] MEDS: SENNOSIDES 8.6MG TABLET (FP) PO SCH ×2 (10:52→23:12)
[2022-11-01] MEDS: FAMOTIDINE 40 MG TABLET PO SCH (10:52)
[2022-11-01] MEDS: amLODIPine BESYLATE 5 MG TABLET (FP) PO SCH (10:52)
[2022-11-01] MEDS: DOCUSATE SODIUM 100 MG CAPSULE (FP) PO SCH ×2 (10:53→23:13)
[2022-11-01] MEDS ORDERED: INSULIN (NOVOLOG) ASPART 100 UNITS/ML 10ML VIAL ONE (22:42)
[2022-11-01] MEDS: ROSUVASTATIN CA 10 MG TABLET PO SCH (23:12)
[2022-11-01] MEDS: LACTOBACILLUS ACIDOPHILUS 1 TABLET PO SCH (23:12)
[2022-11-02] MEDS: MEROPENEM 500 MG in DEXTROSE 5%-WATER 100 ML IVPB SCH ×3 (02:56→17:30)
[2022-11-02] MEDS: INSULIN SLIDING SCALE (NOVOLOG) 1 VIAL SQ SCH ×4 (07:23→21:48)
[2022-11-02] MEDS: VENLAFAXINE HCL 75 MG E.R. CAPSULES PO SCH (10:02)
[2022-11-02] MEDS: SENNOSIDES 8.6MG TABLET (FP) PO SCH ×2 (10:03→21:39)
[2022-11-02] MEDS: HEPARIN NA (PORCINE) 5,000 UNITS/ML 1ML VIAL SQ SCH ×2 (10:03→21:39)
[2022-11-02] MEDS: DOCUSATE SODIUM 100 MG CAPSULE (FP) PO SCH ×2 (10:03→21:38)
[2022-11-02] MEDS: amLODIPine BESYLATE 5 MG TABLET (FP) PO SCH (10:03)
[2022-11-02] MEDS: ASPIRIN COATED 81 MG TABLET.EC PO SCH (10:03)
[2022-11-02] MEDS: FAMOTIDINE 40 MG TABLET PO SCH (10:03)
[2022-11-02] MEDS: GABAPENTIN 100 MG CAPSULE PO SCH ×3 (10:03→21:39)
[2022-11-02] MEDS: buPROPion HCL 75 MG TABLET PO SCH ×2 (10:04→21:36)
[2022-11-02] MEDS: NEBIVOLOL 5 MG TABLET (FP) PO SCH (10:04)
[2022-11-02] MEDS: EZETIMIBE 10 MG TABLET (FP) PO SCH (10:07)
[2022-11-02 11:12] LABS: HEMATOCRIT 39.2 % (35.4-49); HEMOGLOBIN 12.9 GM/dL (11.7-16.9); MCH 27.5 pg (25.7-33.7); MEAN CELL VOLUME 83.3 fl (80-96); PLATELET COUNT 330 10^3/uL (134-434); RDW 14.7 % (11.9-15.9); WHITE BLOOD COUNT 10.7 K/mm3 (4.0-10.0)
[2022-11-02 11:19] LABS: MEAN PLT VOLUME 5.6 fl (7.5-11.1)
[2022-11-02 11:33] LABS: CALCIUM 9.8 mg/dL (8.5-10.1)
[2022-11-02 11:34] LABS: BLOOD UREA NITROGEN 39.2 mg/dL (7-18)
[2022-11-02 11:37] LABS: CREATININE 1.3 mg/dL (0.55-1.3)
[2022-11-02 11:39] LABS: BILIRUBIN,TOTAL 0.3 mg/dL (0.2-1)
[2022-11-02] MEDS ORDERED: GABAPENTIN 100 MG CAPSULE PO SCH (14:15)
[2022-11-02] MEDS ORDERED: MEROPENEM 500 MG VIAL (RESTRICTED TO ID) IVPB ONE (17:17)
[2022-11-02] MEDS: LACTOBACILLUS ACIDOPHILUS 1 TABLET PO SCH (21:37)
[2022-11-02] MEDS: ROSUVASTATIN CA 10 MG TABLET PO SCH (21:38)
[2022-11-03] MEDS: MEROPENEM 500 MG in DEXTROSE 5%-WATER 100 ML IVPB SCH ×2 (02:13→10:45)
[2022-11-03] MEDS: INSULIN SLIDING SCALE (NOVOLOG) 1 VIAL SQ SCH ×2 (06:30→14:50)
[2022-11-03] MEDS: GABAPENTIN 100 MG CAPSULE PO SCH ×2 (06:30→14:57)
[2022-11-03] MEDS: EZETIMIBE 10 MG TABLET (FP) PO SCH (10:43)
[2022-11-03] MEDS: amLODIPine BESYLATE 5 MG TABLET (FP) PO SCH (10:43)
[2022-11-03] MEDS: ASPIRIN COATED 81 MG TABLET.EC PO SCH (10:43)
[2022-11-03] MEDS: VENLAFAXINE HCL 75 MG E.R. CAPSULES PO SCH (10:44)
[2022-11-03] MEDS: HEPARIN NA (PORCINE) 5,000 UNITS/ML 1ML VIAL SQ SCH (10:44)
[2022-11-03] MEDS: DOCUSATE SODIUM 100 MG CAPSULE (FP) PO SCH (10:44)
[2022-11-03] MEDS: FAMOTIDINE 40 MG TABLET PO SCH (10:44)
[2022-11-03] MEDS: SENNOSIDES 8.6MG TABLET (FP) PO SCH (10:44)
[2022-11-03] MEDS: buPROPion HCL 75 MG TABLET PO SCH (10:45)
[2022-11-03] MEDS: NEBIVOLOL 5 MG TABLET (FP) PO SCH (10:46)
[2022-11-03 16:05] VITALS: BP 127/67; PULSE 76; RESP 18; TEMP 97.9
== END 2022-11-03 16:27 | disposition home or self-care (01) | DRG 689 ==
LOC: JER 11:30 → JERBED 21:01 → OBSVTOIN 21:01 → J2W 10-27 05:07 → J6W 10-28 19:32 → J8W 10-30 17:05
PROVIDERS: ADMIT Internal Medicine; ATTEND Internal Medicine
DX: N13.6 Pyonephrosis (principal); G93.41 Metabolic encephalopathy; N17.9 Acute kidney failure, unspecified; B95.2 Enterococcus as the cause of diseases classified elsewhere; B96.20 Unspecified Escherichia coli [E. coli] as the cause of diseases classified elsewhere; I12.9 Hypertensive chronic kidney disease with stage 1 through stage 4 chronic kidney disease, or unspecified chronic kidney disease; N18.9 Chronic kidney disease, unspecified; K21.9 Gastro-esophageal reflux disease without esophagitis; I25.10 Atherosclerotic heart disease of native coronary artery without angina pectoris; E11.22 Type 2 diabetes mellitus with diabetic chronic kidney disease; E78.5 Hyperlipidemia, unspecified; F32.A Depression, unspecified; G47.30 Sleep apnea, unspecified; E87.6 Hypokalemia; D35.00 Benign neoplasm of unspecified adrenal gland; K44.9 Diaphragmatic hernia without obstruction or gangrene; W18.30XA Fall on same level, unspecified, initial encounter; Y92.098 Other place in other non-institutional residence as the place of occurrence of the external cause; Z85.46 Personal history of malignant neoplasm of prostate; Z98.890 Other specified postprocedural states
CPT/HCPCS: 0241U-QW; 36415; 71045-TC-FY; 74176-TC; 76775-TC; 80048; 80053; 81003; 82550; 82962; 83735; 84100; 84484; 85025; 85027; 85610; 85730; 86850; 86900; 86901; 87040; 87086; 87186; 93005; 93010; 97116-GP; 97161-GP; 99285-25; J1644

== ENCOUNTER 2023-05-14 10:10 | Emergency (ER) | payer OTHER, BC ==
[2023-05-14 10:39] VITALS: TEMP 98.6; BMI 28.8
[2023-05-14] MEDS ORDERED: MAGNESIUM CITRATE 300 ML BOTTLE PO ONE (11:21)
[2023-05-14] MEDS ORDERED: MAGNESIUM CITRATE 300 ML BOTTLE ONE (11:22)
[2023-05-14 11:48] LABS: HEMATOCRIT 43.8 % (35.4-49); HEMOGLOBIN 14.7 G/dL (11.7-16.9); MCH 29.4 pg (25.7-33.7); MCHC 33.5 g/dl (32.0-35.9); MEAN CELL VOLUME 87.5 fl (80-96); MEAN PLT VOLUME 6.5 fl (7.5-11.1); PLATELET COUNT 198.3 10^3/uL (134-434); RDW 14.7 % (11.9-15.9); WHITE BLOOD COUNT 11.8 10^3/uL (4.0-10.8)
[2023-05-14 11:56] LABS: ALBUMIN 4.2 g/dl (3.4-5.0); BILIRUBIN,TOTAL 0.4 mg/dl (0.2-1); BLOOD UREA NITROGEN 39.2 mg/dl (7-18); CALCIUM 9.7 mg/dl (8.5-10.1); CREATININE 1.7 mg/dl (0.6-1.3); POTASSIUM 4.4 mmol/L (3.5-5.1); SGOT/AST 15.8 U/L (15-37); SGPT/ALT 14.8 U/L (7-52); TOT PROT 6.4 g/dl (6.4-8.2)
[2023-05-14] MEDS ORDERED: BISACODYL 10 MG SUPP.RECT PR ONE (12:26)
[2023-05-14] MEDS ORDERED: BISACODYL 10 MG SUPP.RECT ONE (12:28)
[2023-05-14 12:35] LABS: EPITHELIAL CELLS RARE /hpf
[2023-05-14 12:42] LABS: PLATELET ESTIMATE ADEQUATE
[2023-05-14 13:07] VITALS: BP 144/65; PULSE 71; RESP 16
== END 2023-05-14 13:05 | disposition home or self-care (01) ==
LOC: FER 10:10
DX: K59.01 Slow transit constipation (principal)
CPT/HCPCS: 36415; 71045-TC-FY; 80053; 81003; 81015; 82272; 84484; 85027; 87086; 87186; 93005; 99285-25